=== PATIENT | female | born 1985 | race Caucasian/White ===

== ENCOUNTER 2022-12-22 15:24 | Outpatient (OUT) | payer BC, SELFPAY ==
--- NOTE | 2022-12-22 15:31 | XR_ITS ---
[address] [address] Patient Name: LUZMARIA CONTRERAS MRN: [id number] date: 1985 Sex: F Assigned Patient Location: [facility] Current Patient Location: [facility] Accession/Order Number: [id number] Exam Date: 12/22/2022 15:32 Report Date: 12/22/2022 21:44 At the request of: JOCY MICHELLE Procedure: XR knee RT 4V EXAM: Right knee. HISTORY: . Pain in the right knee M25.561 . COMPARISON: None. TECHNIQUE: 3 views FINDINGS: No fracture or dislocation of the right knee is noted. Joint spaces well-maintained. Surrounding soft tissues are unremarkable. IMPRESSION: Negative right knee. Electronically authenticated by: DEMARCUS PHILLIPS Date: 12/22/2022 21:44
== END 2022-12-22 15:25 ==
PROVIDERS: PCP Internal Medicine; Visit Provider Family Medicine
DX: M25.561 Pain in right knee (principal)
CPT/HCPCS: 73564

== ENCOUNTER 2023-01-05 06:40 | Outpatient (OUT) | payer BC, SELFPAY ==
--- NOTE | 2023-01-05 06:43 | MR_ITS ---
[address] [address] Patient Name: LUZMARIA CONTRERAS MRN: [id number] date: 1985 Sex: F Assigned Patient Location: MRI Current Patient Location: MRI Accession/Order Number: [id number] Exam Date: 01/05/2023 06:50 Report Date: 01/05/2023 07:43 At the request of: VANESSA VILLAGRAN Procedure: MR knee RT wo con EXAM: MR knee RT wo con HISTORY: Internal derangement of right knee M23.91 acute right knee pain COMPARISON: Right knee x-rays 12/22/2022. TECHNIQUE: Multi planar, multisequence MR imaging of the right knee without contrast Findings: Menisci: There is increased signal within the posterior horn of the medial meniscus without definite articular extension. The lateral meniscus is intact. Cruciate ligaments: The anterior and posterior cruciate ligaments are intact. Collateral ligaments: The medial collateral ligament and lateral collateral complex are intact. Patellofemoral: The extensor mechanism is intact. Small joint effusion. Grade 2 patellofemoral compartment chondromalacia. No full-thickness cartilage defect. Other bones and cartilage: No acute fracture or malalignment. No focal bone marrow edema. Grade 2 femoral tibial compartment chondromalacia. No full-thickness cartilage defect. Miscellaneous: No Mcdonald's cyst. IMPRESSION: 1. There is increased signal within the posterior horn of the medial meniscus without definite articular extension. Findings likely relate to internal degeneration however a small horizontal tear is possible. 2. Small joint effusion. Electronically authenticated by: SAMMY LIANG Date: 01/05/2023 07:43
== END 2023-01-05 06:41 | disposition home or self-care (01) ==
LOC: MRI 06:41
PROVIDERS: PCP Internal Medicine; Visit Provider Personal Emergency Response Attendant
DX: M23.91 Unspecified internal derangement of right knee (principal)
CPT/HCPCS: 73721

== ENCOUNTER 2023-01-27 13:39 | Outpatient (OUT) | payer BC, SELFPAY ==
--- NOTE | 2023-01-27 13:44 | US_ITS ---
The [address] [address] Patient Name: LUZMARIA CONTRERAS MRN: [id number] date: 1985 Sex: F Assigned Patient Location: US Current Patient Location: US Accession/Order Number: [id number] Exam Date: 01/27/2023 13:45 Report Date: 01/27/2023 16:23 At the request of: PITA NOLASCO Procedure: US pelvis transvaginal EXAM: US pelvis transvaginal INDICATION: Hormone Imbalance E34.9, Irregular Periods N92.6 COMPARISON: No prior pelvic ultrasound available for comparison at the time of this dictation. TECHNIQUE: Transvaginal ultrasound with grayscale, color Doppler and spectral Doppler imaging. FINDINGS: Anteverted Uterus:9.5 x 5.6 x 4.3 cm. Grossly normal myometrial echotexture. Endometrium:6.0 mm Right ovary: 2.4 x 2.0 x 2.2 cm. Left ovary: 2.9 x 2.4 x 2.8cm. Normal color Doppler with arterial/venous spectral tracing to both ovaries. No free fluid in the cul-de-sac. US/US pelvis transvaginal IMPRESSION: Normal pelvic ultrasound. Electronically authenticated by: BLANCHE GUAAJRDO Date: 01/27/2023 16:23
[2023-01-27 14:28] LABS: Basophils Percent Auto 0.8 % (0.2-2.0); Eosinophils Absolute Auto 0.1 10^3/uL (0.0-0.7); Hematocrit 36.5 % (36.0-48.0); Immature Granulocytes Abs Auto 0.01 10^3/uL (0.00-0.03); Immature Granulocytes Pct Auto 0.2 % (0.0-0.5); Lymphocytes Absolute Auto 1.8 10^3/uL (1.2-3.8); Lymphocytes Percent Auto 36.1 % (20.5-60.0); Mean Corpuscular HGB Conc 32.9 g/dL (29.9-35.2); Mean Corpuscular Hemoglobin 29.1 pg (26.7-34.0); Mean Corpuscular Volume 88.6 fL (81.0-99.0); Mean Platelet Volume 9.9 fL (9.5-13.5); Monocytes Absolute Auto 0.5 10^3/uL (0.3-0.8); Monocytes Percent Auto 9.2 % (1.7-12.0); Neutrophils Absolute Auto 2.6 10^3/uL (1.4-6.5); Neutrophils Percent Auto 51.7 % (43.0-75.0); Platelet Count 214 10^3/uL (150-450); Red Blood Count 4.12 10^6/uL (4.20-5.40); Red Cell Distribution Width 12.3 % (11.0-15.0)
[2023-01-27 16:02] LABS: HCG Quantitative <1 mIU/mL; Thyroid Stimulating Hormone 1.633 uIU/mL (0.358-3.740)
[2023-01-27 16:32] LABS: Free T4 0.84 ng/dL (0.76-1.46)
[2023-01-27 16:41] LABS: Estimated Average Glucose 114 mg/dL; Glycohemoglobin A1C 5.6 % (4.5-6.2)
[2023-01-28 05:12] LABS: FSH 6.7 mIU/mL (.); Luteinizing Hormone(LH) 26.2 mIU/mL (.); Prolactin 7.1 ng/mL (4.8-23.3)
[2023-02-02 11:20] LABS: DHEA, Serum 170 ng/dL (31-701)
== END 2023-01-27 13:40 | disposition home or self-care (01) ==
LOC: US 13:39
PROVIDERS: PCP Internal Medicine; Visit Provider Obstetrics & Gynecology
DX: E34.9 Endocrine disorder, unspecified (principal); N92.6 Irregular menstruation, unspecified; E88.81 Metabolic syndrome and other insulin resistance
CPT/HCPCS: 36415; 76830; 82626; 82627; 83001; 83002; 83036; 84146; 84439; 84443; 84702; 85025

== ENCOUNTER 2023-05-26 19:00 | Outpatient (REF) | payer BC, SELFPAY ==
[2023-06-01 10:11] LABS: Age Gdln ACOG Testing Note (.); HPV Aptima Negative (Negative); IGP, Aptima HPV, rfx 16/18,45 Note (.)
== END 2023-05-26 19:01 | disposition home or self-care (01) ==
LOC: LAB 19:00
PROVIDERS: PCP Internal Medicine; Visit Provider Physician Assistant
DX: Z01.419 Encounter for gynecological examination (general) (routine) without abnormal findings (principal)
CPT/HCPCS: 87624; G0145

== ENCOUNTER 2023-06-14 07:48 | Outpatient (REF) | payer BC, SELFPAY | END 2023-06-14 07:49 | disposition home or self-care (01) | LOC: LAB 07:48 | PROVIDERS: PCP Internal Medicine; Visit Provider Obstetrics & Gynecology | DX: N92.0 Excessive and frequent menstruation with regular cycle (principal) | CPT/HCPCS: 88305 ==

== ENCOUNTER 2023-08-09 09:55 | Outpatient (OUT) | payer OTHER, SELFPAY ==
--- OUTSIDE RECORDS SUMMARY | 2023-08-09 09:58 | XMS_ITS | CCD ---
Author Name Unknown Address [address] [place] [address] Organization [facility] Care Team Providers Care Senior Sales Operations Analyst Name Role Phone GERMAN MCGRAW Unavailable Unavailable MARKER, YEMI Unavailable Unavailable MARKER, YEMI Unavailable Unavailable SEDRICK FRANCIS Unavailable Unavailable MARKER, YEMI Unavailable Unavailable NON, STAFF, Primary Care Provider UnavailJames Jordan Attending Provider German Mcgraw Unavailable NON STAFF Primary Care Provider UnavailDO Pradeep Mendoza Attending Provider [phone] Marla Lewis Unavailable Pradeep Osullivan Attending Unavailable Pradeep Osullivan Admitting Unavailable NON STAFF Primary Care Unavailable FEDERICA MAGALLON Attending Unavailable PITA NOLASCO Attending Unavailable PITA NOLASCO Attending Unavailable Unavailable Unavailable Unavailable Allergies Allergy Classification Reported Allergen(s) Allergy Type Date of Onset Reaction(s) Facility (2 sources) patient allergy list reviewed by nurse or physicia Propensity to adverse reactions Comment:Done Synapse Other Medications Current Medications Medication Drug Class(es) Dates Sig (Normalized) Sig (Original) busPIRone hydrochloride 10 mg oral tablet (8 sources) Start: 12-15-2022 take 1 tablet by mouth twice daily as needed for anxiety busPIRone HCl 10 MG 1 tablet Orally Twice a day, as needed for anxiety for 30 days Dec, Active eletriptan 40 mg oral tablet (11 sources) Serotonin-1b and Serotonin-1d Receptor Agonist Eletriptan Hydrobromide 40 MG TAKE 1 TAB NEEDED FOR HEADACHE, MAY REPEAT IN 2 HOURS IF NEEDED, MAXIMUM 2 TABLETS IN 24 HOURS Active metFORMIN hydrochloride 500 mg oral tablet (1 source) Biguanide take 1 tablet by mouth every twenty-four hours metFORMIN HCl 500 MG 1 tablet with a meal Orally Once a day Active predniSONE 20 mg oral tablet (1 source) Start: 04-02-2023 predniSONE 20 MG 1 tablet Orally tid w/ food x 3 days then bid w/ food x 3 days then qd w/ food x 3 days for 9 days Mar, Active valACYclovir 1000 mg oral tablet (9 sources) Herpesvirus Nucleoside Analog DNA Polymerase Inhibitor, Herpes Simplex Virus Nucleoside Analog DNA Polymerase Inhibitor, Herpes Zoster Virus Nucleoside Analog DNA Polymerase Inhibitor Start: 11-17-2022 take 2 tablets by mouth twice daily valACYclovir HCl 1 GM 2 tablets Orally Twice daily for 1 days November, Active 24 hr venlafaxine 37.5 mg extended release oral capsule (10 sources) Serotonin and Norepinephrine Reuptake Inhibitor Start: 12-15-2022 Venlafaxine HCl ER 37.5 MG 2 capsules daily x 7 days then 1 capsule daily x 7 days then stop Orally Once a day for 14 days Dec, Active take 1 capsule by mouth once ly ly Venlafaxine HCl ER 150 MG TAKE 1 CAPSULE BY MOUTH EVERY DAY for 90 Active Completed/Discontinued Medications Medication Drug Class(es) Dates Sig (Normalized) Sig (Original) azithromycin 250 mg oral tablet (15 sources) Macrolide Antimicrobial Start: 07-17-2022 Azithromycin 250 MG as directed Orally daily for 5 days Jan, Not-Taking TB Test (11 sources) Start: 03-27-2015 TB Test Mar, 0.1 mL Problems Active Problems Problem Classification Problem Date Documented Date Episodic/Chronic Acute bronchitis (3 sources) Acute bronchitis due to other specified organisms; Translations: [Acute bronchitis] Episodic Allergic reactions (3 sources) Idiopathic urticaria; Translations: [Idiopathic urticaria] Episodic Anxiety disorders (15 sources) Generalized anxiety disorder; Translations: [Generalized anxiety disorder] Chronic Headache; including migraine (15 sources) Migraine with aura; Translations: [Migraine with aura, not intractable, without status migrainosus] Chronic Malaise and fatigue (2 sources) Fatigue; Translations: [Other fatigue] Episodic Neoplasms of unspecified nature or uncertain behavior (2 sources) Neoplasm of uncertain behavior of skin; Translations: [Neoplasm of uncertain behavior of skin] Episodic Other connective tissue disease (2 sources) Disorder of synovium; Translations: [Unspecified disorder of synovium and tendon, unspecified site] Episodic Other female genital disorders (4 sources) Abnormal uterine and vaginal bleeding, unspecified; Translations: [ABNORMAL UTERINE VAGINAL BLEED UNS] Onset: 12-17-2017 Chronic Other non-traumatic joint disorders (1 source) Pain in right knee Episodic Other upper respiratory disease (2 sources) Allergic rhinitis due to pollen; Translations: [Allergic rhinitis due to pollen] Chronic Other upper respiratory infections (1 source) Acute maxillary sinusitis, unspecified Episodic Residual codes; unclassified (2 sources) Family history of malignant neoplasm of gastrointestinal tract; Translations: [Family history of malignant neoplasm of digestive organs] Episodic Unclassified (1 source) Other specified postprocedural states; Translations: [OTH SPECIFIED POSTPROCEDURAL STATES] Onset: 12-20-2017 Viral infection (3 sources) Herpesviral vesicular dermatitis; 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] Episodic Past or Other Problems Problem Classification Problem Date Documented Da te Episodic/Chronic Menstrual disorders (2 sources) Amenorrhea; Translations: [Absence of menstruation] Onset: 04-04-2015 Resolved: 02-09-2020 Chronic Other connective tissue disease (2 sources) Pain in limb; Translations: [Pain in unspecified limb] Onset: 10-18-2014 Resolved: 02-09-2020 Episodic Other lower respiratory disease (2 sources) Cough; Translations: [Cough, unspecified] Onset: 06-28-2013 Resolved: 02-09-2020 Episodic Other upper respiratory disease (2 sources) Allergic rhinitis; Translations: [Allergic rhinitis, unspecified] Onset: 11-08-2014 Resolved: 02-09-2020 Chronic Results Test Name Value Interpretation Reference Range Facility Alanine aminotransferase [En zymatic activity/volume] in Serum or PlasmaOrdered By: Pradeep Osullivan on 10-14-2022 ALT [Catalytic activity/Vol] 8 U/L 7-52 [facility] Albumin [Mass/volume] in Ser um or Plasma by Bromocresol green (BCG) dye binding methoOrdered By: Pradeep Osullivan on 10-14-2022 Albumin BCG dye [Mass/Vol] 4.3 g/dL 3.5-5.7 [facility] Alkaline phosphatase [Enzyma tic activity/volume] in Serum or PlasmaOrdered By: Pradeep Osullivan on 10-14-2022 ALP [Catalytic activity/Vol] 62 U/L 34-104 [facility] Aspartate aminotransferase [ Enzymatic activity/volume] in Serum or PlasmaOrdered By: Pradeep Osullivan on 10-14-2022 AST [Catalytic activity/Vol] 15 U/L 13-39 [facility] Basophils Auto (Bld) [#/Vol] Ordered By: Pradeep Osullivan on 10-14-2022 Basophils (Bld) [#/Vol] 0.0 10*3/uL 0.0-0.2 [facility] Basophils/100 WBC Auto (Bld) Ordered By: Pradeep Osullivan on 10-14-2022 Basophils/100 WBC (Bld) 0.9 % . [facility] Bilirubin.total [Mass/volume ] in Serum or PlasmaOrdered By: Pradeep Osullivan on 10-14-2022 Bilirubin [Mass/Vol] 0.5 mg/dL 0.3-1.0 [facility] Calcium [Mass/volume] in Ser um or PlasmaOrdered By: Pradeep Osullivan on 10-14-2022 Calcium [Mass/Vol] 9.3 mg/dL 8.6-10.3 [facility] Carbon dioxide, total [Moles /volume] in Serum or PlasmaOrdered By: Pradeep Osullivan on 10-14-2022 CO2 [Moles/Vol] 28.0 mmol/L 21.0-31.0 [facility] Chloride [Moles/volume] in S sheila or PlasmaOrdered By: Pradeep Osullivan on 10-14-2022 Chloride [Moles/Vol] 106 mmol/L 98-107 [facility] Cholesterol [Mass/volume] in Serum or PlasmaOrdered By: Pradeep Osullivan on 10-14-2022 Cholesterol [Mass/Vol] 132 mg/dL 140-200 [facility] Comment on above: Chol less than 200 m g/dl low riskChol 201-239 mg/dl borderline riskChol 240 mg/dl and greater high risk Cholesterol in LDL Calc [Mas s/Vol]Ordered By: Pradeep Osullivan on 10-14-2022 Cholesterol in LDL [Mass/Vol] 68 mg/dL 0-100 [facility] Comment on above: LDL ATP III CLASSIFI CATIONLDL less than 100 mg/dL OptimalLDL 100-129 mg/dL Near or above optimalLDL 130-159 mg/dL Borderline highLDL 160-189 mg/dL HighLDL greater than 189 mg/dL Very high Cholesterol in VLDL Calc [Ma ss/Vol]Ordered By: Pradeep Osullivan on 10-14-2022 Cholesterol in VLDL [Mass/Vol] 10 mg/dL [facility] Creatinine [Mass/volume] in Serum or PlasmaOrdered By: Pradeep Osullivan on 10-14-2022 Creatinine [Mass/Vol] 0.83 mg/dL 0.60-1.20 [facility] Employee Comp Metabolic Pane jessika 10-14-2022 Albumin [Mass/Vol] 4.3 g/dL Normal 3.5-5.7 [facility] Comment on above: Performed By: #### P ILLAR TSH, PILLAR LIPID, PILLAR CMP, PILLAR CBC #### [place] [address] [place] #### NICOTINE QUAL #### [facility] , Albumin/Globulin [Mass ratio] 1.7 {ratio} Normal [facility] Comment on above: Performed By: #### P ILLAR TSH, PILLAR LIPID, PILLAR CMP, PILLAR CBC #### [facility] [address] [place] [address] [place] #### NICOTINE QUAL #### [facility] , ALP [Catalytic activity/Vol] 62 U/L Normal 34-104 [facility] Comment on above: Performed By: #### P ILLAR TSH, PILLAR LIPID, PILLAR CMP, PILLAR CBC #### [facility] [address] [place] [address] [place] #### NICOTINE QUAL #### [facility] , ALT [Catalytic activity/Vol] 8 U/L Normal 7-52 [facility] Comment on above: Performed By: #### P ILLAR TSH, PILLAR LIPID, PILLAR CMP, PILLAR CBC #### [facility] [address] [place] [address] [place] #### NICOTINE QUAL #### [facility] , Anion gap [Moles/Vol] 9.4 mmol/L Normal 6.0-15.0 [facility] Comment on above: Performed By: #### P ILLAR TSH, PILLAR LIPID, PILLAR CMP, PILLAR CBC #### [facility] [address] [place] [address] [place] #### NICOTINE QUAL #### [facility] , AST [Catalytic activity/Vol] 15 U/L Normal 13-39 [facility] Comment on above: Performed By: #### P ILLAR TSH, PILLAR LIPID, PILLAR CMP, PILLAR CBC #### [facility] [address] [place] [address] #### NICOTINE QUAL #### [facility] , Bilirubin [Mass/Vol] 0.5 mg/dL Normal 0.3-1.0 [facility] Comment on above: Performed By: #### P ILLAR TSH, PILLAR LIPID, PILLAR CMP, PILLAR CBC #### [facility] [address] [place] [address] [place] #### NICOTINE QUAL #### [facility] , Calcium [Mass/Vol] 9.3 mg/dL Normal 8.6-10.3 [facility] Comment on above: Performed By: #### P ILLAR TSH, PILLAR LIPID, PILLAR CMP, PILLAR CBC #### [facility] [address] [place] [address] #### NICOTINE QUAL #### [facility] , Chloride [Moles/Vol] 106 mmol/L Normal 98-107 [facility] Comment on above: Performed By: #### P ILLAR TSH, PILLAR LIPID, PILLAR CMP, PILLAR CBC #### [facility] [address] [place] [address] [place] #### NICOTINE QUAL #### [facility] , CO2 [Moles/Vol] 28.0 mmol/L Normal 21.0-31.0 [facility] Comment on above: Performed By: #### P ILLAR TSH, PILLAR LIPID, PILLAR CMP, PILLAR CBC #### [facility] [address] [place] [address] [place] #### NICOTINE QUAL #### [facility] , Creatinine [Mass/Vol] 0.83 mg/dL Normal 0.60-1.20 [facility] Comment on above: Performed By: #### P ILLAR TSH, PILLAR LIPID, PILLAR CMP, PILLAR CBC #### [facility] [address] [place] [address] [place] #### NICOTINE QUAL #### [facility] , GFR/1.73 sq M.predicted MDRD (S/P/Bld) [Vol rate/Area] mL/min/{1.73_m2} Normal [facility] Comment on above: Performed By: #### P ILLAR TSH, PILLAR LIPID, PILLAR CMP, PILLAR CBC #### [facility] [address] [place] [address] [place] #### NICOTINE QUAL #### [facility] , Globulin (S) [Mass/Vol] 2.5 g/dL Normal [facility] Comment on above: Performed By: #### P ILLAR TSH, PILLAR LIPID, PILLAR CMP, PILLAR CBC #### [facility] [address] [place] [address] [place] #### NICOTINE QUAL #### [facility] , Glucose [Mass/Vol] 88 mg/dL Normal 70-100 [facility] Comment on above: Performed By: #### P ILLAR TSH, PILLAR LIPID, PILLAR CMP, PILLAR CBC #### [facility] [address] [place] [address] [place] #### NICOTINE QUAL #### [facility] , Potassium [Moles/Vol] 4.4 mmol/L Normal 3.5-5.1 [facility] Comment on above: Performed By: #### P ILLAR TSH, PILLAR LIPID, PILLAR CMP, PILLAR CBC #### [facility] [address] [place] [address] [place] #### NICOTINE QUAL #### [facility] , Protein [Mass/Vol] 6.8 g/dL Normal 6.4-8.9 [facility] Comment on above: Performed By: #### P ILLAR TSH, PILLAR LIPID, PILLAR CMP, PILLAR CBC #### [facility] [address] [place] [address] #### NICOTINE QUAL #### [facility] , Sodium [Moles/Vol] 139 mmol/L Normal 136-145 [facility] Comment on above: Performed By: #### P ILLAR TSH, PILLAR LIPID, PILLAR CMP, PILLAR CBC #### [address] #### NICOTINE QUAL #### [facility] , Urea nitrogen [Mass/Vol] 10 mg/dL Normal 7-25 [facility] Comment on above: Performed By: #### P ILLAR TSH, PILLAR LIPID, PILLAR CMP, PILLAR CBC #### [address] #### NICOTINE QUAL #### [facility] , Employee Complete Blood Coun ton 10-14-2022 Basophils (Bld) [#/Vol] 0.0 10*3/uL Normal 0.0-0.2 [facility] Comment on above: Result Comment: PERF ORMED BY: [place] [address] PATHOLOGIST SAVE ALL OPERATOR FLOYD CASTILLO M.D. Performed By: #### P ILLAR TSH, PILLAR LIPID, PILLAR CMP, PILLAR CBC #### [facility] [address] [place] [address] [place] #### NICOTINE QUAL #### [facility] , Basophils/100 WBC (Bld) 0.9 % Normal . [facility] Comment on above: Performed By: #### P ILLAR TSH, PILLAR LIPID, PILLAR CMP, PILLAR CBC #### [facility] [address] [place] [address] [place] #### NICOTINE QUAL #### [facility] , Eosinophils (Bld) [#/Vol] 0.0 10*3/uL Normal 0.0-0.45 [facility] Comment on above: Performed By: #### P ILLAR TSH, PILLAR LIPID, PILLAR CMP, PILLAR CBC #### [facility] [address] [place] [address] [place] #### NICOTINE QUAL #### [facility] , Eosinophils/100 WBC (Bld) 1.0 % Normal . [facility] Comment on above: Performed By: #### P ILLAR TSH, PILLAR LIPID, PILLAR CMP, PILLAR CBC #### [address] #### NICOTINE QUAL #### [facility] , Erythrocyte distribution width (RBC) [Ratio] 13.2 % Normal 11.9-15.3 [facility] Comment on above: Performed By: #### P ILLAR TSH, PILLAR LIPID, PILLAR CMP, PILLAR CBC #### [facility] [address] [place] [address] [place] #### NICOTINE QUAL #### [facility] , Hematocrit (Bld) [Volume fraction] 37.6 % Normal 34.0-46.4 [facility] Comment on above: Performed By: #### P ILLAR TSH, PILLAR LIPID, PILLAR CMP, PILLAR CBC #### [place] [address] [place] #### NICOTINE QUAL #### [facility] , Hemoglobin (Bld) [Mass/Vol] 12.4 g/dL Normal 11.8-15.4 [facility] Comment on above: Performed By: #### P ILLAR TSH, PILLAR LIPID, PILLAR CMP, PILLAR CBC #### [place] [address] [place] #### NICOTINE QUAL #### [facility] , Lymphocytes (Bld) [#/Vol] 1.4 10*3/uL Normal 1.00-4.8 [facility] Comment on above: Performed By: #### P ILLAR TSH, PILLAR LIPID, PILLAR CMP, PILLAR CBC #### [facility] [address] [place] [address] [place] #### NICOTINE QUAL #### [facility] , Lymphocytes/100 WBC (Bld) 32.7 % Normal . [facility] Comment on above: Performed By: #### P ILLAR TSH, PILLAR LIPID, PILLAR CMP, PILLAR CBC #### [facility] [address] [place] [address] [place] #### NICOTINE QUAL #### [facility] , MCH (RBC) [Entitic mass] 28.4 pg Normal 24.7-34.3 [facility] Comment on above: Performed By: #### P ILLAR TSH, PILLAR LIPID, PILLAR CMP, PILLAR CBC #### [facility] [address] [place] [address] #### NICOTINE QUAL #### [facility] , MCV (RBC) [Entitic vol] 86.3 fL Normal 80-100 [facility] Comment on above: Performed By: #### P ILLAR TSH, PILLAR LIPID, PILLAR CMP, PILLAR CBC #### [facility] [address] [place] [address] [place] #### NICOTINE QUAL #### [facility] , Mean Corpuscular HGB Conc 32.9 g/dL Normal 32.0-35.0 [facility] Comment on above: Performed By: #### P ILLAR TSH, PILLAR LIPID, PILLAR CMP, PILLAR CBC #### [facility] [address] [place] [address] [place] #### NICOTINE QUAL #### [facility] , Monocytes (Bld) [#/Vol] 0.3 10*3/uL Normal 0.0-0.8 [facility] Comment on above: Performed By: #### P ILLAR TSH, PILLAR LIPID, PILLAR CMP, PILLAR CBC #### [facility] [address] [place] [address] [place] #### NICOTINE QUAL #### [facility] , Monocytes/100 WBC (Bld) 7.8 % Normal . [facility] Comment on above: Performed By: #### P ILLAR TSH, PILLAR LIPID, PILLAR CMP, PILLAR CBC #### [facility] [address] [place] [address] [place] #### NICOTINE QUAL #### [facility] , Neutrophils (Bld) [#/Vol] 2.4 10*3/uL Normal 1.8-7.7 [facility] Comment on above: Performed By: #### P ILLAR TSH, PILLAR LIPID, PILLAR CMP, PILLAR CBC #### [facility] [address] [place] [address] [place] #### NICOTINE QUAL #### [facility] , Neutrophils/100 WBC (Bld) 57.6 % Normal . [facility] Comment on above: Performed By: #### P ILLAR TSH, PILLAR LIPID, PILLAR CMP, PILLAR CBC #### [facility] [address] [place] [address] [place] #### NICOTINE QUAL #### [facility] , NRBC% 0.1 /100{WBC} Normal 0-0.5 [facility] Comment on above: Performed By: #### P ILLAR TSH, PILLAR LIPID, PILLAR CMP, PILLAR CBC #### [facility] [address] [place] [address] [place] #### NICOTINE QUAL #### [facility] , Platelet mean volume (Bld) [Entitic vol] 8.8 fL Normal 6.3-10.7 [facility] Comment on above: Performed By: #### P ILLAR TSH, PILLAR LIPID, PILLAR CMP, PILLAR CBC #### [facility] [address] [place] [address] #### NICOTINE QUAL #### [facility] , Platelets (Bld) [#/Vol] 197 10*3/uL Normal 150-450 [facility] Comment on above: Performed By: #### P ILLAR TSH, PILLAR LIPID, PILLAR CMP, PILLAR CBC #### [facility] [address] [place] [address] [place] #### NICOTINE QUAL #### [facility] , RBC (Bld) [#/Vol] 4.36 10*6/uL Normal 3.60-5.00 [facility] Comment on above: Performed By: #### P ILLAR TSH, PILLAR LIPID, PILLAR CMP, PILLAR CBC #### [address] #### NICOTINE QUAL #### [facility] , WBC (Bld) [#/Vol] 4.2 10*3/uL Normal 3.8-11.6 [facility] Comment on above: Performed By: #### P ILLAR TSH, PILLAR LIPID, PILLAR CMP, PILLAR CBC #### [facility] [address] [place] [address] #### NICOTINE QUAL #### [facility] , Employee Lipid Profileon Cholesterol [Mass/Vol] 132 mg/dL Low 140-200 [facility] Comment on above: Result Comment: Chol less than 200 mg/dl low risk Chol 201-239 mg/dl borderline risk Chol 240 mg/dl and greater high risk Performed By: #### P ILLAR TSH, PILLAR LIPID, PILLAR CMP, PILLAR CBC #### [facility] [address] [place] [address] [place] #### NICOTINE QUAL #### [facility] , Cholesterol in HDL [Mass/Vol] 54 mg/dL Normal 35-85 [facility] Comment on above: Result Comment: HDL CHOL ATP-III CLASSIFICATION Cardiovascular Risk HDL > or equal to 60 mg/dL LOW HDL < 40 mg/dL HIGH Performed By: #### P ILLAR TSH, PILLAR LIPID, PILLAR CMP, PILLAR CBC #### [facility] [address] [place] [address] [place] #### NICOTINE QUAL #### [facility] , Cholesterol.total/Carey sterol in HDL [Mass ratio] 2.4 {ratio} Normal <5.0 [facility] Comment on above: Performed By: #### P ILLAR TSH, PILLAR LIPID, PILLAR CMP, PILLAR CBC #### [place] [address] [place] #### NICOTINE QUAL #### [facility] , LDL Cholesterol,Calculated 68 mg/dL Normal 0-100 [facility] Comment on above: Result Comment: LDL ATP III CLASSIFICATION LDL less than 100 mg/dL Optimal LDL 100-129 mg/dL Near or above optimal LDL 130-159 mg/dL Borderline high LDL 160-189 mg/dL High LDL greater than 189 mg/dL Very high Performed By: #### P ILLAR TSH, PILLAR LIPID, PILLAR CMP, PILLAR CBC #### [place] [address] [place] #### NICOTINE QUAL #### [facility] , Triglyceride w/Reflex 52 mg/dL Normal 0-149 [facility] Comment on above: Result Comment: TRIG ATP III CLASSIFICATION TRIG less than 150 mg/dL Normal TRIG 150-199 mg/dL Borderline high TRIG 200-500 mg/dL High TRIG greater than 500 mg/dL Very high Standard traceable to the Center for Disease Conrtrol and Prevention (CDC) test method. Performed By: #### P ILLAR TSH, PILLAR LIPID, PILLAR CMP, PILLAR CBC #### [place] [address] [place] #### NICOTINE QUAL #### [facility] , VLDL CHOLESTEROL 10 mg/dL Normal [facility] Comment on above: Performed By: #### P ILLAR TSH, PILLAR LIPID, PILLAR CMP, PILLAR CBC #### [address] [place] [address] [place] #### NICOTINE QUAL #### [facility] , Employee Thyroid Stim Hormon deborah 10-14-2022 Employee Thyroid Stim Hormone 1.78 u[iU]/mL Normal 0.45-5.33 [facility] Comment on above: Result Comment: PERF ORMED BY: [address] [place] [address] PATHOLOGIST SAVE ALL OPERATOR FLOYD CASTILLO M.D. Performed By: #### P ILLAR TSH, PILLAR LIPID, PILLAR CMP, PILLAR CBC #### [facility] [address] [place] [address] #### NICOTINE QUAL #### [facility] , Eosinophils Auto (Bld) [#/Vo l]Ordered By: Pradeep Osullivan on 10-14-2022 Eosinophils (Bld) [#/Vol] 0.0 10*3/uL 0.0-0.45 [facility] Eosinophils/100 WBC Auto (Bl d)Ordered By: Pradeep Osullivan on 10-14-2022 Eosinophils/100 WBC (Bld) 1.0 % . [facility] Erythrocyte distribution wid th Auto (RBC) [Ratio]Ordered By: Pradeep Osullivan on 10-14-2022 Erythrocyte distribution width (RBC) [Ratio] 13.2 % 11.9-15.3 [facility] Globulin Calc (S) [Mass/Vol] Ordered By: Pradeep Osullivan on 10-14-2022 Globulin (S) [Mass/Vol] 2.5 g/dL [facility] Glucose [Mass/volume] in Ser um or PlasmaOrdered By: Pradeep Osullivan on 10-14-2022 Glucose [Mass/Vol] 88 mg/dL 70-100 [facility] Hematocrit Auto (Bld) [Volum e fraction]Ordered By: Pradeep Osullivan on 10-14-2022 Hematocrit (Bld) [Volume fraction] 37.6 % 34.0-46.4 [facility] Hemoglobin [Mass/volume] in BloodOrdered By: Pradeep Osullivan on 10-14-2022 Hemoglobin (Bld) [Mass/Vol] 12.4 g/dL 11.8-15.4 [facility] Leukocytes [#/volume] correc coral for nucleated erythrocytes in Blood by Automated counOrdered By: Pradeep Osullivan on 10-14-2022 WBC corrected for nucl RBC Auto (Bld) [#/Vol] 4.2 10*3/uL 3.8-11.6 [facility] Lymphocytes Auto (Bld) [#/Vo l]Ordered By: Pradeep Osullivan on 10-14-2022 Lymphocytes (Bld) [#/Vol] 1.4 10*3/uL 1.00-4.8 [facility] Lymphocytes/100 WBC Auto (Bl d)Ordered By: Pradeep Osullivan on 10-14-2022 Lymphocytes/100 WBC (Bld) 32.7 % . [facility] MCH Auto (RBC) [Entitic mass ]Ordered By: Pradeep Osullivan on 10-14-2022 MCH (RBC) [Entitic mass] 28.4 pg 24.7-34.3 [facility] MCHC Auto (RBC) [Mass/Vol]Or dered By: Pradeep Osullivan on 10-14-2022 MCHC (RBC) [Mass/Vol] 32.9 g/dL 32.0-35.0 [facility] MCV Auto (RBC) [Entitic vol] Ordered By: Pradeep Osullivan on 10-14-2022 MCV (RBC) [Entitic vol] 86.3 fL 80-100 [facility] Monocytes Auto (Bld) [#/Vol] Ordered By: Pradeep Osullivan on 10-14-2022 Monocytes (Bld) [#/Vol] 0.3 10*3/uL 0.0-0.8 [facility] Monocytes/100 WBC Auto (Bld) Ordered By: Pradeep Osullivan on 10-14-2022 Monocytes/100 WBC (Bld) 7.8 % . [facility] Neutrophils Auto (Bld) [#/Vo l]Ordered By: Pradeep Osullivan on 10-14-2022 Neutrophils (Bld) [#/Vol] 2.4 10*3/uL 1.8-7.7 [facility] Neutrophils/100 WBC Auto (Bl d)Ordered By: Pradeep Osullivan on 10-14-2022 Neutrophils/100 WBC (Bld) 57.6 % . [facility] Nicotine Metabolite, Qualon 10-14-2022 Nicotine Metabolite Negative Normal Cutoff=25 [facility] Comment on above: Result Comment: Perf ormed at: BN - [facility] [address] [id number] [employer] Fabricator Welder: Sammy Carpenetr MD, Phone: [phone] PERFORMED BY: [place] [address] PATHOLOGIST SAVE ALL OPERATOR FLOYD CASTILLO M.D. Performed By: #### P ILLAR TSH, PILLAR LIPID, PILLAR CMP, PILLAR CBC #### [address] #### NICOTINE QUAL #### [facility] , No Panel InformationOrdered By: Pradeep Osullivan on 10-14-2022 Estimated GFR (CKD-EPI) > 60.0 mL/Min [facility] Creatinine Clearance (Chem N/A [facility] Nucleated erythrocytes [Pres ence] in Blood by Automated countOrdered By: Pradeep Osullivan on 10-14-2022 Nucleated RBC Auto Ql (Bld) 0.1 /100{WBC} 0-0.5 [facility] Platelet mean volume Auto (B ld) [Entitic vol]Ordered By: Pradeep Osullivan on 10-14-2022 Platelet mean volume (Bld) [Entitic vol] 8.8 fL 6.3-10.7 [facility] Platelets Auto (Bld) [#/Vol] Ordered By: Pradeep Osullivan on 10-14-2022 Platelets (Bld) [#/Vol] 197 10*3/uL 150-450 [facility] Potassium [Moles/volume] in Serum or PlasmaOrdered By: Pradeep Osullivan on 10-14-2022 Potassium [Moles/Vol] 4.4 mmol/L 3.5-5.1 [facility] Protein [Mass/volume] in Ser um or PlasmaOrdered By: Pradeep Osullivan on 10-14-2022 Protein [Mass/Vol] 6.8 g/dL 6.4-8.9 [facility] RBC Auto (Bld) [#/Vol]Ordere d By: Pradeep Osullivan on 10-14-2022 RBC (Bld) [#/Vol] 4.36 10*6/uL 3.60-5.00 [facility] Serum or plasma albumin/glob ulin mass ratioOrdered By: Pradeep Osullivan on 10-14-2022 Albumin/Globulin [Mass ratio] 1.7 {ratio} [facility] Serum or plasma anion gap de terminationOrdered By: Pradeep Osullivan on 10-14-2022 Anion gap [Moles/Vol] 9.4 mmol/L 6.0-15.0 [facility] Serum or plasma high density lipoprotein (HDL) cholesterol measurementOrdered By: Pradeep Osullivan on 10-14-2022 Cholesterol in HDL [Mass/Vol] 54 mg/dL 35-85 [facility] Comment on above: HDL CHOL ATP-III CLA SSIFICATION Cardiovascular RiskHDL > or equal to 60 mg/dL LOWHDL < 40 mg/dL HIGH Serum or plasma total choles terol/high density lipoprotein (HDL) cholesterol mass ratOrdered By: Pradeep Osullivan on 10-14-2022 Cholesterol.total/Carey sterol in HDL [Mass ratio] 2.4 {ratio} <5.0 [facility] Sodium [Moles/volume] in Ser um or PlasmaOrdered By: Pradeep Osullivan on 10-14-2022 Sodium [Moles/Vol] 139 mmol/L 136-145 [facility] Thyrotropin [Units/volume] i n Serum or PlasmaOrdered By: Pradeep Osullivan on 10-14-2022 TSH Qn 1.78 m[IU]/L 0.45-5.33 [facility] Triglyceride [Mass/volume] i n Serum or PlasmaOrdered By: Pradeep Osullivan on 10-14-2022 Triglyceride [Mass/Vol] 52 mg/dL 0-149 [facility] Comment on above: TRIG ATP III CLASSIF ICATIONTRIG less than 150 mg/dL NormalTRIG 150-199 mg/dL Borderline highTRIG 200-500 mg/dL High TRIG greater than 500 mg/dL Very highStandard traceable to the Center for Disease Conrtrol and Prevention (CDC) test method. Urea nitrogen [Mass/volume] in Serum or PlasmaOrdered By: Pradeep Osullivan on 10-14-2022 Urea nitrogen [Mass/Vol] 10 mg/dL 7- [facility] WBC Auto (Bld) [#/Vol]Ordere d By: Pradeep Osullivan on 10-14-2022 WBC (Bld) [#/Vol] 4.2 10*3/uL 3.8-11.6 [facility] PAP [id number] 02-17-2022 Cytology report Cyto stain Doc (Cvx/Vag) Note Invalid Interpretation Code [facility] Comment on above: Result Comment: TEST S RESULT FLAG UNITS REF RANGE LAB Clinician Provided Cytology Information Source.............Endocervix No. of containers..01 ThinPrep Vial DIAGNOSIS: 01 NEGATIVE FOR INTRAEPITHELIAL LESION OR MALIGNANCY. Specimen adequacy: 01 Satisfactory for evaluation. Endocervical and/or squamous metaplastic cells (endocervical component) are present. Performed by: Kvng Florian, Beef Specialist (ASCP) . 01 Note: Note 01 The Pap smear is a screening test designed to aid in the detection of premalignant and malignant conditions of the uterine cervix. It is not a diagnostic procedure and should not be used as the sole means of detecting cervical cancer. Both false-positive and false-negative reports do occur. Test Methodology: Note 01 This liquid based ThinPrep(R) pap test was screened with the use of an image guided system. FLAG LEGEND: L-Low Normal,H-High Normal,LL-Alert Low,HH-Alert High <-Panic Low,>-Panic High,A-Abnormal,AA-Critical Abnormal Performed at: [address] [id number] Yun Atwood MD, Performed By: #### 3 [id number] #### [facility] [address] [place] [address] HPV 16+18+31+33+35+39+45+51 +52+56+58+59+66+68 DNA Probe+sig amp Ql (Cvx) Negative Invalid Interpretation Code Negative [facility] Comment on above: Result Comment: This nucleic acid amplification test detects fourteen high-risk HPV types (16,18,31,33,35,39,45,51,52,56,58,59,66,68) without differentiation. Performed at: [facility] [id number] MD Angelic Malcolm Performed at: =[facility] [id number] MD Angelic Malcolm Performed By: #### 3 [id number] #### [facility] [address] [place] [address] Coding Summary.on 02-16-2022 Coding Summary. CD:[id number] G h0bWw+PGhlYWQ+JZ8KGCD kS55pwYZesY8XW0pEHF1B OQCJLPWONE4GTF6umIR0L XsbO3OlckTa GemorGTyMM18WHt6LVP3k YhoHEdufF8agQJaM5g5Vg YnGB54sG60HUmtYXJeQeM 3LjZpbjsgbWFy K4tvUwWxzZRjGzc+PHRhY mxlIHdpZHRoPScxMDAlJy CmsOlrNM5uYp6sGJKbYOE vbGxhcHNlOiBj v5jtMAFxYZtgWE0qqZakD 9OvlHX7BHBbg3a6Wz24lG I+FWNqLQQ7eUswJOpxc68 6NePss1xlJYF7 fVViQGhbMTZ9M18sk6X5R PMvHOUmGHM2zDZ8qZ3ycP tjzyjgE1FyqOFsMoQ2GAG 2bLBfrA9msDwp hfhmpD5vIsy+H32EEI6AR VYOUO1LByu2R0ScYlyeqD I+XI40ZPKuUG43ySJxyHI pk9lnoNe7IgYq JYCaCIC4qQqdXMxhv1TmD XTbN58ndCWuj9O5XBRzqG hjtZTxFeIpvHF2uN6oMWz motcle9htyyco Zqbte5yauk17bY29C48eC RsaDOJqQJZ1OUQwKSPkmL dzna3qiB7nZj8+KEtwp9n we5brpRp2EqOd JAKndxBkzEznCGM3m8HjS g46L5TgtCgyd5YsHxa6su 95tFOoy0F0wQY1OIhvBUV dpS2bMPluWtI7 WSEnXeZjfE23uHWtNXgiW j1tzUuxvNjsCS0gZTXoua qlHYNbkM8yXHKdtTZbbYl cKG3hSLGnfrjh q258QfCpFEX1CKLarQGjY 0LhqG2jSlUwXMMiWFImM8 KquEMeJNjwQ581TDflMbY 3KRZjbxEeD2Tg PAFcmBauCqC3l1P2Ky7Tk 1VwejklVKR3QSsoCXE1Dv D1PlNaWuA4L2ImKky4NZY uoEnuUX7yM8Us HQCguopgjdviyZR5KWWpP JNdzU25bUOlGEphIf2vb4 G4q940DRMbKDEygB41Ha1 udDogMTBwdCBU cI9ovwzpx5zcbsqqLhKhW QItFYc6HOz3YIJclNafSv WlNQP1VgB1ZEU6vWYecA9 wnLwaigxqiY9a Oyc+S09sfD7eLPC9JCD5q ixbBFMyckTfQX70JG73Q1 RyPjwvdGFibGU+PGRpdiB ppYpkUU6jBdVy l0rlx2KfHBtiQ1YtJMPjC CqaQtu4TCMeGOF0wDW4pT 6mVFVmSCgvu8Y1zBP3B4S ncuXzbf9xo2ga JCOiHIvuG64btEUmf8W0M EPvwVD7BDPrrAwwGjJdoU 93Oyc+YNUrbZcuv6LmIrq gj9zdp1jdrZc4 CkKfWWSpdnButNbxMFX3j 9NyCu16O36gULmqHCXkUT DlRDQsMBIvmYfjaq3ovN7 wIi8+PGNvbCB3 mJK7sZ6bCWUjUsY4WItyB 021BaFmvGCmPqfqx2ncj4 ttoTp2UlBpZTUjqkYbeYf bKTD5t2RbNw20 Y89cTYrgVFLeGMMhRSDcX UZvoPrjyq0trC9kNi7+PC 3gg5eqyd06yL30rQW+PHR oETR4lAppNOzz GFXbfG8jVVzpBbD3FCLhA cKkrP64qUJrKGzfCi0bgL tmfTgtYB0rVYJvjdczo26 4OaXfk4vbEYJr vLUqVLpwYJO8X15jf2C2A IYpDSMpWJI1eXS5mA0vjJ lnbjogbGVmdDsgdmVydGl pBVndLXsiS243 IHRvcDsnPlBhdGllbnQgT rRzLNf5S1CpEah6LDDgxM pjTV7cgHEeNFwqUu8vvFj sgLkhWA3wIZBr kbnja133KdIxe5yqZKBjj CCeJIpiRIU3A56xl8P8PD CmSRAcIBC7tWF0eS4mkIa nbjogbGVmdDsg teIpjZmcYWdsPRzxV608G HRvcDsnPkJpcnRoIERhdG W1WQ52QV34jUEsq2O3jYJ 4F4QeSWKzoalu zeoaiBB6AISsXRLdwQ75I d4weHsbHh8cVUGoXVA7NR CqiMTuP8OlnP4wHyJsOWL kWEExW0CbiLNr GCpjM290FDmuLjT7GLGiy zQxC9CqJYEtoIscJfP7i8 Y9Ie2PO3A4QG79PT52vJG he1A2zRD9J0Wa QIWwcwtvbwxnzHO4JBOeX ACcjF04Ee9lxEdhQu9iRR ZzCLQ5MVFsnKSaR5QfdS7 yOiAjMDAwMDAw R5XxpDCrPKiiU582GOfeT pY4XQHutcAfP6VqUAMkzN ydKxD6z0K6Sc3QQFj4NM5 1OT37cFAnc5N2 sGX3G2WwDHXcyktqsvvyf OP8WWLwBJRzeW01Zl2upQ nuEv2oOQCoLPK3NXGbcOH kE3ZfaO9mZsEg BNPwYPQtY3OolKVbPTaaT 165QEjxNjP1PFPhelHoG5 KsKSPtmGmjTmX6c2L9Ps9 WZTOeJJ79VAA9 xBJ6WY91GL94O2GyAuabd GFibGU+PHRhYmxlIHdpZH RoPScxMDAlJyBzdHlsZT0 iYb3jVWWgZDJh mHnbeFAkGqKsc3mzFAZyF EmfJE8ktNszE6TasAK2XN Iux6s1Ej47F53dA6WpwIZ +MQFtcNU8gJV7 rO9zCwKjAxM0LQjbV608R ePzzFArSiiuh9sld5eokG s1JmV4YCYwvyEouMiwEBK 0x0XyFq57E85d IHdpZHRoPSIxNSUiIHZhb Ufcma3jcA2fJr9+PGNvbC U1fRC9lA7mPxDdMkM8YFv nE457PtEolLKk Fagzc5vzl0fmqSi7XlJlW BIzleHqjFidJER6s7WvHx 58R9NvyOqkf5BwMxc2dp2 8tDYxe4L4gJE0 S1GuKGNlkmgynTHezAnkV A4mFEBlfwcaWWXdkU4jFK VhF7r5XvAgDrH7DBzwU8I vivW7POQimTIf NPhpFBZ7X62xj9I0SVFxP GDqRGQ7oUA7wA6hdLiqfg ogbGVmdDsgdmVydGljYWw wYPwuH552IQYi jQxeRUIeuF1rUAAxnFSll UyyOS9uCHDldgcaOskJXO uJBC7oABHOFYSTPKS1N4Z hVul1MFVivQwr DE6ruTMiCLpnUz1biMiav DffMS8oIBAatosuQKOfwF 3kAAKmkGPtyPjlKH4mIVG vfrijs916HhLf XJG6CHQoxSYmL9UbsC9xK mLuHGAiEHAqY9VceQYgWO ipB754ZFxdZdX5RAAzdiZ sT1JaEOXykYiy XpN9h1P0Xb1cEM9dAI1gU Lh0WY32WZ31nHEuu0L2sS W1C7IgAXHtmqbyneqocDO 3VARlRBFzaK50 zLDcZWyeKi7ts4G9z552R MZrPAEdoW78Er9npGxoAJ DarVPYoZ9suxvxk5pyqzo gIzAwMDAwMDt0 GJi2YFAvjBlfJwGkEZU9B vC1JHR4lKYzhU7nlHhdqg dbuV2hZyn+MzQgWWVhcnM 1O9FyAmu7LXFe jPprLR2wuCMaWJlbMq5eq TvikQkbFB3iPGLzuxniLK HfjM4nWVSjnPRezQpeQB8 gAOOoahzji364 UaIxTNC6KQJiqZAaN0Obp S6qBiTyLVFbREWxZ7BpcM XfNXjhB187HBlqBnO2YOR xkwQxM1JuWLBp hOmpFaR6r6Y7Wk3GNA3fw UV6J3IxCtu8VZZkvXkxCH 4wyDLmNLmzTf3zmDxzxCe zTU0lSNVtgpaz FAWptP0tNQAolRDodVzmU O4rSCAqfmwiw553DkHuMU A5XROjwDLeO1TnkV0vRhD cQWIgDVUhA4Nc yPDhGGwdC911CJtwKjT1J AGttbJgH9YiUPIawAizXc Q6q0Z3Qa0LOMVoQYSyrRO bElG4H5IcNucq dHI+JL91CIGwLR92wFQss DMho5znhMn4XcZhCMPpVX H4eTamCKolc0JcREPzW06 npFTpq5G3OQOv vChyrCVpWkQaeRG0jG7zQ Iogisbcv6faepdyIkctc2 keej83rK02Y66rXYsiJUQ oPSIzMCUiIHZh mHuwlg3dmC0gAy2+PGNvb VO3kML6vG9bSzTqZqH7LN qfG492NwGkmQAiCuagh7w du7oijXy5HcJq CMFxztHliHmxBSA5l4LyD o63V03gCGhhPQZaUFYtPF NqLHUzhPepmd9etC5cCf9 +WG3zj8njiw11 xI01nPE+JUKcWCH3uCxiZ SyfYIPxiU5rCVybUvU9BV AbElBiaU53gANnBZljHb7 pdSppuWchFN8x HNLguyypc894UuDwp6fsE YHsiOGbQHfzHVE3Q97ce8 W0SBZcUHHuGHA4nKM5tD4 hbGlnbjogbGVm dDsgdmVydGljYWwtYWxpZ 027LCFytHoqQeBmxBGxX0 iokaAOAJ4qTbrqfBP+PHR nPGZ0jYebSIse ENFkkC9gEEWsZ5h1LuQuQ sF1TCknK9ZlxuO7WSXfkM BmSWTmsNQKpA3ziagol4n vcjogIzAwMDAw CQl4MXg2SBUayOiiDdMeL WZ2GsS3VFP4aIPdpI8sfP qqjuhbbT0kDwb+RklOOjw vdGQ+PHRkIHN0 iFvcBGfgGPYnjS5vNHBfF 6z1IeLpIkU6JLnmD4Rjor X3DDUmaMZfASOeuMTRfV9 iyipaz9taugdv LjYuYUDmFOy2KAc2KJWth PfeFjPjMKM3LbU3ASE9tE SwoN8xqOesgmpfcN5vVsz +TVJOOjwvdGQ+ ZLKjRXU5oXldBKwfZEWyz J6hMOMyJ5l5AzUtGmQ1AF ayS3YijoK3OQGdkGBoTZR rhLGMtU2sytez a3pgnirxFiAmMZCwOTb9I Vk2DHFbbXalKiQkSXU4Qj U6IME0eXLwkE2ksDagbow dmE2nTry+UGF5 YDK8EE90VB01P3DwBptsh GFibGU+PHRhYmxlIHdpZH RoPScxMDAlJyBzdHlsZT0 iFn0hBDYyFNLe bGxh (more content not included)... Normal [facility] PAP [id number] 02-11-2022 Collection Technique BRUSH-SPATULA Normal F [facility] Comment on above: Performed By: #### 3 [id number] #### [facility] [address] [place] [address] Gynecological Body Site ENDOCERVIX Normal F [facility] Comment on above: Performed By: #### 3 [id number] #### [facility] [address] [place] [address] Previous Cytology Negative Normal [facility] Comment on above: Performed By: #### 3 [id number] #### [facility] [address] [place] [address] Previous Treatment NONE Normal [facility] Comment on above: Performed By: #### 3 [id number] #### [facility] [address] [place] [address] Physician Orderon 02-11-2022 Physician Order [id number]# 1.00CD:127 Normal [facility] CBC AUTO DIFFon 12-17-2017 Basophils Auto #/vol (Bld) 0.1 103/ul Normal 0.0-0.1 [facility] Comment on above: Performed By: #### C BC ####[facility] [address] [place] [address]Kpeewc Yuki Basophils/100 WBC Auto (Bld) 0.7 % Normal 0.2-2.0 [facility] Comment on above: Performed By: #### C BC ####[facility] [address] [place] [address]Mfgitr Yuki Eosinophils 0.2 103/ul Normal 0.0-0.[address] [facility] Comment on above: Performed By: #### C BC ####[facility] [address] [place] [address]Xpnygh Yuki Eosinophils/100 leukocytes 2.7 % Normal 0.9-7.[address] [facility] Comment on above: Performed By: #### C BC ####[facility] [address] [place] [address]Xvxued Yuki Erythrocyte distribution width Auto Ratio (RBC) 12.9 % Normal 11.0-15.0 [facility] Comment on above: Performed By: #### C BC ####[facility] R[address]x11[address] [place] [id number] Yuki Erythrocytes (RBC) 3.59 106/ul Critically low 4.20-5.40 [facility] Comment on above: Performed By: #### C BC ####[facility] Rcmgrqnyqm2501 [place] [id number] Yuki Hematocrit (HCT) 31.1 % Critically low 36.0-48.0 [facility] Comment on above: Performed By: #### C BC ####[facility] [address] [place], [place] [address]Gerken Yuki Hemoglobin mass conc (Bld) 10.5 g/dL Critically low 12.0-16.0 [facility] Comment on above: Performed By: #### C BC ####[facility] [address] [place], [place] [address]Gerken Yuki IG # 0.02 10e3/ul Normal 0.00-0.03 [facility] Comment on above: Performed By: #### C BC ####[facility] [address] [place] [address] Yuki IG % 0.3 % Normal 0.0-0.5 [facility] Comment on above: Performed By: #### C BC ####[facility] [address] [place], [place] [address]Gerken Yuki Lymphocytes 2.3 103/ul Normal 1.2-3.8 [facility] Comment on above: Performed By: #### C BC ####[facility] [address] [place], [place] [address]Gerken Yuki Lymphocytes/100 leukocytes 33.2 % Normal 20.5-60.0 [facility] Comment on above: Performed By: #### C BC ####[facility] [address] [place] [address] Yuki MANUAL DIFF REQ NO Normal [facility] Comment on above: Performed By: #### C BC ####[facility] [address] [place] [address] Yuki MCH 29.2 pg Normal 26.7-34.[address] [facility] Comment on above: Performed By: #### C BC ####[facility] On[address]27[address] [place] [id number] Mirza MCHC mass conc (RBC) 33.8 g/dL Normal 29.9-35.[address] [facility] Comment on above: Performed By: #### C BC ####[facility] [address] [place] [id number] Stewarten MCV 86.6 fL Normal 81.0-99.0 [facility] Comment on above: Performed By: #### C BC ####[facility] [address] [place], [place] [address]Gerken Yuki Monocytes 0.6 103/ul Normal 0.3-0.[address] [facility] Comment on above: Performed By: #### C BC ####[facility] [address] [place] [address] Yuki Monocytes/100 leukocytes 9.1 % Normal 1.7-12.0 [facility] Comment on above: Performed By: #### C BC ####[facility] [address] [place], [place] [address]Gerken Yuki Neutrophils 3.8 103/ul Normal 1.4-6.[address] [facility] Comment on above: Performed By: #### C BC ####[facility] [address] [place], [place] [address]Gerobey Stewarten Neutrophils/100 WBC Auto (Bld) 54.0 % Normal 43.0-75.[address] [facility] Comment on above: Performed By: #### C BC ####[facility] [address] [place], [place] [address]Gerobey Mirza Platelet mean volume (PMV) 10.1 fL Normal 9.5-13.[address] [facility] Comment on above: Performed By: #### C BC ####[facility] [address] [place], [place] [address]Gerken Yuki Platelets 207 103/ul Normal 150-[address] [facility] Comment on above: Performed By: #### C BC ####[facility] [address] [place], [place] [address]Szhhcg Yuki WBC (Leukocytes) 7.0 103/ul Normal 4.0-11.0 [facility] Comment on above: Performed By: #### C BC ####[facility] [address] [place], [place] [address]Yccvcb Yuki PREG HCG QUALon 12-17-2017 , QUAL Positive Normal NEGATIVE [facility] Comment on above: Performed By: #### P REG ####[facility] [address] [place], [place] [address]Gerken Yuki PROF CHEM 8 (BAS METB)on Anion gap 9.6 mmol/L Normal [facility] Comment on above: Performed By: #### B MP ####[facility] [address] [place], [place] [address]Gerken Yuki BUN/Creatinine Ratio 14.5 mg/mg Normal [facility] Comment on above: Performed By: #### B MP ####[facility] [address] [place], [place] [address]Gerken Yuki Calcium 10.0 mg/dL Normal 8.4-10.[address] [facility] Comment on above: Performed By: #### B MP ####[facility] [address] [place], [place] [address]Gerken Yuki Chloride 106 mmol/L Normal 98-[address] [facility] Comment on above: Performed By: #### B MP ####[facility] [address] [place], [place] [address]Gerken Yuki CO2 27.0 mmol/L Normal 22.0-30.[address] [facility] Comment on above: Performed By: #### B MP ####[facility] [address] [place], [place] [address]Gerken Yuki Creatinine 0.72 mg/dL Normal 0.52-1.[address] [facility] Comment on above: Performed By: #### B MP ####[facility] [address] [place], [place] [address]Gerken Yuki eGFR (non-black) mL/min/{1.73_m2} Normal >=60 Th [facility] Comment on above: Performed By: #### B MP ####[facility] [address] [place], [place] [address]Vvrkiq Yuki Glucose mass conc 92 mg/dL Normal 74-106 [facility] Comment on above: Performed By: #### B MP ####[facility] Sw[address]jitbl[address] [place] [id number] Yuki Potassium molar conc 3.7 mmol/L Normal 3.4-5.0 [facility] Comment on above: Performed By: #### B MP ####[facility] [address]zusucp6101 [place] [id number] Yuki Sodium 139 mmol/L Normal 137-145 [facility] Comment on above: Performed By: #### B MP ####[facility] W[address]cv[address]xqp4338 [place] [id number] Yuki Urea nitrogen 10.0 mg/dL Normal 7.0-17.0 [facility] Comment on above: Performed By: #### B MP ####[facility] [address]gedosfb4804 [place], [place] [address]Luxhel Yuki TYPE AND SCREENon 12-17-2017 TYPE AND SCREEN Negative Normal [facility] Comment on above: Performed By: #### T NS ####[facility] V[address]ire[address]mp[address]64 [place], [place] [address]Tcwmkw Yuki US PELVISon 12-17-2017 US PELVIS [address] [place] [address] Patient: LUZMARIA CONTRERAS Exam Date: 12/16/2017DOB: 1985 Gender:F : DR YEMI MCGARRY Admission #: [id number] : DR GERMAN MCGRAW Order #: [id number] HERE TO VIEW EXAM RADIOLOGY REPORT PROCEDURE: ULTRASOUND PELVIS COMPARISON: None. INDICATIONS: Vaginal bleeding since dilation and curettage 4 days ago TECHNIQUE: Transabdominal sonographic examination.FINDINGS: UTERUS: Normal size and appearance. Uterus: 9.7 x 7.0 x 5.9 cm (211 cc)ENDOMETRIUM: Complex heterogeneous material filling and distending the endometrial cavity suspected to represent a mixture of acute and chronic blood products, 7.0 x 5.1 x 3.7 cm. Endometrial thickness: 4.9 mm RIGHT OVARY: Normal size and appearance. Blood flow present within ovary on color Doppler. Right ovary: 4.2 x 2.2 x 1.9 cm (9.4 cc) LEFT OVARY: Normal size and appearance. Blood flow is present within ovary on Color Doppler. Left ovary: 3.2 x 2.3 x 1.5 cm (5.9 cc) CUL-DE-SAC: Unremarkable. No significant free fluid.OTHER: None. CONCLUSION: 1. Abnormally distended endometrial cavity filled with acute and chronic blood products versus heterogeneous mass. Clotted blood products are favored. Dictated by: Sedrick Francis M.D. on 12/16/2017 at 23:01 Approved by: Sedrick Francis M.D. on 12/16/2017 at 23:05 Normal [facility] Vital Signs Date Time Vital Sign Value Performing Clinician Facility 04-02-2023 09:45-0400 Body height 167.64 cm [facility] 04-02-2023 09:45-0400 Body mass index (BMI) [Ratio] 25.69 kg/m2 [facility] 04-02-2023 09:45-0400 Body weight 72.21 kg [facility] 04-02-2023 09:45-0400 Diastolic blood pressure 70 mm[Hg] [facility] 04-02-2023 09:45-0400 Respiratory rate 12 /min [facility] 04-02-2023 09:45-0400 Systolic blood pressure 106 mm[Hg] [facility] 12-22-2022 14:45-0400 Body height 167.64 cm Marla Lewis Other [facility] Other 12-22-2022 14:45-0400 Body mass index (BMI) [Ratio] 25.01 kg/m2 Marla Lewis Other [facility] Other 12-22-2022 14:45-0400 Body weight 70.31 kg Marla Lewis Other [facility] Other 12-22-2022 14:45-0400 Diastolic blood pressure 76 mm[Hg] Marla Lewis Other [facility] Other 12-22-2022 14:45-0400 Systolic blood pressure 104 mm[Hg] Marla Lewis Other [facility] Other Encounters Encounter Date Encounter Type Care Provider Facility Start: 07-22-2023 End: 07-22-2023 ambulatory PITA CONSTANCE Not Available Start: 06-14-2023 End: 06-14-2023 ambulatory [facility] CON[facility]ANCE Not Available Start: 05-26-2023 End: 05-26-2023 ambulatory FEDERICA MAGALLON Not Available Start: 04-02-2023 End: 04-02-2023 ambulatory German Mcgraw Other [facility] Other Start: 04-02-2023 Encounter for genera l adult medical examination without abnormal findings German Mcgraw [facility] Start: 04-02-2023 Periodic preventive med est patient 18-39 yrs German Mcgraw [facility] Start: 02-19-2023 End: 02-19-2023 ambulatory German Mcgraw Other [facility] Other Start: 02-19-2023 Telephone encounter German Mcgraw [facility] Start: 02-11-2023 End: 02-11-2023 ambulatory German Mcgraw Other [facility] Other Start: 02-11-2023 Telephone encounter German Mcgraw [facility] Start: 01-14-2023 End: 01-14-2023 ambulatory German Mcgraw Other [facility] Other Start: 01-14-2023 Office outpatient vi sit 15 minutes German Lucien [facility] Start: 12-24-2022 End: 12-24-2022 ambulatory Marla Lewis Other [facility] Other Start: 12-24-2022 Telephone encounter Marla Lewis [facility] Start: 12-23-2022 End: 12-23-2022 ambulatory Marla Lewis Other [facility] Other Start: 12-23-2022 Telephone encounter Marla Lewis [facility] Start: 12-22-2022 End: 12-22-2022 ambulatory Marla Lewis Other [facility] Other Start: 12-22-2022 Office outpatient vi sit 15 minutes Marla Debbie [facility] Start: 12-14-2022 End: 12-14-2022 ambulatory German Mcgraw Other [facility] Other Start: 12-14-2022 Telephone encounter German SIFUENTES [facility] Start: 11-17-2022 End: 11-17-2022 ambulatory German Mcgraw Other [facility] Other Start: 11-17-2022 Telephone encounter German Mcgraw [facility] Start: 10-14-2022 End: 10-14-2022 ambulatory Pradeep Osullivan Facility:[facility] Start: 10-14-2022 End: 10-14-2022 ambulatory NON STAFF [facility] Work Phone: Start: 10-14-2022 End: 10-14-2022 Departed Referred [facility]-Employee Benefit Screening Start: 07-17-2022 ([facility]) [facility] Scheduled German Mcgraw [facility] Start: 07-17-2022 End: 07-17-2022 ambulatory German Mcgraw Other [facility] Other Start: 07-15-2022 End: 07-15-2022 ambulatory German Mcgraw Other [facility] Other Start: 07-15-2022 Telephone encounter German Mcgraw No rt [facility] Start: 04-24-2022 Adult health examination German Mcgraw Other [facility] Other Start: 08-15-2020 End: 08-15-2020 Discharged Recurring STAFF, [facility] Vaccine Start: 12-17-2017 End: 12-17-2017 Ambulatory GERMAN MCGRAW Facility:H1 Procedures Date Procedure Procedure Detail Performing Clinician Depression screening Bettina Mcgraw Other Plan of Treatment Date Care Activity Detail Author Start: 10-14-2022 [facility] Immunizations Immunization Date Immunization Notes Care Provider Fa cility 07-15-2021 COVID-19 Vaccine Pfi zer - Documentation Purposes Only German Mcgraw Other [facility] Other 08-15-2020 COVID-19 mRNA-1273 (Moderna) STAFF, [facility] 07-18-2020 COVID-19 mRNA-1273 (Moderna) STAFF, [facility] Payers Date Payer Category Payer Private Health Insurance [id number] 2022 Self-pay [id number] 2022 [facility] [id number] 1987 Unknown [id number] 1987 Unknown [id number] 1987 Unknown [id number] 1959 Private Health Insurance [id number] [facility] [id number] Social History Date Type Detail Facility Tobacco smoking status NHIS Unknown if ever smoked [facility] Start: 1985 Sex Assigned At Female F [facility] Sex Assigned At Sex Assigned At Bir th [facility] Other Goals Date Patient Goal Desired Activity /State Clinical Notes 07-17-2022 to 04-02-2023 Note Date & Type Note Facility 04-02-2023 Evaluation note Encounter Date Diagnosis Assessment Notes Mar, Allergic contact dermatitis due to plants, except food (ICD-10 - L23.7) Continue w/ topical steroids and cool compresses Mar, Wellness examination (ICD-10 - Z00.00) Healthy diet and exercise. Reviewed age-appropria te preventive testing recommended. Mar, Migraine with aura and without status migrainosus, not intractable (ICD-10 - G43.109) Dietary triggers reviewed. Intermittent use of tryptan affective Mar, TIRSO (generalized anxiety disorder) (ICD-10 - F41.1) Healthy diet, exercise and keep acitive. PRN use of Buspar [facility] Other 07-06-2023 Evaluation note* Encounter Date Diagnosis Assessment Notes Treatment Notes Treatment Clinical Notes Jan, Acute non-recurrent maxillary sinusitis (ICD-10 - J01.00) Instructed to use Robitussin or Mucinex for cough, saline or Flonase NS for congestion, Tylenol for pain and fever. [facility] Other 06-13-2023 Evaluation note* Encounter Date Diagnosis Assessment Notes Treatment Notes Treatment Clinical Notes Dec, Acute pain of right knee (ICD-10 - M25.561) Pt has been taking NSAIDs. Requests referral to Dr Esposito. XR order printed. PT order printed on 12/24. [facility] Other 06-05-2023 Evaluation note* Encounter Date Diagnosis Assessment Notes Treatment Notes Treatment Clinical Notes Dec, TIRSO (generalized anxiety disorder) (ICD-10 - F41.1) [facility] Other 05-09-2023 Evaluation note* Encounter Date Diagnosis Assessment Notes Treatment Notes Treatment Clinical Notes November, Fever blister (ICD-10 - B00.1) [facility] Other 01-06-2023 Evaluation note* Encounter Date Diagnosis Assessment Notes Treatment Notes Treatment Clinical Notes Jul, Migraine with aura and without status migrainosus, not intractable (ICD-10 - G43.109) Stable w/o exacerbation w/ acute illness Jul, Acute bronchitis due to other specified organisms (ICD-10 - J20.8) Instructed to use Robitussin or Mucinex for cough, saline or Flonase NS for congestion, Tylenol for pain and fever. [facility] Other Evaluation noteNo InformationNort [employer] Other Evaluation noteNo assessment information available [facility] Work Phone: [facility] general Narrative - Reported* Type Description Date Surgical History Right knee arthroscopy 2010 [facility] Other [employer] general Narrative - Reported* Type Description Date Surgical History Right knee arthroscopy 2010 Surgical History Right knee arthroscopy 2022 [facility] Other [facility] general Narrative - Reported* Type Description Date Medical History Migraine with aura a nd without status migrainosus, not intractable Medical History TIRSO (generalized anxiety disorde r) Surgical History Right knee arthroscopy 2010 Surgical History Right knee arthroscopy 2022 Hospitalization History see surgical hx [facility] Other Summary Purpose Family History No Family History Records FoundNo Family History Records FoundNo Family History Records FoundNo Family History Records Found Advance Directives No Advanced Directives Records FoundNo Advanced Directives Records FoundNo Advanced Directives Records FoundNo Advanced Directives Records Found Chief Complaint and Reason for Visit Chief Complaint COVID vaccine Chief Complaint Employee Benefit scr eening Assessments No Assessments Information Available Reason for Referral Reason 12/31/22 former pt - previously did surgery on R knee in 2012. Diagnosis 1 Acute pain of right knee (M25.561) Referral Organization [facility] ernie Referring Provider First Name Marla Referring Provider Last Name Debbie Referring Provider Specialty Family [facility] Referred Organization [facility] Referred Provider Ferdinand Esposito Jr. Referred Address ,[place], [place],[address] Referred Provider Specialty Orthopedic S urgery Referral Priority Urgent Referral Appointment Date 2022-12-31 General Notes Carolina Carrizales 11:27:41 AM >received today, attachments made, waiting for notes to be locked to fax referral Jessica Keyes 12/23/2022 04:10:20 PM > please include xray Carolina Carrizales 12/24/2022 10:41:37 AM >will do, waiting for Dr. Lewis to lock notes Jessica Keyes 12/24/2022 02:52:01 PM > notes are locked she is already scheduled for 12/31 (according to patient) Carolina Carrizales 12/24/2022 02:56:07 PM >noted above. still faxed referral per protocol. noted appt date Additional Source Comments INFORMATION SOURCE (unrecogn ized section and content) DATE CREATED AUTHOR 12/28/2017 [facility] DATE CREATED AUTHOR AUTHOR'S ORGANIZ ATION 03/06/2022 [facility] DATE CREATED AUTHOR AUTHOR'S ORGANIZ ATION 04/15/2023 [facility] DATE CREATED AUTHOR AUTHOR'S ORGANIZ ATION 07/23/[address] [facility] EPIC REASON FOR VISIT (unrecogniz ed section and content) Clinicalsore throat, cough, chest congestion [phone] Medication ChangeXray resultsright knee [id number] sinus infectionNo InformationNo Informationpoison miki Care Teams (unrecognized sec tion and content) Team Status: Active Member Role Status Dates NON STAFF Primary Care Provider Active Team Status: Inactive Member Role Status Dates NON STAFF Primary Care Provider Active Pradeep Osullivan , [facility] Attending Provider Active Goals (unrecognized section and content) Goals may be documented in a n alternate section FOR RECORDS PERTAINING TO PATIENTS WHO ARE OR HAVE BEEN ENROLLED IN A CHEMICAL DEPENDENCY/SUBSTANCEABUSE PROGRAM, SOME INFORMATION MAY BE OMITTED. This clinical summary was aggregated from multiple sources. Caution should be exercised in using it in the provision of clinical care. This summary normalizes information from multiple sources, and as a consequence, information in this document may materially change the coding, format and clinical context of patient data. In addition, data may be omitted in some cases. CLINICAL DECISIONS SHOULD BE BASED ON THE PRIMARY CLINICAL RECORDS. [employer] [facility]. provides no warranty or guarantee of the accuracy or completeness of information in this document.
--- NOTE | 2023-08-09 10:39 | P.GSHP_ITS ---
History of Present Illness History of Present Illness Chief complaint: menorrhagia, abnormal uterine bleeding, pain Narrative: Patient presents for preadmission testing. Please see HPI from Dr. Valerio dated 07/22/2023. Review of Systems ROS Narrative REVIEW OF SYSTEMS: Negative except as stated in HPI, ten or more systems reviewed. Constitutional: No fever , chills, weakness ENT: No sore throat or epistaxis Cardiovascular: No edema, chest pain, palpitations, or activity intolerance Respiratory: No shortness of breath, cough, or wheezing Musculoskeletal: No joint pain or swelling Genitourinary: No dysuria or hematuria Neurological: No numbness, tingling, weakness, or headache Psychiatric: No mood changes PFSH PFS Medical History (Updated 08/09/23 @ 10:21 by Cheyenne Villarreal NP) Anemia ?D64.9 - Anemia, unspecified (ICD-10) Panic attacks ?F41.0 - Panic disorder [episodic paroxysmal anxiety] (ICD-10) Anxiety ?F41.9 - Anxiety disorder, unspecified (ICD-10) Asthma ?J45.909 - Unspecified asthma, uncomplicated (ICD-10) Migraine ?G43.909 - Migraine, unspecified, not intractable, without status migrainosus (ICD-10) Pelvic pain ?R10.2 - Pelvic and perineal pain (ICD-10) Abnormal uterine bleeding ?N93.9 - Abnormal uterine and vaginal bleeding, unspecified (ICD-10) Menorrhagia ?N92.0 - Excessive and frequent menstruation with regular cycle (ICD-10) Postoperative nausea and vomiting ?R11.2 - Nausea with vomiting, unspecified (ICD-10) ?Z98.890 - Other specified postprocedural states (ICD-10) Surgical History (Updated 08/09/23 @ 10:21 by Cheyenne Villarreal NP) History of dilation and curettage ?Z98.890 - Other specified postprocedural states (ICD-10) History of arthroscopy of knee ?Z98.890 - Other specified postprocedural states (ICD-10) History of arthroscopy of knee ?Z98.890 - Other specified postprocedural states (ICD-10) Family History (Updated 08/09/23 @ 10:21 by Cheyenne Villarreal NP) Other Family history of colon cancer Family history of diabetes mellitus Family history of hypertension Social History (Updated 08/09/23 @ 10:18 by Cheyenne Villarreal NP) Within the past year, how often did you have a drink containing alcohol: 2-4 times a month Smoking status: Never smoker Non-prescribed substance use: denies use Previous occupational history: Registrar Highest level of school completed/degree received: Associate degree: academic program Meds Home Medications and Allergies Home Medications Medication Instructions Recorded Confirmed Type buspirone 10 mg tablet 10 mg PO BID PRN anxiety 08/09/23 08/09/23 History eletriptan 40 mg tablet 40 mg PO Q2H PRN migraine headache 08/09/23 08/09/23 History Allergies Allergy/AdvReac Type Severity Reaction Status Date / Time No Known Drug Allergies Allergy Verified 08/09/23 10:16 Exam Narrative Exam Narrative: Constitutional: Awake, alert, comfortable, well-appearing, nontoxic, interactive , vital signs as charted Head: Normocephalic, atraumatic Neck: Supple, normal appearance, normal range of motion, no meningeal signs, no lymphadenopathy Respiratory: No respiratory distress, breath sounds clear Cardiovascular: Regular rate and rhythm, strong and regular heart tones Abdomen: Nontender, normal bowel sounds, soft, no CVA tenderness Musculoskeletal: Normal gait, no swelling or edema Skin: No rashes or induration, no lesions, only visible skin inspected Neuro: No neurological deficits, normal sensation Psychiatric: Oriented ?3, normal affect Assessment and Plan Assessment and Plan (1) Pelvic pain: (2) Abnormal uterine bleeding: (3) Menorrhagia: Plan Endometrial ablation/Nannette scheduled with Dr. Valerio 08/20/2023.
== END 2023-08-09 09:56 | disposition home or self-care (01) ==
LOC: PST 09:56
PROVIDERS: PCP Internal Medicine; Visit Provider Obstetrics & Gynecology
DX: Z01.818 Encounter for other preprocedural examination (principal); N92.0 Excessive and frequent menstruation with regular cycle; N93.9 Abnormal uterine and vaginal bleeding, unspecified; R10.2 Pelvic and perineal pain
CPT/HCPCS: G0463

== ENCOUNTER 2023-08-20 06:12 | Day surgery (SDC) | payer OTHER, SELFPAY ==
[2023-08-09 10:32] VITALS: BP 100/60; PULSE 80; RESP 14; TEMP 36.3; O2SAT 98; BMI 23.7
[2023-08-20] VITALS (10 sets, daily range): BP systolic 87–111; BP diastolic 52–68; PULSE 55–87; RESP 10–20; TEMP 36.1; O2SAT 95–100; BMI 23.3
--- OUTSIDE RECORDS SUMMARY | 2023-08-20 06:15 | XMS_ITS | CCD ---
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 Role Phone GERMAN MCGRAW Unavailable Unavailable MARKER, YEMI Unavailable Unavailable MARKER, YEMI Unavailable Unavailable SEDRICK FRANCIS Unavailable Unavailable MARKER, YEMI Unavailable Unavailable NON, STAFF, Primary Care Provider UnavailJames Jordan Attending Provider [phone] German Mcgraw Unavailable NON STAFF Primary Care Provider UnavailDO Pradeep Mendoza Attending Provider Marla Lewis Unavailable Pradeep Osullivan Attending Unavailable Pradeep Osullivan Admitting Unavailable NON STAFF Primary Care Unavailable FEDERICA MAGALLON Attending Unavailable PITA NOLASCO Attending Unavailable PITA NOLASCO Attending Unavailable Unavailable Unavailable Unavailable Allergies Allergy Classification Reported Allergen(s) Allergy Type Date of Onset Reaction(s) Facility (2 sources) patient allergy list reviewed by nurse or physicia Propensity to adverse reactions Comment:Done Same Day Serves Other Medications Current Medications Medication Drug Class(es) [...] 10-14-2022 ALT [Catalytic activity/Vol] 8 U/L 7-52 [facility] Albumin [Mass/volume] in Ser um or Plasma by Bromocresol green (BCG) dye binding methoOrdered By: Pradeep Osullivan on 10-14-2022 Albumin BCG dye [Mass/Vol] 4.3 g/dL 3.5-5.7 [facility] Alkaline phosphatase [Enzyma tic activity/volume] in Serum or PlasmaOrdered By: Pradeep Osullivan on 10-14-2022 ALP [Catalytic activity/Vol] 62 U/L 34-104 [facility] Aspartate aminotransferase [ Enzymatic activity/volume] in Serum or PlasmaOrdered By: Pradeep Osullivan on 10-14-2022 AST [Catalytic activity/Vol] 15 U/L 13-39 [facility] Basophils Auto (Bld) [#/Vol] Ordered By: Pradeep Osullivan on 10-14-2022 Basophils (Bld) [#/Vol] 0.0 10*3/uL 0.0-0.2 [facility] Basophils/100 WBC Auto (Bld) Ordered By: Pradeep Osullivan on 10-14-2022 Basophils/100 WBC (Bld) 0.9 % . [facility] Bilirubin.total [Mass/volume ] in Serum or PlasmaOrdered By: Pradeep Osullivan on 10-14-2022 Bilirubin [Mass/Vol] 0.5 mg/dL 0.3-1.0 [facility] Calcium [Mass/volume] in Ser um or PlasmaOrdered By: Pradeep Osullivan on 10-14-2022 Calcium [Mass/Vol] 9.3 mg/dL 8.6-10.3 [facility] Carbon dioxide, total [Moles /volume] in Serum or PlasmaOrdered By: Pradeep Osullivan on 10-14-2022 CO2 [Moles/Vol] 28.0 mmol/L 21.0-31.0 [facility] Chloride [Moles/volume] in S sheila or PlasmaOrdered By: Pradeep Osullivan on 10-14-2022 Chloride [Moles/Vol] 106 mmol/L 98-107 [facility] Cholesterol [Mass/volume] in Serum or PlasmaOrdered By: Pradeep Osullivan on 10-14-2022 Cholesterol [Mass/Vol] 132 mg/dL 140-200 [facility] Comment on above: Chol less than 200 m g/dl low riskChol 201-239 mg/dl borderline riskChol 240 mg/dl and greater high risk Cholesterol in LDL Calc [Mas s/Vol]Ordered By: Pradeep Osullivan on 10-14-2022 Cholesterol in LDL [Mass/Vol] 68 mg/dL 0-100 [facility] Comment on above: LDL ATP III CLASSIFI CATIONLDL less than 100 mg/dL OptimalLDL 100-129 mg/dL Near or above optimalLDL 130-159 mg/dL Borderline highLDL 160-189 mg/dL HighLDL greater than 189 mg/dL Very high Cholesterol in VLDL Calc [Ma ss/Vol]Ordered By: Pradeep Osullivan on 10-14-2022 Cholesterol in VLDL [Mass/Vol] 10 mg/dL [facility] Creatinine [Mass/volume] in Serum or PlasmaOrdered By: Pradeep Osullivan on 10-14-2022 Creatinine [Mass/Vol] 0.83 mg/dL 0.60-1.20 [facility] Employee Comp Metabolic Pane jessika 10-14-2022 Albumin [Mass/Vol] 4.3 g/dL Normal 3.5-5.7 [facility] Comment on above: Performed By: #### P ILLAR TSH, PILLAR LIPID, PILLAR CMP, PILLAR CBC #### [place] [address] [place] #### NICOTINE QUAL #### [facility] , Albumin/Globulin [Mass ratio] 1.7 {ratio} Normal [facility] Comment on above: Performed By: #### P ILLAR TSH, PILLAR LIPID, PILLAR CMP, PILLAR CBC #### [facility] [address] [place] [address] [place] #### NICOTINE QUAL #### [facility] , ALP [Catalytic activity/Vol] 62 U/L Normal 34-104 [facility] Comment on above: Performed By: #### P ILLAR TSH, PILLAR LIPID, PILLAR CMP, PILLAR CBC #### [facility] [address] [place] [address] [place] #### NICOTINE QUAL #### [facility] , ALT [Catalytic activity/Vol] 8 U/L Normal 7-52 [facility] Comment on above: Performed By: #### P ILLAR TSH, PILLAR LIPID, PILLAR CMP, PILLAR CBC #### [facility] [address] [place] [address] [place] #### NICOTINE QUAL #### [facility] , Anion gap [Moles/Vol] 9.4 mmol/L Normal 6.0-15.0 [facility] Comment on above: Performed By: #### P ILLAR TSH, PILLAR LIPID, PILLAR CMP, PILLAR CBC #### [facility] [address] [place] [address] [place] #### NICOTINE QUAL #### [facility] , AST [Catalytic activity/Vol] 15 U/L Normal 13-39 [facility] Comment on above: Performed By: #### P ILLAR TSH, PILLAR LIPID, PILLAR CMP, PILLAR CBC #### [facility] [address] [place] [address] #### NICOTINE QUAL #### [facility] , Bilirubin [Mass/Vol] 0.5 mg/dL Normal 0.3-1.0 [facility] Comment on above: Performed By: #### P ILLAR TSH, PILLAR LIPID, PILLAR CMP, PILLAR CBC #### [facility] [address] [place] [address] [place] #### NICOTINE QUAL #### [facility] , Calcium [Mass/Vol] 9.3 mg/dL Normal 8.6-10.3 [facility] Comment on above: Performed By: #### P ILLAR TSH, PILLAR LIPID, PILLAR CMP, PILLAR CBC #### [facility] [address] [place] [address] #### NICOTINE QUAL #### [facility] , Chloride [Moles/Vol] 106 mmol/L Normal 98-107 [facility] Comment on above: Performed By: #### P ILLAR TSH, PILLAR LIPID, PILLAR CMP, PILLAR CBC #### [facility] [address] [place] [address] [place] #### NICOTINE QUAL #### [facility] , CO2 [Moles/Vol] 28.0 mmol/L Normal 21.0-31.0 [facility] Comment on above: Performed By: #### P ILLAR TSH, PILLAR LIPID, PILLAR CMP, PILLAR CBC #### [facility] [address] [place] [address] [place] #### NICOTINE QUAL #### [facility] , Creatinine [Mass/Vol] 0.83 mg/dL Normal 0.60-1.20 [facility] Comment on above: Performed By: #### P ILLAR TSH, PILLAR LIPID, PILLAR CMP, PILLAR CBC #### [facility] [address] [place] [address] [place] #### NICOTINE QUAL #### [facility] , GFR/1.73 sq M.predicted MDRD (S/P/Bld) [Vol rate/Area] mL/min/{1.73_m2} Normal [facility] Comment on above: Performed By: #### P ILLAR TSH, PILLAR LIPID, PILLAR CMP, PILLAR CBC #### [facility] [address] [place] [address] [place] #### NICOTINE QUAL #### [facility] , Globulin (S) [Mass/Vol] 2.5 g/dL Normal [facility] Comment on above: Performed By: #### P ILLAR TSH, PILLAR LIPID, PILLAR CMP, PILLAR CBC #### [facility] [address] [place] [address] [place] #### NICOTINE QUAL #### [facility] , Glucose [Mass/Vol] 88 mg/dL Normal 70-100 [facility] Comment on above: Performed By: #### P ILLAR TSH, PILLAR LIPID, PILLAR CMP, PILLAR CBC #### [facility] [address] [place] [address] [place] #### NICOTINE QUAL #### [facility] , Potassium [Moles/Vol] 4.4 mmol/L Normal 3.5-5.1 [facility] Comment on above: Performed By: #### P ILLAR TSH, PILLAR LIPID, PILLAR CMP, PILLAR CBC #### [facility] [address] [place] [address] [place] #### NICOTINE QUAL #### [facility] , Protein [Mass/Vol] 6.8 g/dL Normal 6.4-8.9 [facility] Comment on above: Performed By: #### P ILLAR TSH, PILLAR LIPID, PILLAR CMP, PILLAR CBC #### [facility] [address] [place] [address] #### NICOTINE QUAL #### [facility] , Sodium [Moles/Vol] 139 mmol/L Normal 136-145 [facility] Comment on above: Performed By: #### P ILLAR TSH, PILLAR LIPID, PILLAR CMP, PILLAR CBC #### [address] #### NICOTINE QUAL #### [facility] , Urea nitrogen [Mass/Vol] 10 mg/dL Normal 7-25 [facility] Comment on above: Performed By: #### P ILLAR TSH, PILLAR LIPID, PILLAR CMP, PILLAR CBC #### [address] #### NICOTINE QUAL #### [facility] , Employee Complete Blood Coun ton 10-14-2022 Basophils (Bld) [#/Vol] 0.0 10*3/uL Normal 0.0-0.2 [facility] Comment on above: Result Comment: PERF ORMED BY: [place] [address] PATHOLOGIST OUTSIDE LABORER FLOYD CASTILLO M.D. Performed By: #### P ILLAR TSH, PILLAR LIPID, PILLAR CMP, PILLAR CBC #### [facility] [address] [place] [address] [place] #### NICOTINE QUAL #### [facility] , Basophils/100 WBC (Bld) 0.9 % Normal . [facility] Comment on above: Performed By: #### P ILLAR TSH, PILLAR LIPID, PILLAR CMP, PILLAR CBC #### [facility] [address] [place] [address] [place] #### NICOTINE QUAL #### [facility] , Eosinophils (Bld) [#/Vol] 0.0 10*3/uL Normal 0.0-0.45 [facility] Comment on above: Performed By: #### P ILLAR TSH, PILLAR LIPID, PILLAR CMP, PILLAR CBC #### [facility] [address] [place] [address] [place] #### NICOTINE QUAL #### [facility] , Eosinophils/100 WBC (Bld) 1.0 % Normal . [facility] Comment on above: Performed By: #### P ILLAR TSH, PILLAR LIPID, PILLAR CMP, PILLAR CBC #### [address] #### NICOTINE QUAL #### [facility] , Erythrocyte distribution width (RBC) [Ratio] 13.2 % Normal 11.9-15.3 [facility] Comment on above: Performed By: #### P ILLAR TSH, PILLAR LIPID, PILLAR CMP, PILLAR CBC #### [facility] [address] [place] [address] [place] #### NICOTINE QUAL #### [facility] , Hematocrit (Bld) [Volume fraction] 37.6 % Normal 34.0-46.4 [facility] Comment on above: Performed By: #### P ILLAR TSH, PILLAR LIPID, PILLAR CMP, PILLAR CBC #### [place] [address] [place] #### NICOTINE QUAL #### [facility] , Hemoglobin (Bld) [Mass/Vol] 12.4 g/dL Normal 11.8-15.4 [facility] Comment on above: Performed By: #### P ILLAR TSH, PILLAR LIPID, PILLAR CMP, PILLAR CBC #### [place] [address] [place] #### NICOTINE QUAL #### [facility] , Lymphocytes (Bld) [#/Vol] 1.4 10*3/uL Normal 1.00-4.8 [facility] Comment on above: Performed By: #### P ILLAR TSH, PILLAR LIPID, PILLAR CMP, PILLAR CBC #### [facility] [address] [place] [address] [place] #### NICOTINE QUAL #### [facility] , Lymphocytes/100 WBC (Bld) 32.7 % Normal . [facility] Comment on above: Performed By: #### P ILLAR TSH, PILLAR LIPID, PILLAR CMP, PILLAR CBC #### [facility] [address] [place] [address] [place] #### NICOTINE QUAL #### [facility] , MCH (RBC) [Entitic mass] 28.4 pg Normal 24.7-34.3 [facility] Comment on above: Performed By: #### P ILLAR TSH, PILLAR LIPID, PILLAR CMP, PILLAR CBC #### [facility] [address] [place] [address] #### NICOTINE QUAL #### [facility] , MCV (RBC) [Entitic vol] 86.3 fL Normal 80-100 [facility] Comment on above: Performed By: #### P ILLAR TSH, PILLAR LIPID, PILLAR CMP, PILLAR CBC #### [facility] [address] [place] [address] [place] #### NICOTINE QUAL #### [facility] , Mean Corpuscular HGB Conc 32.9 g/dL Normal 32.0-35.0 [facility] Comment on above: Performed By: #### P ILLAR TSH, PILLAR LIPID, PILLAR CMP, PILLAR CBC #### [facility] [address] [place] [address] [place] #### NICOTINE QUAL #### [facility] , Monocytes (Bld) [#/Vol] 0.3 10*3/uL Normal 0.0-0.8 [facility] Comment on above: Performed By: #### P ILLAR TSH, PILLAR LIPID, PILLAR CMP, PILLAR CBC #### [facility] [address] [place] [address] [place] #### NICOTINE QUAL #### [facility] , Monocytes/100 WBC (Bld) 7.8 % Normal . [facility] Comment on above: Performed By: #### P ILLAR TSH, PILLAR LIPID, PILLAR CMP, PILLAR CBC #### [facility] [address] [place] [address] [place] #### NICOTINE QUAL #### [facility] , Neutrophils (Bld) [#/Vol] 2.4 10*3/uL Normal 1.8-7.7 [facility] Comment on above: Performed By: #### P ILLAR TSH, PILLAR LIPID, PILLAR CMP, PILLAR CBC #### [facility] [address] [place] [address] [place] #### NICOTINE QUAL #### [facility] , Neutrophils/100 WBC (Bld) 57.6 % Normal . [facility] Comment on above: Performed By: #### P ILLAR TSH, PILLAR LIPID, PILLAR CMP, PILLAR CBC #### [facility] [address] [place] [address] [place] #### NICOTINE QUAL #### [facility] , NRBC% 0.1 /100{WBC} Normal 0-0.5 [facility] Comment on above: Performed By: #### P ILLAR TSH, PILLAR LIPID, PILLAR CMP, PILLAR CBC #### [facility] [address] [place] [address] [place] #### NICOTINE QUAL #### [facility] , Platelet mean volume (Bld) [Entitic vol] 8.8 fL Normal 6.3-10.7 [facility] Comment on above: Performed By: #### P ILLAR TSH, PILLAR LIPID, PILLAR CMP, PILLAR CBC #### [facility] [address] [place] [address] #### NICOTINE QUAL #### [facility] , Platelets (Bld) [#/Vol] 197 10*3/uL Normal 150-450 [facility] Comment on above: Performed By: #### P ILLAR TSH, PILLAR LIPID, PILLAR CMP, PILLAR CBC #### [facility] [address] [place] [address] [place] #### NICOTINE QUAL #### [facility] , RBC (Bld) [#/Vol] 4.36 10*6/uL Normal 3.60-5.00 [facility] Comment on above: Performed By: #### P ILLAR TSH, PILLAR LIPID, PILLAR CMP, PILLAR CBC #### [address] #### NICOTINE QUAL #### [facility] , WBC (Bld) [#/Vol] 4.2 10*3/uL Normal 3.8-11.6 [facility] Comment on above: Performed By: #### P ILLAR TSH, PILLAR LIPID, PILLAR CMP, PILLAR CBC #### [facility] [address] [place] [address] #### NICOTINE QUAL #### [facility] , Employee Lipid Profileon Cholesterol [Mass/Vol] 132 mg/dL Low 140-200 [facility] Comment on above: Result Comment: Chol less than 200 mg/dl low risk Chol 201-239 mg/dl borderline risk Chol 240 mg/dl and greater high risk Performed By: #### P ILLAR TSH, PILLAR LIPID, PILLAR CMP, PILLAR CBC #### [facility] [address] [place] [address] [place] #### NICOTINE QUAL #### [facility] , Cholesterol in HDL [Mass/Vol] 54 mg/dL Normal 35-85 [facility] Comment on above: Result Comment: HDL CHOL ATP-III CLASSIFICATION Cardiovascular Risk HDL > or equal to 60 mg/dL LOW HDL < 40 mg/dL HIGH Performed By: #### P ILLAR TSH, PILLAR LIPID, PILLAR CMP, PILLAR CBC #### [facility] [address] [place] [address] [place] #### NICOTINE QUAL #### [facility] , Cholesterol.total/Carey sterol in HDL [Mass ratio] 2.4 {ratio} Normal <5.0 [facility] Comment on above: Performed By: #### P ILLAR TSH, PILLAR LIPID, PILLAR CMP, PILLAR CBC #### [place] [address] [place] #### NICOTINE QUAL #### [facility] , LDL Cholesterol,Calculated 68 mg/dL Normal 0-100 [facility] Comment on above: Result Comment: LDL ATP III CLASSIFICATION LDL less than 100 mg/dL Optimal LDL 100-129 mg/dL Near or above optimal LDL 130-159 mg/dL Borderline high LDL 160-189 mg/dL High LDL greater than 189 mg/dL Very high Performed By: #### P ILLAR TSH, PILLAR LIPID, PILLAR CMP, PILLAR CBC #### [place] [address] [place] #### NICOTINE QUAL #### [facility] , Triglyceride w/Reflex 52 mg/dL Normal 0-149 [facility] Comment on above: Result Comment: TRIG ATP III CLASSIFICATION TRIG less than 150 mg/dL Normal TRIG 150-199 mg/dL Borderline high TRIG 200-500 mg/dL High TRIG greater than 500 mg/dL Very high Standard traceable to the Center for Disease Conrtrol and Prevention (CDC) test method. Performed By: #### P ILLAR TSH, PILLAR LIPID, PILLAR CMP, PILLAR CBC #### [place] [address] [place] #### NICOTINE QUAL #### [facility] , VLDL CHOLESTEROL 10 mg/dL Normal [facility] Comment on above: Performed By: #### P ILLAR TSH, PILLAR LIPID, PILLAR CMP, PILLAR CBC #### [address] [place] [address] [place] #### NICOTINE QUAL #### [facility] , Employee Thyroid Stim Hormon deborah 10-14-2022 Employee Thyroid Stim Hormone 1.78 u[iU]/mL Normal 0.45-5.33 [facility] Comment on above: Result Comment: PERF ORMED BY: [address] [place] [address] PATHOLOGIST OUTSIDE LABORER FLOYD CASTILLO M.D. Performed By: #### P ILLAR TSH, PILLAR LIPID, PILLAR CMP, PILLAR CBC #### [facility] [address] [place] [address] #### NICOTINE QUAL #### [facility] , Eosinophils Auto (Bld) [#/Vo l]Ordered By: Pradeep Osullivan on 10-14-2022 Eosinophils (Bld) [#/Vol] 0.0 10*3/uL 0.0-0.45 [facility] Eosinophils/100 WBC Auto (Bl d)Ordered By: Pradeep Osullivan on 10-14-2022 Eosinophils/100 WBC (Bld) 1.0 % . [facility] Erythrocyte distribution wid th Auto (RBC) [Ratio]Ordered By: Pradeep Osullivan on 10-14-2022 Erythrocyte distribution width (RBC) [Ratio] 13.2 % 11.9-15.3 [facility] Globulin Calc (S) [Mass/Vol] Ordered By: Pradeep Osullivan on 10-14-2022 Globulin (S) [Mass/Vol] 2.5 g/dL [facility] Glucose [Mass/volume] in Ser um or PlasmaOrdered By: Pradeep Osullivan on 10-14-2022 Glucose [Mass/Vol] 88 mg/dL 70-100 [facility] Hematocrit Auto (Bld) [Volum e fraction]Ordered By: Pradeep Osullivan on 10-14-2022 Hematocrit (Bld) [Volume fraction] 37.6 % 34.0-46.4 [facility] Hemoglobin [Mass/volume] in BloodOrdered By: Pradeep Osullivan on 10-14-2022 Hemoglobin (Bld) [Mass/Vol] 12.4 g/dL 11.8-15.4 [facility] Leukocytes [#/volume] correc coral for nucleated erythrocytes in Blood by Automated counOrdered By: Pradeep Osullivan on 10-14-2022 WBC corrected for nucl RBC Auto (Bld) [#/Vol] 4.2 10*3/uL 3.8-11.6 [facility] Lymphocytes Auto (Bld) [#/Vo l]Ordered By: Pradeep Osullivan on 10-14-2022 Lymphocytes (Bld) [#/Vol] 1.4 10*3/uL 1.00-4.8 [facility] Lymphocytes/100 WBC Auto (Bl d)Ordered By: Pradeep Osullivan on 10-14-2022 Lymphocytes/100 WBC (Bld) 32.7 % . [facility] MCH Auto (RBC) [Entitic mass ]Ordered By: Pradeep Osullivan on 10-14-2022 MCH (RBC) [Entitic mass] 28.4 pg 24.7-34.3 [facility] MCHC Auto (RBC) [Mass/Vol]Or dered By: Pradeep Osullivan on 10-14-2022 MCHC (RBC) [Mass/Vol] 32.9 g/dL 32.0-35.[address] [facility] MCV Auto (RBC) [Entitic vol] Ordered By: Pradeep Osullivan on 10-14-2022 MCV (RBC) [Entitic vol] 86.3 fL 80-100 [facility] Monocytes Auto (Bld) [#/Vol] Ordered By: Pradeep Osullivan on 10-14-2022 Monocytes (Bld) [#/Vol] 0.3 10*3/uL 0.0-0.8 [facility] Monocytes/100 WBC Auto (Bld) Ordered By: Pradeep Osullivan on 10-14-2022 Monocytes/100 WBC (Bld) 7.8 % . [facility] Neutrophils Auto (Bld) [#/Vo l]Ordered By: Pradeep Osullivan on 10-14-2022 Neutrophils (Bld) [#/Vol] 2.4 10*3/uL 1.8-7.7 [facility] Neutrophils/100 WBC Auto (Bl d)Ordered By: Pradeep Osullivan on 10-14-2022 Neutrophils/100 WBC (Bld) 57.6 % . [facility] Nicotine Metabolite, Qualon 10-14-2022 Nicotine Metabolite Negative Normal Cutoff=25 [facility] Comment on above: Result Comment: Perf ormed at: [facility] - [facility] [address] [id number] Web Development Manager: Sammy Carpenter MD, Phone: [phone] PERFORMED BY: [place] [address] PATHOLOGIST OUTSIDE LABORER FLOYD CASTILLO M.D. Performed By: #### P ILLAR TSH, PILLAR LIPID, PILLAR CMP, PILLAR CBC #### [address] #### NICOTINE QUAL #### [facility] , No Panel InformationOrdered By: Pradeep Osullivan on 10-14-2022 Estimated GFR (CKD-EPI) > 60.0 mL/Min [facility] Creatinine Clearance (Chem N/A [facility] Nucleated erythrocytes [Pres ence] in Blood by Automated countOrdered By: Pradeep Osullivan on 10-14-2022 Nucleated RBC Auto Ql (Bld) 0.1 /100{WBC} 0-0.5 [facility] Platelet mean volume Auto (B ld) [Entitic vol]Ordered By: Pradeep Osullivan on 10-14-2022 Platelet mean volume (Bld) [Entitic vol] 8.8 fL 6.3-10.7 [facility] Platelets Auto (Bld) [#/Vol] Ordered By: Pradeep Osullivan on 10-14-2022 Platelets (Bld) [#/Vol] 197 10*3/uL 150-450 [facility] Potassium [Moles/volume] in Serum or PlasmaOrdered By: Pradeep Osullivan on 10-14-2022 Potassium [Moles/Vol] 4.4 mmol/L 3.5-5.1 [facility] Protein [Mass/volume] in Ser um or PlasmaOrdered By: Pradeep Osullivan on 10-14-2022 Protein [Mass/Vol] 6.8 g/dL 6.4-8.9 [facility] RBC Auto (Bld) [#/Vol]Ordere d By: Pradeep Osullivan on 10-14-2022 RBC (Bld) [#/Vol] 4.36 10*6/uL 3.60-5.00 [facility] Serum or plasma albumin/glob ulin mass ratioOrdered By: Pradeep Osullivan on 10-14-2022 Albumin/Globulin [Mass ratio] 1.7 {ratio} [facility] Serum or plasma anion gap de terminationOrdered By: Pradeep Osullivan on 10-14-2022 Anion gap [Moles/Vol] 9.4 mmol/L 6.0-15.0 [facility] Serum or plasma high density lipoprotein (HDL) cholesterol measurementOrdered By: Pradeep Osullivan on 10-14-2022 Cholesterol in HDL [Mass/Vol] 54 mg/dL 35-85 [facility] Comment on above: HDL CHOL ATP-III CLA SSIFICATION Cardiovascular RiskHDL > or equal to 60 mg/dL LOWHDL < 40 mg/dL HIGH Serum or plasma total choles terol/high density lipoprotein (HDL) cholesterol mass ratOrdered By: Pradeep Osullivan on 10-14-2022 Cholesterol.total/Carey sterol in HDL [Mass ratio] 2.4 {ratio} <5.0 [facility] Sodium [Moles/volume] in Ser um or PlasmaOrdered By: Pradeep Osullivan on 10-14-2022 Sodium [Moles/Vol] 139 mmol/L 136-145 [facility] Thyrotropin [Units/volume] i n Serum or PlasmaOrdered By: Pradeep Osullivan on 10-14-2022 TSH Qn 1.78 m[IU]/L 0.45-5.33 [facility] Triglyceride [Mass/volume] i n Serum or PlasmaOrdered By: Pradeep Osullivan on 10-14-2022 Triglyceride [Mass/Vol] 52 mg/dL 0-149 [facility] Comment on above: TRIG ATP III CLASSIF ICATIONTRIG less than 150 mg/dL NormalTRIG 150-199 mg/dL Borderline highTRIG 200-500 mg/dL High TRIG greater than 500 mg/dL Very highStandard traceable to the Center for Disease Conrtrol and Prevention (CDC) test method. Urea nitrogen [Mass/volume] in Serum or PlasmaOrdered By: Pradeep Osullivan on 10-14-2022 Urea nitrogen [Mass/Vol] 10 mg/dL 7- [facility] WBC Auto (Bld) [#/Vol]Ordere d By: Pradeep Osullivan on 10-14-2022 WBC (Bld) [#/Vol] 4.2 10*3/uL 3.8-11.6 [facility] PAP [id number] 02-17-2022 Cytology report Cyto stain Doc (Cvx/Vag) Note Invalid Interpretation Code [facility] Comment on above: Result Comment: TEST S RESULT FLAG UNITS REF RANGE LAB Clinician Provided Cytology Information Source.............[employer] No. of containers..01 ThinPrep Vial DIAGNOSIS: 01 NEGATIVE FOR INTRAEPITHELIAL LESION OR MALIGNANCY. Specimen adequacy: 01 Satisfactory for evaluation. Endocervical and/or squamous metaplastic cells (endocervical component) are present. Performed by: Kvng Florian, Head Esthetician (ASCP) . 01 Note: Note 01 The [...] <-Panic Low,>-Panic High,A-Abnormal,AA-Critical Abnormal Performed at: [address] [address] Yun Atwood MD, Performed By: #### 3 [id number] #### [facility] [address] [place] [address] HPV 16+18+31+33+35+39+45+51 +52+56+58+59+66+68 DNA Probe+sig amp Ql (Cvx) Negative Invalid Interpretation Code Negative [facility] Comment on above: Result Comment: This nucleic acid amplification test detects fourteen high-risk HPV types (16,18,31,33,35,39,45,51,52,56,58,59,66,68) without differentiation. Performed at: [facility] [id number] MD Angelic Malcolm Performed at: =[address] [id number] MD Angelic Malcolm Performed By: #### 3 [id number] #### [facility] [address] [place] [address] Coding Summary.on 02-16-2022 Coding Summary. CD:[id number] G h0bWw+PGhlYWQ+KQ1JXEV sS17yfLUcuA0ZZ5xMPM3K OJHRPWTFHL9AOF6fiRA2P RegM7QuqmVv SldpxNEeVD68YOu0MOV2c RxeCYdlgA6soKMcC7z6Jo ThKA80nE71IQtnQSPbSbI 3LjZpbjsgbWFy X9pyDuOnvJNgOlm+PHRhY mxlIHdpZHRoPScxMDAlJy RftUwyIL6rMe9fOMNnDQM vbGxhcHNlOiBj c7owDXJqZZncDA0ngSnfV 6RmkLK6MYExi8v4Pp90eH I+FIRdWJD7tPwxABsps80 9PrIfy5qyWUJ6 aURsOWwgEKQ3O88bo8D1N ELcTJIaLNH7dGX0uF1edF mydceeE9TrwFZmBdY4IZI 6jXVrsG9laHyz oegyjR0lIpj+V22FOA0EY RZLTF8ABgl5J9XhNptuhS I+QO08OYGqYY13hTMtwAB nx2xhyYj3BoMf KYCrXYR6mZhiAPacl2YoA JTyJ27mlMLdf1A3LDRbjD evbZYlTyAgcGV5fS7iGTt thtdop7salbzw Cnpvh6qght55rD41S82rH CdyFFSjFNP9GAXeUEGqgW expt1avB3xXj4+ESqqz4v gg3qwrKh8IcWv VQGrrjJkjLbyXGE0e6RqV e39P5YgrViso2QsOws2rw 70jHTic7F0kCC2APayWDP cmS5rEJwqOeP3 PNMnYdCwrT44mRKjBSsxK v4djDlbtIwpVO3bYTGqtu brRVLkqG9dTJPtlLHtxFo xKY8fFEFoouzb a003AzCrTCL5QEPcgXBqS 3HjaD7cJhDzXDNnGIEbJ1 MhlDUoUQfiA474PNrfExW 5CUMgkiLjU0Li TOOqrIdgRtS2s3A5Yn3Ak 0IjjpkhXSY6PPirDXA5Vb E4WuHvUkD7M2IpMno1AOM nmMaeIN3pS9Ik IEGnatzddfzlvOE8HEJkU XEnxL30sRWyAKgvTj0pu9 W4d331GJMbOMUvmR56Hn3 udDogMTBwdCBU oC1jieqog8qxihjjTsKoO TDbDLv3XNe9RCBfeOrsWd JrXDB9MuC2QAK6zUQzgL0 gbKrdbidwrP8f Oyc+Z97imN6fLQU5VKG7b wjgVNBmhbQnNU88WN19Z2 RyPjwvdGFibGU+PGRpdiB pcNuvKC8gBoJj s0bwm6PxCYrjI4WfEGLiT GpcZoi6IAChXGG4zEY1aJ 8pKMQoXTtab8W0xSJ8N6K uspEvxo9xv3nl JLToMOxqM67tqCFgb8E9I ZTowVO4LASajGahEhFkmC 93Oyc+KMSlaTtso5UoNbk cl2zkk8flkFe7 MrPxRYMyzqFfjDhsCWZ3p 3QaLk13Y43lXNhoZVQwNO RrDJQoJPQcwSobhh6ymF2 wIi8+PGNvbCB3 kZV6sF3hBMVsSxN3NHjzU 459LgQbxLNzAyqeu2uxr9 igyQm9OmEfNDCrfnNpyKt zBGQ5o4MhCh41 A80wYOpiNOQnEYWtAHNfX KZgnDkmqe2agF6uWa8+PC 2mz8jtwl78zP60xVB+PHR oNMC2jMnyUDqv WTYuaU9kCOwvRiM0LUTuX hCsaJ04pCOtUVkeFi6mbE osgEjjEO2dSVQnapkyc99 8YeVbx5ktFNPn uKRnBEqzCWH4Z85wt3Y5O KBrZAYvMSQ5yXH6xV1dwM lnbjogbGVmdDsgdmVydGl oUGgtIXisB158 IHRvcDsnPlBhdGllbnQgT lUpBDc8T9JnVcs1AVIdrV tkKJ0xaIKqFRgeDq4orQm brIvoAS0aZVLx aaxcf510BtTlo3weZQIhz OZmNFbxJVF2D70uh8R6AJ ZcNZSiQHB0eIG3hF1upZc nbjogbGVmdDsg geVvpPemFNeeIGwdI681R HRvcDsnPkJpcnRoIERhdG O2XU89NE89iDBjf5Y6sCF 9X7UeHCIubhne hxhpmZU7EXAaWVFxpS14F u5yxQmnXq5wBRKlYGM0LV UsiNHrJ3LtzN7kNpEjQGS jDBAvC3GbvVJv DIveT999XTwkBiK9XOEga hIhI6HnZPWfqHfrVvG5q3 M9Pc6UK3J4DQ22TD28bED jg0G9tGZ1R0Hs JLCjnbeqtbwjvMH7DHMyM ASoaV29Jx0vgXbaMt6zJB AsDPB4NDShnXExH0QroU6 yOiAjMDAwMDAw B8ZsgAFcILhtH123FEggQ oI4YGUdexDcT6LoKCEprO heObJ4q9L0Eh2RXKm2BV2 5DL98qDAiu7I5 xKT5Z6TpXOOfgbjliyezv PM8YVNvBJKxyO76Mz4wqD muIe8uWXQpGAZ3IWQcjKS mC6PhhT8kScEq GLVtPGAqO3JvwZBrAUauT 215NVctInQ5MRTknmZoP0 QgFSHpfRfaTcV3g4Z3Bx5 PQGOuWT68CKV5 yEX6VR41FW47E4RgOhdbx GFibGU+PHRhYmxlIHdpZH RoPScxMDAlJyBzdHlsZT0 sNr5vNVZsVXGw nAommMWfMgMkg7moYTXgA XviES1dnRthN1JriGH8YA Mxk6r4By04M57dF0JynPE +HRImkWU0cIV3 rP7pHxHkYvV1WCxeR158E gHipSMcRezhw0nwb8ornR l9QsX2FGSjdmGbsHvkKDI 4r8AsIc20W79z IHdpZHRoPSIxNSUiIHZhb Fiweb0ubS8eJb1+PGNvbC B8iHJ5rW9yWoMbZpE2GQg aX013LzQviMOs Rdjtd6lmy0hokSm8TyCwZ TNghuPttCibPSB1r1LcKe 93A7XtuVwcf2BlBra0ed0 8zEIlw0W3zQM5 K4ZwDYJvqfzzlVCoeNbyY L0aFUBirdmiSUAbwL6jLC UcO0e5ThQaOoG2SGxnG3O knrO8SZRtjSYl VZwmXWO2G54ep3T5IRTlO EEwQIO9hLQ8sD5icEeamh ogbGVmdDsgdmVydGljYWw xHFhnG916MSXy tJghOPWhdN5zLTDdbPNdq CzgQX3uREFtytsuFlgDQE pNVP5qMOZMYOQDHKD8G3O cMvm1AAWkbQak IJ0fqPGnHWgdBa6ufTbkn HhyTL1lEFJiqzabCHHimS 7mNMCivEDuzZbgEX5oPLS gtjqtm072NnEk XED7GKQqrQFeE4QtiR5pZ xOaXWKnKXExL8GjpZRdJC wrL513SPzqQnW4BZFgflD xZ6RcOVRkkOqf JhS3t3R6Wc2fAI5cBK3xM Nd5UA15XL59jZWvg0Y3lP B1L5PcRMBzmewfxhnlnOR 2CKBuMQLfjA31 oGJzLXorTn3mx0Y8t622C YGyKYQomT31Xb9wwPgvIO MicWHLbK1rprhdi9gexmr gIzAwMDAwMDt0 ZTa6GPYjsQvsRlYzSQD2E xE2RFN6mJGxuD9piLcjlr lyeO8aJts+MzQgWWVhcnM 3D9CvZor6JDKo gJxkYH0nyDQxTEdmQt8hi MgpcDewEO5uPFKlptbqSO StaE6yARWklDRsyQzsPN0 gPSJwmwfbz288 SqGtXAT0FCOjtZEcK9Uwp G2oOjAcOFQoWQGgK4TiqM BjCNojL857YLuiNtM7GGN vjcZrX2NnXUBy lJaxUnP4j6P2Kr4BXZ4lx UQ7G5QvEfo1YKBxnDcgEZ 1vxWRdJXvfNf1vjVxtgUu fYX6hWTHydgiv OPVutU4hROMacMBpxIetZ B6iWQQnqupfi737QeCcJF U6HDLvnKPpH0WywQ3hGxB dWDLwWRPfF1Ln eONtYJhaZ998MCsqLxV0G KFmvkZfD1DqROFtlIatCx B4f3G6Wz1WFNQlHVRslYC aVzA3E8KaYcoc dHI+JW51TOIkYC90oNWzi IAmz6dlyPh2EzEfANEiBZ W2bDioXWxrq0AeYBFyL66 qtMNgr9H3WQQa dKdnkHSqSwSkvIG1xQ7vQ Bvgotdsv0nrmhnpDsvqo0 okmt11dI68O71jVObvVKY oPSIzMCUiIHZh hAdiuv7ghA0tYq0+PGNvb MD8xDE6eF3lSnLiZkM3CP xkA145TnGchNFoOqowc0r bb2bvuZt2WiFj MFMyduEfsUdcKZZ5q2BtT b14F86lWSwqLVTcAHSlSR PxQUHdsGsxel2xsR6nNl3 +YW6wr9izzh56 nE85xOV+TSRtWXB6uNgqJ AwgVTDthN7hLGeiUuS9FD UeVcWbiJ30aJZyWZkrLk6 klVzwjRhwCD0i USOrolqsh238HiYvn1hvH TDjnWLlPVepPWN5H71ez1 Q0FGSeXXVrQJM3iZE5tM5 hbGlnbjogbGVm dDsgdmVydGljYWwtYWxpZ 681TGMfaSkpAkFusHAlC2 hkzoQDAK6mFmvmqRH+PHR nEBD9kFflMSuj LAWfeD2xRLHgB5c7QlIwZ yK1BIclB9ZkltD6LHOltU CrWZWmeTZNqL3ouzdnk0d vcjogIzAwMDAw ORv6PBu7JUOtmHxxCgFzS FY9YzO2VOS2zEPwkK6ouF nnewkueN5hLgi+RklOOjw vdGQ+PHRkIHN0 nFgiYFktXENjwC4xHOIoM 7x3BsKkDsS6JSgjF6Rhnd Z4HVRenUClLLOavHYSaV1 nxcmgn7ffbqmv ExMbKZMdWXc0INf0NMYce HwbMaOnXSY3IbF7ETT0qT LexM5jeZihaigekV2rDpn +TVJOOjwvdGQ+ GPIkLWS2aNabZJspBREob Z4uLITzL1h5SgIdKyS3CW sgQ9PaayW8PEMqfDLvUJP xsRNVkR2hqdzt d9mlqkokFwDzODJjAXp8J Ut0LGMxeAqaCcVrFLY9Nr T6JWN2zWQnhV3lkGteuqw kwZ7qMyy+UGF5 LUR7RO13XK80E5QsGztjo GFibGU+PHRhYmxlIHdpZH RoPScxMDAlJyBzdHlsZT0 mIk8sCYLvCZIe bGxh (more content not included)... Normal [facility] PAP [id number] 02-11-2022 Collection Technique BRUSH-SPATULA Normal F [facility] Comment on above: Performed By: #### 3 [id number] #### [facility] [address] [place] [address] Gynecological Body Site ENDOCERVIX Normal F [facility] Comment on above: Performed By: #### 3 [id number] #### [facility] [address] [place] [address] Previous Cytology Negative Normal [facility] Comment on above: Performed By: #### 3 [id number] #### [facility] [address] [place] [address] Previous Treatment NONE Normal [facility] Comment on above: Performed By: #### 3 [id number] #### [facility] [address] [place] [address] Physician Orderon 02-11-2022 Physician Order [id number]# 1.00CD:127 Normal [facility] CBC AUTO DIFFon 12-17-2017 Basophils Auto #/vol (Bld) 0.1 103/ul Normal 0.0-0.1 [facility] Comment on above: Performed By: #### C BC ####[facility] [address] [place] [address]Mbbsnr Yuki Basophils/100 WBC Auto (Bld) 0.7 % Normal 0.2-2.0 [facility] Comment on above: Performed By: #### C BC ####[facility] [address] [place] [address]Owwdtm Yuki Eosinophils 0.2 103/ul Normal 0.0-0.7 [facility] Comment on above: Performed By: #### C BC ####[facility] [address] [place] [address]Wsgadp Yuki Eosinophils/100 leukocytes 2.7 % Normal 0.9-7.0 [facility] Comment on above: Performed By: #### C BC ####[facility] [address] [place] [address]Qjuinq Yuki Erythrocyte distribution width Auto Ratio (RBC) 12.9 % Normal 11.0-15.0 [facility] Comment on above: Performed By: #### C BC ####[facility] [address] [place] [id number] Yuki Erythrocytes (RBC) 3.59 106/ul Critically low 4.20-5.40 [facility] Comment on above: Performed By: #### C BC ####[facility] [address] [place] [id number] Yuki Hematocrit (HCT) 31.1 % Critically low 36.0-48.0 [facility] Comment on above: Performed By: #### C BC ####[facility] [address] [place], [place] [address]Gerken Yuki Hemoglobin mass conc (Bld) 10.5 g/dL Critically low 12.0-16.0 [facility] Comment on above: Performed By: #### C BC ####[facility] [address] [place], [place] [address]Gerken Yuki IG # 0.02 10e3/ul Normal 0.00-0.03 [facility] Comment on above: Performed By: #### C BC ####[facility] [address] [place] [address] Yuki IG % 0.3 % Normal 0.0-0.5 [facility] Comment on above: Performed By: #### C BC ####[facility] Z[address] [place], [place] [address]Gerken Yuki Lymphocytes 2.3 103/ul Normal 1.2-3.8 [facility] Comment on above: Performed By: #### C BC ####[facility] R[address] [place], [place] [address]Gerken Yuki Lymphocytes/100 leukocytes 33.2 % Normal 20.5-60.0 [facility] Comment on above: Performed By: #### C BC ####[facility] [address] [place] [address] Yuki MANUAL DIFF REQ NO Normal [facility] Comment on above: Performed By: #### C BC ####[facility] [address] [place] [address] Yuki MCH 29.2 pg Normal 26.7-34.0 [facility] Comment on above: Performed By: #### C BC ####[facility] [address] [place] [id number] Mirza MCHC mass conc (RBC) 33.8 g/dL Normal 29.9-35.2 [facility] Comment on above: Performed By: #### C BC ####[facility] [address] [place] [id number] Stewarten MCV 86.6 fL Normal 81.0-99.0 [facility] Comment on above: Performed By: #### C BC ####[facility] [address] [place], [place] [address]Gerken Yuki Monocytes 0.6 103/ul Normal 0.3-0.8 [facility] Comment on above: Performed By: #### C BC ####[facility] [address] [place] [address] Yuki Monocytes/100 leukocytes 9.1 % Normal 1.7-12.0 [facility] Comment on above: Performed By: #### C BC ####[facility] It[address] [place], [place] [address]Gerken Yuki Neutrophils 3.8 103/ul Normal 1.4-6.5 [facility] Comment on above: Performed By: #### C BC ####[facility] [address] [place], [place] [address]Gerobey Stewarten Neutrophils/100 WBC Auto (Bld) 54.0 % Normal 43.0-75.0 [facility] Comment on above: Performed By: #### C BC ####[facility] C[address]ct[address] [place], [place] [address]Gerobey Mirza Platelet mean volume (PMV) 10.1 fL Normal 9.5-13.5 [facility] Comment on above: Performed By: #### C BC ####[facility] [address] [place], [place] [address]Gerken Yuki Platelets 207 103/ul Normal 150-450 [facility] Comment on above: Performed By: #### C BC ####[facility] [address] [place], [place] [address]Eucykh Yuki WBC (Leukocytes) 7.0 103/ul Normal 4.0-11.0 [facility] Comment on above: Performed By: #### C BC ####[facility] [address] [place], [place] [address]Utrlmt Yuki PREG HCG QUALon 12-17-2017 , QUAL Positive Normal NEGATIVE [facility] Comment on above: Performed By: #### P REG ####[facility] [address] [place], [place] [address]Gerken Yuki PROF CHEM 8 (BAS METB)on Anion gap 9.6 mmol/L Normal [facility] Comment on above: Performed By: #### B MP ####[facility] [address] [place], [place] [address]Gerken Yuki BUN/Creatinine Ratio 14.5 mg/mg Normal [facility] Comment on above: Performed By: #### B MP ####[facility] [address] [place], [place] [address]Gerken Yuki Calcium 10.0 mg/dL Normal 8.4-10.2 [facility] Comment on above: Performed By: #### B MP ####[facility] [address] [place], [place] [address]Gerken Yuki Chloride 106 mmol/L Normal 98-107 [facility] Comment on above: Performed By: #### B MP ####[facility] [address] [place], [place] [address]Gerken Yuki CO2 27.0 mmol/L Normal 22.0-30.0 [facility] Comment on above: Performed By: #### B MP ####[facility] [address] [place], [place] [address]Gerken Yuki Creatinine 0.72 mg/dL Normal 0.52-1.04 [facility] Comment on above: Performed By: #### B MP ####[facility] [address] [place], [place] [address]Gerken Yuki eGFR (non-black) mL/min/{1.73_m2} Normal >=[address] [facility] Comment on above: Performed By: #### B MP ####[facility] [address] [place], [place] [address]Acrecu Yuki Glucose mass conc 92 mg/dL Normal 74-106 [facility] Comment on above: Performed By: #### B MP ####[facility] [address] [place] [id number] Yuki Potassium molar conc 3.7 mmol/L Normal 3.4-5.0 [facility] Comment on above: Performed By: #### B MP ####[facility] [address] [place] [id number] Yuki Sodium 139 mmol/L Normal 137-145 [facility] Comment on above: Performed By: #### B MP ####[facility] [address] [place] [id number] Yuki Urea nitrogen 10.0 mg/dL Normal 7.0-17.0 [facility] Comment on above: Performed By: #### B MP ####[facility] [address] [place], [place] [address]Imomzg Yuki TYPE AND SCREENon 12-17-2017 TYPE AND SCREEN Negative Normal [facility] Comment on above: Performed By: #### T NS ####[facility] [address] [place], [place] [address]Duuhpf Yuki US PELVISon 12-17-2017 US PELVIS [address] [place] [address] Patient: LUZMARIA CONTRERAS Exam Date: 12/16/2017DOB: 1985 Gender:F : DR YEMI MCGARRY Admission #: [id number] : DR GERMAN MCGRAW Order #: [id number] HERE TO VIEW EXAM RADIOLOGY REPORT PROCEDURE: [...] Francis M.D. on 12/16/2017 at 23:05 Normal [facility] Vital Signs Date Time Vital Sign Value Performing Clinician Facility 04-02-2023 09:45-0400 Body height 167.64 cm [facility] Other 04-02-2023 09:45-0400 Body mass index (BMI) [Ratio] 25.69 kg/m2 [facility] Other 04-02-2023 09:45-0400 Body weight 72.21 kg [facility] Other [facility] Other 04-02-2023 09:45-0400 Diastolic blood pressure 70 mm[Hg] [facility] Other [facility] Other 04-02-2023 09:45-0400 Respiratory rate 12 /min [facility] Other [facility] Other 04-02-2023 09:45-0400 Systolic blood pressure 106 mm[Hg] [facility] Other [facility] Other 12-22-2022 14:45-0400 Body height 167.64 cm Marla Lewis Other [facility] Other 12-22-2022 14:45-0400 Body mass index (BMI) [Ratio] 25.01 kg/m2 Marla Lewis Other [facility] Other 12-22-2022 14:45-0400 Body weight 70.31 kg Marla Lewis Other [facility] Other 12-22-2022 14:45-0400 Diastolic blood pressure 76 mm[Hg] Marla Lewis Other [facility] Other 12-22-2022 14:45-0400 Systolic blood pressure 104 mm[Hg] Marla [facility] Other [facility] Other Encounters Encounter Date Encounter Type Care Provider Facility Start: 07-22-2023 End: 07-22-2023 ambulatory PITA CONSTANCE Not Available Start: 06-14-2023 End: 06-14-2023 ambulatory PITA CONSTANCE Not Available Start: 05-26-2023 End: 05-26-2023 ambulatory FEDERICA MAGALLON Not Available Start: 04-02-2023 End: 04-02-2023 ambulatory German Mcgraw Other [facility] Other Start: 04-02-2023 Encounter for genera l adult medical examination without abnormal findings German Mcgraw [facility] Start: 04-02-2023 Periodic preventive med est patient 18-39 yrs German Mcgraw [facility] Start: 02-19-2023 End: 02-19-2023 ambulatory German Mcgraw [facility] Other Start: 02-19-2023 Telephone encounter German Mcgraw [facility] Start: 02-11-2023 End: 02-11-2023 ambulatory German Mcgraw Other [facility] Other Start: 02-11-2023 Telephone encounter German Mcgraw [facility] Start: 01-14-2023 End: 01-14-2023 ambulatory German Mcgraw Other [facility] Other Start: 01-14-2023 Office outpatient vi sit 15 minutes German Lucien [facility] Start: 12-24-2022 End: 12-24-2022 ambulatory Marla Lewis Other [facility] Other Start: 12-24-2022 Telephone encounter Marla Lewis [facility] Start: 12-23-2022 End: 12-23-2022 ambulatory Marla Lewis Other [facility] Other Start: 12-23-2022 Telephone encounter Marla Lewis [facility] Start: 12-22-2022 End: 12-22-2022 ambulatory Marla Lewis Other [facility] Other Start: 12-22-2022 Office outpatient vi sit 15 minutes Marla Debbie [facility] Start: 12-14-2022 End: 12-14-2022 ambulatory German Mcgraw Other [facility] Other Start: 12-14-2022 Telephone encounter German SIFUENTES [facility] Start: 11-17-2022 End: 11-17-2022 ambulatory German Mcgraw Other [facility] Other Start: 11-17-2022 Telephone encounter German Mcgraw [facility] Start: 10-14-2022 End: 10-14-2022 ambulatory Pradeep Osullivan Facility:[facility] Start: 10-14-2022 End: 10-14-2022 ambulatory NON STAFF [facility] Work Phone: Start: 10-14-2022 End: 10-14-2022 Departed Referred [facility]-Employee Benefit Screening Start: 07-17-2022 ([facility]G VCS) [facility] Sched[facility] German Mcgraw [facility] Start: 07-17-2022 End: 07-17-2022 ambulatory German Mcgraw Other [facility] Other Start: 07-15-2022 End: 07-15-2022 ambulatory German Mcgraw Other [facility] Other Start: 07-15-2022 Telephone encounter German Mcgraw No rt [facility] Start: 04-24-2022 Adult health examination German Mcgraw Other [facility] Other Start: 08-15-2020 End: 08-15-2020 Discharged Recurring STAFF, [facility]-Covid Vaccine Start: 12-17-2017 End: 12-17-2017 Ambulatory GERMAN MCGRAW Facility:[facility]1 Procedures Date Procedure Procedure Detail Performing Clinician Depression screening Bettina Mcgraw Other Plan of Treatment Date Care Activity Detail Author Start: 10-14-2022 [facility] Immunizations Immunization Date Immunization Notes Care Provider Fa cility 07-15-2021 COVID-19 Vaccine Pfi zer - Documentation Purposes Only German Mcgraw Other [facility] Other 08-15-2020 COVID-19 mRNA-1273 (Moderna) STAFF, [facility] 07-18-2020 COVID-19 mRNA-1273 (Moderna) STAFF, [facility] Payers Date Payer Category Payer Private Health Insurance [id number] 2022 Self-pay [id number] 2022 [facility] [id number] 1985 Unknown [id number] 1985 Unknown [id number] 1985 Unknown [id number] 1959 Private Health Insurance [id number] [facility] [id number] Social History Date Type Detail Facility Tobacco smoking status NHIS Unknown if ever smoked [facility] Start: 1985 Sex Assigned At Female F [facility] Sex Assigned At Sex Assigned At Bir [facility] Other Goals Date Patient Goal Desired Activity [...] and keep acitive. PRN use of Buspar [facility] Other 07-06-2023 Evaluation note* Encounter Date Diagnosis Assessment Notes Treatment Notes Treatment Clinical Notes Jan, Acute non-recurrent maxillary sinusitis (ICD-10 - J01.00) Instructed to use Robitussin or Mucinex for cough, saline or Flonase NS for congestion, Tylenol for pain and fever. [facility] Other 06-13-2023 Evaluation note* Encounter Date Diagnosis Assessment Notes Treatment Notes Treatment Clinical Notes Dec, Acute pain of right knee (ICD-10 - M25.561) Pt has been taking NSAIDs. Requests referral to Dr Esposito. XR order printed. PT order printed on 12/24. [facility] Other 06-05-2023 Evaluation note* Encounter Date Diagnosis Assessment Notes Treatment Notes Treatment Clinical Notes Dec, TIRSO (generalized anxiety disorder) (ICD-10 - F41.1) [facility] Other 05-09-2023 Evaluation note* Encounter Date Diagnosis Assessment Notes Treatment Notes Treatment Clinical Notes November, Fever blister (ICD-10 - B00.1) [facility] Other 01-06-2023 Evaluation note* Encounter Date Diagnosis Assessment Notes Treatment Notes Treatment Clinical Notes Jul, Migraine with aura and without status migrainosus, not intractable (ICD-10 - G43.109) Stable w/o exacerbation w/ acute illness Jul, Acute bronchitis due to other specified organisms (ICD-10 - J20.8) Instructed to use Robitussin or Mucinex for cough, saline or Flonase NS for congestion, Tylenol for pain and fever. [facility] Other Evaluation noteNo InformationNort [employer] Other Evaluation noteNo assessment information available [facility] Work Phone: [facility] Narrative - Reported* Type Description Date Surgical History Right knee arthroscopy 2010 [facility] Other Hiscrri general Narrative - Reported* Type Description Date Surgical History Right knee arthroscopy 2010 Surgical History Right knee arthroscopy 2022 [facility] Other [employer] general Narrative - Reported* Type Description Date Medical History Migraine with aura a nd without status migrainosus, not intractable Medical History TIRSO (generalized anxiety disorde r) Surgical History Right knee arthroscopy 2010 Surgical History Right knee arthroscopy 2022 Hospitalization History see surgical hx [facility] Other Summary Purpose Family History No Family [...] pain of right knee (M25.561) Referral Organization [facility] Referring Provider First Name Marla Referring Provider Last Name Debbie Referring Provider Specialty Family [facility] Referred Organization [facility] Referred Provider Ferdinand Esposito Jr. Referred Address ,[place], [place],[address] Referred Provider Specialty Orthopedic S urgery Referral [...] DATE CREATED AUTHOR 12/28/2017 [facility] DATE CREATED AUTHOR AUTHOR'S ORGANIZ ATION 03/06/2022 [facility] DATE CREATED AUTHOR AUTHOR'S ORGANIZ ATION 04/15/2023 [facility] DATE CREATED AUTHOR AUTHOR'S ORGANIZ ATION 07/23/2023 [facility] EPIC REASON FOR VISIT (unrecogniz ed section and content) Clinicalsore throat, cough, chest congestion [phone] Medication ChangeXray resultsright knee [phone] sinus infectionNo InformationNo Informationpoison miki Care Teams (unrecognized sec tion and content) Team Status: Active Member Role Status Dates NON STAFF Primary Care Provider Active Team Status: Inactive Member Role Status Dates NON STAFF Primary Care Provider Active Pradeep Osullivan , [facility] Attending Provider Active Goals (unrecognized section and [...] BE BASED ON THE PRIMARY CLINICAL RECORDS. [facility]. provides no warranty or guarantee of the accuracy or completeness of information in this document.
[2023-08-20 06:42] LABS: Basophils Absolute Auto 0.1 10^3/uL (0.0-0.1); Basophils Percent Auto 1.1 % (0.2-2.0); Eosinophils Absolute Auto 0.1 10^3/uL (0.0-0.7); Eosinophils Percent Auto 2.3 % (0.9-7.0); Hematocrit 38.1 % (36.0-48.0); Hemoglobin 12.4 g/dL (12.0-16.0); Lymphocytes Absolute Auto 2.3 10^3/uL (1.2-3.8); Lymphocytes Percent Auto 48.4 % (20.5-60.0); Mean Corpuscular HGB Conc 32.5 g/dL (29.9-35.2); Mean Corpuscular Hemoglobin 28.7 pg (26.7-34.0); Mean Corpuscular Volume 88.2 fL (81.0-99.0); Mean Platelet Volume 10.6 fL (9.5-13.5); Monocytes Absolute Auto 0.5 10^3/uL (0.3-0.8); Monocytes Percent Auto 10.6 % (1.7-12.0); Neutrophils Absolute Auto 1.8 10^3/uL (1.4-6.5); Neutrophils Percent Auto 37.6 % (43.0-75.0); Platelet Count 202 10^3/uL (150-450); Red Blood Count 4.32 10^6/uL (4.20-5.40); Red Cell Distribution Width 11.9 % (11.0-15.0); White Blood Count 4.7 10^3/uL (4.0-11.0)
[2023-08-20] MEDS: LACTATED RINGER'S SOLUTION 1,000 ML 50 ML IV (06:43)
[2023-08-20 07:08] LABS: HCG Quantitative <1 mIU/mL
[2023-08-20] MEDS: SCOPOLAMINE 1 MG/3 DAYS TRANSDERM PATCH 1 PATCH TD (07:38)
[2023-08-20] MEDS: LACTATED RINGER'S SOLUTION 1,000 ML 75 ML IV (08:44)
--- NOTE | 2023-08-20 08:49 | PC.NURSE ---
Peripad dry; has heating pad on
--- NOTE | 2023-08-20 08:52 | PM.ONB ---
Brief Operative Note Date of procedure: 08/20/23 Pre-op diagnosis: menorrhagia Post-op diagnosis: same as pre-op Procedure: NAME OF PROCEDURE: [ ] Nannette endometrial ablation with hysteroscopy. PROCEDURE: The patient was taken back to the OR where she was prepped and draped in the normal sterile fashion after being placed in the dorsal lithotomy position, after being placed under general anesthesia without difficulty.? A weighted speculum was placed into the vagina. The anterior lip was grasped with a single tooth tenaculum. The patient was then sounded to approximated 8cm. The patient?s cervix was gently dilated using hegardilators. The hysteroscope was passed through the cervix into the uterus where both ostia were seen. No gross evidence of polyps, fibroids or malignancy. The cervical length was noted to be 4 cm. The total cavity length is 4cm.? The Nannette ablation apparatus was set to approximately 4cm in length. This was placed through the cervix and into the uterus. After the seal was tested, at that time the total ablation of 120 seconds was performed with the Nannette withoutdifficulty. All instruments were removed from the vagina. Excellent hemostasis noted.? Sponge and lap count correct times 2.? Patient taken to recovery in stable condition. Anesthesia: MAC Surgeon: Jin Valerio [employer] Furnace Installer And Repairer: Shelly Carlin Estimated blood loss (mL): 5 Pathology: none sent Condition: stable Disposition: PACU Urinary Catheter Management Urinary Catheter Management Straight: Cath placed during this visit: no
--- NOTE | 2023-08-20 09:01 | PC.NURSE ---
Peripad dry; c/o headache; does not rate
--- NOTE | 2023-08-20 09:09 | PC.NURSE ---
No vaginal drainage noted
== END 2023-08-20 10:05 | disposition home or self-care (01) ==
PROVIDERS: PCP Internal Medicine; Visit Provider Obstetrics & Gynecology
PROC: (CPT 952; principal; 2023-08-20 07:30)
DX: N93.9 Abnormal uterine and vaginal bleeding, unspecified (principal); N92.0 Excessive and frequent menstruation with regular cycle; Z98.890 Other specified postprocedural states; Z79.899 Other long term (current) drug therapy; R10.2 Pelvic and perineal pain
CPT/HCPCS: 58563; 36415; 84702; 85025; J0131; J1100; J1885; J2405; J2704; J3010

== ENCOUNTER 2023-11-08 15:22 | Emergency (ER) | payer OTHER, SELFPAY ==
[2023-11-08 15:26] VITALS: BP 111/66; PULSE 72; TEMP 37.2; O2SAT 97; BMI 21.9
--- OUTSIDE RECORDS SUMMARY | 2023-11-08 15:31 | XMS_ITS | CCD ---
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 Role Phone GERMAN MCGRAW Unavailable Unavailable MARKER, YEMI Unavailable Unavailable MARKER, YEMI Unavailable Unavailable SEDRICK FRANCIS Unavailable Unavailable MARKER, YEMI Unavailable Unavailable NON, STAFF, Primary Care Provider UnavailJames Jordan Attending Provider German Mcgraw Unavailable NON STAFF Primary Care Provider UnavailDO Pradeep Mendoza Attending Provider [phone] Marla Lewis Unavailable Pradeep Osullivan Attending Unavailable Pradeep Osullivan Admitting Unavailable NON STAFF Primary Care Unavailable FEDERICA MAGALLON Attending Unavailable PITA VALERIO Attending Unavailable PITA VALERIO Attending Unavailable German Mcgraw MD Primary Care Provider Unavailable Unavailable Unavailable Allergies Allergy Classification Reported Allergen(s) Allergy Type Date of Onset Reaction(s) Facility (2 sources) patient allergy list reviewed by nurse or physicia Propensity to adverse reactions Comment:Done [email or web address] Other Medications Current Medications Medication Drug Class(es) Dates Sig (Normalized) Sig (Original) busPIRone hydrochloride 10 mg oral tablet (9 sources) Start: 12-15-2022 take 1 tablet by mouth twice daily as needed for anxiety busPIRone (Buspar) 10 MG tablet TAKE 1 TABLET BY MOUTH TWICE A DAY NEEDED FOR ANXIETY FOR 30 DAYS 0 12/15/2022 Active eletriptan 40 mg oral tablet (12 sources) Serotonin-1b and Serotonin-1d Receptor Agonist Start: 12-05-2022 eletriptan (Relpax) 40 MG tablet TAKE 1 TABLET NEEDED FOR HEADACHE, MAY REPEAT IN 2 HOURS IF NEEDED, MAXIMUM 2 TABLETS IN 24 HOURS 0 12/05/2022 Active 24 hr metFORMIN hydrochloride 500 mg extended release oral tablet (2 sources) Biguanide Start: 02-16-2023 End: 02-16-2024 take 1 tablet by mouth every twenty-four hours at mealtime metFORMIN XR (Glucophage-XR) 500 MG 24 hr tablet Indications: Insulin resistance TAKE 1 TABLET (500 MG) BY MOUTH IN THE EVENING. TAKE WITH MEALS. DO NOT CRUSH, CHEW, OR SPLIT. 30 tablet 11 02/16/2023 02/16/2024 Active [facility] metFORMIN HCl 500 MG [...] venlafaxine 37.5 mg extended release oral capsule (11 sources) Serotonin and Norepinephrine Reuptake Inhibitor Start: 12-15-2022 Venlafaxine HCl ER 37.5 MG 2 capsules daily x 7 days then 1 capsule daily x 7 days then stop Orally Once a day for 14 days Dec, Active Start: 11-11-2022 take 1 capsule by mo [facility] every twenty-four hours in the morning venlafaxine XR (Effexor XR) 150 MG 24 hr capsule Take 150 mg by mouth in the morning. 0 11/11/2022 Active take 1 capsule by mouth once [...] Test Name Value Interpretation Reference Range Facility ALL CBC WITH AUTO DIFFon BASOPHILS ABSOLUTE AUTO 0.1 [facility] Basophils/100 WBC (Bld) 1.1 % 0.2 - 2.0 % [facility] Eosinophils/100 WBC (Bld) 2.3 % 0.9 - 7.0 % [facility] Erythrocyte distribution width (RBC) [Ratio] 11.9 % 11.0 - 15.0 % [facility] Hematocrit (Bld) [Volume fraction] 38.1 % 36.0 - 48.0 % [facility] Hemoglobin (Bld) [Mass/Vol] 12.4 g/dL 12.0 - 16.0 g/dL [facility] IMMATURE GRANULOCYTES ABS AUTO 0.00 [facility] Immature granulocytes/100 WBC (Bld) 0.0 % 0.0 - 0.5 % [facility] Interpretation and review of laboratory results Abnormal [facility] LYMPHOCYTES ABSOLUTE AUTO 2.3 [facility] Lymphocytes/100 WBC (Bld) 48.4 % 20.5 - 60.0 % [facility] MCH (RBC) [Entitic mass] 28.7 pg 26.7 - 34.0 pg [facility] MCHC (RBC) [Mass/Vol] 32.5 g/dL 29.9 - 35.2 g/dL [facility] MCV (RBC) [Entitic vol] 88.2 fL 81.0 - 99.0 fL [facility] MONOCYTES ABSOLUTE AUTO 0.5 [facility] Monocytes/100 WBC (Bld) 10.6 % 1.7 - 12.0 % [facility] NEUTROPHILS ABSOLUTE AUTO 1.8 [facility] Neutrophils/100 WBC (Bld) 37.6 % Low 43.0 - 75.0 % [facility] Platelet mean volume (Bld) [Entitic vol] 10.6 fL 9.5 - 13.5 fL [facility] TBH EO # 0.1 [facility]H PLT 202 [facility] TB RBC 4.32 [facility] TB WBC 4.7 [facility] Alanine aminotransferase [En zymatic activity/volume] in Serum or PlasmaOrdered By: Pradeep Osullivan on 10-14-2022 ALT [Catalytic activity/Vol] 8 U/L 7-52 [facility] Albumin [Mass/volume] in Ser um or Plasma by Bromocresol green (BCG) dye binding methoOrdered By: Pradeep Osullivan on 10-14-2022 Albumin BCG dye [Mass/Vol] 4.3 g/dL 3.5-5.7 [facility] Alkaline phosphatase [Enzyma tic activity/volume] in Serum or PlasmaOrdered By: Pradeep Osullivan on 10-14-2022 ALP [Catalytic activity/Vol] 62 U/L 34-104 [facility] Aspartate aminotransferase [ Enzymatic activity/volume] in Serum or PlasmaOrdered By: Pradeep Osullivan on 10-14-2022 AST [Catalytic activity/Vol] 15 U/L 13-39 [facility] Basophils Auto (Bld) [#/Vol] Ordered By: Pradeep Osullivan on 10-14-2022 Basophils (Bld) [#/Vol] 0.0 10*3/uL 0.0-0.2 [facility] Basophils/100 WBC Auto (Bld) Ordered By: Pradeep Osullivan on 10-14-2022 Basophils/100 WBC (Bld) 0.9 % . [facility] Bilirubin.total [Mass/volume ] in Serum or PlasmaOrdered By: Pradeep Osullivan on 10-14-2022 Bilirubin [Mass/Vol] 0.5 mg/dL 0.3-1.[address] [facility] Calcium [Mass/volume] in Ser um or PlasmaOrdered By: Pradeep Osullivan on 10-14-2022 Calcium [Mass/Vol] 9.3 mg/dL 8.6-10.3 [facility] Carbon dioxide, total [Moles /volume] in Serum or PlasmaOrdered By: Pradeep Osullivan on 10-14-2022 CO2 [Moles/Vol] 28.0 mmol/L 21.0-31.0 [facility] Chloride [Moles/volume] in S sheila or PlasmaOrdered By: Pradeep Osullivan on 10-14-2022 Chloride [Moles/Vol] 106 mmol/L 98-[address] [facility] Cholesterol [Mass/volume] in Serum or PlasmaOrdered By: Pradeep Osullivan on 10-14-2022 Cholesterol [Mass/Vol] 132 mg/dL 140-200 [facility] Comment on above: Chol less than 200 m g/dl low riskChol 201-239 mg/dl borderline riskChol 240 mg/dl and greater high risk Cholesterol in LDL Calc [Mas s/Vol]Ordered By: Pradeep Osullivan on 10-14-2022 Cholesterol in LDL [Mass/Vol] 68 mg/dL 0-100 [facility] Comment on above: LDL ATP III CLASSIFI CATIONLDL less than 100 mg/dL OptimalLDL 100-129 mg/dL Near or above optimalLDL 130-159 mg/dL Borderline highLDL 160-189 mg/dL HighLDL greater than 189 mg/dL Very high Cholesterol in VLDL Calc [Ma ss/Vol]Ordered By: Pradeep Osullivan on 10-14-2022 Cholesterol in VLDL [Mass/Vol] 10 mg/dL [facility] Creatinine [Mass/volume] in Serum or PlasmaOrdered By: Pradeep Osullivan on 10-14-2022 Creatinine [Mass/Vol] 0.83 mg/dL 0.60-1.20 [facility] Employee Comp Metabolic Pane jessika 10-14-2022 Albumin [Mass/Vol] 4.3 g/dL Normal 3.5-5.7 [facility] Comment on above: Performed By: #### P ILLAR TSH, PILLAR LIPID, PILLAR CMP, PILLAR CBC #### [facility] [address] [place] [address] [place] #### NICOTINE QUAL #### [facility] , Albumin/Globulin [Mass ratio] 1.7 {ratio} Normal [facility] Comment on above: Performed By: #### P ILLAR TSH, PILLAR LIPID, PILLAR CMP, PILLAR CBC #### [facility] [address] [place] [address] [place] #### NICOTINE QUAL #### [facility] , ALP [Catalytic activity/Vol] 62 U/L Normal 34-104 [facility] Comment on above: Performed By: #### P ILLAR TSH, PILLAR LIPID, PILLAR CMP, PILLAR CBC #### [facility] [address] [place] [address] [place] #### NICOTINE QUAL #### [facility] , ALT [Catalytic activity/Vol] 8 U/L Normal 7-52 [facility] Comment on above: Performed By: #### P ILLAR TSH, PILLAR LIPID, PILLAR CMP, PILLAR CBC #### [facility] [address] [place] [address] [place] #### NICOTINE QUAL #### [facility] , Anion gap [Moles/Vol] 9.4 mmol/L Normal 6.0-15.0 [facility] Comment on above: Performed By: #### P ILLAR TSH, PILLAR LIPID, PILLAR CMP, PILLAR CBC #### [facility] [address] [place] [address] [place] #### NICOTINE QUAL #### [facility] , AST [Catalytic activity/Vol] 15 U/L Normal 13-39 [facility] Comment on above: Performed By: #### P ILLAR TSH, PILLAR LIPID, PILLAR CMP, PILLAR CBC #### [facility] [address] [place] [address] [place] #### NICOTINE QUAL #### [facility] , Bilirubin [Mass/Vol] 0.5 mg/dL Normal 0.3-1.[address] [facility] Comment on above: Performed By: #### P ILLAR TSH, PILLAR LIPID, PILLAR CMP, PILLAR CBC #### [facility] [address] [place] [address] [place] #### NICOTINE QUAL #### [facility] , Calcium [Mass/Vol] 9.3 mg/dL Normal 8.6-10.3 [facility] Comment on above: Performed By: #### P ILLAR TSH, PILLAR LIPID, PILLAR CMP, PILLAR CBC #### [facility] [address] [place] [address] [place] #### NICOTINE QUAL #### [facility] , Chloride [Moles/Vol] 106 mmol/L Normal 98-[address] [facility] Comment on above: Performed By: #### P ILLAR TSH, PILLAR LIPID, PILLAR CMP, PILLAR CBC #### [facility] [address] [place] [address] [place] #### NICOTINE QUAL #### [facility] , CO2 [Moles/Vol] 28.0 mmol/L Normal 21.0-31.0 [facility] Comment on above: Performed By: #### P ILLAR TSH, PILLAR LIPID, PILLAR CMP, PILLAR CBC #### [facility] [address] [place] [address] [place] #### NICOTINE QUAL #### [facility] , Creatinine [Mass/Vol] 0.83 mg/dL Normal 0.60-1.20 [facility] Comment on above: Performed By: #### P ILLAR TSH, PILLAR LIPID, PILLAR CMP, PILLAR CBC #### [place] [address] [place] #### NICOTINE QUAL #### [facility] , GFR/1.73 sq M.predicted MDRD (S/P/Bld) [Vol rate/Area] mL/min/{1.73_m2} [facility] Comment on above: Performed By: #### P ILLAR TSH, PILLAR LIPID, PILLAR CMP, PILLAR CBC #### [facility] [address] [place] [address] [place] #### NICOTINE QUAL #### [facility] , Globulin (S) [Mass/Vol] 2.5 g/dL Normal [facility] Comment on above: Performed By: #### P ILLAR TSH, PILLAR LIPID, PILLAR CMP, PILLAR CBC #### [facility] [address] [place] [address] [place] #### NICOTINE QUAL #### [facility] , Glucose [Mass/Vol] 88 mg/dL Normal 70-100 [facility] Comment on above: Performed By: #### P ILLAR TSH, PILLAR LIPID, PILLAR CMP, PILLAR CBC #### [facility] [address] [place] [address] [place] #### NICOTINE QUAL #### [facility] , Potassium [Moles/Vol] 4.4 mmol/L Normal 3.5-5.1 [facility] Comment on above: Performed By: #### P ILLAR TSH, PILLAR LIPID, PILLAR CMP, PILLAR CBC #### [facility] [address] [place] [address] [place] #### NICOTINE QUAL #### [facility] , Protein [Mass/Vol] 6.8 g/dL Normal 6.4-8.9 [facility] Comment on above: Performed By: #### P ILLAR TSH, PILLAR LIPID, PILLAR CMP, PILLAR CBC #### [address] #### NICOTINE QUAL #### [facility] , Sodium [Moles/Vol] 139 mmol/L Normal 136-145 [facility] Comment on above: Performed By: #### P ILLAR TSH, PILLAR LIPID, PILLAR CMP, PILLAR CBC #### [facility] [address] [place] [address] #### NICOTINE QUAL #### [facility] , Urea nitrogen [Mass/Vol] 10 mg/dL Normal 7-25 [facility] Comment on above: Performed By: #### P ILLAR TSH, PILLAR LIPID, PILLAR CMP, PILLAR CBC #### [place] [address] [place] #### NICOTINE QUAL #### [facility] , Employee Complete Blood Coun ton 10-14-2022 Basophils (Bld) [#/Vol] 0.0 10*3/uL Normal 0.0-0.2 [facility] Comment on above: Result Comment: PERF ORMED BY: [place] [address] PATHOLOGIST FREIGHT CALLER FLOYD CASTILLO M.D. Performed By: #### P ILLAR TSH, PILLAR LIPID, PILLAR CMP, PILLAR CBC #### [facility] [address] [place] [address] [place] #### NICOTINE QUAL #### [facility] , Basophils/100 WBC (Bld) 0.9 % Normal . [facility] Comment on above: Performed By: #### P ILLAR TSH, PILLAR LIPID, PILLAR CMP, PILLAR CBC #### [facility] [address] [place] [address] [place] #### NICOTINE QUAL #### [facility] , Eosinophils (Bld) [#/Vol] 0.0 10*3/uL Normal 0.0-0.45 [facility] Comment on above: Performed By: #### P ILLAR TSH, PILLAR LIPID, PILLAR CMP, PILLAR CBC #### [place] [address] [place] #### NICOTINE QUAL #### [facility] , Eosinophils/100 WBC (Bld) 1.0 % Normal . [facility] Comment on above: Performed By: #### P ILLAR TSH, PILLAR LIPID, PILLAR CMP, PILLAR CBC #### [facility] [address] [place] [address] [place] #### NICOTINE QUAL #### [facility] , Erythrocyte distribution width (RBC) [Ratio] 13.2 % Normal 11.9-15.3 [facility] Comment on above: Performed By: #### P ILLAR TSH, PILLAR LIPID, PILLAR CMP, PILLAR CBC #### [facility] [address] [place] [address] [place] #### NICOTINE QUAL #### [facility] , Hematocrit (Bld) [Volume fraction] 37.6 % Normal 34.0-46.4 [facility] Comment on above: Performed By: #### P ILLAR TSH, PILLAR LIPID, PILLAR CMP, PILLAR CBC #### [place] [address] [place] #### NICOTINE QUAL #### [facility] , Hemoglobin (Bld) [Mass/Vol] 12.4 g/dL Normal 11.8-15.4 [facility] Comment on above: Performed By: #### P ILLAR TSH, PILLAR LIPID, PILLAR CMP, PILLAR CBC #### [address] #### NICOTINE QUAL #### [facility] , Lymphocytes (Bld) [#/Vol] 1.4 10*3/uL Normal 1.00-4.8 [facility] Comment on above: Performed By: #### P ILLAR TSH, PILLAR LIPID, PILLAR CMP, PILLAR CBC #### [address] #### NICOTINE QUAL #### [facility] , Lymphocytes/100 WBC (Bld) 32.7 % Normal . [facility] Comment on above: Performed By: #### P ILLAR TSH, PILLAR LIPID, PILLAR CMP, PILLAR CBC #### [address] #### NICOTINE QUAL #### [facility] , MCH (RBC) [Entitic mass] 28.4 pg Normal 24.7-34.3 [facility] Comment on above: Performed By: #### P ILLAR TSH, PILLAR LIPID, PILLAR CMP, PILLAR CBC #### [place] [address] [place] #### NICOTINE QUAL #### [facility] , MCV (RBC) [Entitic vol] 86.3 fL Normal 80-100 [facility] Comment on above: Performed By: #### P ILLAR TSH, PILLAR LIPID, PILLAR CMP, PILLAR CBC #### [place] [address] [place] #### NICOTINE QUAL #### [facility] , Mean Corpuscular HGB Conc 32.9 g/dL Normal 32.0-35.0 [facility] Comment on above: Performed By: #### P ILLAR TSH, PILLAR LIPID, PILLAR CMP, PILLAR CBC #### [facility] [address] [place] [address] [place] #### NICOTINE QUAL #### [facility] , Monocytes (Bld) [#/Vol] 0.3 10*3/uL Normal 0.0-0.8 [facility] Comment on above: Performed By: #### P ILLAR TSH, PILLAR LIPID, PILLAR CMP, PILLAR CBC #### [facility] [address] [place] [address] [place] #### NICOTINE QUAL #### [facility] , Monocytes/100 WBC (Bld) 7.8 % Normal . [facility] Comment on above: Performed By: #### P ILLAR TSH, PILLAR LIPID, PILLAR CMP, PILLAR CBC #### [facility] [address] [place] [address] [place] #### NICOTINE QUAL #### [facility] , Neutrophils (Bld) [#/Vol] 2.4 10*3/uL Normal 1.8-7.7 [facility] Comment on above: Performed By: #### P ILLAR TSH, PILLAR LIPID, PILLAR CMP, PILLAR CBC #### [facility] [address] [place] [address] [place] #### NICOTINE QUAL #### [facility] , Neutrophils/100 WBC (Bld) 57.6 % Normal . [facility] Comment on above: Performed By: #### P ILLAR TSH, PILLAR LIPID, PILLAR CMP, PILLAR CBC #### [facility] [address] [place] [address] [place] #### NICOTINE QUAL #### [facility] , NRBC% 0.1 /100{WBC} Normal 0-0.5 [facility] Comment on above: Performed By: #### P ILLAR TSH, PILLAR LIPID, PILLAR CMP, PILLAR CBC #### [facility] [address] [place] [address] [place] #### NICOTINE QUAL #### [facility] , Platelet mean volume (Bld) [Entitic vol] 8.8 fL Normal 6.3-10.7 [facility] Comment on above: Performed By: #### P ILLAR TSH, PILLAR LIPID, PILLAR CMP, PILLAR CBC #### [facility] [address] [place] [address] [place] #### NICOTINE QUAL #### [facility] , Platelets (Bld) [#/Vol] 197 10*3/uL Normal 150-450 [facility] Comment on above: Performed By: #### P ILLAR TSH, PILLAR LIPID, PILLAR CMP, PILLAR CBC #### [facility] [address] [place] [address] #### NICOTINE QUAL #### [facility] , RBC (Bld) [#/Vol] 4.36 10*6/uL Normal 3.60-5.00 [facility] Comment on above: Performed By: #### P ILLAR TSH, PILLAR LIPID, PILLAR CMP, PILLAR CBC #### [facility] [address] [place] [address] #### NICOTINE QUAL #### [facility] , WBC (Bld) [#/Vol] 4.2 10*3/uL Normal 3.8-11.6 [facility] Comment on above: Performed By: #### P ILLAR TSH, PILLAR LIPID, PILLAR CMP, PILLAR CBC #### [facility] [address] [place] [address] [place] #### NICOTINE QUAL #### [facility] , Employee Lipid Profileon Cholesterol [Mass/Vol] 132 mg/dL Low 140-200 [facility] Comment on above: Result Comment: Chol less than 200 mg/dl low risk Chol 201-239 mg/dl borderline risk Chol 240 mg/dl and greater high risk Performed By: #### P ILLAR TSH, PILLAR LIPID, PILLAR CMP, PILLAR CBC #### [facility] [address] [place] [address] [place] #### NICOTINE QUAL #### [facility] , Cholesterol in HDL [Mass/Vol] 54 mg/dL Normal 35-85 [facility] Comment on above: Result Comment: HDL CHOL ATP-III CLASSIFICATION Cardiovascular Risk HDL > or equal to 60 mg/dL LOW HDL < 40 mg/dL HIGH Performed By: #### P ILLAR TSH, PILLAR LIPID, PILLAR CMP, PILLAR CBC #### [place] [address] [place] #### NICOTINE QUAL #### [facility] , Cholesterol.total/Carey sterol in HDL [Mass ratio] 2.4 {ratio} Normal <5.0 [facility] Comment on above: Performed By: #### P ILLAR TSH, PILLAR LIPID, PILLAR CMP, PILLAR CBC #### [facility] [address] [place] [address] [place] #### NICOTINE QUAL #### [facility] , LDL Cholesterol,Calculated 68 mg/dL Normal 0-100 [facility] Comment on above: Result Comment: LDL ATP III CLASSIFICATION LDL less than 100 mg/dL Optimal LDL 100-129 mg/dL Near or above optimal LDL 130-159 mg/dL Borderline high LDL 160-189 mg/dL High LDL greater than 189 mg/dL Very high Performed By: #### P ILLAR TSH, PILLAR LIPID, PILLAR CMP, PILLAR CBC #### [place] [address] [place] #### NICOTINE QUAL #### [facility] , Triglyceride w/Reflex 52 mg/dL Normal 0-149 [facility] Comment on above: Result Comment: TRIG ATP III CLASSIFICATION TRIG less than 150 mg/dL Normal TRIG 150-199 mg/dL Borderline high TRIG 200-500 mg/dL High TRIG greater than 500 mg/dL Very high Standard traceable to the Center for Disease Conrtrol and Prevention (CDC) test method. Performed By: #### P ILLAR TSH, PILLAR LIPID, PILLAR CMP, PILLAR CBC #### [facility] [address] [place] [address] [place] #### NICOTINE QUAL #### [facility] , VLDL CHOLESTEROL 10 mg/dL Normal [facility] Comment on above: Performed By: #### P ILLAR TSH, PILLAR LIPID, PILLAR CMP, PILLAR CBC #### [facility] [address] [place] [address] [place] #### NICOTINE QUAL #### [facility] , Employee Thyroid Stim Hormon deborah 10-14-2022 Employee Thyroid Stim Hormone 1.78 u[iU]/mL Normal 0.45-5.33 [facility] Comment on above: Result Comment: PERF ORMED BY: [place] [address] PATHOLOGIST FREIGHT CALLER FLOYD CASTILLO M.D. Performed By: #### P ILLAR TSH, PILLAR LIPID, PILLAR CMP, PILLAR CBC #### [facility] [address] [place] [address] #### NICOTINE QUAL #### [facility] , Eosinophils Auto (Bld) [#/Vo l]Ordered By: Pradeep Osullivan on 10-14-2022 Eosinophils (Bld) [#/Vol] 0.0 10*3/uL 0.0-0.45 [facility] Eosinophils/100 WBC Auto (Bl d)Ordered By: Pradeep Osullivan on 10-14-2022 Eosinophils/100 WBC (Bld) 1.0 % . [facility] Erythrocyte distribution wid th Auto (RBC) [Ratio]Ordered By: Pradeep Osullivan on 10-14-2022 Erythrocyte distribution width (RBC) [Ratio] 13.2 % 11.9-15.3 [facility] Globulin Calc (S) [Mass/Vol] Ordered By: Pradeep Osullivan on 10-14-2022 Globulin (S) [Mass/Vol] 2.5 g/dL [facility] Glucose [Mass/volume] in Ser um or PlasmaOrdered By: Pradeep Osullivan on 10-14-2022 Glucose [Mass/Vol] 88 mg/dL 70-100 [facility] Hematocrit Auto (Bld) [Volum e fraction]Ordered By: Pradeep Osullivan on 10-14-2022 Hematocrit (Bld) [Volume fraction] 37.6 % 34.0-46.4 [facility] Hemoglobin [Mass/volume] in BloodOrdered By: Pradeep Osullivan on 10-14-2022 Hemoglobin (Bld) [Mass/Vol] 12.4 g/dL 11.8-15.4 [facility] Leukocytes [#/volume] correc coral for nucleated erythrocytes in Blood by Automated counOrdered By: Pradeep Osullivan on 10-14-2022 WBC corrected for nucl RBC Auto (Bld) [#/Vol] 4.2 10*3/uL 3.8-11.6 [facility] Lymphocytes Auto (Bld) [#/Vo l]Ordered By: Pradeep Osullivan on 10-14-2022 Lymphocytes (Bld) [#/Vol] 1.4 10*3/uL 1.00-4.8 [facility] Lymphocytes/100 WBC Auto (Bl d)Ordered By: Pradeep Osullivan on 10-14-2022 Lymphocytes/100 WBC (Bld) 32.7 % . [facility] MCH Auto (RBC) [Entitic mass ]Ordered By: Pradeep Osullivan on 10-14-2022 MCH (RBC) [Entitic mass] 28.4 pg 24.7-34.3 [facility] MCHC Auto (RBC) [Mass/Vol]Or dered By: Pradeep Osullivan on 10-14-2022 MCHC (RBC) [Mass/Vol] 32.9 g/dL 32.0-35.0 [facility] MCV Auto (RBC) [Entitic vol] Ordered By: Pradeep Osullivan on 10-14-2022 MCV (RBC) [Entitic vol] 86.3 fL 80-100 [facility] Monocytes Auto (Bld) [#/Vol] Ordered By: Pradeep Osullivan on 10-14-2022 Monocytes (Bld) [#/Vol] 0.3 10*3/uL 0.0-0.8 [facility] Monocytes/100 WBC Auto (Bld) Ordered By: Pradeep Osullivan on 10-14-2022 Monocytes/100 WBC (Bld) 7.8 % . [facility] Neutrophils Auto (Bld) [#/Vo l]Ordered By: Pradeep Osullivan on 10-14-2022 Neutrophils (Bld) [#/Vol] 2.4 10*3/uL 1.8-7.7 [facility] Neutrophils/100 WBC Auto (Bl d)Ordered By: Pradeep Osullivan on 10-14-2022 Neutrophils/100 WBC (Bld) 57.6 % . [facility] Nicotine Metabolite, Qualon 10-14-2022 Nicotine Metabolite Negative Normal Cutoff=25 [facility] Comment on above: Result Comment: Perf ormed at: BN - [facility] [address] [id number] Medical Illustrator: Sammy Carpenter MD, Phone: [phone] PERFORMED BY: [place] [address] PATHOLOGIST FREIGHT CALLER FLOYD CASTILLO M.D. Performed By: #### P ILLAR TSH, PILLAR LIPID, PILLAR CMP, PILLAR CBC #### [place] [address] [place] #### NICOTINE QUAL #### [facility] , No Panel InformationOrdered By: Pradeep Osullivan on 10-14-2022 Estimated GFR (CKD-EPI) > 60.0 mL/Min [facility] Creatinine Clearance (Chem N/A [facility] Nucleated erythrocytes [Pres ence] in Blood by Automated countOrdered By: Pradeep Osullivan on 10-14-2022 Nucleated RBC Auto Ql (Bld) 0.1 /100{WBC} 0-0.5 [facility] Platelet mean volume Auto (B ld) [Entitic vol]Ordered By: Pradeep Osullivan on 10-14-2022 Platelet mean volume (Bld) [Entitic vol] 8.8 fL 6.3-10.7 [facility] Platelets Auto (Bld) [#/Vol] Ordered By: Pradeep Osullivan on 10-14-2022 Platelets (Bld) [#/Vol] 197 10*3/uL 150-450 [facility] Potassium [Moles/volume] in Serum or PlasmaOrdered By: Pradeep Osullivan on 10-14-2022 Potassium [Moles/Vol] 4.4 mmol/L 3.5-5.1 [facility] Protein [Mass/volume] in Ser um or PlasmaOrdered By: Pradeep Osullivan on 10-14-2022 Protein [Mass/Vol] 6.8 g/dL 6.4-8.9 [facility] RBC Auto (Bld) [#/Vol]Ordere d By: Pradeep Osullivan on 10-14-2022 RBC (Bld) [#/Vol] 4.36 10*6/uL 3.60-5.00 [facility] Serum or plasma albumin/glob ulin mass ratioOrdered By: Pradeep Osullivan on 10-14-2022 Albumin/Globulin [Mass ratio] 1.7 {ratio} [facility] Serum or plasma anion gap de terminationOrdered By: Pradeep Osullivan on 10-14-2022 Anion gap [Moles/Vol] 9.4 mmol/L 6.0-15.0 [facility] Serum or plasma high density lipoprotein (HDL) cholesterol measurementOrdered By: Pradeep Osullivan on 10-14-2022 Cholesterol in HDL [Mass/Vol] 54 mg/dL 35-85 [facility] Comment on above: HDL CHOL ATP-III CLA SSIFICATION Cardiovascular RiskHDL > or equal to 60 mg/dL LOWHDL < 40 mg/dL HIGH Serum or plasma total choles terol/high density lipoprotein (HDL) cholesterol mass ratOrdered By: Pradeep Osullivan on 10-14-2022 Cholesterol.total/Carey sterol in HDL [Mass ratio] 2.4 {ratio} <5.0 [facility] Sodium [Moles/volume] in Ser um or PlasmaOrdered By: Pradeep Osullivan on 10-14-2022 Sodium [Moles/Vol] 139 mmol/L 136-145 [facility] Thyrotropin [Units/volume] i n Serum or PlasmaOrdered By: Pradeep Osullivan on 10-14-2022 TSH Qn 1.78 m[IU]/L 0.45-5.33 [facility] Triglyceride [Mass/volume] i n Serum or PlasmaOrdered By: Pradeep Osullivan on 10-14-2022 Triglyceride [Mass/Vol] 52 mg/dL 0-149 F [facility] Comment on above: TRIG ATP III CLASSIF ICATIONTRIG less than 150 mg/dL NormalTRIG 150-199 mg/dL Borderline highTRIG 200-500 mg/dL High TRIG greater than 500 mg/dL Very highStandard traceable to the Center for Disease Conrtrol and Prevention (CDC) test method. Urea nitrogen [Mass/volume] in Serum or PlasmaOrdered By: Pradeep Osullivan on 10-14-2022 Urea nitrogen [Mass/Vol] 10 mg/dL 7-25 [facility] WBC Auto (Bld) [#/Vol]Ordere d By: Pradeep Osullivan on 10-14-2022 WBC (Bld) [#/Vol] 4.2 10*3/uL 3.8-11.6 [facility] PAP [id number] 02-17-2022 Cytology report Cyto stain Doc (Cvx/Vag) Note Invalid Interpretation Code [facility] Comment on above: Result Comment: TEST S RESULT FLAG UNITS REF RANGE LAB Clinician Provided Cytology Information Source.............Endocervix No. of containers..01 ThinPrep Vial DIAGNOSIS: 01 NEGATIVE FOR INTRAEPITHELIAL LESION OR MALIGNANCY. Specimen adequacy: 01 Satisfactory for evaluation. Endocervical and/or squamous metaplastic cells (endocervical component) are present. Performed by: Kvng Florian Hall Manager (ASC) . 01 Note: Note 01 The Pap [...] <-Panic Low,>-Panic High,A-Abnormal,AA-Critical Abnormal Performed at: [address] [address] Yun Atwood MD, Performed By: #### 3 [id number] #### [facility] [address] [place] [address] HPV 16+18+31+33+35+39+45+51 +52+56+58+59+66+68 DNA Probe+sig amp Ql (Cvx) Negative Invalid Interpretation Code Negative [facility] Comment on above: Result Comment: This nucleic acid amplification test detects fourteen high-risk HPV types (16,18,31,33,35,39,45,51,52,56,58,59,66,68) without differentiation. Performed at: [address] [id number] MD Angelic Malcolm Performed at: [address] [id number] MD Angelic Malcolm Performed By: #### 3 [id number] #### [facility] [address] [place] [address] Coding Summary.on 02-16-2022 Coding Summary. CD:[id number] G h0bWw+PGhlYWQ+DV7RQUS kE44saQEmtA3QG8tGAR9G DPFATYGHCA4LCB8ozDE1X MluW9LgxsFq VcwmeJMkXH54DEu0NOM2z CsiRIkwhU0haZXcU2f4Sa QtVX80mO93JScyJTLjDuG 3LjZpbjsgbWFy R8jnSoAvvAHpRao+PHRhY mxlIHdpZHRoPScxMDAlJy IalSklGX5lSg8kGZHtWIT vbGxhcHNlOiBj e4zjZNZiSKfeBH9hiPtzN 2IxjIZ9WQZyt1j8Wb59vA I+ZGGpONZ6kUvrJIvmc26 7OwSqk8hfEUW8 mGOcEBctBPA8E42cj5I0O VAlXLQeVVU0jYC6jF7ujD gjyspmS5OarHQtAyV9LVS 1fJOkaN5lsIrx usiccW8xRzh+F40IXO2SL DWSIV8TBmk7V1PdKcevmC I+QO69JOGsOW80uKMniSC ct1mfxOa8QeZd RCCuKFT2cSzkSPtsx4QnO HJjE47ybEWgn9K2LFVxxG erwEJyVvDpnGY6xP5cUSu nccsmg4piseho Ayylw4olfi58nJ75X81oU TapGSDpUOJ3JWCrMSYmwQ ptrq8qyS1eBk1+LQxhh8l wc2mpjOp3ThKj XVSravItjVqzJNP4y4FlY v55I1JocSqjl0JpZpf8wi 48vKLlw4G6cPH3VGttGBN olY1jYAviRvF5 JTPgGuVzkU05pWYiWJmjT m1alZswjGitJN1pYBVtnc uoPIGnoK9lRTZguYDypAh lWD2iQWCenewx f657WbCiKLJ5RVBwzAJvA 9GbqA5kWhVcIRKgIRDaC2 AvaVWcMSpcY226NSafPgY 6PBIbyuBzV6Iy NUHipDnzBqZ2r0W3Fm0Dk 8DalvthJBC6PYclUHC5Wz N0YuUnPqV3H6LpKvx7QXG eoIpmNK6eA7Nq GRXcfrmorpsolOL4KPBnP ZGbwT04lPMhYDtpGc8vu5 M4t916HPStQHBkpV96Py2 udDogMTBwdCBU gJ2ofnhao2pdrcheKmOxH EToUTx5WMw0EGIauRmyIv GkWQG9EpT2NUN7yTBzpZ3 yoKqemwkiwU5n Oyc+B23hdH6mCQX1ROV9d xvvCUQrarQnPH04EC08O8 RyPjwvdGFibGU+PGRpdiB xzPtgMP4uMnVh k8ifd9RgEYwoZ8FlMIXdM HbkIuq7PPGxCLK8gDQ4dL 0gLUQzYZxpx8N1hMC6E6T scoHxce8an2rn VRRrWYhlJ40nrDIii1Z7L CKglQQ3VVIttGdrCnGyyY 93Oyc+VAVftRtdc8UeLwh rg4eun7urcEr1 SuZjKXLwigNymXslLEP1b 7LgTk45H33uBYlkYSXyHZ BbLCYuPBXdsRfgrj5ucP8 wIi8+PGNvbCB3 pOR5uW5fPONxPcY5EMntK 140FwFafUIoInxed1uid5 kxjXn8FmHpGXErljThyVq fMUU8y2WpBk57 H57jVNpjSJTzXHRvWJLvP DJduFgxbv7xpG9rFp3+PC 3eq9qago99pD73wES+PHR hPCA8hSusVNdq TFEjnM4qKTquIeD6PKLbX hXlcC21aDGlIGpsBv4ffG skyZegDP0fHAFtuatjr75 4RtYet6lzBHZh kEYvMNpmRBJ8Z49nc5U2L XWuAQPyXTQ4jHR2kV8prN lnbjogbGVmdDsgdmVydGl yGPxjXLajW695 IHRvcDsnPlBhdGllbnQgT yZbRUu2N0UjCnc0KMNpgT wgXH1nuLNgUSomBp9pnMy cpWmnIW0fIFOw uyefq811AgExd8piDUVuu FRvPFpbUPF1X44rf6Q0JJ QxGDJqJJO7jQT4oJ2ftCu nbjogbGVmdDsg qoNnmKidULacLBlbU725C HRvcDsnPkJpcnRoIERhdG J9AH16AY51tADeh0U7xGT 3G6EfRWSrqhpx xjlvfES7AHVbVGKfgF06E q0rsVpmFx9sLUNnETZ6UK OwrKDbC2TymM9gThFaPDA mZLSwE2WyvCVb VIzoF766BBwhCqZ5QGGxh hGrW7EeBWDqoPyyAlJ3l6 M8Ph5ZR1V0FV67RZ67kBR ad0D5nPR8E1Vk VOHpaskuapgucEG4BGXqB WDyzB02Kb5ciGhpFq4oCJ DtMBI6HNTdzDLxP2AumH2 yOiAjMDAwMDAw A9JgwAHhOOriD799XPvtO qP5JMUxaxUsH9RkNMDajS ksNaJ2y7M5Bv5ICKz7DX6 7DS88eRWms6P6 iGX4K7UyDFJpxonjfvqzp HP0DFRmSGYwoO96Nw2xgK hrIj5uFMPtERN4WDZxwVP yI8WzzX7zWtJs ZJQcAVEcY3PntSCoGAozA 685HOkyWyU6TCPbyiJdX2 ZtFCYdhEcvAxM8s4W1Wp5 QLKDuAI67WOU0 uVI3UG11RK00S5VtVohly GFibGU+PHRhYmxlIHdpZH RoPScxMDAlJyBzdHlsZT0 kCr5oCGZlKJJl hJabuVFjXsOem0gnTUBiU YlpHY9ikLgsG8RdnLC0ID Bsk7x4Ic31S50qO9FwpIG +JNUxaED2sSN7 qC9hCjLeRcJ3KWxoT845H lDnrCJoAiqgj8wro1nurV q1PcD1UXWzjhEynYozNPO 0p0UqVl73O62n IHdpZHRoPSIxNSUiIHZhb Rlmro6jcJ7wXw3+PGNvbC C7vAP8rL3eUwKxJyL3GOb mI154SiFjpQIg Eqozj4ond1aolAm3OnUcH EEntoNlcZxhBXQ5f0SzDn 43R4OjdLmxg6XzRie9xm7 1iTMbh8M8nXS5 S9NyAUHpemvfkNDrdWjzE Z3cWNSbpmgnLEWmhI8hVY PlL2v6IdLuFrO7NAbaD6Y spiG6DCHbyJZm OQysGPY3T29fc0K5REWhH ROpUDB4uKF1hH3ldNzhss ogbGVmdDsgdmVydGljYWw kAWkgC790LJGf gVqvNMKobA3rQSUiaZGvl WdhZU0wKJJqddwcMbsIHG aHBE3kXQETADEAQCS1Z7H zHpt7LJLrmBjp GD8dhXYhCCipXz9ceUqkd YuiAT1kOZYjyrixNPQfbR 2yLVJhvQVciIkpCN3pJAB wpzgwe877ZhEr KSZ4RZRhsNEjA1RafM3pZ lMpBNXnSKJiX0HxaLDwGM isF868VCwoCrF4IVYqccX bR0QcRNDiwSwx PaI8g2D7Py8kLV2nBE9gE Os4GY81XN12iEZmn6N5aC I5L5TkXPXbkoxgqddwvMC 3ARYuPFYmsK37 bPGcKQlcSo9iu2D1m679I PEdGDZpcL38Or0wbVhgFV EusGBGpD7ycdfxi4mrqfy gIzAwMDAwMDt0 CBv2ACLhxRxjRbJhBDU5C eD8EGE5xJLopT3ndFuxls nddS3zWix+MzQgWWVhcnM 4X8EfOdw7QUTk lQgjPA3yhMSlAOqcIw3zo ZeveZqzXO0tJAPdrjdmID WelE3hTCRkfVRjgTieID1 hZSLdajgyu411 DlSfIZE6XUGtnZMjU5Ars K9bBzDiBTDiNHOeQ6MpcI EdTWicB163PEypJtY0MCP yxpZeI0JtVPBv zMkkSfK0e9E7Wb1JSO6ms QO7Q9GnMiy8FICjxKogZI 6jwKPsYDjhLa0kyBlobGp xBL0qNYHzruub PQGbqL7bNJRtuTIebBcnO N2rHSBztcdfb517YfHsYU K1SSMbjSCcT3YqzR8lIdL oGATfMCDxO1Bl cDTqKWacR801BKjaXoI2T DIechQuK6VcCJUpbUjeMx A6d4G1Qa2JTFNfJWLnpHI jUsO5R7QjXeue dHI+KT15KEBvNL79yQHmw LCna5ytpWg5YwScTPTzHZ O3bNsdLXrbf1ImJYAlG47 wwTZey2N6ENCa tOjxiHUlLgZsrPQ4bR4zR Dkynnujn5unkwofNgtfb7 ukms00wZ93X78lKGoiTWC oPSIzMCUiIHZh nGcsng0nhV8sZh1+PGNvb NT7bKU0pC6iLnVlPcS2RA biQ715IhBmbBXvIzxzi8g jy2gwhAq2GiRk HLVtreFsySdhMJA3c5EnS d81J99jDKnjRFAdZFXpGX PfJFXqrQuced0puZ8pJp3 +XT1jf4msxi16 uG15eAW+ZFTzDER8fDjbO GwlHPPllG4nIEkrDuA4AA ErAfMrkI03tGVfBKndLr7 nlYfzrBvnKW4w HSHcgpxqj260QwTmo6eeU VFrbHLkHEzeDYM1N82dy6 L9RLInQDSqDRO2vIL2zN1 hbGlnbjogbGVm dDsgdmVydGljYWwtYWxpZ 481NLShfEdnKjHzvWWgI3 bodtCSWZ0hXexkhKP+PHR pOPB2eLjzRDfk EEAdfK8gMZVgZ8v1RlTyK tP4APncJ3HxyyT3QQLstP MlTSMdpUGVcO2qqpcnx6d vcjogIzAwMDAw YKj0ODf6SPJhjVykOkTnZ GN2KwD4XQF9cGTiyO0qtA odoykkaT9iFcd+RklOOjw vdGQ+PHRkIHN0 pIrgWLxvGGJjnM4yKDUyF 7w8XbEtLgP0DZayV2Vhza V4LKFjcLGwKYOqrDUQkG4 jrhelj5jdnvsl YtZvMHMiXFl3OOy3SHRvs KyaHsLfWTT2DhB0NAM0kF MmsP8ddNancloupC7sZfi +TVJOOjwvdGQ+ DFMuQJW5bXwfZOacCOTol K7tTXHcM7z9MaOrMrT8XD ayG6FfakL4RNPdpMHmBIU taPGLeB9mfyhj g0kflbcgGoCiWFYqDAb8M Dy5YOZjrWzpOwYzBZU6Uo B1BJV1zPEamD8fiExuema meP6tKxg+UGF5 DMY7XK09AR26D5WtPksvm GFibGU+PHRhYmxlIHdpZH RoPScxMDAlJyBzdHlsZT0 mWm0gAZJuIFQw bGxh (more content not included)... Normal [facility] PAP [id number] 02-11-2022 Collection Technique BRUSH-SPATULA Normal F [facility] Comment on above: Performed By: #### 3 [id number] #### [facility] [address] [place] [address] Gynecological Body Site ENDOCERVIX Normal F [facility] Comment on above: Performed By: #### 3 [id number] #### [facility] [address] [place] [address] Previous Cytology Negative Normal [facility] Comment on above: Performed By: #### 3 [id number] #### [facility] [address] [place] [address] Previous Treatment NONE Normal [facility] Comment on above: Performed By: #### 3 [id number] #### [facility] [address] [place] [address] Physician Orderon 02-11-2022 Physician Order [id number]# [id number]:127 Normal [facility] CBC AUTO DIFFon 12-17-2017 Basophils Auto #/vol (Bld) 0.1 103/ul Normal 0.0-0.1 [facility] Comment on above: Performed By: #### C BC ####[facility] [address] [place], [place] [id number] Y[place] Basophils/100 WBC Auto (Bld) 0.7 % Normal 0.2-2.0 [facility] Comment on above: Performed By: #### C BC ####[facility] [address] [place] [id number] Eosinophils 0.2 103/ul Normal 0.0-0.7 [facility] Comment on above: Performed By: #### C BC ####[facility] B[address] [place] Eosinophils/100 leukocytes 2.7 % Normal 0.9-7.0 [facility] Comment on above: Performed By: #### C BC ####[facility] [address] [place] [address] [place] Erythrocyte distribution width Auto Ratio (RBC) 12.9 % Normal 11.0-15.0 [facility] Comment on above: Performed By: #### C BC ####[facility] [address] [place] [address] [place] Erythrocytes (RBC) 3.59 106/ul Critically low 4.20-5.40 [facility] [place] [facility] Comment on above: Performed By: #### C BC ####[facility] [address] [place] [address] [place] Hematocrit (HCT) 31.1 % Critically low 36.0-48.0 [facility] Comment on above: Performed By: #### C BC ####[facility] [address] [place] [address] [place] Hemoglobin mass conc (Bld) 10.5 g/dL Critically low 12.0-16.0 [facility] Comment on above: Performed By: #### C BC ####[facility] [address] [place] [address] [place] IG # 0.02 10e3/ul Normal 0.00-0.03 [facility] Comment on above: Performed By: #### C BC ####[facility] [address] [place] [address] [place] IG % 0.3 % Normal 0.0-0.5 [facility] Comment on above: Performed By: #### C BC ####[facility] [address] [place] [address] [place] Lymphocytes 2.3 103/ul Normal 1.2-3.8 [facility] Comment on above: Performed By: #### C BC ####[facility] [address] [place] [address] [place] Lymphocytes/100 leukocytes 33.2 % Normal 20.5-60.0 [facility] Comment on above: Performed By: #### C BC ####[facility] [address] [place] [phone] MANUAL DIFF REQ NO Normal [facility] Comment on above: Performed By: #### C BC ####[facility] [address] [place] [id number] MCH 29.2 pg Normal 26.7-34.0 [facility] Comment on above: Performed By: #### C BC ####[facility] [address] [place] [id number] MCHC mass conc (RBC) 33.8 g/dL Normal 29.9-35.2 [facility] Comment on above: Performed By: #### C BC ####[facility] [address] [place], [place] [id number] MCV 86.6 fL Normal 81.0-99.0 [facility] Comment on above: Performed By: #### C BC ####[facility] [address] [place] [phone] Monocytes 0.6 103/ul Normal 0.3-0.8 [facility] Comment on above: Performed By: #### C BC ####[facility] [address] [place] [phone] Monocytes/100 leukocytes 9.1 % Normal 1.7-12.0 [facility] Comment on above: Performed By: #### C BC ####[facility] [address] [place], [place] [address]Uqbmdo Y[place] Neutrophils 3.8 103/ul Normal 1.4-6.5 [facility] Comment on above: Performed By: #### C BC ####[facility] [address] [place] [id number] Neutrophils/100 WBC Auto (Bld) 54.0 % Normal 43.0-75.0 [facility] Comment on above: Performed By: #### C BC ####[facility] [address] [place] [phone] Platelet mean volume (PMV) 10.1 fL Normal 9.5-13.5 [facility] Comment on above: Performed By: #### C BC ####[facility] [address] [place], [place] [phone] Platelets 207 103/ul Normal 150-450 [facility] Comment on above: Performed By: #### C BC ####[facility] [address] [place] [phone] WBC (Leukocytes) 7.0 103/ul Normal 4.0-11.0 [facility] Comment on above: Performed By: #### C BC ####[facility] [address] [place], [place] [id number] PREG HCG QUALon 12-17-2017 , QUAL Positive Normal NEGATIVE [facility] Comment on above: Performed By: #### P REG ####[facility] [address] [place], [place] [id number] PROF CHEM 8 (BAS METB)on Anion gap 9.6 mmol/L Normal [facility] Comment on above: Performed By: #### B MP ####[facility] [address] [place], [place] [phone] BUN/Creatinine Ratio 14.5 mg/mg Normal [facility] Comment on above: Performed By: #### B MP ####[facility] [address] [place], [place] [id number] Calcium 10.0 mg/dL Normal 8.4-10.2 [facility] Comment on above: Performed By: #### B MP ####[facility] [address] [place], [place] [phone] Chloride 106 mmol/L Normal 98-107 [facility] Comment on above: Performed By: #### B MP ####[facility] [address] [place], [place] [phone] CO2 27.0 mmol/L Normal 22.0-30.0 [facility] Comment on above: Performed By: #### B MP ####[facility] [address] [place] [phone] Creatinine 0.72 mg/dL Normal 0.52-1.04 [facility] Comment on above: Performed By: #### B MP ####[facility] [address] [place], [place] [address]Bhnxhf [place] eGFR (non-black) mL/min/{1.73_m2} Normal >=60 Th [facility] Comment on above: Performed By: #### B MP ####[facility] [address] [place] [phone] Glucose mass conc 92 mg/dL Normal 74-106 [facility] Comment on above: Performed By: #### B MP ####[facility] Bhchapipww[address] [place] Potassium molar conc 3.7 mmol/L Normal 3.4-5.0 [facility] Comment on above: Performed By: #### B MP ####[facility] [address] [place] [phone] Sodium 139 mmol/L Normal 137-145 [facility] Comment on above: Performed By: #### B MP ####[facility] [address] [place] [phone] Urea nitrogen 10.0 mg/dL Normal 7.0-17.0 [facility] Comment on above: Performed By: #### B MP ####[facility] [address] [place], [place] [address]Vdvdvd [place] TYPE AND SCREENon 12-17-2017 TYPE AND SCREEN Negative Normal [facility] Comment on above: Performed By: #### T NS ####[facility] [address] [place], [place] [address]Mgikyq [place] US PELVISon 12-17-2017 US PELVIS [address] [facility] [place] [address] Patient: RADHA CONTRERAS. Exam Date: 12/16/2017DOB: 1985 Gender:F : DR YEMI MCGARRY Admission #: [id number] : DR GERMAN MCGRAW Order #: [id number] HERE TO VIEW EXAM RADIOLOGY REPORT PROCEDURE: [...] Francis M.D. on 12/16/2017 at 23:05 Normal [facility] Vital Signs Date Time Vital Sign Value Performing Clinician Facility 04-02-2023 09:45-0400 Body height 167.64 cm German Mcgraw Other [email or web address] Other 04-02-2023 09:45-0400 Body mass index (BMI) [Ratio] 25.69 kg/m2 German Mcgraw Other [email or web address] Other 04-02-2023 09:45-0400 Body weight 72.21 kg German Mcgraw Other [email or web address] Other 04-02-2023 09:45-0400 Diastolic blood pressure 70 mm[Hg] German Ball Other [email or web address] Other 04-02-2023 09:45-0400 Respiratory rate 12 /min German Ball Other [email or web address] Other 04-02-2023 09:45-0400 Systolic blood pressure 106 mm[Hg] German Mcgraw Other [email or web address] Other 12-22-2022 14:45-0400 Body height 167.64 cm Marla Lewis Other [email or web address] Other 12-22-2022 14:45-0400 Body mass index (BMI) [Ratio] 25.01 kg/m2 Marla Lewis Other [email or web address] Other 12-22-2022 14:45-0400 Body weight 70.31 kg Marla Lewis Other [email or web address] Other 12-22-2022 14:45-0400 Diastolic blood pressure 76 mm[Hg] Marla Lewis Other [email or web address] Other 12-22-2022 14:45-0400 Systolic blood pressure 104 mm[Hg] Marla Lewis Other [email or web address] Other Encounters Encounter Date Encounter Type Care Provider Facility Start: 08-20-2023 Clinisync Result Encounter Pita Iman DO Work Phone: [facility] External Department Unsolicited Start: 08-20-2023 Clinisync Result Encounter Pita Iman DO Work Phone: [facility] External Department Unsolicited Start: 07-22-2023 End: 07-22-2023 ambulatory PITA IMAN Not Available Start: 06-14-2023 End: 06-14-2023 ambulatory PITA IMAN Not Available Start: 05-26-2023 End: 05-26-2023 ambulatory FEDERICA MAGALLON Not Available Start: 04-02-2023 End: 04-02-2023 ambulatory German Mcgraw Other [email or web address] Other Start: 04-02-2023 Encounter for vickey l adult medical examination without abnormal findings German Mcgraw [facility] Start: 04-02-2023 Periodic preventive med est patient 18-39 yrs German Mcgraw [facility] Start: 02-19-2023 End: 02-19-2023 ambulatory German Mcgraw Other [email or web address] Other Start: 02-19-2023 Telephone encounter German SIFUENTES [facility] Start: 02-11-2023 End: 02-11-2023 ambulatory German Mcgraw Other [email or web address] Other Start: 02-11-2023 Telephone encounter German Mcgraw FP [facility] Start: 01-14-2023 End: 01-14-2023 ambulatory German Mcgraw Other [email or web address] Other Start: 01-14-2023 Office outpatient vi sit 15 minutes German Mcgraw [facility] Start: 12-24-2022 End: 12-24-2022 ambulatory Marla Lewis Other [email or web address] Other Start: 12-24-2022 Telephone encounter Marla Lewis [facility] Start: 12-23-2022 End: 12-23-2022 ambulatory Marla Lewis Other [email or web address] Other Start: 12-23-2022 Telephone encounter Marla Lewis [facility] Start: 12-22-2022 End: 12-22-2022 ambulatory Marla Lewis Other [email or web address] Other Start: 12-22-2022 Office outpatient vi sit 15 minutes Marla Lewis [facility] Start: 12-14-2022 End: 12-14-2022 ambulatory German Mcgraw Other [email or web address] Other Start: 12-14-2022 Telephone encounter German Mcgraw FP [facility] Start: 11-17-2022 End: 11-17-2022 ambulatory German Mcgraw Other [email or web address] Other Start: 11-17-2022 Telephone encounter German SIFUENTES G [facility] Start: 10-14-2022 End: 10-14-2022 ambulatory Pradeep Osullivan Facility:[facility] Start: 10-14-2022 End: 10-14-2022 ambulatory NON STAFF [facility] Work Phone: Start: 10-14-2022 End: 10-14-2022 Departed Referred [facility]-Employee Benefit Screening Start: 07-17-2022 ([facility] V[facility]) [facility] Scheduled German Mcgraw [facility] Start: 07-17-2022 End: 07-17-2022 ambulatory German Mcgraw Other [email or web address] Other Start: 07-15-2022 End: 07-15-2022 ambulatory German Mcgraw Other [email or web address] Other Start: 07-15-2022 Telephone encounter German Mcgraw No rt [employer] Start: 04-24-2022 Adult health examination German Mcgraw Other [email or web address] Other Start: 08-15-2020 End: 08-15-2020 Discharged Recurring STAFF, NON [facility]-Covid Vaccine Start: 12-17-2017 End: 12-17-2017 Ambulatory GERMAN MCGRAW Facility:[facility] Procedures Date Procedure Procedure Detail Performing Clinician Start: 08-20-2023 ALL CBC WITH AUTO DIFF Pita Valerio DO Work Phone: Start: 05-26-2023 Microscopic observat ion [Identifier] in Cervix by Cyto stain Pita Valerio DO Work Phone: Depression screening Radhaverona [facility] Other Plan of Treatment Date Care Activity Detail Author Start: 05-26-2028 Screening for malign ant neoplasm of cervix [facility] Start: 10-14-2022 [facility] Immunizations Immunization Date Immunization Notes Care Provider Rafy sigala 07-15-2021 COVID-19 Vaccine Pfi zer - Documentation Purposes Only [facility] Other [email or web address] Other 08-15-2020 COVID-19 mRNA-1273 (Moderna) STAFF, NON [facility] 07-18-2020 COVID-19 mRNA-1273 (Moderna) STAFF, NON [facility] Payers Date Payer Category Payer Managed Care HMO (unspecified) AEBEBA AEBEBA [id number] 2023-Present [address] [place] [address] HMO [id number] 2023 Private Health Insurance [id number] 2022 Self-pay [id number] 2022 [facility] [id number] 1987 Unknown [id number] 1987 Unknown [id number] 1987 Unknown [id number] 1959 Private Health Insurance [id number] [facility] [id number] Social History Date Type Detail [facility] Start: 1985 Sex Assigned At Female [facility] Start: 02-19-2023 Sex Assigned At [email or web address] Other Start: 12-31-2022 Tobacco smoking status NHIS Never smoked tobacco [facility] Start: 12-31-2022 Tobacco use and exposure Smokeless tobacco non-user [facility] Start: 07-22-2023 Alcohol intake Current drinker of alcohol (finding) [facility] Start: 02-19-2023 History of Social function [facility] Start: 12-30-2022 Gender identity Identifies as female gender (finding) [facility] Start: 12-30-2022 Sexual orientation Heterosexual (finding) [facility] Goals Date Patient Goal Desired Activity /State [...] and keep acitive. PRN use of Buspar [email or web address] Other 07-06-2023 Evaluation note* Encounter Date Diagnosis Assessment Notes Treatment Notes Treatment Clinical Notes Jan, Acute non-recurrent maxillary sinusitis (ICD-10 - J01.00) Instructed to use Robitussin or Mucinex for cough, saline or Flonase NS for congestion, Tylenol for pain and fever. [email or web address] Other 06-13-2023 Evaluation note* Encounter Date Diagnosis Assessment Notes Treatment Notes Treatment Clinical Notes Dec, Acute pain of right knee (ICD-10 - M25.561) Pt has been taking NSAIDs. Requests referral to Dr Esposito. XR order printed. PT order printed on 12/24. [email or web address] Other 06-05-2023 Evaluation note* Encounter Date Diagnosis Assessment Notes Treatment Notes Treatment Clinical Notes Dec, TIRSO (generalized anxiety disorder) (ICD-10 - F41.1) [email or web address] Other 05-09-2023 Evaluation note* Encounter Date Diagnosis Assessment Notes Treatment Notes Treatment Clinical Notes November, Fever blister (ICD-10 - B00.1) [email or web address] Other 01-06-2023 Evaluation note* Encounter Date Diagnosis Assessment Notes Treatment Notes Treatment Clinical Notes Jul, Migraine with aura and without status migrainosus, not intractable (ICD-10 - G43.109) Stable w/o exacerbation w/ acute illness Jul, Acute bronchitis due to other specified organisms (ICD-10 - J20.8) Instructed to use Robitussin or Mucinex for cough, saline or Flonase NS for congestion, Tylenol for pain and fever. [email or web address] Other Evaluation noteNo InformationNort [employer] Other Evaluation noteNo assessment information available [facility] Work Phone: Hisgvnt general Narrative - Reported* Type Description Date Surgical History Right knee arthroscopy 2010 [email or web address] Other History general Narrative - Reported* Type Description Date Surgical History Right knee arthroscopy 2010 Surgical History Right knee arthroscopy 2022 [email or web address] Other Histqqb general Narrative - Reported* Type Description Date Medical History Migraine with aura a nd without status migrainosus, not intractable Medical History TIRSO (generalized anxiety disorde r) Surgical History Right knee arthroscopy 2010 Surgical History Right knee arthroscopy 2022 Hospitalization History see surgical hx [email or web address] Other Summary Purpose Family History No Family [...] pain of right knee (M25.561) Referral Organization [facility] ernie Referring Provider First Name Marla Referring Provider Last Name Debbie Referring Provider Specialty [facility] Referred Organization [facility] Referred Provider Ferdinand Esposito Jr. Referred Address ,[place], [place],[address] Referred Provider Specialty Orthopedic S urgery Referral [...] and content) DATE CREATED AUTHOR 12/28/2017 [facility] DATE CREATED AUTHOR AUTHOR'S ORGANIZ ATION 03/06/2022 [facility] DATE CREATED AUTHOR AUTHOR'S ORGANIZ ATION 04/15/2023 [facility] DATE CREATED AUTHOR AUTHOR'S ORGANIZ ATION 07/23/2023 [facility] dical Specialists EPIC REASON FOR VISIT (unrecogniz ed section and content) Clinicalsore throat, cough, chest congestion [phone] Medication ChangeXray resultsright knee [id number] sinus infectionNo InformationNo Informationpoison miki Care Teams (unrecognized sec tion and content) Team Status: Active Member Role Status Dates NON STAFF Primary Care Provider Active Team Status: Inactive Member Role Status Dates NON STAFF Primary Care Provider Active Pradeep Osullivan DO [facility] Attending Provider 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 [facility]. provides no warranty or guarantee of the accuracy or completeness of information in this document.
--- NOTE | 2023-11-08 15:37 | CT_ITS ---
[address] [address] Patient Name: LUZMARIA CONTRERAS MRN: [id number] date: 1985 Sex: F Assigned Patient Location: ER Current Patient Location: ER Accession/Order Number: [id number] Exam Date: 11/08/2023 16:05 Report Date: 11/08/2023 16:27 At the request of: LYNNETTE WEATHERS Procedure: CT head/brain wo con EXAM: CT head/brain wo con HISTORY: headache COMPARISON: None. TECHNIQUE: Axial CT scans through the head were obtained without IV contrast administration. Dose reduction techniques were achieved by using: automated exposure control and/or adjustment of mA and /or kV according to patient size and/or use of iterative reconstruction technique. FINDINGS: There is no acute intracranial hemorrhage or abnormal extra-axial fluid collection. No mass effect or midline shift is seen. There is no evidence of large acute territorial infarction. There is no hydrocephalus. To the limit of CT, the posterior fossa appears unremarkable. The calvaria and extra cranial soft tissues are unremarkable. The visualized orbits show no abnormality. The visualized paranasal sinuses show no air-fluid level. Mastoid air cells are clear. CT/CT head/brain wo con IMPRESSION: No acute intracranial process. Electronically authenticated by: JETT FIGUEROA Date: 11/08/2023 16:27
[2023-11-08] MEDS: 0.9 % SODIUM CHLORIDE 1,000 ML 1000 ML IV (15:46)
[2023-11-08] MEDS: KETOROLAC TROMETHAMINE 30 MG/ML VIAL 15 MG IVP (15:48)
[2023-11-08] MEDS: PROCHLORPERAZINE 10 MG/2 ML VIAL 5 MG IV (15:48)
--- NOTE | 2023-11-08 15:59 | ED_ITS ---
HPI HPI - General Adult General Chief complaint: Headache Stated complaint: migraine Time Seen by Provider: 11/08/23 15:33 Source: patient Mode of arrival: walk-in Limitations: no limitations History of Present Illness HPI narrative: The patient presenting to us with a few hours history of headache associated with photosensitivity as well as 1 episode of nausea and vomiting, she mentioned that she did feel some numbness in her left hand when she was vomiting, the patient right now does not have any numbness or tingling but she does have a headache when photosensitivity, no blurry vision, no double vision The patient does not have history of migraine but she does have a history of frequent headache Related Data Home Medications ?Medication ?Instructions ?Recorded ?Confirmed buspirone 10 mg tablet 10 mg PO BID PRN anxiety 08/09/23 08/20/23 eletriptan 40 mg tablet 40 mg PO Q2H PRN migraine headache 08/09/23 11/08/23 Allergies Allergy/AdvReac Type Severity Reaction Status Date / Time No Known Drug Allergies Allergy Verified 11/08/23 15:25 Opioid HPI Opioid Management Most Recent Opioid Data: Last Pain Scale 0 08/20/23 10:18 Review of Systems ROS Status of ROS 10 or more systems reviewed and unremark able except as noted in history and below [facility] Medical History (Updated 11/08/23 @ 16:52 by Ghazala Conn MD) Anemia ?D64.9 - Anemia, unspecified (ICD-10) Panic attacks ?F41.0 - Panic disorder [episodic paroxysmal anxiety] (ICD-10) Anxiety ?F41.9 - Anxiety disorder, unspecified (ICD-10) Asthma ?J45.909 - Unspecified asthma, uncomplicated (ICD-10) Migraine ?G43.909 - Migraine, unspecified, not intractable, without status migrainosus (ICD-10) Pelvic pain ?R10.2 - Pelvic and perineal pain (ICD-10) Abnormal uterine bleeding ?N93.9 - Abnormal uterine and vaginal bleeding, unspecified (ICD-10) Menorrhagia ?N92.0 - Excessive and frequent menstruation with regular cycle (ICD-10) Postoperative nausea and vomiting ?R11.2 - Nausea with vomiting, unspecified (ICD-10) ?Z98.890 - Other specified postprocedural states (ICD-10) Surgical History (Updated 08/09/23 @ 10:21 by Cheyenne Villarreal NP) History of dilation and curettage ?Z98.890 - Other specified postprocedural states (ICD-10) History of arthroscopy of knee ?Z98.890 - Other specified postprocedural states (ICD-10) History of arthroscopy of knee ?Z98.890 - Other specified postprocedural states (ICD-10) Family History (Updated 08/09/23 @ 10:21 by Cheyenne Villarreal NP) Other Family history of colon cancer Family history of diabetes mellitus Family history of hypertension Social History (Updated 08/09/23 @ 10:18 by Cheyenne Villarreal NP) Within the past year, how often did you have a drink containing alcohol: 2-4 times a month Smoking status: Never smoker Non-prescribed substance use: denies use Previous occupational history: Registrar Highest level of school completed/degree received: Associate degree: academic program Exam Narrative Exam Narrative: Nurses notes and vital signs reviewed and patient is not hypoxic. General: Well-appearing and in no apparent distress. Skin: Warm, dry, no pallor noted. No rash. Head: Normocephalic, atraumatic. Neck: Supple, non-tender. Eye: Pupils are equal, round and EOMI. No scleral icterus. Ears, Nose, Mouth, and Throat: TM are clear, no nasal mucosal hypertrophy. Oral mucosa is moist, no posterior oropharynx erythema, uvula is mid-line Cardiovascular: Regular Rate and Rhythm without murmur, gallop or rub. Respiratory: No accessory muscle use or respiratory distress. Lungs are clear to auscultation, no wheezing, rales or rhonchi Chest Wall: no tenderness Back: No midline thoracic or lumbar vertebral tenderness. No CVA tenderness Musculoskeletal: normal ROM, no calf or popliteal tenderness, no lower extremity edema/swelling GI: Abdomen is soft, non-distended. Normal bowel sounds. No masses appreciated. No tenderness to palpation. No rebound, guarding, or rigidity noted. Neurological: A&O x4. No cranial nerve dysfunction observed. No truncal ataxia. Moves all extremities. Sensation intact. Psychiatric: Cooperative and interactive. Normal mood and affect. Constitutional Vital Signs, click to edit/add: Last Vital Signs Temp 98.9 F 11/08/23 15:26 Pulse 72 11/08/23 15:26 Resp 20 11/08/23 15:26 BP 111/66 11/08/23 15:26 Pulse Ox 97 11/08/23 15:26 O2 Del Method Room Air 11/08/23 15:26 Course Vital Signs Vital signs: Vital Signs Temperature 98.9 F 11/08/23 15:26 Pulse Rate 72 11/08/23 15:26 Respiratory Rate 20 11/08/23 15:26 Blood Pressure 111/66 11/08/23 15:26 Pulse Oximetry 97 11/08/23 15:26 Oxygen Delivery Method Room Air 11/08/23 15:26 Temperature 98.9 F 11/08/23 15:26 Pulse Rate 72 11/08/23 15:26 Respiratory Rate 20 11/08/23 15:26 Blood Pressure 111/66 11/08/23 15:26 Pulse Oximetry 97 11/08/23 15:26 Oxygen Delivery Method Room Air 11/08/23 15:26 Medical Decision Making MDM Narrative Medical decision making narrative: The patient CT head showed no acute significant pathology The patient was treated in the ER with Toradol as well as Compazine after which she was feeling much better she was discharged home to continue rest and hydration The patient is to follow up with primary care physician in next 2-3 days or to return to the emergency department should any of the signs or symptoms worsen or new symptoms develop. The patient agrees with the following Diagnosis and Treatment plan and the patient will be discharged home. Discharge Plan Discharge Stand Alone Forms: Portal Instructions Chief Complaint: Headache Clinical Impression: Migraine Qualifiers: Migraine type: unspecified Status migrainosus presence: without status migrainosus Intractability: not intractable Qualified Code(s): G43.909 - Migraine, unspecified, not intractable, without status migrainosus Patient Disposition: Home, Self-Care Time of Disposition Decision: 16:49 Condition: Good Prescriptions / Home Meds: No Action buspirone 10 mg tablet 10 mg PO BID PRN (Reason: anxiety) eletriptan 40 mg tablet 40 mg PO Q2H PRN (Reason: migraine headache) Print Language: Danish Instructions: Migraine Headache (ED) Referrals: German Mcgraw DO [Primary Care Provider] - 1 week
[2023-11-08 17:02] VITALS: BP 111/73; PULSE 90; O2SAT 100
== END 2023-11-08 17:05 | disposition home or self-care (01) ==
PROVIDERS: Emergency Provider Emergency Medicine; PCP Internal Medicine
DX: G43.909 Migraine, unspecified, not intractable, without status migrainosus (principal); Z79.899 Other long term (current) drug therapy; F41.9 Anxiety disorder, unspecified; J45.909 Unspecified asthma, uncomplicated; Z98.890 Other specified postprocedural states
CPT/HCPCS: 70450; 96361; 96374; 96375; 99285

== ENCOUNTER 2025-02-27 16:15 | Outpatient (REF) | payer OTHER, SELFPAY ==
--- OUTSIDE RECORDS SUMMARY | 2025-02-27 10:00 | XMS_ITS | Encounter Summary ---
Author Organization [facility] Address [address] [place] [address] Care Team Providers Care Radiographer Technologist Name Role Phone German Mcgraw Primary Care Provider [phone] Reason for Visit * Reason Comments Well Women Visit Pre-op Visit Encounter Details Date Type Department Care Team (Late Contact Info) Description 02/27/2025 10:00 AM EDT Office Visit [facility] [address] [place] [phone] Jin Valerio DO [address] [place], [place] [id number] Well woman exam with routine gynecological exam; Pre-operative exam; Pelvic pain; Menorrhagia with regular cycle; Dysmenorrhea; Dyspareunia in female Social History Tobacco Use Types Packs/Day Years Used Date Smoking Tobacco: Never Smokeless Tobacco: Never Alcohol Use Standard Drinks/Week Comments Yes 0 (1 standard drink = 0.6 oz pur e alcohol) Comments No Sex and Gender Information Value Date Recorded Sex Assigned at Female 12/30/2022 9:18 PM EDT Legal Sex Female 7:28 PM EDT Gender Identity Female 12/30/2022 9:18 PM EDT Sexual Orientation Straight 12/30/2022 9: 18 PM EDT documented as of this encounter Last Filed Vital Signs Vital Sign Reading Time Taken Comments Blood Pressure 110/60 02/27/2025 10:12 AM EDT Pulse - - Temperature - - Respiratory Rate - - Oxygen Saturation - - Inhaled Oxygen Concentration - - Weight 64 kg (141 lb 1.9 oz) 02/27/2025 10:12 AM EDT Height - - Body Mass Index 22.1 06/14/2023 1:45 PM EST documented in this encounter Progress Notes * Mariella Nelson - 02/27/2025 10:00 AM EDT Reason for Appointment: Patient ID: Radha Richmond is a 39 y.o. female who presents for Well Women Visit and Pre-op Visit Patient presents today for Pre Op/Annual appointment. Patient is scheduled to undergo Da Rj assisted Laparoscopic Hysterectomy, possible exploratory laparotomy, possible BSO, possible cystoscopy on 03-28-[address] Valerio at [facility]. MEDICATIONS Current Outpatient Medications Medication Instructions busPIRone (Buspar) 10 MG tablet TAKE 1 TABLET BY MOUTH TWICE A DAY NEEDED FOR ANXIETY FOR 30 DAYS eletriptan (Relpax) 40 MG tablet TAKE 1 TABLET NEEDED FOR HEADACHE, MAY REPEAT IN 2 HOURS IF NEEDED, MAXIMUM 2 TABLETS IN 24 HOURS ALLERGIES No Known Allergies PROBLEMS Active Ambulatory Problems Diagnosis Date Noted No Active Ambulatory Problems Resolved Ambulatory Problems Diagnosis Date Noted No Resolved Ambulatory Problems No Additional Past Medical History HISTORY PAST MEDICAL HISTORY SOCIAL HISTORY History reviewed. No pertinent past medical history. Social History Tobacco Use Smoking status: Never Smokeless tobacco: Never Substance Use Topics Alcohol use: Yes Drug use: Never FAMILY HISTORY No family history on file. SURGICAL HISTORY Past Surgical History: Procedure Laterality Date ENDOMETRIAL ABLATION 08/20/2023 Nannette KNEE SURGERY Right 02/05/2023 RT KNEE SCOPE-DR HICKS REVIEW OF SYSTEMS Review of Systems: Review of Systems Constitutional: Negative. HENT: Negative. Eyes: Negative. Respiratory: Negative. Cardiovascular: Negative. Gastrointestinal: Negative. Genitourinary: Positive for dyspareunia, menstrual problem and pelvic pain. Musculoskeletal: Negative. Skin: Negative. Neurological: Negative. All other systems reviewed and are negative. Hematological: Negative. Endocrine: Negative. Allergic/Immunologic: Negative. OBJECTIVE Objective: Physical Exam Constitutional: Appearance: Normal appearance. She is well-developed. Genitourinary: Vulva normal. Breasts: Breasts are soft. Right: Normal. Left: Normal. Cardiovascular: Rate and Rhythm: Normal rate and regular rhythm. Pulmonary: Effort: Pulmonary effort is normal. Breath sounds: Normal breath sounds. Abdominal: General: Bowel sounds are normal. There is no distension. Palpations: Abdomen is soft. Tenderness: There is no abdominal tenderness. There is no guarding or rebound. Musculoskeletal: General: No swelling. Normal range of motion. Right lower leg: No edema. Left lower leg: No edema. Neurological: Mental Status: She is alert and oriented to person, place, and time. Skin: General: Skin is warm and dry. Psychiatric: Mood and Affect: Mood normal. Behavior: Behavior normal. Vitals and nursing note reviewed. Exam conducted with a night manager present. Vitals: Estimated body mass index is 22.1 kg/m?? as calculated from the following: Height as of 06/14/23: 5' 7 . Weight as of this encounter: 141 lb 1.9 oz. BP: 110/60 No LMP recorded. Patient has had an ablation. ASSESSMENT & PLAN ICD-10-CM 1. Well woman exam with routine gynecological exam Z01.419 Pap Smear HPV DNA probe, amplified 2. Pre-operative exam Z01.818 3. Pelvic pain R10.2 4. Menorrhagia with regular cycle N92.0 5. Dysmenorrhea N94.6 6. Dyspareunia in female N94.10 Annual: Patient presents today for an annual exam. Patient states she is doing well. Pap was obtained without difficulty. Pre Op: Patient is doing well but has complaints of menorrhagia, dyspareunia, dysmenorrhea and pelvic pain.I have discussed conservative management vs. surgical management with the patient in detail and patient desires surgical management at this time. Patient will undergo Da Rj assisted Laparoscopic Hy sterectomy, possible exploratory laparotomy, possible BSO, possible cystoscopy on 03-28-25. Surgicalconsents were signed, mmc was reviewed, and patient is to proceed to [facility] OR. Follow Up: Patient is to follow up at 1 & 6 weeks post operative to assess proper healing and recovery from procedure. Documented by Yuki Chappell LPN on behalf of: Jin Valerio DO documented in this encounter Plan of Treatment Upcoming Encounters Date Type Department Care Team (Late st Contact Info) Description 04/04/2025 10:50 AM EDT Office Visit [facility] [address] [place] [phone] Jin Valerio DO [address] [place] [address] 05/09/2025 8:30 AM EDT Office Visit [facility] [address] [place] [address] Magalie Clarke PA [address] [place] [address] Scheduled Orders Name Type Priority Associated Diagnoses Orde r Schedule Pap Smear Pathology and Cytology Routine Well woman exam with routine gynecological exam Ordered: 02/27/2025 HPV DNA probe, amplified Microbiology Routine Well woman exam with routine gynecological exam Ordered: 02/27/2025 documented as of this encounter Visit Diagnoses Diagnosis Well woman exam with routine gynecological exam Routine gynecological examination Pre-operative exam Unspecified pre-operative examination Pelvic pain Menorrhagia with regular cycle Dysmenorrhea Dyspareunia in female documented in this encounter Care Teams Radiographer Technologist Relationship Specialty Start Date End Date German Mcgraw DO [address] [facility] [place] [address] PCP - General Internal Medicine 12/31/22 documented as of this encounter
--- OUTSIDE RECORDS SUMMARY | 2025-02-27 16:19 | XMS_ITS | Encounter Summary ---
Author Organization [facility] Address [address] [place] [address] Care Team Providers Care Manager Graphic Name Role Phone German Mcgraw DO Primary Care Provider [phone] Encounter Details Date Type Department Care Team (Late Contact Info) Description 02/19/2023 Abstract [facility] [address] [place] [phone] Denzel Rockwell, ROSALINA [address] [place] [address] Social History Tobacco Use Types Packs/Day Years Used Date Smoking Tobacco: Never Smokeless Tobacco: Never Alcohol Use Standard Drinks/Week Comments Yes 0 (1 standard drink = 0.6 oz pur e alcohol) Comments Unknown Sex and Gender Information Value Date Recorded Sex Assigned at Female 12/30/2022 9:18 PM EDT Legal Sex Female 7:28 PM EDT Gender Identity Female 12/30/2022 9:18 PM EDT Sexual Orientation Straight 12/30/2022 9: 18 PM EDT COVID-19 Exposure Response Date Recorded In the last 10 days, have yo u been in contact with someone who was confirmed or suspected to have Coronavirus/COVID-19? No / Unsure 02/12/2023 8:43 AM EDT documented as of this encounter Plan of Treatment Upcoming Encounters Date Type Department Care Team (Late Contact Info) Description 04/04/2025 10:50 AM EDT Office Visit [facility] [address] [place] [phone] Jin Valerio DO [address] [place] [address] 05/09/2025 8:30 AM EDT Office Visit [facility] [address] [place] [address] Magalie Clarke PA [address] [place] [address] documented as of this encounter Visit Diagnoses Not on filedocumented in this encounter Care Teams Manager Graphic Relationship Specialty Start Date End Date German Mcgraw DO [address] [place] [phone] PCP - General Internal Medicine 12/31/22 documented as of this encounter
--- OUTSIDE RECORDS SUMMARY | 2025-02-27 16:19 | XMS_ITS | Encounter Summary ---
Author Organization [facility] Address [address] [place] [address] Care Team Providers Care Automobile Body Repair Chief Name Role Phone German Mcgraw Primary Care Provider [phone] Encounter Details Date Type Department Care Team (Late Contact Info) Description 02/27/2025 Bamboo flowsheet [facility] [address] [place] [phone] Jin Valerio DO [address], [place] [address] Social History Tobacco Use Types Packs/Day Years [...] PM EDT documented as of this encounter Plan of Treatment Upcoming Encounters Date Type Department Care Team (Late Contact Info) Description 04/04/2025 10:50 AM EDT Office Visit [facility] [address] [place] [address] Jin Valerio DO [address] [place] [address] 05/09/2025 8:30 AM EDT Office Visit [facility] [address] [place] [phone] Magalie Clarke PA [address] [place] [address] documented as of this encounter Visit Diagnoses Not on filedocumented in this encounter Care Teams Automobile Body Repair Chief Relationship Specialty Start Date End Date German Mcgraw DO [address] [facility] [place] [address] PCP - General Internal Medicine 12/31/22 documented as of this encounter
--- OUTSIDE RECORDS SUMMARY | 2025-02-27 16:19 | XMS_ITS | Clinical Summary ---
Author Organization [facility] Address [address] [place] [address] Care Team Providers Care Torch Solderer Name Role Phone German Mcgraw Primary Care Provider [phone] Allergies No known active allergies Medications eletriptan (Relpax) 40 MG tablet TAKE 1 TABLET NEEDED FOR HEADACHE, MAY REPEAT IN 2 HOURS IF NEEDED, MAXIMUM 2 TABLETS IN 24 HOURS 12/05/2022 Active busPIRone (Buspar) 10 MG tablet TAKE 1 TABLET BY MOUTH TWICE A DAY NEEDED FOR ANXIETY FOR 30 DAYS 12/15/2022 Active Active Problems No known active problems Encounters Date Type Department Care Team Description 02/27/2025 10:00 [place] [address] Jin Valerio DO Well woman exam with routine gynecological exam; Pre-operative exam; Pelvic pain; Menorrhagia with regular cycle; Dysmenorrhea; Dyspareunia in female 02/27/2025 Bamboo flowsheet [facility] [address] [place] [address] Jin Valerio DO 02/20/2025 Travel from Last 3 Months Social History Tobacco Use Types Packs/Day Years Used Date Smoking Tobacco: Never Smokeless Tobacco: Never Tobacco Cessation:Counseling Given: Not Answered Alcohol Use Standard Drinks/Week Comments Yes 0 (1 standard drink = 0.6 oz pur e alcohol) Comments No Sex and Gender Information Value Date Recorded Sex Assigned at Female 12/30/2022 9:18 PM EDT Legal Sex Female 7:28 PM EDT Gender Identity Female 12/30/2022 9:18 PM EDT Sexual Orientation Straight 12/30/2022 9: 18 PM EDT Last Filed Vital Signs Vital Sign Reading Time Taken Comments Blood Pressure 110/60 02/27/2025 10:12 AM EDT Pulse - - Temperature - - Respiratory Rate - - Oxygen Saturation - - Inhaled Oxygen Concentration - - Weight 64 kg (141 lb 1.9 oz) 02/27/2025 10:12 AM EDT Height 170.2 cm (5' 7 ) 06/14/2023 1:45 PM EST Body Mass Index 22.1 06/14/2023 1:45 PM EST Plan of Treatment Upcoming Encounters Date Type Department Care Team (Late st Contact Info) Description 04/04/2025 10:50 AM EDT Office Visit [facility] [address] [place] [id number] Jin Valerio DO [address] [place], [place] [id number] 05/09/2025 8:30 AM EDT Office Visit [facility] [address] [place] [phone] Magalie Clarke PA [address] [place], [place] [id number] Health Maintenance Due Date Last Done Comments Influenza Vaccine (#1) 2025 05/09/2024, 2022 Cervical Cancer Screening 05/26/2028 HPV/Cotest 05/26/2028 Pap Smear 05/26/2028 05/26/2023 Procedures Procedure Name Priority Date/Time Associated Diagnosis Comments PAP SMEAR Routine 05/26/2023 12:00 AM EST from Last 3 Months or Most Recently Relevant to Health Maintenance Results * Pap Smear (05/26/2023 12:00 AM EST) Swab Cervical swab / Unknown us Jin Valerio DO LAB CYTOLOGY ORDERABLES Final Re sult EXTERNAL LAB from Last 3 Months or Most Recently Relevant to Health Maintenance Insurance [employer] Care Teams Torch Solderer Relationship Specialty Start Date End Date German Mcgraw DO [address] [place] [id number] PCP - General Internal Medicine 12/31/22
--- OUTSIDE RECORDS SUMMARY | 2025-02-27 16:19 | XMS_ITS | Encounter Summary ---
Author Organization [facility] Address [address] [place] [place] [address] Care Team Providers Care Gauge Checker Name Role Phone German Mcgraw DO Primary Care Provider [phone] Encounter Details Date Type Department Care Team (Latest Contact Info) Description 02/20/2025 Travel Social History Tobacco Use Types Packs/Day Years [...] Office Visit [facility] [address] [place] [address] Jin Valerio DO [address] [place], [place] [id number] 05/09/2025 8:30 AM EDT Office Visit [facility] [address] [place] [address] Magalie Clarke PA [address] [place] [address] [place] [id number] documented as of this encounter Visit Diagnoses Not on filedocumented in this encounter Care Teams Gauge Checker Relationship Specialty Start Date End Date German Mcgraw DO [address] [facility] [place] [id number] PCP - General Internal Medicine 12/31/22 documented as of this encounter
--- OUTSIDE RECORDS SUMMARY | 2025-02-27 16:50 | XMS_ITS | CCD ---
Author Organization [facility] Care Team Providers Care Ticket Chopper Assembler Name Role Phone GERMAN MCGRAW Unavailable Unavailable MARKER, YEMI Unavailable Unavailable MARKER, YEMI Unavailable Unavailable SEDRICK FRANCIS Unavailable Unavailable MARKER, YEMI Unavailable Unavailable NON, STAFF, Primary Care Provider UnavailJames Jordan Attending Provider German Mcgraw Unavailable NON STAFF Primary Care Provider UnavailDO Pradeep Mendoza Attending Provider Marla Lewis Unavailable German Mcgraw MD Primary Care Provider NON STAFF Primary Care Provider UnavailDO Pradeep Mattson Attending Provider Pradeep Molina Attending Unavailable Abran Pradeep PIZANO Admitting Unavailable NON STAFF Primary Care Unavailable German Mcgraw MD Primary Care Provider German Mcgraw MD Primary Care Provider PITA VALERIO Attending Unavailable German Mcgraw DO Primary Care Provider Unavailable Unavailable Unavailable Allergies Allergy Classification Reported Allergen(s) Allergy Type Date of Onset Reaction(s) Facility (2 sources) patient allergy list reviewed by nurse or physicia Propensity to adverse reactions 5 Comment:Done PeekYou Other Medications Current Medications Medication Drug Class(es) Dates Sig (Normalized) Sig (Original) busPIRone hydrochloride 10 mg oral tablet (16 sources) Start: 12-15-2022 take 1 tablet by mouth twice daily as needed for anxiety busPIRone (Buspar) 10 MG tablet TAKE 1 TABLET BY MOUTH TWICE A DAY NEEDED FOR ANXIETY FOR 30 DAYS 12/15/2022 Active eletriptan 40 mg oral tablet (20 sources) Serotonin-1b and Serotonin-1d Receptor Agonist Start: 11-18-2023 End: 11-18-2023 take 2 tablets by mouth every twenty-four hours as needed Eletriptan 40 mg tablet Active 40 MG PO Once as needed for migraine headache November 18, 2023 4:28pm May repeat in 2 hours if needed, max of 2 tablets (80mg) per 24hrs Start: 11-18-2023 End: 11-18-2023 Eletriptan 40 mg tablet Disc ontinued 0 .ROUTE .COMPLEX November 18, 2023 3:29pm November 18, 2023 4:27pm TAKE 1 TAB NEEDED FOR MIGRAINE, MAY REPEAT IN 2 HOURS IF NEEDED MAX OF PER 24 HRS Start: 12-05-2022 End: 11-18-2023 eletriptan (Relpax) 40 MG ta blet TAKE 1 TABLET NEEDED FOR HEADACHE, MAY REPEAT IN 2 HOURS IF NEEDED, MAXIMUM 2 TABLETS IN 24 HOURS 12/05/2022 Active 24 hr metFORMIN hydrochloride 500 mg extended release oral tablet (5 sources) Biguanide Start: 02-16-2023 End: 11-07-2024 take 1 tablet by mouth every twenty-four hours at mealtime metFORMIN XR (Glucophage-XR) 500 MG 24 hr tablet Indications: Insulin resistance TAKE 1 TABLET (500 MG) BY MOUTH IN THE EVENING. TAKE WITH MEALS. DO NOT CRUSH, CHEW, OR SPLIT. 30 tablet 11 02/16/2023 11/07/2024 Discontinued take 1 tablet by sebas th every twenty-four hours metFORMIN HCl 500 MG [...] venlafaxine 37.5 mg extended release oral capsule (14 sources) Serotonin and Norepinephrine Reuptake Inhibitor Start: 12-15-2022 Venlafaxine HCl ER 37.5 MG 2 capsules daily x 7 days then 1 capsule daily x 7 days then stop Orally Once a day for 14 days Dec, Active Start: 11-11-2022 End: 11-07-2024 take 1 capsule by mouth every twenty-four hours in the morning venlafaxine XR (Effexor XR) 150 MG 24 hr capsule Take 150 mg by mouth in the morning. 11/11/2022 11/07/2024 Discontinued take 1 capsule by mo [facility] once daily Venlafaxine HCl ER 150 MG TAKE 1 CAPSULE BY MOUTH EVERY DAY for 90 Active Completed/Discontinued Medications Medication Drug Class(es) Dates Sig (Normalized) Sig (Original) azithromycin 250 mg oral tablet (17 sources) Macrolide Antimicrobial Start: 03-31-2024 End: 07-25-2024 Azithromycin 250 mg tablet Discontinued 250 MG PO As Directed 6 5 March 31, 2024 12:00am July 25, 2024 3:16pm Start: 07-17-2022 Azithromycin 2 50 MG as directed Orally daily for 5 days Jan, Not-Taking TB Test (11 sources) Start: 03-27-2015 TB Test Mar 0.1 mL Problems Active Problems Problem Classification Problem Date Documented Date Episodic/Chronic Abdominal pain (2 sources) Pain in pelvis; Translations: [Pelvic and perineal pain] 02-27-2025 Episodic Acute bronchitis (3 sources) Acute bronchitis due to other specified organisms; Translations: [Acute bronchitis] Episodic Allergic reactions (3 sources) Idiopathic urticaria; Translations: [Idiopathic urticaria] Episodic Anxiety disorders (15 sources) Generalized anxiety disorder; Translations: [Generalized anxiety disorder] Chronic Headache; including migraine (15 sources) Migraine with aura; Translations: [Migraine with aura, not intractable, without status migrainosus] Chronic Immunizations and screening for infectious disease (1 source) Encounter for immunization; Translations: [Encounter for immunization] Onset: 05-09-2024 Episodic Malaise and fatigue (2 sources) Fatigue; Translations: [Other fatigue] Episodic Menstrual disorders (6 sources) Amenorrhea; Translations: [Absence of menstruation] Onset: 04-04-2015 Resolved: 02-09-2020 02-27-2025 Chronic Neoplasms of unspecified nature or uncertain behavior [...] VAGINAL BLEED UNS] Onset: 12-17-2017 Chronic Other female genital disorders (2 sources) Abnormal uterine bleeding; Translations: [Abnormal uterine and vaginal bleeding, unspecified] 11-07-2024 Chronic Other female genital disorders (2 sources) Pain in female genitalia on intercourse; Translations: [Unspecified dyspareunia] 02-27-2025 Chronic Other non-traumatic joint disorders (1 source) Pain in right knee Episodic Other upper respiratory disease (2 sources) Allergic rhinitis due to pollen; Translations: [Allergic rhinitis due to pollen] Chronic Other upper respiratory disease (2 sources) Seasonal allergic rhinitis; Translations: [Other seasonal allergic rhinitis] 03-31-2024 Chronic Other upper respiratory disease (1 source) Other seasonal allergic rhinitis; Translations: [Allergic rhinitis, cause unspecified] 03-31-2024 Chronic Other upper respiratory infections (4 sources) Acute maxillary sinusitis, unspecified; Translations: [Acute sinusitis] Episodic Residual codes; unclassified (2 sources) Family history of malignant neoplasm of gastrointestinal tract; Translations: [Family history of malignant neoplasm of digestive organs] Episodic Unclassified (1 source) Other specified postprocedural states; Translations: [OTH SPECIFIED POSTPROCEDURAL STATES] Onset: 12-20-2017 Viral infection (3 sources) Herpesviral vesicular dermatitis; 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] Episodic Past or Other Problems Problem Classification Problem Date Documented Da te Episodic/Chronic Other connective tissue disease (2 sources) Pain in limb; Translations: [Pain in unspecified limb] Onset: 10-18-2014 Resolved: 02-09-2020 Episodic Other lower respiratory disease (2 sources) Cough; Translations: [Cough, unspecified] Onset: 06-28-2013 Resolved: 02-09-2020 Episodic Other upper respiratory disease (2 sources) Allergic rhinitis; Translations: [Allergic rhinitis, unspecified] Onset: 11-08-2014 Resolved: 02-09-2020 Chronic Results Test Name Value Interpretation Reference Range Facility HCG ( test) Ql (U)o n 11-07-2024 Interpretation and review of laboratory results Normal [facility] Preg Test, Ur Negative Negative [facility] Urinalysis macro (dipstick) panel (U)on 11-07-2024 Bilirubin, UA Negative Negative - 4(70) +++ mg/dL [facility] Blood, UA Negative Negative - 50 Gerald/mcL [facility] Clarity, UA Clear [facility] Color, UA Yellow [facility] Glucose, UA Negative Negative - 1999(110) ++++ mg/dL [facility] Interpretation and review of laboratory results Abnormal [facility] Ketones, UA Negative Negative - 160(16) ++++ mg/dL [facility] Leukocytes, UA Negative Negative - 500+++ Andrew/mcL [facility] Nitrite, UA Negative Negative - Positive [facility] pH, UA 7.5 5 - 9 [facility] Protein, UA Trace Negative - 1999(20) ++++ mg/dL [facility] Spec Grav, UA 1.02 1 - 1.03 [facility] Urobilinogen, UA 0.2 0.2 - 12 mg/dL [facility] ALL CBC WITH AUTO DIFFon BASOPHILS ABSOLUTE AUTO 0.1 N [facility] Basophils/100 WBC (Bld) 1.1 % 0.2 - 2.0 % [facility] Eosinophils/100 WBC (Bld) 2.3 % 0.9 - 7.0 % [facility] Erythrocyte distribution width (RBC) [Ratio] 11.9 % 11.0 - 15.0 % [facility] Hematocrit (Bld) [Volume fraction] 38.1 % 36.0 - 48.0 % [facility] Hemoglobin (Bld) [Mass/Vol] 12.4 g/dL 12.0 - 16.0 g/dL [facility] IMMATURE GRANULOCYTES ABS AUTO 0.00 [facility] Immature granulocytes/100 WBC (Bld) 0.0 % 0.0 - 0.5 % [facility] Interpretation and review of laboratory results Abnormal [facility] LYMPHOCYTES ABSOLUTE AUTO 2.3 [facility] Lymphocytes/100 WBC (Bld) 48.4 % 20.5 - 60.0 % [facility] MCH (RBC) [Entitic mass] 28.7 pg 26.7 - 34.0 pg [facility] MCHC (RBC) [Mass/Vol] 32.5 g/dL 29.9 - 35.2 g/dL [facility] MCV (RBC) [Entitic vol] 88.2 fL 81.0 - 99.0 fL [facility] MONOCYTES ABSOLUTE AUTO 0.5 N [facility] Monocytes/100 WBC (Bld) 10.6 % 1.7 - 12.0 % [facility] NEUTROPHILS ABSOLUTE AUTO 1.8 [facility] Neutrophils/100 WBC (Bld) 37.6 % Low 43.0 - 75.0 % [facility] Platelet mean volume (Bld) [Entitic vol] 10.6 fL 9.5 - 13.5 fL [facility] TBH EO # 0.1 [facility]H PLT 202 [facility]H RBC 4.32 [facility] WBC 4.7 [facility] Alanine aminotransferase [En zymatic activity/volume] in Serum or PlasmaOrdered By: Pradeep Osullivan on 10-14-2022 ALT [Catalytic activity/Vol] 8 U/L 7-52 [facility] Albumin [Mass/volume] in Ser um or Plasma by Bromocresol green (BCG) dye binding methoOrdered By: Pradeep Osullivan on 10-14-2022 Albumin BCG dye [Mass/Vol] 4.3 g/dL 3.5-5.7 [facility] Alkaline phosphatase [Enzyma tic activity/volume] in Serum or PlasmaOrdered By: Pradeep Osullivan on 10-14-2022 ALP [Catalytic activity/Vol] 62 U/L 34-104 [facility] Aspartate aminotransferase [ Enzymatic activity/volume] in Serum or PlasmaOrdered By: Pradeep Osullivan on 10-14-2022 AST [Catalytic activity/Vol] 15 U/L 13-39 [facility] Basophils Auto (Bld) [#/Vol] Ordered By: Pradeep Osullivan on 10-14-2022 Basophils (Bld) [#/Vol] 0.0 10*3/uL 0.0-0.2 [facility] Basophils/100 WBC Auto (Bld) Ordered By: Pradeep Osullivan on 10-14-2022 Basophils/100 WBC (Bld) 0.9 % . F [facility] Bilirubin.total [Mass/volume ] in Serum or PlasmaOrdered By: Pradeep Osullivan on 10-14-2022 Bilirubin [Mass/Vol] 0.5 mg/dL 0.3-1.0 [facility] Calcium [Mass/volume] in Ser um or PlasmaOrdered By: Pradeep Osullivan on 10-14-2022 Calcium [Mass/Vol] 9.3 mg/dL 8.6-10.3 [facility] Carbon dioxide, total [Moles /volume] in Serum or PlasmaOrdered By: Pradeep Osullivan on 10-14-2022 CO2 [Moles/Vol] 28.0 mmol/L 21.0-31.0 [facility] Chloride [Moles/volume] in S sheila or PlasmaOrdered By: Pradeep Osullivan on 10-14-2022 Chloride [Moles/Vol] 106 mmol/L 98-107 [facility] Cholesterol [Mass/volume] in Serum or PlasmaOrdered By: Pradeep Osullivan on 10-14-2022 Cholesterol [Mass/Vol] 132 mg/dL 140-200 [facility] Comment on above: Chol less than 200 m g/dl low riskChol 201-239 mg/dl borderline riskChol 240 mg/dl and greater high risk Cholesterol in LDL Calc [Mas s/Vol]Ordered By: Pradeep Osullivan on 10-14-2022 Cholesterol in LDL [Mass/Vol] 68 mg/dL 0-100 [facility] Comment on above: LDL ATP III CLASSIFI CATIONLDL less than 100 mg/dL OptimalLDL 100-129 mg/dL Near or above optimalLDL 130-159 mg/dL Borderline highLDL 160-189 mg/dL HighLDL greater than 189 mg/dL Very high Cholesterol in VLDL Calc [Ma ss/Vol]Ordered By: Pradeep Osullivan on 10-14-2022 Cholesterol in VLDL [Mass/Vol] 10 mg/dL [facility] Creatinine [Mass/volume] in Serum or PlasmaOrdered By: Pradeep Osullivan on 10-14-2022 Creatinine [Mass/Vol] 0.83 mg/dL 0.60-1.20 [facility] Eosinophils Auto (Bld) [#/Vo l]Ordered By: Pradeep Osullivan on 10-14-2022 Eosinophils (Bld) [#/Vol] 0.0 10*3/uL 0.0-0.45 [facility] Eosinophils/100 WBC Auto (Bl d)Ordered By: Pradeep Osullivan on 10-14-2022 Eosinophils/100 WBC (Bld) 1.0 % . [facility] Erythrocyte distribution wid th Auto (RBC) [Ratio]Ordered By: Pradeep Osullivan on 10-14-2022 Erythrocyte distribution width (RBC) [Ratio] 13.2 % 11.9-15.3 [facility] Globulin Calc (S) [Mass/Vol] Ordered By: Pradeep Osullivan on 10-14-2022 Globulin (S) [Mass/Vol] 2.5 g/dL [facility] Glucose [Mass/volume] in Ser um or PlasmaOrdered By: Pradeep Osullivan on 10-14-2022 Glucose [Mass/Vol] 88 mg/dL 70-100 [facility] Hematocrit Auto (Bld) [Volum e fraction]Ordered By: Pradeep Osullivan on 10-14-2022 Hematocrit (Bld) [Volume fraction] 37.6 % 34.0-46.4 [facility] Hemoglobin [Mass/volume] in BloodOrdered By: Pradeep Osullivan on 10-14-2022 Hemoglobin (Bld) [Mass/Vol] 12.4 g/dL 11.8-15.4 [facility] Leukocytes [#/volume] correc coral for nucleated erythrocytes in Blood by Automated counOrdered By: Pradeep Osullivan on 10-14-2022 WBC corrected for nucl RBC Auto (Bld) [#/Vol] 4.2 10*3/uL 3.8-11.6 [facility] Lymphocytes Auto (Bld) [#/Vo l]Ordered By: Pradeep Osullivan on 10-14-2022 Lymphocytes (Bld) [#/Vol] 1.4 10*3/uL 1.00-4.8 [facility] Lymphocytes/100 WBC Auto (Bl d)Ordered By: Pradeep Osullivan on 10-14-2022 Lymphocytes/100 WBC (Bld) 32.7 % . [facility] MCH Auto (RBC) [Entitic mass ]Ordered By: Pradeep Osullivan on 10-14-2022 MCH (RBC) [Entitic mass] 28.4 pg 24.7-34.3 [facility] MCHC Auto (RBC) [Mass/Vol]Or dered By: Pradeep Osullivan on 10-14-2022 MCHC (RBC) [Mass/Vol] 32.9 g/dL 32.0-35.0 [facility] MCV Auto (RBC) [Entitic vol] Ordered By: Pradeep Osullivan on 10-14-2022 MCV (RBC) [Entitic vol] 86.3 fL 80-100 [facility] Monocytes Auto (Bld) [#/Vol] Ordered By: Pradeep Osullivan on 10-14-2022 Monocytes (Bld) [#/Vol] 0.3 10*3/uL 0.0-0.8 [facility] Monocytes/100 WBC Auto (Bld) Ordered By: Pradeep Osullivan on 10-14-2022 Monocytes/100 WBC (Bld) 7.8 % . F [facility] Neutrophils Auto (Bld) [#/Vo l]Ordered By: Pradeep Osullivan on 10-14-2022 Neutrophils (Bld) [#/Vol] 2.4 10*3/uL 1.8-7.7 [facility] Neutrophils/100 WBC Auto (Bl d)Ordered By: Pradeep Osullivan on 10-14-2022 Neutrophils/100 WBC (Bld) 57.6 % . [facility] No Panel InformationOrdered By: Pradeep Osullivan on 10-14-2022 Estimated GFR (CKD-EPI) > 60.0 mL/Min [facility] Creatinine Clearance (Chem N/A [facility] Nucleated erythrocytes [Pres ence] in Blood by Automated countOrdered By: Pradeep Osullivan on 10-14-2022 Nucleated RBC Auto Ql (Bld) 0.1 /100{WBC} 0-0.5 [facility] Platelet mean volume Auto (B ld) [Entitic vol]Ordered By: Pradeep Osullivan on 10-14-2022 Platelet mean volume (Bld) [Entitic vol] 8.8 fL 6.3-10.7 [facility] Platelets Auto (Bld) [#/Vol] Ordered By: Pradeep Osullivan on 10-14-2022 Platelets (Bld) [#/Vol] 197 10*3/uL 150-450 [facility] Potassium [Moles/volume] in Serum or PlasmaOrdered By: Pradeep Osullivan on 10-14-2022 Potassium [Moles/Vol] 4.4 mmol/L 3.5-5.1 [facility] Protein [Mass/volume] in Ser um or PlasmaOrdered By: Pradeep Osullivan on 10-14-2022 Protein [Mass/Vol] 6.8 g/dL 6.4-8.9 [facility] RBC Auto (Bld) [#/Vol]Ordere d By: Pradeep Osullivan on 10-14-2022 RBC (Bld) [#/Vol] 4.36 10*6/uL 3.60-5.00 [facility] Serum or plasma albumin/glob ulin mass ratioOrdered By: Pradeep Osullivan on 10-14-2022 Albumin/Globulin [Mass ratio] 1.7 {ratio} [facility] Serum or plasma anion gap de terminationOrdered By: Pradeep Osullivan on 10-14-2022 Anion gap [Moles/Vol] 9.4 mmol/L 6.0-15.0 [facility] Serum or plasma high density lipoprotein (HDL) cholesterol measurementOrdered By: Pradeep Osullivan on 10-14-2022 Cholesterol in HDL [Mass/Vol] 54 mg/dL 35-85 [facility] Comment on above: HDL CHOL ATP-III CLA SSIFICATION Cardiovascular RiskHDL > or equal to 60 mg/dL LOWHDL < 40 mg/dL HIGH Serum or plasma total choles terol/high density lipoprotein (HDL) cholesterol mass ratOrdered By: Pradeep Osullivan on 10-14-2022 Cholesterol.total/Carey sterol in HDL [Mass ratio] 2.4 {ratio} <5.0 [facility] Sodium [Moles/volume] in Ser um or PlasmaOrdered By: Pradeep Osullivan on 10-14-2022 Sodium [Moles/Vol] 139 mmol/L 136-145 [facility] Thyrotropin [Units/volume] i n Serum or PlasmaOrdered By: Pradeep Osullivan on 10-14-2022 TSH Qn 1.78 m[IU]/L 0.45-5.33 [facility] Triglyceride [Mass/volume] i n Serum or PlasmaOrdered By: Pradeep Osullivan on 10-14-2022 Triglyceride [Mass/Vol] 52 mg/dL 0-149 [facility] Comment on above: TRIG ATP III CLASSIF ICATIONTRIG less than 150 mg/dL NormalTRIG 150-199 mg/dL Borderline highTRIG 200-500 mg/dL High TRIG greater than 500 mg/dL Very highStandard traceable to the Center for Disease Conrtrol and Prevention (CDC) test method. Urea nitrogen [Mass/volume] in Serum or PlasmaOrdered By: Pradeep Osullivan on 10-14-2022 Urea nitrogen [Mass/Vol] 10 mg/dL 7-25 [facility] WBC Auto (Bld) [#/Vol]Ordere d By: Pradeep Osullivan on 10-14-2022 WBC (Bld) [#/Vol] 4.2 10*3/uL 3.8-11.6 [facility] PAP [id number] 02-17-2022 Cytology report Cyto stain Doc (Cvx/Vag) Note Invalid Interpretation Code [facility] Comment on above: Result Comment: TEST S RESULT FLAG UNITS REF RANGE LAB Clinician Provided Cytology Information Source.............[employer] No. of containers..01 ThinPrep Vial DIAGNOSIS: 01 NEGATIVE FOR INTRAEPITHELIAL LESION OR MALIGNANCY. Specimen adequacy: 01 Satisfactory for evaluation. Endocervical and/or squamous metaplastic cells (endocervical component) are present. Performed by: [employer]vng [employer] (ASCP) . 01 Note: Note 01 The [...] <-Panic Low,>-Panic High,A-Abnormal,AA-Critical Abnormal Performed at: [address] [id number] Yun Atwood MD, Performed By: #### 3 [id number] #### [facility] [address] [place] [address] HPV 16+18+31+33+35+39+45+51 +52+56+58+59+66+68 DNA Probe+sig amp Ql (Cvx) Negative Invalid Interpretation Code Negative [facility] Comment on above: Result Comment: This nucleic acid amplification test detects fourteen high-risk HPV types (16,18,31,33,35,39,45,51,52,56,58,59,66,68) without differentiation. Performed at: [address] [id number] MD Angelic Malcolm Performed at: =[address] [id number] MD Angelic Malcolm Performed By: #### [id number] #### [facility] [address] [place] [address] Coding Summary.on 02-16-2022 Coding Summary. [id number] G h0bWw+PGhlYWQ+KZ7IJYS iD02hnEKqqN1GB7rZRI5F NFJDKPEJQH7KVS1kpZN7D IvhL2BfwyQl JuzmuXCiFC47RTg5ZBI3b ZkuNMxzzQ6dvNKqP5z2Qh PkQM20qQ26PEwrMKFwEvN 3LjZpbjsgbWFy Q2ihWdPriENxAgz+PHRhY mxlIHdpZHRoPScxMDAlJy TimTwwRE3sJd5eWKIeIMA vbGxhcHNlOiBj z0cnCDElMTaqXA0ovGwwL 1TwtRN5QVDxo8i4Gh41hK I+XESwXFN5zPghGFgso78 2GyAzn6yaQBK3 dKJoMKtwLQC4J54qg0L1V WZkYQCvWCT2tEB1wU9erO pphcpqU3GcdIVlDzX3EUD 9zCXeoW8qwTnk btdkyK4gBmg+C32PKN2KS UOALI7YGkm2F4ErBdkusD I+DS94WNPcYE53hSMogAQ px0monJp8AnPq XOInKXF7qHaaEPoyc2IoW APdE21tfTSbo4J1OEKogN abnUEyEzRtySX8pL5qPEo xcdcwr1rjxcbl Ivspm9djhj90zK20B10kF EdjTXYtVNY6QHCmVYGvjE odov0zgG7aIa1+NGheb6h sy2ohzFe4NmRz ZVYozjNpcDhjRHV0t3QyM b54D1DeyVgqo1GzNxv8jt 86dMLvb6T5oEW6QBliKEF kqT3aYJadXhC7 CUXgVxLtiR54aVBmHRjoZ e7ivRnpcOzdGG0dWNAzso hqYBAyiO5gVZLmpOMglSr pWP8vZQEyqqqe r511JzHkNNW9YIEznJNyE 2HriU1sFtTxUMXeQZQrN9 EocMMeYDwmA836OBkzOeZ 9VWIfiiQmL5Bu DCMqwVlyWsW5w6E1Lu7Gc 8YparlpSYT5SFvdSLP3Dj P9NtGvWvV9B3LcDsy7FIJ wlLjgQV7tA6Yr IZHoesqfudgwlEW8QPVgG ODamZ50gGUgRHwyTk0ye5 X6p883POPnVXZabD91Sv5 udDogMTBwdCBU yN0zeejqm8kgwrasOtNcD JOkGEe1WBt2TRBawSqaUx OpPLC4XsM2RPZ9kZWelY4 xeVzgllivpK1p Oyc+M55daP8xETY5QUR2y bquVTRshvWkJZ96MZ74K1 RyPjwvdGFibGU+PGRpdiB wmXzpBK4hElKk v8min7BjEUxzA0JnCTBrH GqpCnk3JWKoTCH5rSV5oI 0aHPEyOForl8A1yRI9M2W cemZteu7tx6ds NSXfZSgoJ46doXMwy0U8A QMwzUQ5GPQwdFanHfLsrO 93Oyc+CHVljVetn7PzUii il4vib4dryBg0 YtNeJSAfxdEwnGjoKJE8a 5MvXu44E38tXJphLRElIC FoGWZpRMMblCsyjc2seM8 wIi8+PGNvbCB3 nVP6yC8jGUKnPbQ3KRhrH 507HiSwjRYnQvrlg8kyv5 xtpJq1WvEbTIHuazIyzAh fKBV3t1DcKa21 E31gBGmkXUImYMQrGXBfH LIdeFpnbh1ebP1cXl9+PC 7df2urgi36jA79nBA+PHR yUWA2aYhoMIoh WWWaeL8vHCtkMiU3FVEbW xSqhY74wUGrJSmkCw5itE bckFvyJY5yHVZdxqqlz88 2TvRtx4tvZKUw nBYrJAunPQI0I31az3V5F BOxESZlURH4wSS5sV6yaS lnbjogbGVmdDsgdmVydGl mAOeeUCylL137 IHRvcDsnPlBhdGllbnQgT kStVUq9W7JhFbl7VBEtiS nbBP3sjQFcWHmhNd6osHp ihOfnYO7oYOVb ecbci922PlPhe3tlPZPwa FEgHGyiVEB8X14em2C4SU LeTXJrMLY3mER8iH7ukLb nbjogbGVmdDsg hwCtdVmrPGyzLQceL270U HRvcDsnPkJpcnRoIERhdG I0GS27UI54sRRxj3V6bNZ 7W9GkYLBoctqi pwoqiZQ3DCMkFNVqhZ51O t0xtTmqFk5hNAMeQGM2PS IuiLPtD8XtcG2iFzGeHRZ rHKCvO0DkqZFs PCggO277SGofStE1QYRqp nDjD5KiFIMthOzqQiW1s8 I1Xs3SE1Y0YC20LU74wWT kj4Z6rRZ7D9Wx GRRtasxhcwizvZW9XTWvF XTpaE66Mf2zqBurTx3aIX SaASS1ILEgdDKxC7KjlR7 yOiAjMDAwMDAw C3YpxMUfGHjyS973FIxfM xD7MGCzcqVeE6FzXWXinT rnBvJ9e5N5Zh4WLQz1QM7 8KN49lGAph0W4 fCB1Y5PeVAWpzsnauuori OP4MPBaYSWepT55Ky3qhD jxFp0yNDTaNFE5DGNnqDE hM0DtuG4rCtGs WNXqSRHhM8KzwCCsFEkmG 214QZqvQkI0ILNmmfPfI5 QzGPFreOojDqW2l5B1Yn6 DAEUoCL19GUA3 bQL6SL08VP89E3HgQlnwo GFibGU+PHRhYmxlIHdpZH RoPScxMDAlJyBzdHlsZT0 nIe5iEVMoNXCn xYhelMSbHrOol7roJESnC JloGR7izIttG2ZspPZ7ZZ Hwj7f9Yb88V66oM8BsqJL +XESqrWQ2oYC8 nP3nLfWhFzS8VYgfH101Y eDqaPFpHlsjw2yfi6hpfR c9OcI4MEEjoyNktAwqKCM 0r1LvXi31X17s IHdpZHRoPSIxNSUiIHZhb Euijm2iyV7tXh1+PGNvbC Y4tAF4iI6xQuDiPcH6HRq aI666LkLjjREg Qyokb4cno5hxtOi4BhZaF RWpsvTrwWkyZYK2x2XiJk 44L2RwlTndn3MrBmh5gl1 3mRKew6M0cRS1 F1VpTJYmowjloEZnjSzyD C6nNRBrywueVIQgkR6aJB RkG3t4VdCvCeV4EIvfS7R hxvI1JJTnyZKe POquDHO7D46zy1S8QUVjW TCtFEG5gNO0lF1kgYrfxn ogbGVmdDsgdmVydGljYWw aVOmiG296XCJz zAetAMFnbE2nEXAkuTOkv QgxTM5dWCJzjlpcEukDAJ uAMC5rVJLWQNHEOCH1N3Y pDir0GGRvnKxx ZE8czAOeERodXr7teQpoo ScxMR1eFIElqbxeIZVllU 9rSYIawSUmcDcyKO6dVUI gltkqx771LwBy DLQ7CAKhvLLvN4BrrV0aG xTcCTJcGRMoW6ZpsSZnPW yuL815PBgnTjT5MZVlchM lK3QwWZZhdGkq OxK4u9Y4Sg6xSE2cBO5hH Qa8BI06WP33zLIwq0X4aH X7A5WfLOByljskouhpeXB 1OUEdVBYnwR85 sFDhTRigLy1wz2B6s506Y FOjNXCsfL46Vy8yrFrjVC TcpVNIcL7qohywi4seaha gIzAwMDAwMDt0 YEg4MRVizXdfQeQeTBW2O fG3MWW3gLXtrF9gbKgthv fxjO1wDeh+MzQgWWVhcnM 7V8TuRlk3VMDr zQggOE7xaDMeQYzaGw7pv VikpQlvHY1xQIFthscoOU EmfW9tHURkhUPxcJbfSF8 wPHHmzssgy369 CiTgKUU4WPJhoAOqQ6Rll O5uQnNwIBIfUMIdD7UeoW LpFAcaX276MWdvLqC9BXB dixJoX8TnVFCf fZcgGbS0y9Y9La8AJG2xo EL3B0FkQnr2ALOmoJvhTA 2wjBUcJBxdBi2nsKpkgRu aAA3uFDAskvbm NGRulZ2vAORwcFXvdGneH I6wNEZsybizt743ZfXvCP T3SKIfqRPbK6FuhX6iNrJ fRGBjSIJzV9Qm nYQdXUrdA338PHdnQuX0S FCzjgCoD5WyGGJrnGgsDg Q5k5M2Qs2HJMQyGRUvdMS xZtD3C0OlTxio dHI+BS93IFAiHI07pEKhn YMhu7eveAg4BnEyPYGpNG U9eTphHQqcw6HqALIjR32 wpUFhd1X6XIWr bMcnaDOvNwOqtQV9rD2nQ Neaxowgc9jpbodpTsaxg3 lsgg44uE81D40bQOguGDB oPSIzMCUiIHZh mVpcup0zvK3eNa9+PGNvb TO2bOL5tE9lUvDiPoT4WT nrL748SbMwzDAiOshhj4t xp2sznSv0CiCs RUVirdBlsSweWEO3a8DgM q41G63bBQtwGXQeIGYiLJ TuPZFyyFjeyi4fxJ6aBt9 +NO2vk7wamc09 nQ92iIF+XXZbNJM7gEhhL SezJSHszK5hKOvfNuA2GU DnWxYxwL47iTHbUYbkSy4 tuSujeZgwBB8v QPKqkgyio156ObQah2dyQ OGawYLeCRwvMNG3U59pi7 I1XTWvAZUuFFT7lZA5wA8 hbGlnbjogbGVm dDsgdmVydGljYWwtYWxpZ 619EJQqpScxUwWqoYImY9 qzrvIGST3sAueldKA+PHR zOCN2dBmeSVxa WHOtbG1mCERwG8j4EkDaE qR1GLnvH8ObnyX0FPJbdV FzFZDsjANWmU3quxrea1g vcjogIzAwMDAw PBx5XRt7NMAbtTqfFjXrI YP5IqK7TZC2mNActR6qjA xipsaryG2nPeg+RklOOjw vdGQ+PHRkIHN0 xOoaSTbbWVEogB1jZUPdF 7q7ZqDiFuZ8KLffF0Zbzp I4NTNveTKkIVMwyRYHaK1 isvzwp9hlkbme DxHpOVZbYIg1OCd7TZArb UbiVyVdCSC2WyK3DAI4lJ OspS2osBtfqvedqB0dZwt +TVJOOjwvdGQ+ VWXxRRI4dKbzEFlsQUJfa M8eWMNeS2s4FnTiFrK2TP dkY3NgiaR3PZWmaOJuOYB pwYEIbE2zbypt t7fdcwzmQjWiBYXkPMw7P Wa9GUSnvJxvQtYsOSK6Nw L5LGX5gOAqdS1uxWfsnjt siV5cZkd+UGF5 SXS6WY22BE38U7JiFdtsv GFibGU+PHRhYmxlIHdpZH RoPScxMDAlJyBzdHlsZT0 iRz1dBFWnQGCm bGxh (more content not included)... Normal [facility] PAP [id number] 02-11-2022 Collection Technique BRUSH-SPATULA Normal F [facility] Comment on above: Performed By: #### 3 [id number] #### [facility] Laboratory [address] [place] [address] Gynecological Body Site ENDOCERVIX Normal F [facility] Comment on above: Performed By: #### 3 [id number] #### [facility] Laboratory [address] [place] [address] Previous Cytology Negative Normal [facility] Comment on above: Performed By: #### 3 [id number] #### [facility] [address] [place] [address] Previous Treatment NONE Normal [facility] Comment on above: Performed By: #### 3 [id number] #### [facility] [address] [id number] Physician Orderon 02-11-2022 Physician Order [id number]# 1.00CD:127 Normal [facility] CBC AUTO DIFFon 12-17-2017 Basophils Auto #/vol (Bld) 0.1 103/ul Normal 0.0-0.1 [facility] Comment on above: Performed By: #### C BC ####[facility] [address] [place], [place] [address]Gerken Yuki Basophils/100 WBC Auto (Bld) 0.7 % Normal 0.2-2.0 [facility] Comment on above: Performed By: #### C BC ####[facility] [address] [place], [place] [address]Gerken Yuki Eosinophils 0.2 103/ul Normal 0.0-0.7 [facility] Comment on above: Performed By: #### C BC ####[facility] [address] [place], [place] [address]Gerken Yuki Eosinophils/100 leukocytes 2.7 % Normal 0.9-7.0 [facility] Comment on above: Performed By: #### C BC ####[facility] Ldoinhlgbb8550 [address] Yuki Erythrocyte distribution width Auto Ratio (RBC) 12.9 % Normal 11.0-15.0 [facility] Comment on above: Performed By: #### C BC ####[facility] Jzxfnablqk1926 [address] Yuki Erythrocytes (RBC) 3.59 106/ul Critically low 4.20-5.40 [facility] Comment on above: Performed By: #### C BC ####[facility] Rdvvqmbxqj8895 [address] Yuki Hematocrit (HCT) 31.1 % Critically low 36.0-48.0 [facility] Comment on above: Performed By: #### C BC ####[facility] [address] [place] [address] Yuki Hemoglobin mass conc (Bld) 10.5 g/dL Critically low 12.0-16.0 [facility] Comment on above: Performed By: #### C BC ####[facility] [address] [place] [address] Yuki IG # 0.02 10e3/ul Normal 0.00-0.03 [facility] Comment on above: Performed By: #### C BC ####[facility] Vnbhjrlawo9369 [address] Yuki IG % 0.3 % Normal 0.0-0.5 [facility] Comment on above: Performed By: #### C BC ####[facility] Esliyxqooo3399 [address] Yuki Lymphocytes 2.3 103/ul Normal 1.2-3.8 [facility] Comment on above: Performed By: #### C BC ####[facility] [address] [place] [address] Yuki Lymphocytes/100 leukocytes 33.2 % Normal 20.5-60.0 [facility] Comment on above: Performed By: #### C BC ####[facility] Rkzzmtbvfa9954 [address] Yuki MANUAL DIFF REQ NO Normal [facility] Comment on above: Performed By: #### C BC ####[facility] [address] [address]Gerken Yuki MCH 29.2 pg Normal 26.7-34.0 [facility] Comment on above: Performed By: #### C BC ####[facility] [address] [id number] MCHC mass conc (RBC) 33.8 g/dL Normal 29.9-35.2 [facility] Comment on above: Performed By: #### C BC ####[facility] [address] [place] [address] Yuki MCV 86.6 fL Normal 81.0-99.0 [facility] Comment on above: Performed By: #### C BC ####[facility] [address] [place] [address] Yuki Monocytes 0.6 103/ul Normal 0.3-0.8 [facility] Comment on above: Performed By: #### C BC ####[facility] [address] [place] [address] Yuki Monocytes/100 leukocytes 9.1 % Normal 1.7-12.0 [facility] Comment on above: Performed By: #### C BC ####[facility] [address] [place] [address] Yuki Neutrophils 3.8 103/ul Normal 1.4-6.5 [facility] Comment on above: Performed By: #### C BC ####[facility] [address] [place] [address] Yuki Neutrophils/100 WBC Auto (Bld) 54.0 % Normal 43.0-75.0 [facility] Comment on above: Performed By: #### C BC ####[facility] [address] [place] [address] Yuki Platelet mean volume (PMV) 10.1 fL Normal 9.5-13.5 [facility] Comment on above: Performed By: #### C BC ####[facility] [address] [place] [address] Yuki Platelets 207 103/ul Normal 150-450 [facility] Comment on above: Performed By: #### C BC ####[facility] Ju[address] [place] [address] Yuki WBC (Leukocytes) 7.0 103/ul Normal 4.0-11.[address] [facility] Comment on above: Performed By: #### C BC ####[facility] [address] [place] [address] Yuki PREG HCG QUALon 12-17-2017 , QUAL Positive Normal NEGATIVE [facility] Comment on above: Performed By: #### P REG ####[facility] [address] [place] [address] Yuki PROF CHEM 8 (BAS METB)on Anion gap 9.6 mmol/L Normal [facility] Comment on above: Performed By: #### B MP ####[facility] [address] [place] [address] Yuki BUN/Creatinine Ratio 14.5 mg/mg Normal [facility] Comment on above: Performed By: #### B MP ####[facility] [address] [place] [address] Yuki Calcium 10.0 mg/dL Normal 8.4-10.2 [facility] Comment on above: Performed By: #### B MP ####[facility] [address] [place] [address] Yuki Chloride 106 mmol/L Normal 98-107 [facility] Comment on above: Performed By: #### B MP ####[facility] [address] [place] [address] Yuki CO2 27.0 mmol/L Normal 22.0-30.0 [facility] Comment on above: Performed By: #### B MP ####[facility] [address] [place], [place] [address]Xsmfbf Yuki Creatinine 0.72 mg/dL Normal 0.52-1.04 [facility] Comment on above: Performed By: #### B MP ####[facility] [address] [place], [place] [address]Ahzgpv Yuki eGFR (non-black) mL/min/{1.73_m2} Normal >=60 [facility] Comment on above: Performed By: #### B MP ####[facility] [address] [place], [place] [address]Gajcrn Yuki Glucose mass conc 92 mg/dL Normal 74-106 [facility] Comment on above: Performed By: #### B MP ####[facility] [address] [place] [address]Gerken Yuki Potassium molar conc 3.7 mmol/L Normal 3.4-5.0 [facility] Comment on above: Performed By: #### B MP ####[facility] [address] [place], [place] [address]Einkgt Yuki Sodium 139 mmol/L Normal 137-145 [facility] Comment on above: Performed By: #### B MP ####[facility] [address] [place], [place] [address]Vnighc Yuki Urea nitrogen 10.0 mg/dL Normal 7.0-17.0 [facility] Comment on above: Performed By: #### B MP ####[facility] [address] [place], [place] [address]Vqqenw Yuki TYPE AND SCREENon 12-17-2017 TYPE AND SCREEN Negative Normal [facility] Comment on above: Performed By: #### T NS ####[facility] [address] [place], [place] [address]Nbkhgu Yuki US PELVISon 12-17-2017 US PELVIS [address] [place] [address] Patient: RADHA CONTRERASJennifer Exam Date: 12/16/2017DOB: 1985 Gender:F : DR YEMI MCGARRY Admission #: [id number] : DR GERMAN MCGRAW Order #: [id number] HERE TO VIEW EXAM RADIOLOGY REPORT PROCEDURE: [...] Francis M.D. on 12/16/2017 at 23:05 Normal [facility] Vital Signs Date Time Vital Sign Value Performing Clinician Facility 02-27-2025 10:12-0400 Body mass index (BMI) [Ratio] 22.1 kg/m2 [facility] Work Phone: [facility] 02-27-2025 10:12-0400 Body weight 64.01 kg [facility] Work Phone: [facility] 02-27-2025 10:12-0400 Diastolic blood pressure 60 mm[Hg] [facility] Work Phone: [facility] 02-27-2025 10:12-0400 Systolic blood pressure 110 mm[Hg] [facility] Work Phone: [facility] 11-07-2024 10:32-0400 Body mass index (BMI) [Ratio] 22.15 kg/m2 Pita Iman DO Work Phone: [facility] 11-07-2024 10:32-0400 Body weight 64.14 kg Pita Iman DO Work Phone: [facility] 11-07-2024 10:32-0400 Diastolic blood pressure 68 mm[Hg] Pita Iman DO Work Phone: [facility] 11-07-2024 10:32-0400 Systolic blood pressure 110 mm[Hg] Pita Iman DO Work Phone: [facility] 04-02-2023 09:45-0400 Body height 167.64 cm German Ball Other [facility] Other 04-02-2023 09:45-0400 Body mass index (BMI) [Ratio] 25.69 kg/m2 German Ball Other [facility] Other 04-02-2023 09:45-0400 Body weight 72.21 kg German Ball Other [facility] Other 04-02-2023 09:45-0400 Diastolic blood pressure 70 mm[Hg] German Ball Other [facility] Other 04-02-2023 09:45-0400 Respiratory rate 12 /min German Ball Other [facility] Other 04-02-2023 09:45-0400 Systolic blood pressure 106 mm[Hg] German Ball Other [facility] Other 12-22-2022 14:45-0400 Body height 167.64 cm Marla Lewis Other [facility] Other 12-22-2022 14:45-0400 Body mass index (BMI) [Ratio] 25.01 kg/m2 Marla Lewis Other [facility] Other 12-22-2022 14:45-0400 Body weight 70.31 kg Marla Lewis Other [facility] Other 12-22-2022 14:45-0400 Diastolic blood pressure 76 mm[Hg] Marla Lewis Other [facility] Other 12-22-2022 14:45-0400 Systolic blood pressure 104 mm[Hg] Marla Lewis Other [facility] Other Encounters Encounter Date Encounter Type Care Provider Facility Start: 02-27-2025 End: 02-27-2025 Bamboo flowsheet Pita Iman DO Work Phone: [facility] Start: 02-27-2025 End: 02-27-2025 Bamboo flowsheet Pita Iman DO Work Phone: [facility] Start: 02-27-2025 End: 02-27-2025 Patient encounter procedure Pita Iman DO Work Phone: [facility] Work Phone: Start: 02-27-2025 End: 02-27-2025 Periodic preventive med est patient 18-39 yrs Pita Iman DO Work Phone: [facility] [place] [facility] Comment on above: Well woman exam with routine gynecological exam; Pre-operative exam; Pelvic pain; Menorrhagia with regular cycle; Dysmenorrhea; Dyspareunia in female Start: 02-27-2025 End: 02-27-2025 Preprocedural examination done Pita Iman DO Work Phone: [facility] Start: 12-13-2024 End: 12-13-2024 ambulatory [facility] Work Phone: Start: 12-13-2024 End: 12-13-2024 Patient encounter procedure [facility] Work Phone: Start: 11-07-2024 End: 11-07-2024 Bamboo flowsheet Pita Iman DO Work Phone: [facility] Start: 11-07-2024 End: 11-07-2024 Bamboo flowsheet Pita Iman DO Work Phone: [facility] Start: 11-07-2024 End: 11-07-2024 Office outpatient visit 15 minutes Pita Iman DO Work Phone: [facility] Comment on above: Abnormal uterine ble eding (AUB) Start: 11-07-2024 End: 11-07-2024 ambulatory PITA IMAN Not Available Start: 05-09-2024 End: 05-09-2024 ambulatory NON STAFF [facility] Work Phone: Start: 05-09-2024 End: 05-09-2024 Patient encounter procedure [facility] [address] Work Phone: Start: 03-31-2024 End: 03-31-2024 Patient encounter procedure [facility] Work Phone: Start: 08-20-2023 Clinisync Result Encounter Pita Iman DO Work Phone: [facility] Unsolicited Start: 08-20-2023 Clinisync Result Encounter Pita Iman DO Work Phone: [facility] Unsolicited Start: 04-02-2023 End: 04-02-2023 ambulatory German Mcgraw Other [facility] Other Start: 04-02-2023 Encounter for genera l adult medical examination without abnormal findings German Mcgraw [facility] Start: 04-02-2023 Periodic preventive med est patient 18-39 yrs German Mcgraw [facility] Start: 02-19-2023 End: 02-19-2023 ambulatory German Mcgraw Other [facility] Other Start: 02-19-2023 Telephone encounter German Mcgraw [facility] Start: 02-11-2023 End: 02-11-2023 ambulatory German Mcgraw Other [facility] Other Start: 02-11-2023 Telephone encounter German Mcgraw [facility] Start: 01-14-2023 End: 01-14-2023 ambulatory German Mcgraw Other [facility] Other Start: 01-14-2023 Office outpatient vi sit 15 minutes German Ball [facility] Start: 12-24-2022 End: 12-24-2022 ambulatory Marla Debbie Other [facility] Other Start: 12-24-2022 Telephone encounter Marla Debbie [facility] Start: 12-23-2022 End: 12-23-2022 ambulatory Marla Lewis Other [facility] Other Start: 12-23-2022 Telephone encounter Marla Debbie [facility] Start: 12-22-2022 End: 12-22-2022 ambulatory Marla Lewis Other [facility] Other Start: 12-22-2022 Office outpatient vi sit 15 minutes Marla Debbie [facility] Start: 12-14-2022 End: 12-14-2022 ambulatory German Mcgraw Other [facility] Other Start: 12-14-2022 Telephone encounter German Mcgraw [facility] Start: 11-17-2022 End: 11-17-2022 ambulatory German Mcgraw Other [facility] Other Start: 11-17-2022 Telephone encounter German Mcgraw [facility] Start: 10-14-2022 End: 10-14-2022 ambulatory NON STAFF [facility] Work Phone: Start: 10-14-2022 End: 10-14-2022 Departed Referred [facility]Employee Benefit Screening Start: 07-17-2022 (FPG VCS) [facility] Start: 07-17-2022 End: 07-17-2022 ambulatory German Mcgraw Other [facility] Other Start: 07-15-2022 End: 07-15-2022 ambulatory German Mcgraw Other [facility] Other Start: 07-15-2022 Telephone encounter German Mcgraw No rt Incoming Media Start: 04-24-2022 Adult health examination Omar Mcgraw Other [facility] Other Start: 08-15-2020 End: 08-15-2020 Discharged Recurring STAFF, NON [facility]-Covid Vaccine Start: 12-17-2017 End: 12-17-2017 Ambulatory GERMAN MCGRAW Facility:H1 Procedures Date Procedure Procedure Detail Performing Clinician Start: 11-07-2024 Urnls dip stick/tabl et rgnt non-auto w/o micrscp Pita Trustev DO Work Phone: Start: 08-20-2023 ALL CBC WITH AUTO DIFF Pita Iman DO Work Phone: Start: 05-26-2023 Microscopic observat ion [Identifier] in Cervix by Cyto stain [employer] DO Work Phone: Depression screening Bettina Mcgraw Other Plan of Treatment Date Care Activity Detail Author Start: 05-26-2028 Screening for malign ant neoplasm of cervix [facility] Start: 05-09-2025 End: 05-09-2025 Patient encounter procedure 05/09/2025 8:30 AM EDT Office Visit [facility] [address] [place] [address] Magalie Clarke PA [address] [place], [place] [phone] [facility] Start: 04-04-2025 End: 04-04-2025 Patient encounter procedure 04/04/2025 10:50 AM EDT Office Visit [facility] [address] [facility] [place] [phone] Pita Valerio, DO [address] [place] [address] [facility] Start: 03-12-2025 Influenza vaccination Influenza Vacc ine (#1) [facility] Start: 03-06-2025 End: 03-06-2025 Patient encounter procedure 03/06/2025 9:20 AM EDT [facility] [address] [place] [phone] Pita Valerio, DO [address] [place] [address] [facility] Start: 02-27-2025 End: 02-27-2025 Patient encounter procedure 02/27/2025 10:00 AM EDT Office Visit [facility] [address] [facility] [facility] [place] [phone] Pita Valerio, DO [address] [place] [address] Arrived [facility] Comment on above: Arrived Start: 10-14-2022 [facility] Cytology Cervical or vaginal smear or scraping study Pap Smear Pathology and Cytology Routine Well woman exam with routine gynecological exam Ordered: 02/27/2025 [facility] Work Phone: Comment on above: Ordered: 02/27/2025 Human papilloma viru s DNA [Presence] in Unspecified specimen by Probe with amplification HPV DNA probe, amplified Microbiology Routine Well woman exam with routine gynecological exam Ordered: 02/27/2025 [facility] Comment on above: Ordered: 02/27/2025 [facility] Immunizations Immunization Date Immunization Notes Care Provider Rafy sigala 05-09-2024 influenza virus vaccine, unspecified formulation Pita Valerio DO Work Phone: [facility] 07-15-2021 COVID-19 Vaccine Pfi zer - Documentation Purposes Only German [facility] Other [facility] 08-15-2020 COVID-19 mRNA-1273 (Moderna) STAFF, [facility] 07-18-2020 COVID-19 mRNA-1273 (Moderna) STAFF, [facility] Payers Date Payer Category Payer Private Health Insurance [employer] [id number] 2024 Unknown [id number] 2024 Private Health Insurance [id number] 2024 Self-pay [id number] 2023 Managed Care HMO (unspecified) [employer] AETNA [id number] 2023-Present [address] [place] [address] HMO [id number] 1985 Unknown [id number] 1957 Private Health Insurance [id number] [facility] [id number] [facility] [id number] Unknown [place] BC/BS [id number] Unknown [id number] Social History Date Type Detail Facility [facility] Start: 1985 Sex Assigned At Female [facility] Start: 02-19-2023 End: 10-31-2024 Sex Assigned At [facility] Other Start: 12-31-2022 Tobacco smoking status NHIS Never smoked tobacco [facility] Start: 12-31-2022 Tobacco use and exposure Smokeless tobacco non-user [facility] Start: 07-22-2023 End: 02-27-2025 Alcohol intake Current drinker of alcohol (finding) [facility] Start: 02-19-2023 End: 10-31-2024 History of Social function [facility] Start: 12-30-2022 Gender identity Identifies as female gender (finding) [facility] Start: 12-30-2022 Sexual orientation Heterosexual (finding) [facility] Tobacco smoking stat [facility] Unknown if ever smoked [facility] Work Phone: Start: 12-13-2024 Sex Female (finding) [facility] Goals Date Patient Goal Desired Activity /State Clinical Notes 07-17-2022 to 02-27-2025 Mariella Nelson - 02/27/2025 10:00 AM EDTYuki Chappell LPN - 11/07/2024 10:10 AM EDT Note Date & Type Note Facility 02-27-2025 History of Presen t illness Narrative Reason for Appointment: Patient ID: Radha Contreras is a 39 y.o. female who presents for Well Women Visit and Pre-op Visit Patient presents today for Pre Op/Annual appointment. Patient is scheduled to undergo Da Rj assisted Laparoscopic Hysterectomy, possible exploratory laparotomy, possible BSO, possible cystoscopy on 03-28-[address] Valerio at [facility]. MEDICATIONS Current Outpatient Medications Medication Instructions busPIRone [...] KNEE SURGERY Right 02/05/2023 RT KNEE SCOPE-DR ESPOSITO REVIEW OF SYSTEMS Review of Systems: Review [...] nursing note reviewed. Exam conducted with a security control assessor present. Vitals: Estimated body mass index is 22.1 kg/m as calculated from the following: Height as [...] complaints of menorrhagia, dyspareunia, dysmenorrhea and pelvic pain. I have discussed conservative management vs. surgical management with the patient in detail and patient desires surgical management at this time. Patient will undergo Da Rj assisted Laparoscopic Hysterectomy, possible exploratory laparotomy, possible BSO, possible cystoscopy on 03-28-25. Surgical consents were signed, mmc was reviewed, and patient is to proceed to [facility] OR. Follow Up: Patient is to follow up at 1 & 6 weeks post operative to assess proper healing and recovery from procedure. Documented by Yuki Chappell LPN on behalf of: Pita Valerio DO documented in this encounter [facility] 11-07-2024 History of Presen t illness Narrative Reason for Appointment: Patient ID: Radha Contreras is a 39 y.o. female who presents for Discuss Hysterectomy Patient presents today for Acute Visit. and Consult appointment. MEDICATIONS Current Outpatient Medications Medication Instructions busPIRone [...] KNEE SURGERY Right 02/05/2023 RT KNEE SCOPE-DR ESPOSITO REVIEW OF SYSTEMS Review of Systems: Review of Systems Constitutional: Negative. HENT: Negative. Eyes: Negative. Respiratory: Negative. Cardiovascular: Negative. Gastrointestinal: Negative. Genitourinary: Negative. Musculoskeletal: Negative. Skin: Negative. Neurological: Negative. All other systems reviewed and are negative. Hematological: Negative. Endocrine: Negative. Allergic/Immunologic: Negative. OBJECTIVE Objective: Physical Exam Constitutional: Appearance: Normal appearance. She is well-developed. Cardiovascular: Rate and Rhythm: Normal rate and [...] nursing note reviewed. Exam conducted with a security control assessor present. Vitals: Estimated body mass index is 22.15 kg/m as calculated from the following: Height as of 06/14/23: 5' 7 . Weight as of this encounter: 141 lb 6.4 oz. BP: 110/68 Patient's last menstrual period was 10/15/2024. ASSESSMENT & PLAN ICD-10-CM 1. Abnormal uterine bleeding (AUB) N93.9 POCT , urine manually resulted POCT urinalysis dipstick manually resulted Pt presents with bleeding after endometrial ablation. Pt desires surgical management. Pt to be scheduled for robotic hysterectomy. Pt to return for preop/annual exam. Documented by Yuki Chappell LPN on behalf of: Pita Valerio DO documented in this encounter [facility] 04-02-2023 Evaluation note Encounter Date Diagnosis Assessment [...] and keep acitive. PRN use of Buspar [facility] Other 07-06-2023 Evaluation note* Encounter Date Diagnosis Assessment Notes Treatment Notes Treatment Clinical Notes Jan, Acute non-recurrent maxillary sinusitis (ICD-10 - J01.00) Instructed to use Robitussin or Mucinex for cough, saline or Flonase NS for congestion, Tylenol for pain and fever. [facility] Other 06-13-2023 Evaluation note* Encounter Date Diagnosis Assessment Notes Treatment Notes Treatment Clinical Notes Dec, Acute pain of right knee (ICD-10 - M25.561) Pt has been taking NSAIDs. Requests referral to Dr Esposito. XR order printed. PT order printed on 12/24. [facility] Other 06-05-2023 Evaluation note* Encounter Date Diagnosis Assessment Notes Treatment Notes Treatment Clinical Notes Dec, TIRSO (generalized anxiety disorder) (ICD-10 - F41.1) [facility] Other 05-09-2023 Evaluation note* Encounter Date Diagnosis Assessment Notes Treatment Notes Treatment Clinical Notes November, Fever blister (ICD-10 - B00.1) [facility] Other 01-06-2023 Evaluation note* Encounter Date Diagnosis Assessment Notes Treatment Notes Treatment Clinical Notes Jul, Migraine with aura and without status migrainosus, not intractable (ICD-10 - G43.109) Stable w/o exacerbation w/ acute illness Jul, Acute bronchitis due to other specified organisms (ICD-10 - J20.8) Instructed to use Robitussin or Mucinex for cough, saline or Flonase NS for congestion, Tylenol for pain and fever. [facility] Other Evaluation noteNo [employer]Nort [employer] Other Evaluation noteNo assessment information available [facility] Work Phone: Evaluation note* Diagnosis Onset Date Resolution Status Acute sinusitis acute Seasonal allergic rhinitis a cute [facility] Work Phone: Evaluation note* Diagnosis Abnormal uterine bleeding (AUB) documented [facility] encounter [facility] Diagnosis Well woman exam with routine gynecological exam Routine gynecological examination Pre-operative exam Unspecified pre-operative examination Pelvic pain Menorrhagia with regular cycle Dysmenorrhea Dyspareunia in female documented in this encounter [facility] general Narrative - Reported* Type Description Date Surgical History Right knee arthroscopy 2010 [facility] Other History general Narrative - Reported* Type Description Date Surgical History Right knee arthroscopy 2010 Surgical History Right knee arthroscopy 2022 [facility] Other History general Narrative - Reported* Type Description Date Medical History Migraine with aura a nd without status migrainosus, not intractable Medical History TIRSO (generalized anxiety disorde r) Surgical History Right knee arthroscopy 2010 Surgical History Right knee arthroscopy 2022 Hospitalization History see surgical hx [facility] Other Summary Purpose Family History Relationship Condition Age at Onset Recorded Date/T ever mother Hypertension Unknown Advance Directives Advance Directive Response Recorded Date/ Time Advance Directives No December 13 11:10am Advance Directive Response Recorded Date/ Time Advance Directives No December 13 11:37am Chief Complaint and Reason for Visit Chief Complaint COVID vaccine Chief Complaint Employee Benefit scr eening Chief Complaint [phone] sinus i nfection Z23 Reason for Visit Acute sinusitis Seasonal allergic rhinitis Chief Complaint Admit Date allergy shot December 13, 2024 11:38 am Assessments No Assessments Information Available Reason for Referral Reason 12/31/22 former pt - previously did surgery on R knee in 2012. Diagnosis 1 Acute pain of right knee (M25.561) Referral Organization [facility] Lucien klein Referring Provider First Name Marla Referring Provider Last Name Debbie Referring Provider Specialty Family [facility] Referred Organization [facility] Referred Provider Ferdinand Esposito Jr. Referred Address ,[place], [place],[address] Referred Provider Specialty Orthopedic S urgery Referral [...] and content) DATE CREATED AUTHOR 12/28/2017 [facility] DATE CREATED AUTHOR AUTHOR'S ORGANIZ ATION 03/06/2022 [facility] DATE CREATED AUTHOR AUTHOR'S ORGANIZ ATION 05/15/2024 [facility] DATE CREATED AUTHOR AUTHOR'S ORGANIZ ATION 11/08/2024 [facility] EPIC REASON FOR VISIT (unrecogniz ed section and content) Reason Comments Discuss Hysterectomy Reason Comments Well Women Visit Pre-op Visit Care Teams (unrecognized sec tion and content) Team Status: Active Member Role Status Dates NON STAFF Primary Care Provider Active Team Status: Inactive Member Role Status Dates NON STAFF Primary Care Provider Active Pradeep Osullivan DO [facility] Attending Provider Active Ticket Chopper Assembler Relationship Specialty Start Date End Date German Mcgraw MD [address] [facility] [place] [phone] PCP - General Internal Medicine 12/31/22 Team Status: Inactive Member Role Status Dates NON STAFF Primary Care Provider Active Start: March 31, 2024 End: March 31, 2024 German Mcgraw DO Attending Provider Active Sta rt: March 31, 2024 End: March 31, 2024 Team Status: Inactive Member Role Status Dates NON STAFF Primary Care Provider Active Start: May 09, 2024 End: May 09, 2024 Pradeep PIZANO DO [facility] Attending Provider Active Start: May 09, 2024 End: May 09, 2024 Ticket Chopper Assembler Relationship Specialty Start Date End Date German Mcgraw MD PCP - General Internal Medicine 12/31/22 Ticket Chopper Assembler Relationship Specialty Start Date End Date German Mcgraw MD [address] [place] [address] PCP - General Internal Medicine 12/31/22 Team Status: Inactive Member Role Status Dates NON STAFF Primary Care Provider Active Start: December 13, 2024 End: December 13, 2024 German Mcgraw DO Attending Provider Active Sta rt: December 13, 2024 End: December 13, 2024 Ticket Chopper Assembler Relationship Specialty Start Date End Date German Mcgraw DO [address] [place] [address] PCP - General Internal Medicine 12/31/22 Ticket Chopper Assembler Relationship Specialty Start Date End Date German Mcgraw DO [address] [place] [address] PCP - General Internal Medicine 12/31/22 Goals [...] BE BASED ON THE PRIMARY CLINICAL RECORDS. [facility]. provides no warranty or guarantee of the accuracy or completeness of information in this document.
[2025-03-02 07:09] LABS: Age Gdln ACOG Testing Note (.); IGP, Aptima HPV, rfx 16/18,45 Note (.)
== END 2025-02-27 16:16 | disposition home or self-care (01) ==
LOC: LAB 16:15
PROVIDERS: PCP Internal Medicine; Visit Provider Obstetrics & Gynecology
DX: Z01.419 Encounter for gynecological examination (general) (routine) without abnormal findings (principal)
CPT/HCPCS: 87624; 88175

== ENCOUNTER 2025-03-15 08:56 | Outpatient (OUT) | payer OTHER, SELFPAY ==
--- OUTSIDE RECORDS SUMMARY | 2025-03-15 09:00 | XMS_ITS | Clinical Summary ---
Author Organization [facility] Address [address] [place] [address] [place] [address] Care Team Providers Care Pipe Line Gauger Name Role Phone German Mcgraw Primary Care Provider [phone] Allergies No known active allergies Medications eletriptan [...] Encounters Date Type Department Care Team Description 02/28/2025 Abstract [facility] [address] [place] [phone] Jin Valerio DO 02/27/2025 10:00 AM EDT Office Visit [facility] [address] [place] [phone] Jin Valerio DO Well woman exam with routine gynecological exam; Pre-operative exam; Pelvic pain; Menorrhagia with regular cycle; Dysmenorrhea; Dyspareunia in female 02/27/2025 Clinisync Result Encounter [facility] External Department Unsolicited Jin Valerio DO 02/27/2025 Bamboo flowsheet [facility] [address] [place] [address] Jin Valerio DO 02/20/2025 Travel from Last [...] 10:50 AM EDT Office Visit [facility] [address] [place] [address] [place] [phone] Jin Valerio, [address] [place] [address] 05/09/2025 8:30 AM EDT Office Visit [facility] [address] [place] [address] [place] [phone] Magalie Clarke PA [address] [place], [place] [phone] Health Maintenance Due Date Last Done Comments Influenza Vaccine (#1) 2025 05/09/2024, 2022 Cervical Cancer Screening 05/26/2028 HPV/Cotest 05/26/2028 Pap Smear 05/26/2028 05/26/2023 Procedures Procedure Name Priority Date/Time Associated Diagnosis Comments IGP,APTIMA HPV,AGE GDLN Routine 02/27/2025 10:08 AM EDT PAP SMEAR Routine 05/26/2023 12:00 AM EST from Last 3 Months or Most Recently Relevant to Health Maintenance Results * IGP,APTIMA HPV,AGE GDLN (02/27/2025 10:08 AM EDT) AGE GDLN ACOG TESTING Note . [facility] Comment: TESTS RESULT FLAG UNITS REF RANGE LAB Clinician Provided Cytology Information Source.............Cervix;Endocervix No. of containers..01 ThinPrep Vial Age Algo ACOG Mindi... 30-65 01 FLAG LEGEND: L-Low Normal,H-High Normal,LL-Alert Low,HH-Alert High <-Panic Low,>-Panic High,A-Abnormal,AA-Critical Abnormal Performed at: 01 =G [address] [place] [address] Yun Atwood MD, IGP, APTIMA HPV, RFX 16/18,45 Note . [facility] Comment: TESTS RESULT FLAG UNITS REF RANGE LAB DIAGNOSIS: 02 NEGATIVE FOR INTRAEPITHELIAL LESION OR MALIGNANCY. THIS SPECIMEN WAS RESCREENED PART OF OUR CNC LATHE PROGRAMMER PROGRAM. Specimen adequacy: 02 Satisfactory for evaluation. Endocervical and/or squamous metaplastic cells (endocervical component) are present. Performed by: 02 Tahira Peterson, Supervisory Engagement Quality Consultant ([facility]) QC reviewed by: 02 Rell Marks, Engagement Quality Consultant ([facility]) . 02 Note: Note 02 The Pap smear is a screening test designed to aid in the detection of premalignant and malignant conditions of the uterine cervix. It is not a diagnostic procedure and should not be used as the sole means of detecting cervical cancer. Both false-positive and false-negative reports do occur. Test Methodology: Note 02 This liquid based ThinPrep(R) pap test was screened with the use of an image guided system. HPV Genotype Reflex Note 02 Criteria not met, HPV Genotype not performed. FLAG LEGEND: L-Low Normal,H-High Normal,LL-Alert Low,HH-Alert High <-Panic Low,>-Panic High,A-Abnormal,AA-Critical Abnormal Performed at: [address] [place] [address] Yun Atwood MD, HPV APTIMA Negative Negative TB Comment: This nucleic acid amplification test detects fourteen high- risk HPV types (16,18,31,33,35,39,45,51,52,56,58,59,66,68) without differentiation. Performed at: =G - [facility] [address] [id number] Him Assistant: Yun Atwood MD, Phone: [phone] Performed at: [address] [id number] Him Assistant: Yun Atwood MD, Phone: [phone] 02/27/2025 10:0 8 AM EDT 02/27/2025 4:18 PM EDT Narrative [facility] - 03/02/2025 7:09 AM EDT BRUSH-SPATULA CERVIX ENDOCERVIX us Jin Iman DO LAB BLOOD ORDERABLES Final Resul t [facility] * Pap Smear (05/26/2023 12:00 AM EST) Swab Cervical swab / Unknown us Ijn Iman DO LAB CYTOLOGY ORDERABLES Final Re sult EXTERNAL LAB from Last 3 Months or Most Recently Relevant to Health Maintenance Insurance [employer] Care Teams Pipe Line Gauger Relationship Specialty Start Date End Date German Mcgraw DO [address] [place] [address] PCP - General Internal Medicine 12/31/22
--- OUTSIDE RECORDS SUMMARY | 2025-03-15 09:00 | XMS_ITS | Encounter Summary ---
Author Organization [facility] Address [address] [place] [address] [place] [address] Care Team Providers Care Group Home Manager Name Role Phone German Mcgraw DO Primary Care Provider Encounter Details Date Type Department Care Team (Late Contact Info) Description 02/19/2023 Abstract [facility] [address] [place] [phone] Denzel Rockwell, ROSALINA [address] [facility] [place] [address] Social History Tobacco Use Types [...] [address] [place] [phone] Jin Valerio DO [address] [place] [address] 05/09/2025 8:30 AM EDT Office Visit [facility] [address] [place] [address] Magalie Clarke PA [address] [place] [address] documented as of this encounter Visit Diagnoses Not on filedocumented in this encounter Care Teams Group Home Manager Relationship Specialty Start Date End Date German Mcgraw DO [address] [facility] [place] [address] PCP - General Internal Medicine 12/31/22 documented as of this encounter
--- OUTSIDE RECORDS SUMMARY | 2025-03-15 09:00 | XMS_ITS | Encounter Summary ---
Author Organization [facility] Address [address] [place] [address] Care Team Providers Care Cosmetology Instructor Name Role Phone German Mcgraw DO Primary Care Provider [phone] Encounter Details Date Type Department Care Team (Late Contact Info) Description 02/28/2025 Abstract [facility] [address] [place] [phone] Jin Valerio DO [address] [place], [place] [address] Social History Tobacco Use Types Packs/Day Years [...] AM EDT Office Visit [facility] [address] [place] [address] Jin Valerio DO [address] [place], [place] [phone] 05/09/2025 8:30 AM EDT Office Visit [facility] [address] [place] [address] Magalie Clarke PA [address] [place] [address] documented as of this encounter Visit Diagnoses Not on filedocumented in this encounter Care Teams Cosmetology Instructor Relationship Specialty Start Date End Date German Mcgraw DO [address] [facility] [place] [address] PCP - General Internal Medicine 12/31/22 documented as of this encounter
--- OUTSIDE RECORDS SUMMARY | 2025-03-15 09:00 | XMS_ITS | Encounter Summary ---
Author Organization [facility] Address [address] [place] [address] Care Team Providers Care Broom Bundler Name Role Phone German Mcgraw DO Primary Care Provider [phone] Encounter Details Date Type Department Care Team (Late Contact Info) Description 02/27/2025 Clinisync Result Encounter [facility] External Department Unsolicited Jin Valerio DO [address] [place] [address] Social History Tobacco Use Types Packs/Day Years [...] 04/04/2025 10:50 AM EDT Office Visit [facility] [address] [place] [phone] Jin Valerio DO [address] [place] [address] 05/09/2025 8:30 AM EDT Office Visit [facility] [address] [facility] [place] [address] Magalie Clarke PA [address] [place] [address] documented as of this encounter Procedures Procedure Name Priority Date/Time Associated Diagnosis Comments IGP,APTIMA HPV,AGE GDLN Routine 02/27/2025 10:08 AM EDT documented in this encounter Results * IGP,APTIMA HPV,AGE GDLN (02/27/2025 10:08 AM EDT) AGE GDLN ACOG TESTING Note . [facility] Comment: TESTS RESULT FLAG UNITS REF RANGE LAB Clinician Provided Cytology Information Source.............Cervix;Endocervix No. of containers..01 ThinPrep Vial Age Algo ACOG Mindi... 30-65 01 FLAG LEGEND: L-Low Normal,H-High Normal,LL-Alert Low,HH-Alert High <-Panic Low,>-Panic High,A-Abnormal,AA-Critical Abnormal Performed at: 01 =G [address] [address] Yun Atwood MD, IGP, APTIMA HPV, RFX 16/18,45 Note . [facility] Comment: TESTS RESULT FLAG UNITS REF RANGE LAB DIAGNOSIS: 02 NEGATIVE FOR INTRAEPITHELIAL LESION OR MALIGNANCY. THIS SPECIMEN WAS RESCREENED PART OF OUR COMPUTER PROCESSING SCHEDULER PROGRAM. Specimen adequacy: 02 Satisfactory for evaluation. Endocervical and/or squamous metaplastic cells (endocervical component) are present. Performed by: 02 Tahira Peterson, Supervisory Junior Business Analyst ([facility]) QC reviewed by: 02 Rell Marks, Junior Business Analyst ([facility]) . 02 Note: Note 02 The Pap [...] Low,>-Panic High,A-Abnormal,AA-Critical Abnormal Performed at: 02 [facility] [address] [address] Yun Atwood MD, HPV APTIMA Negative Negative [facility] Comment: This nucleic acid amplification test detects fourteen high- risk HPV types (16,18,31,33,35,39,45,51,52,56,58,59,66,68) without differentiation. Performed at: = - [facility] [id number] Nurse Administrator: Yun Atwood MD, Phone: [phone] Performed at: - [facility] [id number] Nurse Administrator: Yun Atwood MD, Phone: [phone] 02/27/2025 10:0 8 AM EDT 02/27/2025 4:18 PM EDT Narrative [facility] - 03/02/2025 7:09 AM EDT BRUSH-SPATULA CERVIX ENDOCERVIX us Jin Iman DO LAB BLOOD ORDERABLES Final Resul t [facility] documented in this encounter Visit Diagnoses Not on filedocumented in this encounter Care Teams Broom Bundler Relationship Specialty Start Date End Date German Mcgraw DO [address] [place] [address] PCP - General Internal Medicine 12/31/22 documented as of this encounter
--- OUTSIDE RECORDS SUMMARY | 2025-03-15 09:00 | XMS_ITS | Encounter Summary ---
Author Organization [facility] Address [address] [place] [address] Care Team Providers Care Trim Die Maker Name Role Phone German Mcgraw DO Primary Care Provider [phone] Encounter Details Date Type Department Care Team (Late Contact Info) Description 01/10/2024 Abstract [facility] [address] [place] [phone] Jin Valerio DO [address] [place], [place] [address] Social History Tobacco Use Types Packs/Day Years [...] Office Visit [facility] [address] [place] [address] Jin Valerio DO [address] [place], [place] [id number] 05/09/2025 8:30 AM EDT Office Visit [facility] [address] [place] [address] Magalie Clarke PA [address] [place] [address] documented as of this encounter Visit Diagnoses Not on filedocumented in this encounter Care Teams Trim Die Maker Relationship Specialty Start Date End Date German Mcgraw DO [address] [facility] [place] [address] PCP - General Internal Medicine 12/31/22 documented as of this encounter
--- OUTSIDE RECORDS SUMMARY | 2025-03-15 09:06 | XMS_ITS | CCD ---
Author Organization [facility] Care Team Providers Care Container Repairer Name Role Phone GERMAN MCGRAW Unavailable Unavailable [...] Provider German Mcgraw MD Primary Care Provider German Mcgraw DO Primary Care Provider PITA VALERIO Attending Unavailable PITA VALERIO Attending Unavailable Unavailable Unavailable Unavailable Allergies Allergy Classification Reported Allergen(s) Allergy Type Date of Onset Reaction(s) Facility (2 sources) patient allergy list reviewed by nurse or physicia Propensity to adverse reactions 5 Comment:Done [employer] Other Medications Current Medications Medication Drug Class(es) Dates Sig (Normalized) Sig (Original) busPIRone hydrochloride 10 mg oral tablet (17 sources) Start: 12-15-2022 take 1 tablet by [...] 11/07/2024 Discontinued take 1 capsule by mo [facility] once daily Venlafaxine HCl ER 150 MG [...] Test Name Value Interpretation Reference Range Facility IGP,APTIMA HPV,AGE GDLNon AGE GDLN ACOG TESTING Note . [facility] Comment on above: TESTS RESULT FLAG UN ITS REF RANGE LAB Clinician Provided Cytology Information Source.............Cervix;Endocervix No. of containers..01 ThinPrep Vial Age Algo ACOG Mindi... FLAG LEGEND: L-Low Normal,H-High Normal,LL-Alert Low,HH-Alert High <-Panic Low,>-Panic High,A-Abnormal,AA-Critical Abnormal Performed at: 01 =G [address] [address] Yun Atwood MD, HPV APTIMA Negative Negative [facility] Comment on above: This nucleic acid am plification test detects fourteen high- risk HPV types (16,18,31,33,35,39,45,51,52,56,58,59,66,68) without differentiation. Performed at: =[address] [id number] Group Contract Analyst: Yun Atwood MD, Phone: [phone] Performed at: [address] [id number] Group Contract Analyst: Yun Atwood MD, Phone: [phone] IGP, APTIMA HPV, RFX 16/18,45 Note . [facility] Comment on above: TESTS RESULT FLAG UN ITS REF RANGE LAB DIAGNOSIS: 02 NEGATIVE FOR INTRAEPITHELIAL LESION OR MALIGNANCY. THIS SPECIMEN WAS RESCREENED PART OF OUR ASSEMBLY DEPARTMENT SUPERVISOR PROGRAM. Specimen adequacy: 02 Satisfactory for evaluation. Endocervical and/or squamous metaplastic cells (endocervical component) are present. Performed by: 02 Tahira Peterson, Supervisory Vehicle Washer ([facility]) QC reviewed by: 02 Rell aMrks, Vehicle Washer ([facility]) . 02 Note: Note 02 The Pap [...] Low,>-Panic High,A-Abnormal,AA-Critical Abnormal Performed at: [address] [address] Yun Atwood MD, BRUSH-SPATULA CERVIX ENDOCERVIX [facility] HCG ( test) Ql (U)o n 11-07-2024 Interpretation and review of laboratory results Normal [facility] Preg Test, Ur Negative Negative [facility] Urinalysis macro (dipstick) panel (U)on 11-07-2024 Bilirubin, UA Negative Negative - 4(70) +++ mg/dL [facility] Blood, UA Negative Negative - 50 Gerald/mcL [facility] Clarity, UA Clear [facility] Color, UA Yellow [facility] Glucose, UA Negative Negative - 1999(110) ++++ mg/dL [facility] Interpretation and review of laboratory results Abnormal [facility] Ketones, UA Negative Negative - 160(16) ++++ mg/dL [facility] Leukocytes, UA Negative Negative - 500+++ Andrew/mcL [facility] Nitrite, UA Negative Negative - Positive [facility] pH, UA 7.5 5 - 9 [facility] Protein, UA Trace Negative - 1999(20) ++++ mg/dL [facility] Spec Grav, UA 1.02 1 - 1.03 [facility] Urobilinogen, UA 0.2 0.2 - 12 mg/dL [facility] ALL CBC WITH AUTO DIFFon BASOPHILS ABSOLUTE AUTO 0.1 [facility] Basophils/100 WBC (Bld) 1.1 % 0.2 - 2.0 % [facility] Eosinophils/100 WBC (Bld) 2.3 % 0.9 - 7.0 % [facility] Erythrocyte distribution width (RBC) [Ratio] 11.9 % 11.0 - 15.0 % [facility] Hematocrit (Bld) [Volume fraction] 38.1 % 36.0 - 48.0 % [facility] Hemoglobin (Bld) [Mass/Vol] 12.4 g/dL 12.0 - 16.0 g/dL [facility] IMMATURE GRANULOCYTES ABS AUTO 0.00 [facility] Immature granulocytes/100 WBC (Bld) 0.0 % 0.0 - 0.5 % [facility] Interpretation and review of laboratory results Abnormal [facility] LYMPHOCYTES ABSOLUTE AUTO 2.3 [facility] Lymphocytes/100 WBC (Bld) 48.4 % 20.5 - 60.0 % [facility] MCH (RBC) [Entitic mass] 28.7 pg 26.7 - 34.0 pg [facility] MCHC (RBC) [Mass/Vol] 32.5 g/dL 29.9 - 35.2 g/dL [facility] MCV (RBC) [Entitic vol] 88.2 fL 81.0 - 99.0 fL [facility] MONOCYTES ABSOLUTE AUTO 0.5 [facility] Monocytes/100 WBC (Bld) 10.6 % 1.7 - 12.0 % [facility] NEUTROPHILS ABSOLUTE AUTO 1.8 [facility] Neutrophils/100 WBC (Bld) 37.6 % Low 43.0 - 75.0 % [facility] Platelet mean volume (Bld) [Entitic vol] 10.6 fL 9.5 - 13.5 fL [facility]H EO # 0.1 [facility] PLT 202 [facility] RBC 4.32 [facility] WBC 4.7 [facility] Alanine aminotransferase [En zymatic activity/volume] in Serum or PlasmaOrdered By: Pradeep Osullivan on 10-14-2022 ALT [Catalytic activity/Vol] 8 U/L 7-52 [facility] Albumin [Mass/volume] in Ser um or Plasma by Bromocresol green (BCG) dye binding methoOrdered By: Pradeep Osullivan on 10-14-2022 Albumin BCG dye [Mass/Vol] 4.3 g/dL 3.5-5.7 [facility] Alkaline phosphatase [Enzyma tic activity/volume] in Serum or PlasmaOrdered By: Pradeep Osullivan on 10-14-2022 ALP [Catalytic activity/Vol] 62 U/L 34-104 [facility] Aspartate aminotransferase [ Enzymatic activity/volume] in Serum or PlasmaOrdered By: Pradeep Osullivan on 10-14-2022 AST [Catalytic activity/Vol] 15 U/L 13-39 [facility] Basophils Auto (Bld) [#/Vol] Ordered By: Pradeep Osullivan on 10-14-2022 Basophils (Bld) [#/Vol] 0.0 10*3/uL 0.0-0.2 [facility] Basophils/100 WBC Auto (Bld) Ordered By: Pradeep Osullivan on 10-14-2022 Basophils/100 WBC (Bld) 0.9 % . [facility] Bilirubin.total [Mass/volume ] in Serum or PlasmaOrdered By: Pradeep Osullivan on 10-14-2022 Bilirubin [Mass/Vol] 0.5 mg/dL 0.3-1.[address] [facility] Calcium [Mass/volume] in Ser um or PlasmaOrdered By: Pradeep Osullivan on 10-14-2022 Calcium [Mass/Vol] 9.3 mg/dL 8.6-10.3 [facility] Carbon dioxide, total [Moles /volume] in Serum or PlasmaOrdered By: Pradeep Osullivan on 10-14-2022 CO2 [Moles/Vol] 28.0 mmol/L 21.0-31.0 [facility] Chloride [Moles/volume] in S sheila or PlasmaOrdered By: Pradeep Osullivan on 10-14-2022 Chloride [Moles/Vol] 106 mmol/L 98-[address] [facility] Cholesterol [Mass/volume] in Serum or PlasmaOrdered By: Pradeep Osullivan on 10-14-2022 Cholesterol [Mass/Vol] 132 mg/dL 140-200 [facility] Comment on above: Chol less than 200 m g/dl low riskChol 201-239 mg/dl borderline riskChol 240 mg/dl and greater high risk Cholesterol in LDL Calc [Mas s/Vol]Ordered By: Pradeep Osullivan on 10-14-2022 Cholesterol in LDL [Mass/Vol] 68 mg/dL 0-100 [facility] Comment on above: LDL ATP III CLASSIFI CATIONLDL less than 100 mg/dL OptimalLDL 100-129 mg/dL Near or above optimalLDL 130-159 mg/dL Borderline highLDL 160-189 mg/dL HighLDL greater than 189 mg/dL Very high Cholesterol in VLDL Calc [Ma ss/Vol]Ordered By: Pradeep Osullivan on 10-14-2022 Cholesterol in VLDL [Mass/Vol] 10 mg/dL [facility] Creatinine [Mass/volume] in Serum or PlasmaOrdered By: Pradeep Osullivan on 10-14-2022 Creatinine [Mass/Vol] 0.83 mg/dL 0.60-1.20 [facility] Eosinophils Auto (Bld) [#/Vo l]Ordered By: Pradeep Osullivan on 10-14-2022 Eosinophils (Bld) [#/Vol] 0.0 10*3/uL 0.0-0.45 [facility] Eosinophils/100 WBC Auto (Bl d)Ordered By: Pradeep Osullivan on 10-14-2022 Eosinophils/100 WBC (Bld) 1.0 % . [facility] Erythrocyte distribution wid th Auto (RBC) [Ratio]Ordered By: Pradeep Osullivan on 10-14-2022 Erythrocyte distribution width (RBC) [Ratio] 13.2 % 11.9-15.3 [facility] Globulin Calc (S) [Mass/Vol] Ordered By: Pradeep Osullivan on 10-14-2022 Globulin (S) [Mass/Vol] 2.5 g/dL [facility] Glucose [Mass/volume] in Ser um or PlasmaOrdered By: Pradeep Osullivan on 10-14-2022 Glucose [Mass/Vol] 88 mg/dL 70-100 [facility] Hematocrit Auto (Bld) [Volum e fraction]Ordered By: Pradeep Osullivan on 10-14-2022 Hematocrit (Bld) [Volume fraction] 37.6 % 34.0-46.4 [facility] Hemoglobin [Mass/volume] in BloodOrdered By: Pradeep Osullivan on 10-14-2022 Hemoglobin (Bld) [Mass/Vol] 12.4 g/dL 11.8-15.4 [facility] Leukocytes [#/volume] correc coral for nucleated erythrocytes in Blood by Automated counOrdered By: Pradeep Osullivan on 10-14-2022 WBC corrected for nucl RBC Auto (Bld) [#/Vol] 4.2 10*3/uL 3.8-11.6 [facility] Lymphocytes Auto (Bld) [#/Vo l]Ordered By: Pradeep Osullivan on 10-14-2022 Lymphocytes (Bld) [#/Vol] 1.4 10*3/uL 1.00-4.8 [facility] Lymphocytes/100 WBC Auto (Bl d)Ordered By: Pradeep Osullivan on 10-14-2022 Lymphocytes/100 WBC (Bld) 32.7 % . [facility] MCH Auto (RBC) [Entitic mass ]Ordered By: Pradeep Osullivan on 10-14-2022 MCH (RBC) [Entitic mass] 28.4 pg 24.7-34.3 [facility] MCHC Auto (RBC) [Mass/Vol]Or dered By: Pradeep Osullivan on 10-14-2022 MCHC (RBC) [Mass/Vol] 32.9 g/dL 32.0-35.0 [facility] MCV Auto (RBC) [Entitic vol] Ordered By: Pradeep Osullivan on 10-14-2022 MCV (RBC) [Entitic vol] 86.3 fL 80-100 [facility] Monocytes Auto (Bld) [#/Vol] Ordered By: Pradeep Osullivan on 10-14-2022 Monocytes (Bld) [#/Vol] 0.3 10*3/uL 0.0-0.8 [facility] Monocytes/100 WBC Auto (Bld) Ordered By: Pradeep Osullivan on 10-14-2022 Monocytes/100 WBC (Bld) 7.8 % . [facility] Neutrophils Auto (Bld) [#/Vo l]Ordered By: Pradeep Osullivan on 10-14-2022 Neutrophils (Bld) [#/Vol] 2.4 10*3/uL 1.8-7.7 [facility] Neutrophils/100 WBC Auto (Bl d)Ordered By: Pradeep Osullivan on 10-14-2022 Neutrophils/100 WBC (Bld) 57.6 % . [facility] No Panel InformationOrdered By: Pradeep Osullivan on 10-14-2022 Estimated GFR (CKD-EPI) > 60.0 mL/Min [facility] Creatinine Clearance (Chem N/A [facility] Nucleated erythrocytes [Pres ence] in Blood by Automated countOrdered By: Pradeep Osullivan on 10-14-2022 Nucleated RBC Auto Ql (Bld) 0.1 /100{WBC} 0-0.5 [facility] Platelet mean volume Auto (B ld) [Entitic vol]Ordered By: Pradeep Osullivan on 10-14-2022 Platelet mean volume (Bld) [Entitic vol] 8.8 fL 6.3-10.7 [facility] Platelets Auto (Bld) [#/Vol] Ordered By: Pradeep Osullivan on 10-14-2022 Platelets (Bld) [#/Vol] 197 10*3/uL 150-450 [facility] Potassium [Moles/volume] in Serum or PlasmaOrdered By: Pradeep Osullivan on 10-14-2022 Potassium [Moles/Vol] 4.4 mmol/L 3.5-5.1 [facility] Protein [Mass/volume] in Ser um or PlasmaOrdered By: Pradeep Osullivan on 10-14-2022 Protein [Mass/Vol] 6.8 g/dL 6.4-8.9 [facility] RBC Auto (Bld) [#/Vol]Ordere d By: Pradeep Osullivan on 10-14-2022 RBC (Bld) [#/Vol] 4.36 10*6/uL 3.60-5.00 [facility] Serum or plasma albumin/glob ulin mass ratioOrdered By: Pradeep Osullivan on 10-14-2022 Albumin/Globulin [Mass ratio] 1.7 {ratio} [facility] Serum or plasma anion gap de terminationOrdered By: Pradeep Osullivan on 10-14-2022 Anion gap [Moles/Vol] 9.4 mmol/L 6.0-15.0 [facility] Serum or plasma high density lipoprotein (HDL) cholesterol measurementOrdered By: Pradeep Osullivan on 10-14-2022 Cholesterol in HDL [Mass/Vol] 54 mg/dL 35-85 [facility] Comment on above: HDL CHOL ATP-III CLA SSIFICATION Cardiovascular RiskHDL > or equal to 60 mg/dL LOWHDL < 40 mg/dL HIGH Serum or plasma total choles terol/high density lipoprotein (HDL) cholesterol mass ratOrdered By: Pradeep Osullivan on 10-14-2022 Cholesterol.total/Carey sterol in HDL [Mass ratio] 2.4 {ratio} <5.0 [facility] Sodium [Moles/volume] in Ser um or PlasmaOrdered By: Pradeep Osullivan on 10-14-2022 Sodium [Moles/Vol] 139 mmol/L 136-145 [facility] Thyrotropin [Units/volume] i n Serum or PlasmaOrdered By: Pradeep Osullivan on 10-14-2022 TSH Qn 1.78 m[IU]/L 0.45-5.33 [facility] Triglyceride [Mass/volume] i n Serum or PlasmaOrdered By: Pradeep Osullivan on 10-14-2022 Triglyceride [Mass/Vol] 52 mg/dL 0-149 [facility] Comment on above: TRIG ATP III CLASSIF ICATIONTRIG less than 150 mg/dL NormalTRIG 150-199 mg/dL Borderline highTRIG 200-500 mg/dL High TRIG greater than 500 mg/dL Very highStandard traceable to the Center for Disease Conrtrol and Prevention (CDC) test method. Urea nitrogen [Mass/volume] in Serum or PlasmaOrdered By: Pradeep Osullivan on 10-14-2022 Urea nitrogen [Mass/Vol] 10 mg/dL 7-25 [facility] WBC Auto (Bld) [#/Vol]Ordere d By: Pradeep Osullivan on 10-14-2022 WBC (Bld) [#/Vol] 4.2 10*3/uL 3.8-11.6 [facility] PAP [id number] 02-17-2022 Cytology report Cyto stain Doc (Cvx/Vag) Note Invalid Interpretation Code [facility] Comment on above: Result Comment: TEST S RESULT FLAG UNITS REF RANGE LAB Clinician Provided Cytology Information Source.............Endocervix No. of containers..01 ThinPrep Vial DIAGNOSIS: 01 NEGATIVE FOR INTRAEPITHELIAL LESION OR MALIGNANCY. Specimen adequacy: 01 Satisfactory for evaluation. Endocervical and/or squamous metaplastic cells (endocervical component) are present. Performed by: Kvng Florian Drugless Physician (ASCP) . 01 Note: Note 01 The [...] <-Panic Low,>-Panic High,A-Abnormal,AA-Critical Abnormal Performed at: [address] [phone] Yun Atwood MD, Performed By: #### 3 [id number] #### [facility] [address] [place] [address] HPV 16+18+31+33+35+39+45+51 +52+56+58+59+66+68 DNA Probe+sig amp Ql (Cvx) Negative Invalid Interpretation Code Negative [facility] Comment on above: Result Comment: This nucleic acid amplification test detects fourteen high-risk HPV types (16,18,31,33,35,39,45,51,52,56,58,59,66,68) without differentiation. Performed at: [address] [id number] MD Angelic Malcolm Performed at: =[address] [id number] MD Angelic Malcolm Performed By: #### 3 [id number] #### [facility] [address] [place] [address] Coding Summary.on 02-16-2022 Coding Summary. [id number] G h0bWw+PGhlYWQ+YQ6SKMT gX78zuAPhzT2MZ6kXYS8M MGHZGIQDUY3ZQP0etBR7J LblN4HionCl LghtbZUqPW43HQq2PBC6b RfmUOdclO1vsPRsV1n5Jy RcNM20lY63AGqfDVYdTuL 3LjZpbjsgbWFy C8evAeNpyITcXkn+PHRhY mxlIHdpZHRoPScxMDAlJy PhjKlfCY2iDg8aKUKwXSE vbGxhcHNlOiBj w9waGDBlATirKJ7wpSmaF 3PfmVG7ERFec9t7Hd03yX I+BJPiCPV0hMopVOnwn22 0EpBov1kuUVD9 fGIdJTbhERH3A88sy9L5B AMzVPWrZTP2kMW0sJ6yuY fizpazC5QnhVGoSnB0KYU 5uQAvyZ4saDev rzhisC3iSbc+N59IZK0LH EXWFG9VWfk1I8UlNaxgyS I+DZ40XTXaQW79qWRnjKN mb0cdyKc1OwVi XUBfYOZ6aThjUHqfb0AhN TYbN75xbAOms5W7LXDecM vltAHkYlNviUM1gJ7iSIp sejbdz9wmpgcx Mhkec7eups59xX55B53yG VqgMKCuQMM0NEIoESZstG tuvb2jnV4wFe5+MSawv3y dy2ofjDc9KsMg EMXoxmMfkOvkZFR5f9YiN o95G1PaaKpsd9LzXwr2ii 06mRPsc8O2gZH7MPprXEW znE1iZUczDzB6 IRNwWfOknI92yOSzIRzrA w6xlAcwtNzzEE3sMTQmcr dxJDEeeX4gZYLirQDosKo zWE8tKNBdixpt w385FaFgMUB1LFQoaOLmW 3TbkQ6pVcWxESStSPRkT7 UiwBAlPNzgR853SJkzGvV 3ZCVpqtTwR7Qx CTUzkWvjVyH5w3R2Vp6Ow 9QuapdxWUZ8BYhlNXE7Zm Y5ZuGiRfT3S1DeOaj3LWP gpWmdIR7lM0Zr RHOujfrmntaabKB8DVIbC YIiwX61oPVdNXxaHa8ig4 P7r981SSFjYVQmiC20Iw9 udDogMTBwdCBU aB3bhcqec7hfjmdkTyYsC JUtCTw9KMe0VWFojLllVc WrKWZ3AgD6WYA2gLTayZ1 wtXigwiyirN5r Oyc+L44zlX4sLQE2IZP3u vhmMKQgnoIiJG66BO39D8 RyPjwvdGFibGU+PGRpdiB lnJpiRF0eUwTh o9daw7TbHTpiM5VyCBDfT WstUbf1DSUhQLH8cFD7gO 2kIHVhXZyzk9W7sND5T1B xfqQreo9qc5mr ZMKrCWzfH27tgVZby8X0S ABtvNN9YWVlxLqsQgCjdY 93Oyc+AIUmqOsbr2ZqLnf wc3kis9nsvRq2 QvDiELUffvQenJiyFDN6a 2EfRw53I55fIFaeHIGhYO JrVELbWGQdeLoxfs0taB9 wIi8+PGNvbCB3 zER8rR3wFTLoYjN9KIlnH 124MeBrtSXoKokir6vjy0 licJw0GvGvDUOoleKgeFl hBXV5g4AcDu49 L04rWRdqCFPaRLIeDRPsM PLzqMujwx9alA9bRf2+PC 2zm1vsij20vT89cFH+PHR iSZB9bRhtGSpk VBBluY9mNSfxCaF1PKMaC bBtdF46kDPqOEyyJc7ytT knqSegYG8qLPUjbelqi42 8YmFny7rxNQHt lNFlRKnbZKS7S58ed5H1J RQdOOEgUWI5bQC3lO6niL lnbjogbGVmdDsgdmVydGl sGVtjWCraD021 IHRvcDsnPlBhdGllbnQgT wOyUEc1K9RxOzu7XTUukK myHO4skLDhWEjcXc1nsUy mbBdhWH2bMVLz imwpe356XtExq8igJNAsa TJjSHdlWOZ1H19sc3A1QZ VdSORgPNI4gCN8kH6brUy nbjogbGVmdDsg vmUfzKfeIHuuKYueT564B HRvcDsnPkJpcnRoIERhdG H5JQ93UV44eEJmi6M0gES 2X2UaPLEqhqhm gqcngGR0FKMrEWIfjX15M s9pjVxxAb2iENXrQBG0FH DakJMvR1DniQ3lSdEeKTT rPAAqW3BjrTAp UDssY775OOkrSbW4FERct bXxF1VtRFJxlYycMsK5b2 K8Nj7OJ4V1JJ76FD63cEI wh9I1sRQ5O2Ru HXZzrggtdkgwvWZ2SIMyM OKwaA00Bw2vrOdxOw8gUD JoUSH6BBHclWWjK5ScsV4 yOiAjMDAwMDAw N4NddYDjPLkkR817XFpaJ nN6AOZijzGdH0UjWBIkaV etZaP1v2A2Dr7ILLa1NN3 7XS24jOWbt5O7 uBK6F7LfXDKlvxmugpqlg MV8VHFrYJUeqK09Zp3khS jrUn4xRDLfQOU1METzrQT eT8OofJ5uEmHm QBJaEKPpC8IlxQZsMPesF 053SXhcEsV4ZAIonqOcO3 WqZXEycOlyVbZ4n1W9Wy0 EHOWjIZ37LEY6 eMH6WD78WH19Z6UxDlywt GFibGU+PHRhYmxlIHdpZH RoPScxMDAlJyBzdHlsZT0 zFm6eKIIpKLPj aRtzaFOaGwAek6nrQVGzU YcfSI0zkAqiO2IvsUL8IK Wac2w9Iq18L41mW7TvbGR +FZQqpAH7kHE9 tO9iFvEvKmZ8JUinE583U fOesVUkUwtlz9hkk6npgU w5SjK1ACLttfSpsHzaAWT 1a5DuQp58F10l IHdpZHRoPSIxNSUiIHZhb Biary9udZ7aGu4+PGNvbC M8dLX9gT3vFwPzHqV7KYj bW289DoNleYVy Oalrn0fhu2ancFb0ZqMvB XDeyuHhjTlmPJU7w6VoBk 73Y4YznBzgr3VbHsh2ig5 5dGEcr3Y0oGI2 U1AvZMFlqewfmUVaiOquT I5iQMXbsbbyZILivS7iCS BrI2a3LoNhWhD4FDheJ9T zqyB6CXScaDJr LCikWZC9Q12mj0T3RJKxV MYpHFT4iIE9jV7ahSsdol ogbGVmdDsgdmVydGljYWw zAZhrR529GBVu mNigBCElrW8hPOKmuWLbm MriTS7qJFYmbadoLdnMPU oPEF7vEDUGVSGXCML9W0V tGyu5HZXueJok BA1qoULaINvyIn0joBcoq ValHN0ySQIqothuKCGzlX 6oFZBnyBGkvZgiMK1oVDL nkkjxt257XpPd UVO2MRIwiUBbG4KxuC1mL zZgDPCvHHBeK8SjwFNyHJ voS783LBveZzT6SUNsfmY rT9WqNSJiyZmc SrE8n6M4Qu7eEI7mIC5rD Pp2SZ72ZL26uTXzg2T0nK S0S1DkXDYrotkeoliybIQ 5FPOrTGSioZ32 lLDwIVcuBf9gc9Q3b875J QGsSXZkpK11Ow6ltYwlNO WwcEPFjT8aukvgt5hqxee gIzAwMDAwMDt0 ANl2KLSfgVlqOlTlQLO5H pC4IRB1gPPfgW2ewRdgvp hbwI9jKrb+MzQgWWVhcnM 8Y6RvRxq6WQDw mGhrLO0qdBTzTAfzCi4js WjmvWsvWC8vBQLiudelKJ LpgD6pMCMthXZsnWhdPO2 rVJQksbeyq937 QhBdLWK9OTOiuIXmL9Byi H8wZaQbEMEtHLCkG6BmmB OuXYekQ157RBpdUwX0EPE jdvGeS4ZcODPq cXaaIzR2p4W9Oz6IMZ4bb LA7A3HnNeq7UTNgeQxeLL 6cfMLdYXybXq7pzVrjmRc kKC7vBQKpibmf IIOyxT6tFXXnsXDlyEuwE U4eKCUkrtrjw633NxJaAU R0VKFnlAJoX2XmsX3vTyT xTZMuWYZqW3Jz sGDtYFmcI590RKkfMjJ9R KVbfvNdR2ZaVPDqaMqxMc P5e5S4Ja6AGEVbRAHakKP xYtF1D4DkFwbz dHI+GN79GHUsVG34lNDxh TYnl6rfmDh0YxGvSGWfOH R6iFpfZXplc4XkGIFkB27 oeDYrp1S6BUQc uMnpwUGxNgIjwIV5yK1vK Ipjekjhb3tirnfrMwxjb1 zgxd62kA19C06kVJojNYP oPSIzMCUiIHZh cAdgzy0vyP8bXg4+PGNvb LX5rGE1hD8lOdHbCnK1DU djF760UhAooGWqFnqfv1n tr5pvoPx6ToWo TXHbzhAwnVrbYKI5z0DdE f54V15xIBtjMFVdCSYeHV CrGKWuqRcgan2tqP3xMm2 +AK1de1wwzs46 cM51pVL+ANXpRAI7yIawW DylNQGehB2jFZxlXaG0CU VcPcUeeR62tOUbNWmeFm2 lnOlxzJmjNF3m JHPvshqvx787EzXao3nwU LDyuXPsQKgqRWQ3U86sc7 V0WYIiXRDdOKM0iMX9dV0 hbGlnbjogbGVm dDsgdmVydGljYWwtYWxpZ 683WSVaxVqwOvXgtSVmC4 pqhrITJN2xJyfbjYO+PHR bGLT0lGhiUTcc TBNtqG7wSLYpH6d7RgGyI hB5OSjpG2LmquK4JUYjxW LtZLVuwPKCmA2otqhrz0p vcjogIzAwMDAw GNn6WFt2FJLwdOiqCjVvP BP8VhT4LNV2jZUohR8kwP zbrnoklX1xPcd+RklOOjw vdGQ+PHRkIHN0 nGapZSsoFMCybS4gBMTvY 7o3GaCkLeT3ZTfcK7Dxxt Q8QMCtpIFhDHLnoTTZhZ8 mikepi5irycgq CbZpGGZxCSb1GJk4NNKvl RjrGaPuURR8UuJ7KHZ7gB YvyW1qzKtlxjagaI6dYgw +TVJOOjwvdGQ+ AKKyRFH4uUfiQWvrFADqg F8nOBBsN6k3WkGcTsM2LK ryP8UuuzV6FNUdpAZyPNB vqBZKsO6selff t1sfpasxRsHaPFPdVTt6K Bh4KHDczIbcLuCkUSX2Pj X3FOJ0zTDsnB4fgOulmgw meZ1kFlc+UGF5 LZE4GY42AQ46G2KvBiwje GFibGU+PHRhYmxlIHdpZH RoPScxMDAlJyBzdHlsZT0 fDk6vRVZzCIDm bGxh (more content not included)... Normal [facility] PAP [id number] 02-11-2022 Collection Technique BRUSH-SPATULA Normal F [facility] Comment on above: Performed By: #### 3 [id number] #### [facility] [address] [place] [address] Gynecological Body Site ENDOCERVIX Normal F [facility] Comment on above: Performed By: #### 3 [id number] #### [facility] [address] [place] [address] Previous Cytology Negative Normal [facility] Comment on above: Performed By: #### 3 [id number] #### [facility] [address] [place] [address] Previous Treatment NONE Normal [facility] Comment on above: Performed By: #### 3 [id number] #### [facility] [address] [place] [address] Physician Orderon 02-11-2022 Physician Order [id number]# 1.00CD:127 Normal [facility] CBC AUTO DIFFon 12-17-2017 Basophils Auto #/vol (Bld) 0.1 103/ul Normal 0.0-0.1 [facility] Comment on above: Performed By: #### C BC ####[facility] [address] [place], [place] [id number] [place] Basophils/100 WBC Auto (Bld) 0.7 % Normal 0.2-2.0 [facility] Comment on above: Performed By: #### C BC ####[facility] [address] [place] [address]Ppbbrp Yuki Eosinophils 0.2 103/ul Normal 0.0-0.7 [facility] Comment on above: Performed By: #### C BC ####[facility] [address] [place] [address]Scqzzy [place] Eosinophils/100 leukocytes 2.7 % Normal 0.9-7.0 [facility] Comment on above: Performed By: #### C BC ####[facility] X[address] [place] Erythrocyte distribution width Auto Ratio (RBC) 12.9 % Normal 11.0-15.0 [facility] Comment on above: Performed By: #### C BC ####[facility] F[address] [place] Erythrocytes (RBC) 3.59 106/ul Critically low 4.20-5.40 [facility] Comment on above: Performed By: #### C BC ####[facility] J[address]mvultie[address] [place] Hematocrit (HCT) 31.1 % Critically low 36.0-48.0 [facility] Comment on above: Performed By: #### C BC ####[facility] [address] [place] [address] [place] Hemoglobin mass conc (Bld) 10.5 g/dL Critically low 12.0-16.0 [facility] Comment on above: Performed By: #### C BC ####[facility] [address] [place] [address] Y[place] IG # 0.02 10e3/ul Normal 0.00-0.03 [facility] Comment on above: Performed By: #### C BC ####[facility] [address] [place] [address] Y[place] IG % 0.3 % Normal 0.0-0.5 [facility] Comment on above: Performed By: #### C BC ####[facility] Eycp[address] [place] Lymphocytes 2.3 103/ul Normal 1.2-3.8 [facility] Comment on above: Performed By: #### C BC ####[facility] [address] [place], [place] [address] Y[place] Lymphocytes/100 leukocytes 33.2 % Normal 20.5-60.0 [facility] Comment on above: Performed By: #### C BC ####[facility] [address] [place] [phone] MANUAL DIFF REQ NO Normal [facility] Comment on above: Performed By: #### C BC ####[facility] Jefhotrneh94[address] [place] [phone] Y[place] MCH 29.2 pg Normal 26.7-34.0 [facility] Comment on above: Performed By: #### C BC ####[facility] Rumvnlbngp0659 [place] [phone] Yuki MCHC mass conc (RBC) 33.8 g/dL Normal 29.9-35.2 [facility] Comment on above: Performed By: #### C BC ####[facility] [address] [place] [address] Yuki MCV 86.6 fL Normal 81.0-99.0 [facility] Comment on above: Performed By: #### C BC ####[facility] [address] [place] [address] Y[place] Monocytes 0.6 103/ul Normal 0.3-0.8 [facility] Comment on above: Performed By: #### C BC ####[facility] [address] [place] [address] Yuki Monocytes/100 leukocytes 9.1 % Normal 1.7-12.0 [facility] Comment on above: Performed By: #### C BC ####[facility] [address] [place] [address] Yuki Neutrophils 3.8 103/ul Normal 1.4-6.5 [facility] Comment on above: Performed By: #### C BC ####[facility] [address] [place] [address] Yuki Neutrophils/100 WBC Auto (Bld) 54.0 % Normal 43.0-75.0 [facility] Comment on above: Performed By: #### C BC ####[facility] [address] [place] [address] Y[place] Platelet mean volume (PMV) 10.1 fL Normal 9.5-13.5 [facility] Comment on above: Performed By: #### C BC ####[facility] Hepoduhdmw[address]64 [place] [phone] Yuki Platelets 207 103/ul Normal 150-450 [facility] Comment on above: Performed By: #### C BC ####[facility] Xqlrfysdpe9734 [place] [phone] Yuki WBC (Leukocytes) 7.0 103/ul Normal 4.0-11.0 [facility] Comment on above: Performed By: #### C BC ####[facility] Unncxsoddw4831 [place] [phone] Yuki PREG HCG QUALon 12-17-2017 , QUAL Positive Normal NEGATIVE [facility] Comment on above: Performed By: #### P REG ####[facility] [address] [place] [address] Y[place] PROF CHEM 8 (BAS METB)on Anion gap 9.6 mmol/L Normal [facility] Comment on above: Performed By: #### B MP ####[facility] [address] [place] [address] [place] BUN/Creatinine Ratio 14.5 mg/mg Normal [facility] Comment on above: Performed By: #### B MP ####[facility] [address] [place] [address] Y[place] Calcium 10.0 mg/dL Normal 8.4-10.2 [facility] Comment on above: Performed By: #### B MP ####[facility] S[address]uaft[address] [place] Chloride 106 mmol/L Normal 98-107 [facility] Comment on above: Performed By: #### B MP ####[facility] [address] [place] [address]Ger[place] Yuki CO2 27.0 mmol/L Normal 22.0-30.0 [facility] Comment on above: Performed By: #### B MP ####[facility] Prpvmdueld55[address] [place] [phone] Yuki Creatinine 0.72 mg/dL Normal 0.52-1.04 [facility] Comment on above: Performed By: #### B MP ####[facility] [address]ew[address]bjp5[address] [place], [place] [address]Nmohhd Yuki eGFR (non-black) mL/min/{1.73_m2} Normal >=60 [facility] Comment on above: Performed By: #### B MP ####[facility] [address]lsj[address]fsts9644 [place], [place] [address]Siysdd Yuki Glucose mass conc 92 mg/dL Normal 74-106 [facility] Comment on above: Performed By: #### B MP ####[facility] [address]br[address] [place] [phone] Yuki Potassium molar conc 3.7 mmol/L Normal 3.4-5.0 [facility] Comment on above: Performed By: #### B MP ####[facility] Qjhqejhlma3991 [place] [phone] Yuki Sodium 139 mmol/L Normal 137-145 [facility] Comment on above: Performed By: #### B MP ####[facility] Wpthmcrgcq4495 [place], [place] [address]Ylzuft Yuki Urea nitrogen 10.0 mg/dL Normal 7.0-17.0 [facility] Comment on above: Performed By: #### B MP ####[facility] [address]fubjs1719 [place], [place] [address]Erclqn Yuki TYPE AND SCREENon 12-17-2017 TYPE AND SCREEN Negative Normal [facility] Comment on above: Performed By: #### T NS ####[facility] Qktpbvemyx3994 [place], [place] [address]Jadusl Yuki US PELVISon 12-17-[address] [place] [address] Patient: RADHA CONTRERAS Exam Date: 12/16/2017DOB: 1985 Gender:F : DR YEMI MCGARRY Admission #: [id number] : DR GERMAN MCGRAW Order #: [id number] HERE TO VIEW EXAM RADIOLOGY REPORT PROCEDURE: [...] Francis M.D. on 12/16/2017 at 23:05 Normal [facility] Vital Signs Date Time Vital Sign Value Performing Clinician Facility 02-27-2025 10:120400 Body mass index (BMI) [Ratio] 22.1 kg/m2 [employer] Work Phone: [facility] 02-27-2025 10:12040 Body weight 64.01 kg [employer] Work Phone: [facility] 02-27-2025 10:12-0400 Diastolic blood pressure 60 mm[Hg] [employer] Work Phone: [facility] 02-27-2025 10:12-0400 Systolic blood pressure 110 mm[Hg] [employer] Work Phone: [facility] 11-07-2024 10:32-0400 Body mass index (BMI) [Ratio] 22.15 kg/m2 Pita Iman DO Work Phone: [facility] [employer] 11-07-2024 10:32-0400 Body weight 64.14 kg Pita Iman DO Work Phone: [facility] 11-07-2024 10:32-0400 Diastolic blood pressure 68 mm[Hg] Pita Iman DO Work Phone: [facility] 11-07-2024 10:32-0400 Systolic blood pressure 110 mm[Hg] Pita Iman DO Work Phone: [facility] [employer] 04-02-2023 09:45-0400 Body height 167.64 cm German Ball Other [facility] Other 04-02-2023 09:45-0400 Body mass index (BMI) [Ratio] 25.69 kg/m2 German Ball Other [facility] Other 04-02-2023 09:45-0400 Body weight 72.21 kg German Ball Other [facility] Other 04-02-2023 09:45-0400 Diastolic blood pressure 70 mm[Hg] German Ball Other [facility] Other 04-02-2023 09:45-0400 Respiratory rate 12 /min German Ball Other [facility] Other 04-02-2023 09:45-0400 Systolic blood pressure 106 mm[Hg] German Ball Other [facility] Other 12-22-2022 14:45-0400 Body height 167.64 cm Marla Lewis Other [facility] Other 12-22-2022 14:45-0400 Body mass index (BMI) [Ratio] 25.01 kg/m2 Marla Lewis Other [facility] Other 12-22-2022 14:45-0400 Body weight 70.31 kg Marla Lewis Other [facility] Other 12-22-2022 14:45-0400 Diastolic blood pressure 76 mm[Hg] Marla Lewis Other [facility] Other 12-22-2022 14:45-0400 Systolic blood pressure 104 mm[Hg] Marla Lewis Other [facility] Other Encounters Encounter Date Encounter Type Care Provider Facility Start: 02-27-2025 End: 02-27-2025 Bamboo flowsheet Pita Iman DO Work Phone: [facility] Start: 02-27-2025 End: 03-02-2025 Bamboo flowsheet Pita Iman DO Work Phone: [facility] Start: 02-27-2025 End: 03-02-2025 Clinisync Result Encounter Pita Iman DO Work Phone: [facility] Unsolicited Start: 02-27-2025 End: 02-27-2025 Patient encounter procedure Pita Iman DO Work Phone: [facility] Work Phone: Start: 02-27-2025 End: 02-27-2025 Periodic preventive med est patient 18-39 yrs Pita Iman DO Work Phone: [facility] Comment on above: Well woman exam with routine gynecological exam; Pre-operative exam; Pelvic pain; Menorrhagia with regular cycle; Dysmenorrhea; Dyspareunia in female Start: 02-27-2025 End: 02-27-2025 Preprocedural examination done Pita Iman DO Work Phone: [facility] Start: 02-27-2025 End: 02-27-2025 ambulatory PITA IMAN Not Available Start: 12-13-2024 End: 12-13-2024 ambulatory [facility] Work Phone: Start: 12-13-2024 End: 12-13-2024 Patient encounter procedure [facility] Work Phone: Start: 11-07-2024 End: 11-07-2024 Bamboo [...] Start: 05-09-2024 End: 05-09-2024 ambulatory NON STAFF [facility] Work Phone: Start: 05-09-2024 End: 05-09-2024 Patient encounter procedure [facility] [address] Work Phone: Start: 03-31-2024 End: 03-31-2024 Patient encounter procedure [facility] Work Phone: Start: 08-20-2023 Clinisync Result Encounter Pita Iman DO Work Phone: [facility] Unsolicited Start: 08-20-2023 Clinisync Result Encounter Pita Iman DO Work Phone: [facility] Unsolicited Start: 04-02-2023 End: 04-02-2023 ambulatory German Mcgraw Other [facility] Other Start: 04-02-2023 Encounter for genera l adult medical examination without abnormal findings German Mcgraw [facility] Start: 04-02-2023 Periodic preventive med est patient 18-39 yrs German Mcgraw [facility] Start: 02-19-2023 End: 02-19-2023 ambulatory German Mcgraw Other [facility] Other Start: 02-19-2023 Telephone encounter German Mcgraw FP [facility] Start: 02-11-2023 End: 02-11-2023 ambulatory German Mcgraw Other [facility] Other Start: 02-11-2023 Telephone encounter German Mcgraw FP [facility] Start: 01-14-2023 End: 01-14-2023 ambulatory German Mcgraw Other [facility] Other Start: 01-14-2023 Office outpatient vi sit 15 minutes German Mcgraw [facility] Start: 12-24-2022 End: 12-24-2022 ambulatory Marla Lewis Other [facility] Other Start: 12-24-2022 Telephone encounter Marla Lewis [facility] Start: 12-23-2022 End: 12-23-2022 ambulatory Marla Lewis Other [facility] Other Start: 12-23-2022 Telephone encounter Marla Lewis [facility] Start: 12-22-2022 End: 12-22-2022 ambulatory Marla Lewis Other [facility] Other Start: 12-22-2022 Office outpatient vi sit 15 minutes Marla Lewis [facility] Start: 12-14-2022 End: 12-14-2022 ambulatory German Mcgraw Other [facility] Other Start: 12-14-2022 Telephone encounter German SIFUENTES [facility] Start: 11-17-2022 End: 11-17-2022 ambulatory German Mcgraw Other [facility] Other Start: 11-17-2022 Telephone encounter German Mcgraw [facility] Start: 10-14-2022 End: 10-14-2022 ambulatory NON STAFF [facility] Work Phone: Start: 10-14-2022 End: 10-14-2022 Departed Referred [facility]Employee Benefit Screening Start: 07-17-2022 (FPG VCS) [facility] Scheduled [facility] Start: 07-17-2022 End: 07-17-2022 ambulatory German Mcgraw Other [facility] Other Start: 07-15-2022 End: 07-15-2022 ambulatory German Mcgraw Other [facility] Other Start: 07-15-2022 Telephone encounter German Mcgraw No rt [facility] Start: 04-24-2022 Adult health examination Omar Mcgraw Other [employer] Other Start: 08-15-2020 End: 08-15-2020 Discharged Recurring STAFF, NON [facility]-Covid Vaccine Start: 12-17-2017 End: 12-17-2017 Ambulatory GERMAN MCGRAW Facility:H1 Procedures Date Procedure Procedure Detail Performing Clinician Start: 02-27-2025 IGP,APTIMA HPV,AGE GDLN [employer] DO Work Phone: Start: 11-07-2024 Urnls dip stick/tabl et rgnt non-auto w/o micrscp Pita Iman DO Work Phone: Start: 08-20-2023 ALL CBC WITH AUTO DIFF Pita Iman DO Work Phone: Start: 05-26-2023 Microscopic observat ion [Identifier] in Cervix by Cyto stain [employer] DO Work Phone: Depression screening Bettina Mcgraw Other Plan of Treatment Date Care Activity Detail Author Start: 05-26-2028 Screening for malign ant neoplasm of cervix [facility] Start: 05-09-2025 End: 05-09-2025 Patient encounter procedure 05/09/2025 8:30 AM EDT Office Visit [facility] [address] [place] [phone] Magalie Clarke PA [address] [place] [address] [facility] Start: 04-04-2025 End: 04-04-2025 Patient encounter procedure 04/04/2025 10:50 AM EDT Office Visit [facility] [address] [place] [phone] Pita Valerio, DO [address] [place], [place] [id number] [facility] Start: 03-12-2025 Influenza vaccination Influenza Vacc ine (#1) [facility] Start: 03-06-2025 End: 03-06-2025 Patient encounter procedure 03/06/2025 9:20 AM EDT Office Visit [facility] [address] [place] [phone] Pita Valerio, DO [address] [place], [place] [id number] [facility] Start: 02-27-2025 End: 02-27-2025 Patient encounter procedure 02/27/2025 10:00 AM EDT Office Visit [facility] [address] [place] [address] Pita Valerio, DO [address] [place], [place] [phone] Arrived [facility] [place] [facility] Comment on above: Arrived Start: 10-14-2022 [facility] Cytology Cervical or vaginal smear or scraping study Pap Smear Pathology and Cytology Routine Well woman exam with routine gynecological exam Ordered: 02/27/2025 [facility] Work Phone: Comment on above: Ordered: 02/27/2025 Human papilloma viru s DNA [Presence] in Unspecified specimen by Probe with amplification HPV DNA probe, amplified Microbiology Routine Well woman exam with routine gynecological exam Ordered: 02/27/2025 [facility] Comment on above: Ordered: 02/27/2025 [facility] Immunizations Immunization Date Immunization Notes Care Provider Fa jovon 05-09-2024 influenza virus vaccine, unspecified formulation Pita Valerio DO Work Phone: [facility] 07-15-2021 COVID-19 Vaccine Pfi zer - Documentation Purposes Only German Mcgraw Other [facility] 08-15-2020 COVID-19 mRNA-1273 (Moderna) STAFF, [facility] 07-18-2020 COVID-19 mRNA-1273 (Moderna) STAFF, [facility] Payers Date Payer Category Payer Private Health Insurance [employer] [id number] 2024 Unknown [id number] 2024 Private Health Insurance [id number] 2024 Self-pay [id number] 2023 Managed Care HMO (unspecified) [employer] A[employer] [id number] 2023-Present [address] [place] [address] HMO [id number] 1985 Unknown [id number] 1985 Unknown [id number] 1959 Private Health Insurance [id number] [facility] [id number] [id number] [id number] Unknown [employer] BC/BS [id number] Unknown [id number] Social History Date Type Detail Facility [facility] Start: 1985 Sex Assigned At Female [facility] Start: 02-19-2023 End: 10-31-2024 Sex Assigned At [facility] Other Start: 12-31-2022 Tobacco smoking status NHIS Never smoked tobacco [facility] Start: 12-31-2022 Tobacco use and exposure Smokeless tobacco non-user [facility] Start: 07-22-2023 End: 02-27-2025 Alcohol intake Current drinker of alcohol (finding) [facility] Start: 02-19-2023 End: 10-31-2024 History of Social function [facility] Start: 12-30-2022 Gender identity Identifies as female gender (finding) [facility] Start: 12-30-2022 Sexual orientation Heterosexual (finding) [facility] Work Phone: Start: 12-13-2024 Sex Female (finding) [facility] Goals Date Patient Goal Desired Activity /State [...] on 03-28-[address] Valerio at [facility]. MEDICATIONS Current Outpatient Medications Medication Instructions [...] nursing note reviewed. Exam conducted with a corporate communications associate present. Vitals: Estimated body mass index is [...] reviewed, and patient is to proceed to [facility] OR. Follow Up: Patient is to follow up at 1 & 6 weeks post operative to assess proper healing and recovery from procedure. Documented by Yuki Chappell LPN on behalf of: Pita Valerio DO documented in this encounter [facility] 11-07-2024 History of Presen t illness Narrative [...] nursing note reviewed. Exam conducted with a corporate communications associate present. Vitals: Estimated body mass index is [...] Pita Valerio DO documented in this encounter [facility] 04-02-2023 Evaluation note Encounter Date Diagnosis Assessment [...] and keep acitive. PRN use of Buspar [employer] Other 07-06-2023 Evaluation note* Encounter Date Diagnosis Assessment Notes Treatment Notes Treatment Clinical Notes Jan, Acute non-recurrent maxillary sinusitis (ICD-10 - J01.00) Instructed to use Robitussin or Mucinex for cough, saline or Flonase NS for congestion, Tylenol for pain and fever. [facility] Other 06-13-2023 Evaluation note* Encounter Date Diagnosis Assessment Notes Treatment Notes Treatment Clinical Notes Dec, Acute pain of right knee (ICD-10 - M25.561) Pt has been taking NSAIDs. Requests referral to Dr Esposito. XR order printed. PT order printed on 12/24. [facility] Other 06-05-2023 Evaluation note* Encounter Date Diagnosis Assessment Notes Treatment Notes Treatment Clinical Notes Dec, TIRSO (generalized anxiety disorder) (ICD-10 - F41.1) [facility] Other 05-09-2023 Evaluation note* Encounter Date Diagnosis Assessment Notes Treatment Notes Treatment Clinical Notes November, Fever blister (ICD-10 - B00.1) [facility] Other 01-06-2023 Evaluation note* Encounter Date Diagnosis Assessment Notes Treatment Notes Treatment Clinical Notes Jul, Migraine with aura and without status migrainosus, not intractable (ICD-10 - G43.109) Stable w/o exacerbation w/ acute illness Jul, Acute bronchitis due to other specified organisms (ICD-10 - J20.8) Instructed to use Robitussin or Mucinex for cough, saline or Flonase NS for congestion, Tylenol for pain and fever. [employer] Other Evaluation noteNo InformationNort [employer] Other Evaluation noteNo assessment information available [facility] Work Phone: Evaluation note* Diagnosis Onset Date Resolution Status Acute sinusitis acute Seasonal allergic rhinitis a cute [facility] Work Phone: Evaluation note* Diagnosis Abnormal uterine bleeding (AUB) documented [facility] Diagnosis Well woman exam with routine gynecological exam Routine gynecological examination Pre-operative exam Unspecified pre-operative examination Pelvic pain Menorrhagia with regular cycle Dysmenorrhea Dyspareunia in female documented in this encounter [facility] N[facility]ative - Reported* Type Description Date Surgical History Right knee arthroscopy 2010 [employer] Other History general Narrative - Reported* Type Description Date Surgical History Right knee arthroscopy 2010 Surgical History Right knee arthroscopy 2022 [employer] Other History general Narrative - Reported* Type Description Date Medical History Migraine with aura a nd without status migrainosus, not intractable Medical History TIRSO (generalized anxiety disorde r) Surgical History Right knee arthroscopy 2010 Surgical History Right knee arthroscopy 2022 Hospitalization History see surgical hx [facility] Other Summary Purpose Family History Relationship Condition Age at Onset Recorded Date/T ever mother Hypertension Unknown Advance Directives Advance Directive Response Recorded Date/ Time Advance Directives No December 13 11:10am Advance Directive Response Recorded Date/ Time Advance Directives No December 13 11:37am Chief Complaint and Reason for Visit Chief Complaint COVID vaccine Chief Complaint Employee Benefit yadira knowles Chief Complaint [phone] sinus i nfection Z23 Reason for Visit Acute sinusitis Seasonal allergic rhinitis Chief Complaint Admit Date allergy shot December 13, 2024 11:38 am Assessments No Assessments Information Available Reason for Referral Reason 12/31/22 former pt - previously did surgery on R knee in 2012. Diagnosis 1 Acute pain of right knee (M25.561) Referral Organization [facility] ernie Referring Provider First Name Marla Referring Provider Last Name Debbie Referring Provider Specialty [facility] Referred Organization [facility] Referred Provider Ferdinand Esposito Jr. Referred Address ,[place], [place],[address] Referred Provider Specialty Orthopedic S urgery Referral Priority Urgent Referral Appointment Date 2022-12-31 General Notes Carolina Carrizales 11:27:41 AM >received today, attachments made, waiting for notes to be locked to fax referral Jessica Keyes 12/23/2022 04:10:20 PM > please include Carolina Cheung 12/24/2022 10:41:37 AM >will do, waiting for Dr. Lewis to lock notes Jessica Keyes 12/24/2022 02:52:01 PM > notes are locked she is already scheduled for 12/31 (according to patient) Carolina Carrizales 12/24/2022 02:56:07 PM >noted above. still faxed referral per protocol. noted appt date Additional Source Comments INFORMATION SOURCE (unrecogn ized section and content) DATE CREATED AUTHOR 12/28/2017 [facility] DATE CREATED AUTHOR AUTHOR'S ORGANIZ ATION 03/06/2022 [facility] DATE CREATED AUTHOR AUTHOR'S ORGANIZ ATION 05/15/2024 [facility] DATE CREATED AUTHOR AUTHOR'S ORGANIZ ATION 02/28/2025 [facility] EPIC REASON FOR VISIT (unrecogniz ed section and content) Reason Comments Discuss Hysterectomy Reason Comments Well Women Visit Pre-op Visit Care Teams (unrecognized sec tion and content) Team Status: Active Member Role Status Dates NON STAFF Primary Care Provider Active Team Status: Inactive Member Role Status Dates NON STAFF Primary Care Provider Active Pradeep Osullivan DO [facility] Attending Provider Active Container Repairer Relationship Specialty Start Date End Date German Mcgraw MD [address] [place] [address] PCP - General Internal Medicine 12/31/22 Team [...] 09, 2024 End: May 09, 2024 Pradeep Osullivan - PSYCHIATRIC , [facility] Attending Provider Active Start: May 09, 2024 End: May 09, 2024 Container Repairer Relationship Specialty Start Date End Date German Mcgraw MD PCP - General Internal Medicine 12/31/22 Container Repairer Relationship Specialty Start Date End Date German Mcgraw MD [address] [place] [address] PCP - General Internal Medicine 12/31/22 Team Status: Inactive Member Role Status Dates NON STAFF Primary Care Provider Active Start: December 13, 2024 End: December 13, 2024 German Mcgraw DO Attending Provider Active Sta rt: December 13, 2024 End: December 13, 2024 Container Repairer Relationship Specialty Start Date End Date German Mcgraw DO [address] [place] [address] PCP - General Internal Medicine 12/31/22 Container Repairer Relationship Specialty Start Date End Date German Mcgraw DO [address] [place] [address] PCP - General Internal Medicine 12/31/22 Container Repairer Relationship Specialty Start Date End Date LucienGermanDO [address] [place] [phone] PCP - General Internal Medicine 12/31/22 Goals [...] BE BASED ON THE PRIMARY CLINICAL RECORDS. [employer] provides no warranty or guarantee of the accuracy or completeness of information in this document.
[2025-03-15 09:49] LABS: Hematocrit 39.8 % (36.0-48.0); Hemoglobin 13.1 g/dL (12.0-16.0); Immature Granulocytes Abs Auto 0.01 10^3/uL (0.00-0.03); Immature Granulocytes Pct Auto 0.2 % (0.0-0.5); Lymphocytes Absolute Auto 1.8 10^3/uL (1.2-3.8); Mean Corpuscular HGB Conc 32.9 g/dL (29.9-35.2); Mean Corpuscular Hemoglobin 29.3 pg (26.7-34.0); Mean Corpuscular Volume 89.0 fL (81.0-99.0); Platelet Count 189 10^3/uL (150-450); Red Blood Count 4.47 10^6/uL (4.20-5.40); White Blood Count 5.2 10^3/uL (4.0-11.0)
[2025-03-15 10:06] LABS: INR 1.05; Partial Thromboplastin Time 26.9 sec (22.3-36.2); Prothrombin Time 11.1 sec (9.0-11.6)
[2025-03-15 10:11] LABS: Alanine Aminotransferase 21 U/L (14-59); Albumin Globulin Ratio 1.1; Albumin Level 4.0 g/dL (3.4-5.0); Alkaline Phosphatase 71 U/L (46-116); Anion Gap 11.9; Aspartate Amino Transferase 15 U/L (15-37); Blood Urea Nitrogen 14.0 mg/dL (7.0-18.0); Calcium 8.9 mg/dL (8.5-10.1); Carbon Dioxide 28.9 mmol/L (21.0-32.0); Chloride 107 mmol/L (98-107); Estimated GFR (African America >60 (>=60 mL/min/1.73m^2); Estimated GFR (Non-African Ame >60 (>=60 mL/min/1.73m^2); Globulin 3.5 g/dL; Glucose 88 mg/dL (74-106); Potassium 3.8 mmol/L (3.5-5.1); Sodium 144 mmol/L (136-145); Total Protein 7.5 g/dL (6.4-8.2)
== END 2025-03-15 08:57 | disposition home or self-care (01) ==
LOC: PST 08:58
PROVIDERS: PCP Internal Medicine; Visit Provider Obstetrics & Gynecology
DX: Z01.812 Encounter for preprocedural laboratory examination (principal); N92.0 Excessive and frequent menstruation with regular cycle; N94.10 Unspecified dyspareunia; N94.6 Dysmenorrhea, unspecified; R10.2 Pelvic and perineal pain
CPT/HCPCS: 80048; 80076; 85025; 85610; 85730; 86850; 86900; 86901

== ENCOUNTER 2025-03-28 06:19 | Day surgery (SDC) | payer OTHER, SELFPAY ==
[2025-03-15 09:30] VITALS: BP 114/78; PULSE 73; TEMP 36.4; O2SAT 98; BMI 22.2
[2025-03-28] VITALS (22 sets, daily range): BP systolic 85–109; BP diastolic 47–68; PULSE 56–79; TEMP 36.1–36.6; O2SAT 94–100; BMI 22.4
--- OUTSIDE RECORDS SUMMARY | 2025-03-28 06:21 | XMS_ITS | CCD ---
Author Organization [facility] Care Team Providers Care Network And Threat Support Specialist Name Role Phone GERMAN MCGRAW Unavailable Unavailable MARKER, YEMI Unavailable Unavailable MARKER, YEMI Unavailable Unavailable SEDRICK FRANCIS Unavailable Unavailable MARKER, YEMI Unavailable Unavailable NON, STAFF, Primary Care Provider UnavailJames Jordan Attending Provider [phone] German Mcgraw Unavailable NON STAFF Primary [...] physicia Propensity to adverse reactions 5 Comment:Done Briteseed Other Medications Current Medications Medication Drug Class(es) Dates Sig (Normalized) Sig (Original) busPIRone hydrochloride 10 mg oral tablet (18 sources) Start: 12-15-2022 take 1 tablet by [...] 11/07/2024 Discontinued take 1 capsule by mo [facility] once daily Venlafaxine HCl ER 150 [...] AUTO DIFFon BASOPHILS ABSOLUTE AUTO 0.1 [facility] Basophils/100 WBC (Bld) 1 % 0.2 - 2.0 % [facility] Eosinophils/100 WBC (Bld) 2.7 % 0.9 - 7.0 % [facility] Erythrocyte distribution width (RBC) [Ratio] 12.3 % 11.0 - 15.0 % [facility] Hematocrit (Bld) [Volume fraction] 39.8 % 36.0 - 48.0 % [facility] Hemoglobin (Bld) [Mass/Vol] 13.1 g/dL 12.0 - 16.0 g/dL [facility] IMMATURE GRANULOCYTES ABS AUTO 0.01 [facility] Immature granulocytes/100 WBC (Bld) 0.2 % 0.0 - 0.5 % [facility] LYMPHOCYTES ABSOLUTE AUTO 1.8 [facility] Lymphocytes/100 WBC (Bld) 35.1 % 20.5 - 60.0 % [facility] MCH (RBC) [Entitic mass] 29.3 pg 26.7 - 34.0 pg [facility] MCHC (RBC) [Mass/Vol] 32.9 g/dL 29.9 - 35.2 g/dL [facility] MCV (RBC) [Entitic vol] 89 fL 81.0 - 99.0 fL [facility] MONOCYTES ABSOLUTE AUTO 0.5 [facility] Monocytes/100 WBC (Bld) 9.7 % 1.7 - 12.0 % [facility] NEUTROPHILS ABSOLUTE AUTO 2.7 [facility] Neutrophils/100 WBC (Bld) 51.3 % 43.0 - 75.0 % [facility] Platelet mean volume (Bld) [Entitic vol] 10.5 fL 9.5 - 13.5 fL [facility] EO # 0.1 [facility] PLT 189 [facility] RBC 4.47 [facility] WBC 5.2 [facility] IGP,APTIMA HPV,AGE GDLNon AGE GDLN ACOG TESTING Note . [facility] Comment on above: TESTS RESULT FLAG U NITS REF RANGE LAB Clinician Provided Cytology Information Source.............Cervix;Endocervix No. of containers..01 ThinPrep Vial Age Robert JEFFREY Mindi... FLAG LEGEND: L-Low Normal,H-High Normal,LL-Alert Low,HH-Alert High <-Panic Low,>-Panic High,A-Abnormal,AA-Critical Abnormal Performed at: 01 =[address] [phone] Yun Atwood MD, HPV APTIMA Negative Negative [facility] Comment on above: This nucleic acid am plification test detects fourteen high- risk HPV types (16,18,31,33,35,39,45,51,52,56,58,59,66,68) without differentiation. Performed at: =[address] [id number] Plant Controller: Yun Atwood MD, Phone: [phone] Performed at: - [address] [id number] Plant Controller: Yun Atwood MD, Phone: [phone] IGP, APTIMA HPV, RFX 16/18,45 Note . [facility] Comment on above: TESTS RESULT FLAG UN ITS REF RANGE LAB DIAGNOSIS: 02 NEGATIVE FOR INTRAEPITHELIAL LESION OR MALIGNANCY. THIS SPECIMEN WAS RESCREENED PART OF OUR ICE GUARD TESTER PROGRAM. Specimen adequacy: 02 Satisfactory for evaluation. Endocervical and/or squamous metaplastic cells (endocervical component) are present. Performed by: 02 Tahira Peterson, Supervisory Cardiovascular Specialist ([facility]) QC reviewed by: 02 Rell Marks, Cardiovascular Specialist ([facility]) . 02 Note: Note 02 The Pap [...] <-Panic Low,>-Panic High,A-Abnormal,AA-Critical Abnormal Performed at: [address] [id number] Yun Atwood MD, BRUSH-SPATULA CERVIX ENDOCERVIX [facility] HCG ( test) Ql (U)o n 11-07-2024 Interpretation and review of laboratory results Normal [facility] Preg Test, Ur Negative Negative [facility] Urinalysis macro (dipstick) panel (U)on 11-07-2024 Bilirubin, UA Negative Negative - 4(70) +++ mg/dL [facility] Blood, UA Negative Negative - 50 Gerald/mcL [facility] Clarity, UA Clear [facility] Color, UA Yellow [facility] Glucose, UA Negative Negative - 1999(110) ++++ mg/dL [facility] Interpretation and review of laboratory results Abnormal [facility] Ketones, UA Negative Negative - 160(16) ++++ mg/dL [facility] Leukocytes, UA Negative Negative - 500+++ Andrew/mcL [facility] Nitrite, UA Negative Negative - Positive [facility] pH, UA 7.5 5 - 9 [facility] Protein, UA Trace Negative - 1999(20) ++++ mg/dL [facility] Spec Grav, UA 1.02 1 - 1.03 [facility] Urobilinogen, UA 0.2 0.2 - 12 mg/dL [facility] ALL CBC WITH AUTO DIFFon BASOPHILS ABSOLUTE AUTO 0.1 [facility] Basophils/100 WBC (Bld) 1.1 % 0.2 - 2.0 % [facility] Eosinophils/100 WBC (Bld) 2.3 % 0.9 - 7.0 % [facility] Erythrocyte distribution width (RBC) [Ratio] 11.9 % 11.0 - 15.0 % [facility] Hematocrit (Bld) [Volume fraction] 38.1 % 36.0 - 48.0 % [facility] Hemoglobin (Bld) [Mass/Vol] 12.4 g/dL 12.0 - 16.0 g/dL [facility] IMMATURE GRANULOCYTES ABS AUTO 0.00 [facility] Immature granulocytes/100 WBC (Bld) 0.0 % 0.0 - 0.5 % [facility] Interpretation and review of laboratory results Abnormal [facility] LYMPHOCYTES ABSOLUTE AUTO 2.3 [facility] Lymphocytes/100 WBC (Bld) 48.4 % 20.5 - 60.0 % [facility] MCH (RBC) [Entitic mass] 28.7 pg 26.7 - 34.0 pg [facility] MCHC (RBC) [Mass/Vol] 32.5 g/dL 29.9 - 35.2 g/dL [facility] MCV (RBC) [Entitic vol] 88.2 fL 81.0 - 99.0 fL [facility] MONOCYTES ABSOLUTE AUTO 0.5 [facility] Monocytes/100 WBC (Bld) 10.6 % 1.7 - 12.0 % [facility] NEUTROPHILS ABSOLUTE AUTO 1.8 [facility] Neutrophils/100 WBC (Bld) 37.6 % Low 43.0 - 75.0 % [facility] Platelet mean volume (Bld) [Entitic vol] 10.6 fL 9.5 - 13.5 fL [facility] EO # 0.1 [facility] PLT 202 [facility] RBC 4.32 [facility] WBC 4.7 [facility] Alanine aminotransferase [En zymatic activity/volume] in Serum or PlasmaOrdered By: Pradeep Osullivan on 10-14-2022 ALT [Catalytic activity/Vol] 8 U/L 7-52 [facility] Albumin [Mass/volume] in Ser um or Plasma by Bromocresol green (BCG) dye binding methoOrdered By: Pradeep Osullivan on 10-14-2022 Albumin BCG dye [Mass/Vol] 4.3 g/dL 3.5-5.7 [facility] Alkaline phosphatase [Enzyma tic activity/volume] in Serum or PlasmaOrdered By: Pradeep Osullivan on 10-14-2022 ALP [Catalytic activity/Vol] 62 U/L 34-104 [facility] Aspartate aminotransferase [ Enzymatic activity/volume] in Serum or PlasmaOrdered By: Pradeep Osullivan on 10-14-2022 AST [Catalytic activity/Vol] 15 U/L 13-39 [facility] Basophils Auto (Bld) [#/Vol] Ordered By: Pradeep Osullivan on 10-14-2022 Basophils (Bld) [#/Vol] 0.0 10*3/uL 0.0-0.2 [facility] Basophils/100 WBC Auto (Bld) Ordered By: Pradeep Osullivan on 10-14-2022 Basophils/100 WBC (Bld) 0.9 % . [facility] Bilirubin.total [Mass/volume ] in Serum or PlasmaOrdered By: Pradeep Osullivan on 10-14-2022 Bilirubin [Mass/Vol] 0.5 mg/dL 0.3-1.0 [facility] Calcium [Mass/volume] in Ser um or PlasmaOrdered By: Pradeep Osullivan on 10-14-2022 Calcium [Mass/Vol] 9.3 mg/dL 8.6-10.3 [facility] Carbon dioxide, total [Moles /volume] in Serum or PlasmaOrdered By: Pradeep Osullivan on 10-14-2022 CO2 [Moles/Vol] 28.0 mmol/L 21.0-31.0 [facility] Chloride [Moles/volume] in S sheila or PlasmaOrdered By: Pradeep Osullivan on 10-14-2022 Chloride [Moles/Vol] 106 mmol/L 98-107 [facility] Cholesterol [Mass/volume] in Serum or PlasmaOrdered By: Pradeep Osullivan on 10-14-2022 Cholesterol [Mass/Vol] 132 mg/dL 140-200 [facility] Comment on above: Chol less than 200 m g/dl low riskChol 201-239 mg/dl borderline riskChol 240 mg/dl and greater high risk Cholesterol in LDL Calc [Mas s/Vol]Ordered By: Pradeep Osullivan on 10-14-2022 Cholesterol in LDL [Mass/Vol] 68 mg/dL 0-100 [facility] Comment on above: LDL ATP III CLASSIFI CATIONLDL less than 100 mg/dL OptimalLDL 100-129 mg/dL Near or above optimalLDL 130-159 mg/dL Borderline highLDL 160-189 mg/dL HighLDL greater than 189 mg/dL Very high Cholesterol in VLDL Calc [Ma ss/Vol]Ordered By: Pradeep Osullivan on 10-14-2022 Cholesterol in VLDL [Mass/Vol] 10 mg/dL [facility] Creatinine [Mass/volume] in Serum or PlasmaOrdered By: Pradeep Osullivan on 10-14-2022 Creatinine [Mass/Vol] 0.83 mg/dL 0.60-1.20 [facility] Eosinophils Auto (Bld) [#/Vo l]Ordered By: Pradeep Osullivan on 10-14-2022 Eosinophils (Bld) [#/Vol] 0.0 10*3/uL 0.0-0.45 [facility] Eosinophils/100 WBC Auto (Bl d)Ordered By: Pradeep Osullivan on 10-14-2022 Eosinophils/100 WBC (Bld) 1.0 % . [facility] Erythrocyte distribution wid th Auto (RBC) [Ratio]Ordered By: Pradeep Osullivan on 10-14-2022 Erythrocyte distribution width (RBC) [Ratio] 13.2 % 11.9-15.3 [facility] Globulin Calc (S) [Mass/Vol] Ordered By: Pradeep Osullivan on 10-14-2022 Globulin (S) [Mass/Vol] 2.5 g/dL [facility] Glucose [Mass/volume] in Ser um or PlasmaOrdered By: Pradeep Osullivan on 10-14-2022 Glucose [Mass/Vol] 88 mg/dL 70-100 [facility] Hematocrit Auto (Bld) [Volum e fraction]Ordered By: Pradeep Osullivan on 10-14-2022 Hematocrit (Bld) [Volume fraction] 37.6 % 34.0-46.4 [facility] Hemoglobin [Mass/volume] in BloodOrdered By: Pradeep Osullivan on 10-14-2022 Hemoglobin (Bld) [Mass/Vol] 12.4 g/dL 11.8-15.4 [facility] Leukocytes [#/volume] correc coral for nucleated erythrocytes in Blood by Automated counOrdered By: Pradeep Osullivan on 10-14-2022 WBC corrected for nucl RBC Auto (Bld) [#/Vol] 4.2 10*3/uL 3.8-11.6 [facility] Lymphocytes Auto (Bld) [#/Vo l]Ordered By: Pradeep Osullivan on 10-14-2022 Lymphocytes (Bld) [#/Vol] 1.4 10*3/uL 1.00-4.8 [facility] Lymphocytes/100 WBC Auto (Bl d)Ordered By: Pradeep Osullivan on 10-14-2022 Lymphocytes/100 WBC (Bld) 32.7 % . [facility] MCH Auto (RBC) [Entitic mass ]Ordered By: Pradeep Osullivan on 10-14-2022 MCH (RBC) [Entitic mass] 28.4 pg 24.7-34.3 [facility] MCHC Auto (RBC) [Mass/Vol]Or dered By: Pradeep Osullivan on 10-14-2022 MCHC (RBC) [Mass/Vol] 32.9 g/dL 32.0-35.0 [facility] MCV Auto (RBC) [Entitic vol] Ordered By: Pradeep Osullivan on 10-14-2022 MCV (RBC) [Entitic vol] 86.3 fL 80-100 [facility] Monocytes Auto (Bld) [#/Vol] Ordered By: Pradeep Osullivan on 10-14-2022 Monocytes (Bld) [#/Vol] 0.3 10*3/uL 0.0-0.8 [facility] Monocytes/100 WBC Auto (Bld) Ordered By: Pradeep Osullivan on 10-14-2022 Monocytes/100 WBC (Bld) 7.8 % . [facility] Neutrophils Auto (Bld) [#/Vo l]Ordered By: Pradeep Osullivan on 10-14-2022 Neutrophils (Bld) [#/Vol] 2.4 10*3/uL 1.8-7.7 [facility] Neutrophils/100 WBC Auto (Bl d)Ordered By: Pradeep Osullivan on 10-14-2022 Neutrophils/100 WBC (Bld) 57.6 % . [facility] No Panel InformationOrdered By: Pradeep Osullivan on 10-14-2022 Estimated GFR (CKD-EPI) > 60.0 mL/Min [facility] Creatinine Clearance (Chem N/A [facility] Nucleated erythrocytes [Pres ence] in Blood by Automated countOrdered By: Pradeep Osullivan on 10-14-2022 Nucleated RBC Auto Ql (Bld) 0.1 /100{WBC} 0-0.5 [facility] Platelet mean volume Auto (B ld) [Entitic vol]Ordered By: Pradeep Osullivan on 10-14-2022 Platelet mean volume (Bld) [Entitic vol] 8.8 fL 6.3-10.7 [facility] Platelets Auto (Bld) [#/Vol] Ordered By: Pradeep Osullivan on 10-14-2022 Platelets (Bld) [#/Vol] 197 10*3/uL 150-450 [facility] Potassium [Moles/volume] in Serum or PlasmaOrdered By: Pradeep Osullivan on 10-14-2022 Potassium [Moles/Vol] 4.4 mmol/L 3.5-5.1 [facility] Protein [Mass/volume] in Ser um or PlasmaOrdered By: Pradeep Osullivan on 10-14-2022 Protein [Mass/Vol] 6.8 g/dL 6.4-8.9 [facility] RBC Auto (Bld) [#/Vol]Ordere d By: Pradeep Osullivan on 10-14-2022 RBC (Bld) [#/Vol] 4.36 10*6/uL 3.60-5.00 [facility] Serum or plasma albumin/glob ulin mass ratioOrdered By: Pradeep Osullivan on 10-14-2022 Albumin/Globulin [Mass ratio] 1.7 {ratio} [facility] Serum or plasma anion gap de terminationOrdered By: Pradeep Osullivan on 10-14-2022 Anion gap [Moles/Vol] 9.4 mmol/L 6.0-15.0 [facility] Serum or plasma high density lipoprotein (HDL) cholesterol measurementOrdered By: Pradeep Osullivan on 10-14-2022 Cholesterol in HDL [Mass/Vol] 54 mg/dL 35-85 [facility] Comment on above: HDL CHOL ATP-III CLA SSIFICATION Cardiovascular RiskHDL > or equal to 60 mg/dL LOWHDL < 40 mg/dL HIGH Serum or plasma total choles terol/high density lipoprotein (HDL) cholesterol mass ratOrdered By: Pradeep Osullivan on 10-14-2022 Cholesterol.total/Carey sterol in HDL [Mass ratio] 2.4 {ratio} <5.0 [facility] Sodium [Moles/volume] in Ser um or PlasmaOrdered By: Pradeep Osullivan on 10-14-2022 Sodium [Moles/Vol] 139 mmol/L 136-145 [facility] Thyrotropin [Units/volume] i n Serum or PlasmaOrdered By: Pradeep Osullivan on 10-14-2022 TSH Qn 1.78 m[IU]/L 0.45-5.33 [facility] Triglyceride [Mass/volume] i n Serum or PlasmaOrdered By: Pradeep Osullivan on 10-14-2022 Triglyceride [Mass/Vol] 52 mg/dL 0-149 [facility] Comment on above: TRIG ATP III CLASSIF ICATIONTRIG less than 150 mg/dL NormalTRIG 150-199 mg/dL Borderline highTRIG 200-500 mg/dL High TRIG greater than 500 mg/dL Very highStandard traceable to the Center for Disease Conrtrol and Prevention (CDC) test method. Urea nitrogen [Mass/volume] in Serum or PlasmaOrdered By: Pradeep Osullivan on 10-14-2022 Urea nitrogen [Mass/Vol] 10 mg/dL 7-25 [facility] WBC Auto (Bld) [#/Vol]Ordere d By: Pradeep Osullivan on 10-14-2022 WBC (Bld) [#/Vol] 4.2 10*3/uL 3.8-11.6 [facility] PAP [id number] 02-17-2022 Cytology report Cyto stain Doc (Cvx/Vag) Note Invalid Interpretation Code [facility] Comment on above: Result Comment: TEST S RESULT FLAG UNITS REF RANGE LAB Clinician Provided Cytology Information Source.............Endocervix No. of containers..01 ThinPrep Vial DIAGNOSIS: 01 NEGATIVE FOR INTRAEPITHELIAL LESION OR MALIGNANCY. Specimen adequacy: 01 Satisfactory for evaluation. Endocervical and/or squamous metaplastic cells (endocervical component) are present. Performed by: Kvng Florian, Deputy [employer] Marshal (ASCP) . 01 Note: Note 01 The [...] <-Panic Low,>-Panic High,A-Abnormal,AA-Critical Abnormal Performed at: [address] [id number] Yun Atwood MD, Performed By: #### 3 [id number] #### [facility] [address] [place] [address] HPV 16+18+31+33+35+39+45+51 +52+56+58+59+66+68 DNA Probe+sig amp Ql (Cvx) Negative Invalid Interpretation Code Negative [facility] Comment on above: Result Comment: This nucleic acid amplification test detects fourteen high-risk HPV types (16,18,31,33,35,39,45,51,52,56,58,59,66,68) without differentiation. Performed at: [facility] [id number] MD Angelic Malcolm Performed at: =[address] [id number] MD Angelic Malcolm Performed By: #### 3 [id number] #### [facility] [address] [place] [address] Coding Summary.on 02-16-2022 Coding Summary. [id number] G h0bWw+PGhlYWQ+OY3SVVI lV11spVDjzD1JW4yFYP8O AAJOPNNYGK0QLS5xqSF1R XjfF0MtdbFt TbdhmSWtEJ11YAq6DFM0f BcoWRwfxL9rgSMrK9l2Qn UaJY04cA99GPepUXHrAbP 3LjZpbjsgbWFy S2suHsKpbAAzZju+PHRhY mxlIHdpZHRoPScxMDAlJy WyjYejKY1lLg8eFEBhBID vbGxhcHNlOiBj j9vgSSKnPGacWZ7tcUgoJ 7MuuPQ5WKUfh8q6Vr34kJ I+RIAgWBR7iMphTLsrt99 2AhOrr8hkKXL9 sCJwFKdwKLW7O06zi7J2G VBkVGNgHLI0tAJ6rX4ncC zxhocjC6JcxWFyBaL8CTL 0fXDnqT0oyCml vtdnjS4uQou+U66NHW3CT NAKJO4NYwl6I6AaMhymxA I+QO06EBPhHS45rJTyeGR lq2urvMh3SmSm VHIfZNC1bWouORkgv3AuN HEcN29qrSKog5X6YFSihT oftYClGtIxaGV7pR4lHVr epjaum5lemjpl Chngg6diew84zB62V98hH EkfLDUyMYL4YRHiGQDzuQ wiau1pbS0dHg0+OUoty4n ci7ookAa4ZhRo XRCwneDkmDfhTGA1i8BwW n47R5PaaPrnr6GxHxk1gf 60hHEma9N5fHQ1MIvmKZX voN5fTAaxLnH6 LRQrGbItdK90mFDzNYlsM k9laSoeyTqoPA6yYGRofx xfSAAhwR8aYPOatWXuxBr tAJ2uPZNypcho y811GjTyRAS3ZFYhbSMoD 7HueG0nBcJvZGPrLAZoD7 PesMAoJClcA078KSweGlW 9KUNlkdJaS4Bl MPAgzPtzEsP0z9D7Qn4Vw 0FgrmecPTV5MCmxPHI8Fu N9XhKwLlB2R1WzTdl7PVU izNsbQY0kX4Gj DVXuidpakamzuOD9EGEwS ZTrfE53nYGtROueHb5zm3 N9q753GFWlBHMvbM58Lf1 udDogMTBwdCBU pO2jsutoy9taczamCnSaF FFdCEn3XVt7MNYvhFcvSm CgFDC9HnF3SFO5qGGurI0 bfWmjbwadmZ0h Oyc+Y86scL1mVAF3BGG6y gytDMSmjkMwRU97RO74Z6 RyPjwvdGFibGU+PGRpdiB swGbkNJ3iIlRd d3ksw4YuHShvM3BuMTNaL RjhCqe7XOFnJMX0oLQ5rS 8iPRLiDPrip5W9yBT6N9V vjmFhxu1ql6hv EMZvKKvsO80qiABac5H4M BZlyII7NWIuyBalSdFnbV 93Oyc+CSAprRplb0IeGhz ex8ryn1pplCc9 GsZmGROstzEdjOjpGTM3g 2FzSl77F46eMQwcJNMmTQ XwVQTmEYHgoNbpaj3asF3 wIi8+PGNvbCB3 uBN8mS4aEACxFuN8ATfxE 931NuFkrHGoGclxx1kvf3 buoDh4VpKtXOZclrMhdQs qPSR1s4VeVd36 Z62hLLoxLGWbJUFzZCQtD KYrhFqgga5hpQ1lOn9+PC 9vn1eexu28zE31pJE+PHR tFDO4rEzpDQlt XBBmmW2lNGduHzY8HPOrX sWuuY02kALyUIejBw2biH pzvEruZO5wMHCeuapmk10 8UvGdg2acHHJo aYBtHWazCLJ7V09mi3H7J RJbEPDbLMK0wGM5zB9fbQ lnbjogbGVmdDsgdmVydGl bUOawMEpeR071 IHRvcDsnPlBhdGllbnQgT sWsKHa1G4NfAji6ULJboK cmOF9tsUYbFThwMk2ruVs vgSmrME7qPWQa iudjt273ZoMwr4lnATAyp JXwIFvnUUN0R81np1P0YR NvOFWtDTA9lBT4jN5yrUe nbjogbGVmdDsg wdBggTwuEIyaJZzcB570H HRvcDsnPkJpcnRoIERhdG E1RI83TD22vDPru5J8cJV 1O1QyLWHujplz behjsLX0NCQaPCRgaP67D y1hgHooTd6kZHIiQRR9ML UcwZRbJ9ThgD3dYnNuAMU xSXOqY2SjlJEz HFzqY151WXdjQqH3KUOhk eWjE1CnMXPzrQqpHpQ4g2 X6Ds0JV6B3PD85MM90jCY xq0V6uKM4T5Cg GQNuhttgfiqjnEI6AJYkN FStuH28Kq2rcEzxBo1gUO WmMMR6PKLffTFaG3EllL3 yOiAjMDAwMDAw Q4VqtZZoGHrqE055YRilA pG2LBVlxyGgF9YrYNPdnU rpRnQ4f7P9Dm4RUWf2XF9 4YU88gQFht3Q7 zOP5X7SjJTTluolboikjt AH8ZWKoQZRpbJ19He5dtW fcNx5sUDLrOPV2HUSceAN oU0QncQ7uFrVx UXVyUUFeA0CgfXSoYRxdS 992ZFyuBhN9SOQqxhKmJ7 JqSIHxbFuyXcX7c1U3Xn2 JBZYiCB23LXS0 dED8HJ75CB54V4PkPqppj GFibGU+PHRhYmxlIHdpZH RoPScxMDAlJyBzdHlsZT0 aBy5iIBJbZEJq wTbglLUmKpZlv2sqJTTlJ FunAK1rzRkgC9MiwEA5VJ Mxb5v3Sf63J13dV6HpxHT +MIQlyCI3gNF8 rB7nJcCuTeR6TNlzB401B rYbfTOpFcpkq4cwz7xroD u6QgQ4SWWucoMjpWflXTE 7s9NbBr61X50n IHdpZHRoPSIxNSUiIHZhb Aexuf3tfP0zPf7+PGNvbC T6fKD7kP7uKwTkYjB9RPn pP591TnYenYCr Bkdgb9oac2kydMj3JgEpZ OHvbjQdlWvyJPN4n8JtYn 12R7KgdXaph5ShNhr8jt7 0lEPrj4N5wCX9 V1CvFHTwsbpyuLJcnQqqF J4hDODcpbkbTDQrkN0kFA BzR3a2XiWpBfG1XWbqW1D qzlU5XBNwgZTa EHbiDZH3T65vp9K8JTOeQ MAfKVL3cKJ7mO1ldOmjjx ogbGVmdDsgdmVydGljYWw bTXqgU676GPMj uQsqEFXdjA9cNYYmyOOlh IakUY7lMGXisckoGzjJSJ zAEG8lVRJDWNBQLUX5J2B eWhl9HGGxpJzq FC3jiPZnSTkcZd6hmFhct HdeDD4vREClonlhWLMnkH 7dLARzvJXshMhqVZ0aLBG zozldf385FiIv ABD0NLWelEUyQ2WopP0bM dUlTRFxXQAyN1NceZApLA khR463WGuuSoQ5EMOimwR zH9KwTXMimMcy GzE7e3F6Pg2kUN0yZU8uM Vn6EM63ME92lDCus4W8qF M5I4LsARVcczqjmiavgOU 6NUFrWXIjfG47 wGYvQHtmBy5iv0G2o240Z XIeRQBatN28Uc4koHfiYI HgtXQEvM4ysdbfj0qrvlq gIzAwMDAwMDt0 PIs3KTOtcNabVtQfQOI0S nD2CFM3bRMwhO7orEvyic mthH5uBid+MzQgWWVhcnM 6S3LbZsq5CZPg rWscDY7ddFViVFwlBm9ti DaewUnzRU9iQGBwvcnxJX LwnB3cMLJcrCJtkBboSW7 bNCGbhvill607 FdVzQYJ0BJSgdGKmW7Vvw C0iEfRlUPQiHNIdE1BovJ RuVQlpJ415KTufZdV9IFH epvSxV0NrHFUu wXmmMrI0s9I9Bd5LLG3gk JR1G3BsOra0VKAfsOkhAF 4avOYzMIxaWo8xoXpsqPt tFM2qMMCkokgs DNWbuN8zQSEgfKFrvLqaR Z8rMFYlrcwxk825UlLvHS X7WJJagGSgG3UooS7wTcX oAYKxYSPwD2Lq yCEpYQhtT845SOmdByH2O MTrsnTuJ9JcCWDoaIevYq B6s7E5Yn7FQNQeJRXpvFQ kJjG4U7HcTszn dHI+IQ06HVVcRY45lKJlt ISel4qfgFl5LcTzZTJyWF G1nUadNOund0AcJDNbE52 kkGSvs2E1PYDn hAgomKQlUsUttNW2pJ7xU Iqbsjzgb0xtlgoeLovhz4 jzkr63jH95G00fIKccIIK oPSIzMCUiIHZh gUuram9wtD1lOt4+PGNvb TO3jVO3rJ9cCgYaGaP0CI vaZ268JdKbqINfSyrih9t wj1gnwHr4PoZs FLFswvQsrFnqOEG6n6HcN s60N19yTYmfNLKwPWIzDO PwJNRjzHmalo7zsV5lPr6 +CH3ht9qyqb57 sB70cQO+LKJvBJE5rHcoC XzrFPDstT6gGLbsPmD9XB UpFrEvyF68pBLqLQmuWe1 pjXjkfCmgCH1z MQHwghwtv841KzJwr7lrZ DMiwHDlZBsyMJP0U13ed9 C3ECMqBAHvSXA9jYW3yF4 hbGlnbjogbGVm dDsgdmVydGljYWwtYWxpZ 710WMKrkOapXsFvdUCqR7 jjbqJHDD1tGjucoXU+PHR xBBS8wDilMRhe TEGigN7fHZDeA6p8QbFxQ eI1ZOdwQ8KudoW3EFXetM QtVKVebYXByN3uqdwke2u vcjogIzAwMDAw MYb8ONq1JDKjsAvtQiWyY DX7MxJ2DSA2qOHbkY2ojB vqfmyqsN1qRil+RklOOjw vdGQ+PHRkIHN0 uTgeBJayTLMjiA0uRFUkM 5n8YyEnWwU8GIixW7Smpb C9UNOgcLHxTAFyqZXCnP5 jkhzkl0qvebjn EpImZYVeOXk8HVd6SREjd MftQiPsSLX2BhH6HDO2gG LvwF9faEkyeskyfJ5aUlh +TVJOOjwvdGQ+ XSYpVPU7lGhkXZchNADuk P3zTUPqQ5v6NgKkSxP1TW rpT4AnjeG3BSTkiEAvLEO tvWBFcD3mmjbw s6dmwvgpVwXlPLCuJEv2V Mw7IJRcfDioTaRuXNO2Zm W4AUO0kWDynZ7epLhaaaz beS1cPas+UGF5 RZW9ZM79DS67B5GxRpppn GFibGU+PHRhYmxlIHdpZH RoPScxMDAlJyBzdHlsZT0 xNo3sNHIuZOMv bGxh (more content not included)... Normal [facility] PAP [id number] 02-11-2022 Collection Technique BRUSH-SPATULA Normal F [facility] Comment on above: Performed By: #### 3 [id number] #### [facility] [address] [place] [address] Gynecological Body Site ENDOCERVIX Normal F [facility] Comment on above: Performed By: #### 3 [id number] #### [facility] [address] [place] [address] Previous Cytology Negative Normal [facility] Comment on above: Performed By: #### 3 [id number] #### [facility] [address] [place] [address] Previous Treatment NONE Normal [facility] Comment on above: Performed By: #### 3 [id number] #### [facility] [address] [place] [address] Physician Orderon 02-11-2022 Physician Order [id number]# 1.00CD:127 Normal [facility] CBC AUTO DIFFon 12-17-2017 Basophils Auto #/vol (Bld) 0.1 103/ul Normal 0.0-0.[address] [facility] Comment on above: Performed By: #### C BC ####[facility] [address] [place] [id number] Yuki Basophils/100 WBC Auto (Bld) 0.7 % Normal 0.2-2.[address] [facility] Comment on above: Performed By: #### C BC ####[facility] [id number] [place] [id number] Yuki Eosinophils 0.2 103/ul Normal 0.0-0.7 [facility] Comment on above: Performed By: #### C BC ####[facility] [address] [place], [place] [address]Jgpxao Yuki Eosinophils/100 leukocytes 2.7 % Normal 0.9-7.0 [facility] Comment on above: Performed By: #### C BC ####[facility] [address] [place] [id number] Yuki Erythrocyte distribution width Auto Ratio (RBC) 12.9 % Normal 11.0-15.[address] [facility] Comment on above: Performed By: #### C BC ####[facility] Bbmegohcbd9696 [place] [id number] Yuki Erythrocytes (RBC) 3.59 106/ul Critically low 4.20-5.40 T [facility] Comment on above: Performed By: #### C BC ####[facility] Wnksyiutgf2530 [place] [id number] Yuki Hematocrit (HCT) 31.1 % Critically low 36.0-48.[address] [facility] Comment on above: Performed By: #### C BC ####[facility] [address] [place] [address] Yuki Hemoglobin mass conc (Bld) 10.5 g/dL Critically low 12.0-16.[address] [facility] Comment on above: Performed By: #### C BC ####[facility] [address] [place] [address] Yuki IG # 0.02 10e3/ul Normal 0.00-0.[address] [facility] Comment on above: Performed By: #### C BC ####[facility] [address] [place] [address] Yuki IG % 0.3 % Normal 0.0-0.[address] [facility] Comment on above: Performed By: #### C BC ####[facility] [address]ot[address] [place] [address] Yuki Lymphocytes 2.3 103/ul Normal 1.2-3.[address] [facility] Comment on above: Performed By: #### C BC ####[facility] [address] [place] [address] Yuki Lymphocytes/100 leukocytes 33.2 % Normal 20.5-60.[address] [facility] Comment on above: Performed By: #### C BC ####[facility] [address] [place] [address] Yuki MANUAL DIFF REQ NO Normal [facility] Comment on above: Performed By: #### C BC ####[facility] S[address] [place] [address] Yuki MCH 29.2 pg Normal 26.7-34.0 [facility] Comment on above: Performed By: #### C BC ####[facility] Nejlufiobl15[address] [place] [id number] Mirza MCHC mass conc (RBC) 33.8 g/dL Normal 29.9-35.2 [facility] Comment on above: Performed By: #### C BC ####[facility] [address] [place], [place] [id number] Mirza MCV 86.6 fL Normal 81.0-99.0 [facility] Comment on above: Performed By: #### C BC ####[facility] [address] [place], [place] [address]Gerken Yuki Monocytes 0.6 103/ul Normal 0.3-0.8 [facility] Comment on above: Performed By: #### C BC ####[facility] [address] [place] [address] Yuki Monocytes/100 leukocytes 9.1 % Normal 1.7-12.[address] [facility] Comment on above: Performed By: #### C BC ####[facility] [address]ts[address] [place] [address] Yuki Neutrophils 3.8 103/ul Normal 1.4-6.5 [facility] Comment on above: Performed By: #### C BC ####[facility] [address] [place] [address] Yuki Neutrophils/100 WBC Auto (Bld) 54.0 % Normal 43.0-75.0 [facility] Comment on above: Performed By: #### C BC ####[facility] Of[address]rrqlnes[address] [place], [place] [address]Raquel Mirza Platelet mean volume (PMV) 10.1 fL Normal 9.5-13.5 [facility] Comment on above: Performed By: #### C BC ####[facility] R[address]bi[address] [place] [address] Yuki Platelets 207 103/ul Normal 150-450 [facility] Comment on above: Performed By: #### C BC ####[facility] Oqpkkhvypl9240 [place], [place] [address]Icmkdp Yuki WBC (Leukocytes) 7.0 103/ul Normal 4.0-11.0 [facility] Comment on above: Performed By: #### C BC ####[facility] Eryrglxpcj6999 [place], [place] [address]Zalsca Yuki PREG HCG QUALon 12-17-2017 , QUAL Positive Normal NEGATIVE [facility] Comment on above: Performed By: #### P REG ####[facility] I[address]wnway[address] [place], [place] [id number] Yuki PROF CHEM 8 (BAS METB)on Anion gap 9.6 mmol/L Normal [facility] Comment on above: Performed By: #### B MP ####[facility] [address]wo[address]mbojx[address] [place], [place] [address]Gerken Yuki BUN/Creatinine Ratio 14.5 mg/mg Normal [facility] Comment on above: Performed By: #### B MP ####[facility] M[address] [place], [place] [address]Gerken Yuki Calcium 10.0 mg/dL Normal 8.4-10.2 [facility] Comment on above: Performed By: #### B MP ####[facility] G[address] [place], [place] [address]Gerken Yuki Chloride 106 mmol/L Normal 98-107 [facility] Comment on above: Performed By: #### B MP ####[facility] [address]tr[address] [place], [place] [address]Gerken Yuki CO2 27.0 mmol/L Normal 22.0-30.0 [facility] Comment on above: Performed By: #### B MP ####[facility] [address] [place], [place] [address]Gerken Yuki Creatinine 0.72 mg/dL Normal 0.52-1.04 [facility] Comment on above: Performed By: #### B MP ####[facility] [address]vsw[address] [place], [place] [address]Gerken Yuki eGFR (non-black) mL/min/{1.73_m2} Normal >=60 Th [facility] Comment on above: Performed By: #### B MP ####[facility] Xyoffmgdfy34[address] [place] [id number] Yuki Glucose mass conc 92 mg/dL Normal 74-106 [facility] Comment on above: Performed By: #### B MP ####[facility] S[address]rn[address]cew[address] Yuki Potassium molar conc 3.7 mmol/L Normal 3.4-5.[address] [facility] Comment on above: Performed By: #### B MP ####[facility] R[address]clvrj[address] [place] [id number] Yuki Sodium 139 mmol/L Normal 137-[address] [facility] Comment on above: Performed By: #### B MP ####[facility] Uqmvsnqhoc0460 [place] [id number] Yuki Urea nitrogen 10.0 mg/dL Normal 7.0-17.0 [facility] Comment on above: Performed By: #### B MP ####[facility] [address]ajfzpf[address] [place], [place] [address]Wvydvn Yuki TYPE AND SCREENon 12-17-2017 TYPE AND SCREEN Negative Normal [facility] Comment on above: Performed By: #### T NS ####[facility] Rfqvwcudkg75[address] [place] [id number] Yuki US PELVISon 12-17-2017 US PELVIS [address] [place] [address] Patient: RADHA CONTRERAS Exam Date: 12/16/2017DOB: 1985 Gender:F : DR YEMI MCGARRY Admission #: [id number] : DR GERMAN MCGRAW Order #: [id number] HERE TO VIEW EXAM RADIOLOGY REPORT PROCEDURE: [...] Francis M.D. on 12/16/2017 at 23:[address] [facility] Vital Signs Date Time Vital Sign Value Performing Clinician Facility 02-27-2025 10:12-0400 Body mass index (BMI) [Ratio] 22.1 kg/m2 etrigg Work Phone: [facility] 02-27-2025 10:120400 Body weight 64.01 kg Dry Lube DO Work Phone: [facility] 02-27-2025 10:12-0400 Diastolic blood pressure 60 mm[Hg] etrigg Work Phone: [facility] 02-27-2025 10:12-0400 Systolic blood pressure 110 mm[Hg] Dry Lube DO Work Phone: [facility] 11-07-2024 10:32-0400 Body mass index (BMI) [Ratio] 22.15 kg/m2 etrigg Work Phone: [facility] 11-07-2024 10:32-0400 Body weight 64.14 kg etrigg Work Phone: [facility] 11-07-2024 10:32-0400 Diastolic blood pressure 68 mm[Hg] Pita Iman DO Work Phone: [facility] 11-07-2024 10:32-0400 Systolic blood pressure 110 mm[Hg] Pita Iman DO Work Phone: [facility] 04-02-2023 09:45-0400 Body height 167.64 cm German Ball Other [facility] Other 04-02-2023 09:45-0400 Body mass index (BMI) [Ratio] 25.69 kg/m2 German Ball Other [facility] Other 04-02-2023 09:45-0400 Body weight 72.21 kg German Ball Other [facility] Other 04-02-2023 09:45-0400 Diastolic blood pressure 70 mm[Hg] German Ball Other [facility] Other 04-02-2023 09:45-0400 Respiratory rate 12 /min German Ball Other [facility] Other 04-02-2023 09:45-0400 Systolic blood pressure 106 mm[Hg] German Ball Other [facility] Other 12-22-2022 14:45-0400 Body height 167.64 cm Marla Lewis Other [facility] Other 12-22-2022 14:45-0400 Body mass index (BMI) [Ratio] 25.01 kg/m2 Marla Lewis Other [facility] Other 12-22-2022 14:45-0400 Body weight 70.31 kg Marla Lewis Other [facility] Other 12-22-2022 14:45-0400 Diastolic blood pressure 76 mm[Hg] Marla Debbie Other [facility] Other 12-22-2022 14:45-0400 Systolic blood pressure 104 mm[Hg] Marla Debbie Other [facility] Other Encounters Encounter Date Encounter Type Care Provider Facility Start: 03-15-2025 End: 03-15-2025 Clinisync Result Encounter Pita Iman DO Work Phone: [facility] Unsolicited Start: 03-15-2025 End: 03-15-2025 Clinisync Result Encounter Pita Iman DO Work Phone: [facility] Unsolicited Start: 02-27-2025 End: 02-27-2025 Bamboo flowsheet Pita Iman DO Work Phone: [facility] Start: 02-27-2025 End: 03-02-2025 Bamboo flowsheet Pita Iman DO Work Phone: [facility] Start: 02-27-2025 End: 03-02-2025 Clinisync Result Encounter Pita Iman DO Work Phone: [facility] Unsolicited Start: 02-27-2025 End: 02-27-2025 Patient encounter procedure Pita Iman DO Work Phone: [facility] Work Phone: Start: 02-27-2025 End: 02-27-2025 Periodic preventive med est patient 18-39 yrs Pita Iman DO Work Phone: [facility] OBOTTONIELN Comment on above: Well woman exam with routine gynecological exam; Pre-operative exam; Pelvic pain; Menorrhagia with regular cycle; Dysmenorrhea; Dyspareunia in female Start: 02-27-2025 End: 02-27-2025 Preprocedural examination done Pita Iman DO Work Phone: [facility] Start: 02-27-2025 End: 02-27-2025 ambulatory PITA IMAN Not Available Start: 12-13-2024 End: 12-13-2024 ambulatory [facility] Work Phone: Start: 12-13-2024 End: 12-13-2024 Patient encounter procedure [facility] Work Phone: Start: 11-07-2024 End: 11-07-2024 Bamboo [...] Start: 05-09-2024 End: 05-09-2024 ambulatory NON STAFF [facility] Work Phone: Start: 05-09-2024 End: 05-09-2024 Patient encounter procedure [facility] [address] Work Phone: Start: 03-31-2024 End: 03-31-2024 Patient encounter procedure [facility] Work Phone: Start: 08-20-2023 Clinisync Result Encounter Pita Iman DO Work Phone: [facility] Unsolicited Start: 08-20-2023 Clinisync Result Encounter Pita Iman DO Work Phone: [facility] Unsolicited Start: 04-02-2023 End: 04-02-2023 ambulatory German Mcgraw Other [facility] Other Start: 09-22-2023 Encounter for genera l adult medical examination without abnormal findings German Mcgraw [facility] Start: 04-02-2023 Periodic preventive med est patient 18-39 yrs German Mcgraw [facility] Start: 02-19-2023 End: 02-19-2023 ambulatory German Mcgraw Other [facility] Other Start: 02-19-2023 Telephone encounter German SIFUENTES [facility] Start: 02-11-2023 End: 02-11-2023 ambulatory German Mcgraw Other [facility] Other Start: 02-11-2023 Telephone encounter German SIFUENTES [facility] Start: 01-14-2023 End: 01-14-2023 ambulatory German Mcgraw Other [facility] Other Start: 01-14-2023 Office outpatient vi sit 15 minutes German Mcgraw [facility] Start: 12-24-2022 End: 12-24-2022 ambulatory Marla Lewis Other [facility] Other Start: 12-24-2022 Telephone encounter Marla Lewis [facility] Start: 12-23-2022 End: 12-23-2022 ambulatory Marla Lewis Other [facility] Other Start: 12-23-2022 Telephone encounter Marla Lewis [facility] Start: 12-22-2022 End: 12-22-2022 ambulatory Marla Lewis Other [facility] Other Start: 12-22-2022 Office outpatient vi sit 15 minutes Marla Lewis [facility] Start: 12-14-2022 End: 12-14-2022 ambulatory German Mcgraw Other [facility] Other Start: 12-14-2022 Telephone encounter German SIFUENTES [facility] Start: 11-17-2022 End: 11-17-2022 ambulatory German Mcgraw Other [facility] Other Start: 11-17-2022 Telephone encounter German Mcgraw [facility] Start: 10-14-2022 End: 10-14-2022 ambulatory NON STAFF [facility] Work Phone: Start: 10-14-2022 End: 10-14-2022 Departed Referred [facility]-Employee Benefit Screening Start: 07-17-2022 (FPG VCS) [facility] Scheduled German Mcgraw [facility] Start: 07-17-2022 End: 07-17-2022 ambulatory German Mcgraw Other [facility] Other Start: 07-15-2022 End: 07-15-2022 ambulatory German Mcgraw Other [facility] Other Start: 07-15-2022 Telephone encounter German Mcgraw No rt [employer] Start: 04-24-2022 Adult health examination Omar Mcgraw Other [facility] Other Start: 08-15-2020 End: 08-15-2020 Discharged Recurring STAFF, NON [facility]-Covid Vaccine Start: 12-17-2017 End: 12-17-2017 Ambulatory GERMAN MCGRAW Facility:H1 Procedures Date Procedure Procedure Detail Performing Clinician Start: 03-15-2025 ALL CBC WITH AUTO DIFF Pita Iman DO Work Phone: Start: 02-27-2025 IGP,APTIMA HPV,AGE GDLN Pita Iman DO Work Phone: Start: 11-07-2024 Urnls dip stick/tabl et rgnt non-auto w/o micrscp Pita Iman DO Work Phone: Start: 08-20-2023 ALL CBC WITH AUTO DIFF Pita Iman DO Work Phone: Start: 05-26-2023 Microscopic observat ion [Identifier] in Cervix by Cyto stain Pita Iman DO Work Phone: Depression screening Bettina Mcgraw Other Plan of Treatment Date Care Activity Detail Author Start: 05-26-2028 Screening for malign ant neoplasm of cervix [facility] Start: 05-09-2025 End: 05-09-2025 Patient encounter procedure 05/09/2025 8:30 AM EDT Office Visit [facility] OBOTTONIELN [address] [place] [phone] Magalie Clarke PA [address] [place], [place] [id number] [facility] Start: 04-04-2025 End: 04-04-2025 Patient encounter procedure 04/04/2025 10:50 AM EDT Office Visit TRAVIS JOHNSONN [address] [place] [phone] Pita Valerio, DO [address] [place], [facility] Start: 03-12-2025 Influenza vaccination Influenza Vacc ine (#1) [facility] Start: 03-06-2025 End: 03-06-2025 Patient encounter procedure 03/06/2025 9:20 AM EDT Office Visit [facility] [address] [facility] [address] [place] [phone] Pita Valerio, DO [address] [place], [place] [id number] [facility] Start: 02-27-2025 End: 02-27-2025 Patient encounter procedure 02/27/2025 10:00 AM EDT Office Visit TRAVIS Foreman OBOTTONIELN [address] [place] [address] Pita Valerio, DO [address] [place], [place] [phone] Arrived [facility] Comment on above: Arrived Start: 10-14-2022 [facility] Cytology Cervical or vaginal smear or scraping study Pap Smear Pathology and Cytology Routine Well woman exam with routine gynecological exam Ordered: 02/27/2025 [facility] Work Phone: Comment on above: Ordered: 02/27/2025 Human papilloma viru s DNA [Presence] in Unspecified specimen by Probe with amplification HPV DNA probe, amplified Microbiology Routine Well woman exam with routine gynecological exam Ordered: 02/27/2025 [facility] Comment on above: Ordered: 02/27/2025 [facility] Immunizations Immunization Date Immunization Notes Care Provider Fa jovon 05-09-2024 influenza virus vaccine, unspecified formulation Pita Valerio DO Work Phone: [facility] 07-15-2021 COVID-19 Vaccine Pfi zer - Documentation Purposes Only German Mcgraw Other [facility] 08-15-2020 COVID-19 mRNA-1273 (Moderna) STAFF, [facility] 07-18-2020 COVID-19 mRNA-1273 (Moderna) STAFF, [facility] Payers Date Payer Category Payer Private Health Insurance [employer] [id number] 2024 Unknown [id number] 2024 Private Health Insurance [id number] 2024 Self-pay [id number] 2023 Managed Care HMO (unspecified) BENJA YOUSIF [id number] 2023-Present [address] [place] [address] HMO [id number] 1985 Unknown [id number] 1985 Unknown [id number] 1959 Private Health Insurance [id number] [facility] [id number] [id number] [id number] Unknown Ben[employer] BC/BS [id number] Unknown [id number] Social History Date Type Detail [facility] Start: 1985 Sex Assigned At Female [facility] Start: 02-19-2023 End: 10-31-2024 Sex Assigned At [facility] Other Start: 12-31-2022 Tobacco smoking status NHIS [...] 12-30-2022 Sexual orientation Heterosexual (finding) [facility] Tobacco smoking stat us NHIS Unknown if ever smoked [facility] Work Phone: Start: 12-13-2024 Sex Female (finding) [facility] Goals Date Patient Goal Desired Activity /State Clinical Notes 07-17-2022 to 02-27-2025 Mariella Nelson - 02/27/2025 10:00 AM EDTYuki ESTER Chappell - 11/07/2024 10:10 AM EDT Note Date [...] on 03-28-[address] Valerio at [facility]. MEDICATIONS Current Outpatient Medications Medication Instructions [...] nursing note reviewed. Exam conducted with a machine biller present. Vitals: Estimated body mass index is [...] reviewed, and patient is to proceed to [facility] OR. Follow Up: Patient is to follow up at 1 & 6 weeks post operative to assess proper healing and recovery from procedure. Documented by Yuki Chappell LPN on behalf of: Pita Valerio DO documented in this encounter [facility] 11-07-2024 History of Presen t illness Narrative [...] nursing note reviewed. Exam conducted with a machine biller present. Vitals: Estimated body mass index is [...] Pita Valerio DO documented in this encounter [facility] 04-02-2023 Evaluation note Encounter Date Diagnosis Assessment [...] and keep acitive. PRN use of Buspar [facility] Other 07-06-2023 Evaluation note* Encounter Date Diagnosis Assessment Notes Treatment Notes Treatment Clinical Notes Jan, Acute non-recurrent maxillary sinusitis (ICD-10 - J01.00) Instructed to use Robitussin or Mucinex for cough, saline or Flonase NS for congestion, Tylenol for pain and fever. [facility] Other 06-13-2023 Evaluation note* Encounter Date Diagnosis Assessment Notes Treatment Notes Treatment Clinical Notes Dec, Acute pain of right knee (ICD-10 - M25.561) Pt has been taking NSAIDs. Requests referral to Dr Esposito. XR order printed. PT order printed on 12/24. [facility] Other 06-05-2023 Evaluation note* Encounter Date Diagnosis Assessment Notes Treatment Notes Treatment Clinical Notes Dec, TIRSO (generalized anxiety disorder) (ICD-10 - F41.1) [facility] Other 05-09-2023 Evaluation note* Encounter Date Diagnosis Assessment Notes Treatment Notes Treatment Clinical Notes November, Fever blister (ICD-10 - B00.1) [facility] Other 01-06-2023 Evaluation note* Encounter Date Diagnosis Assessment Notes Treatment Notes Treatment Clinical Notes Jul, Migraine with aura and without status migrainosus, not intractable (ICD-10 - G43.109) Stable w/o exacerbation w/ acute illness Jul, Acute bronchitis due to other specified organisms (ICD-10 - J20.8) Instructed to use Robitussin or Mucinex for cough, saline or Flonase NS for congestion, Tylenol for pain and fever. [facility] Other Evaluation noteNo InformationNort Mozy Other evaluation noteNo assessment information available [facility] Work Phone: Evaludywmg note* Diagnosis Onset Date Resolution Status Acute sinusitis acute Seasonal allergic rhinitis a cute [facility] Work Phone: Evalutdtiz note* Diagnosis Abnormal uterine bleeding (AUB) [facility] Diagnosis Well woman exam with routine gynecological exam Routine gynecological examination Pre-operative exam Unspecified pre-operative examination Pelvic pain Menorrhagia with regular cycle Dysmenorrhea Dyspareunia in female documented in this encounter [facility] Narrative - Reported* Type Description Date Surgical History Right knee arthroscopy 2010 [facility] Other Histwla general Narrative - Reported* Type Description Date Surgical History Right knee arthroscopy 2010 Surgical History Right knee arthroscopy 2022 [facility] Other Hisbrez general Narrative - Reported* Type Description Date Medical History Migraine with aura a nd without status migrainosus, not intractable Medical History TIRSO (generalized anxiety disorde r) Surgical History Right knee arthroscopy 2010 Surgical History Right knee arthroscopy 2022 Hospitalization History see surgical hx [facility] Other Summary Purpose Family History Relationship Condition Age at Onset Recorded Date/T ever mother Hypertension Unknown Advance Directives Advance Directive Response Recorded Date/ Time Advance Directives No December 13 11:10am Advance Directive Response Recorded Date/ Time Advance Directives No December 13 11:37am Chief Complaint and Reason for Visit Chief Complaint COVID vaccine Chief Complaint Employee Benefit scr eerosangela Chief Complaint [phone] sinus i nfection Z23 Reason for Visit Acute sinusitis Seasonal allergic rhinitis Chief Complaint Admit Date allergy shot December 13, 2024 11:38 am Assessments No Assessments Information Available Reason for Referral Reason 12/31/22 former pt - previously did surgery on R knee in 2012. Diagnosis 1 Acute pain of right knee (M25.561) Referral Organization [facility] ernie Referring Provider First Name Marla Referring Provider Last Name Debbie Referring Provider Specialty Family [facility] Referred Organization [facility] Referred Provider Ferdinand Esposito Jr. Referred Address ,[place], [place],[address] Referred Provider Specialty Orthopedic S urgery Referral [...] DATE CREATED AUTHOR AUTHOR'S ORGANIZ ATION 03/06/2022 [facility] DATE CREATED AUTHOR AUTHOR'S ORGANIZ ATION 05/15/2024 [facility] DATE CREATED AUTHOR AUTHOR'S ORGANIZ ATION 02/28/2025 [facility] d[facility] Specialists EPIC REASON FOR VISIT (unrecogniz ed section and content) Reason Comments Discuss Hysterectomy Reason Comments Well Women Visit Pre-op Visit Care Teams (unrecognized sec tion and content) Team Status: Active Member Role Status Dates NON STAFF Primary Care Provider Active Team Status: Inactive Member Role Status Dates NON STAFF Primary Care Provider Active Pradeep Osullivan DO [facility] Attending Provider Active [employer] And Threat Support Specialist Relationship Specialty Start Date End Date German Mcgraw MD [address] [place] [id number] PCP - General Internal Medicine 12/31/22 Team [...] End: May 09, 2024 Pradeep Osullivan - [facility] DO [facility] Attending Provider Active Start: May 09, 2024 End: May 09, 2024 [employer] Threat Support Specialist Relationship Specialty Start Date End Date German Mcgraw MD PCP - General Internal Medicine 12/31/22 [employer] Specialist Relationship Specialty Start Date End Date German Mcgraw MD [address] [place] [phone] PCP - General Internal Medicine 12/31/22 Team Status: Inactive Member Role Status Dates NON STAFF Primary Care Provider Active Start: December 13, 2024 End: December 13, 2024 German Mcgraw DO Attending Provider Active Sta rt: December 13, 2024 End: December 13, 2024 [employer] Threat Support Specialist Relationship Specialty Start Date End Date German Mcgraw DO [address] [place] [phone] PCP - General Internal Medicine 12/31/22 [employer] And Threat Support Specialist Relationship Specialty Start Date End Date German Mcgraw DO [address] [place], [place] [id number] PCP - General Internal Medicine 12/31/22 [employer] Specialist Relationship Specialty Start Date End Date Greman Mcgraw DO [address] [place] [id number] PCP - General Internal Medicine 12/31/22 Goals [...] BE BASED ON THE PRIMARY CLINICAL RECORDS. [facility]. provides no warranty or guarantee of the accuracy or completeness of information in this document.
[2025-03-28 06:29] LABS: Hematocrit 38.5 % (36.0-48.0); Hemoglobin 12.9 g/dL (12.0-16.0); Immature Granulocytes Abs Auto 0.01 10^3/uL (0.00-0.03); Immature Granulocytes Pct Auto 0.2 % (0.0-0.5); Lymphocytes Absolute Auto 2.5 10^3/uL (1.2-3.8); Mean Corpuscular HGB Conc 33.5 g/dL (29.9-35.2); Mean Corpuscular Hemoglobin 29.8 pg (26.7-34.0); Mean Corpuscular Volume 88.9 fL (81.0-99.0); Platelet Count 207 10^3/uL (150-450); Red Blood Count 4.33 10^6/uL (4.20-5.40); White Blood Count 6.3 10^3/uL (4.0-11.0)
[2025-03-28] MEDS: SCOPOLAMINE 1 MG/3 DAYS TRANSDERM PATCH 1 PATCH TD (07:22)
[2025-03-28] MEDS: FAMOTIDINE/PF 20 MG/2 ML VIAL IV (07:22)
[2025-03-28] MEDS: CEFAZOLIN SODIUM 1 GM/50 ML D5W PREMIX IV (07:29)
--- NOTE | 2025-03-28 09:23 | P.ON_ITS ---
Brief Operative Note Date of procedure: 03/28/25 Pre-op diagnosis general: failed ablation, menorrhagia, pelvic pain, dysparuen ia, dysmenorrhea Post-op diagnosis: same as pre-op Procedure: NAME OF PROCEDURE: ? Robotic assisted laparoscopic hysterectomy with cystoscopy, bilateral salpingectomy PROCEDURE:? The patient was taken back to the operating room, where she was prepped and byron ped in the normal sterile fashion after being placed in the dorsal lithotomy position.? Patient?s anesthesia was found to be adequate.? Surgical timeout was performed using two patient identifiers.? SCDs were on and in place.? Two grams of Ancef were given prior to the surgery.? Sterile Houser catheter was inserted.? Standard size VCare was secured to the uterine cervix and the surgeon changed gloves.? Attention then was turned to the patient's abdomen, where a supraumbilical incision was then made.? Two S retractors were used to identify the patient?s fascia.? The fascia was then tented up using Monalisa clamps and the patient?s fascia was incised sharply.? Patient?s abdomen was identified and entered bluntly.? The patient had the trocar placed and a pneumoperitoneum was obtained.? Approximately 4 liters of CO2 gas was used.? The camera was then placed through the trocar.? At this time, two robot trocars were placed in the patient?s left and right side, two hand widths from the midline, and this was placed under direct visualization.? The patient?s tube on the right side was tented up and the vessel sealer was then used to come across the mesosalpinx, and this was carried down to the uterine ovarian ligament.? The vessel sealer was carried down serially to the broad ligament, to the area of the bladder flap, which was then created anteriorly, and the uterine arteries were skeleto nized and sealed using the vessel sealer.? The colpotomy was made using the monopolar cautery on cut, and this was carried circumferentially, posteriorly to anteriorly, until the uterus was amputated.? The specimen was then removed intact through the vagina, without difficulty.? The vagina was then closed using two running V-Loc in a non-lock fashion.? The robot was undocked.? The abdomen was desufflated.? The skin defects were closed using 4-0 Vicryl.? Please note, the fascia was closed using 0 Vicryl.? Sponge, lap and needle counts were correct x2.? Patient was taken to recovery room in stable condition.? The patient was awakened by Anesthesia first.? Patient tolerated procedure well.??Please note left ovarian cystectomy was performed using the vessel sealer Anesthesia: ISA Surgeon: Jin Valerio Quiller Machine Fixer: Tala Cancino Estimated blood loss (mL): 50 Pathology: other (uterus, cervix and tubes) Condition: stable Disposition: PACU Urinary Catheter Management Urinary Catheter Management Urethral: Cath placed during this visit: no
[2025-03-28] MEDS: CEFAZOLIN SODIUM/DEXTROSE,ISO 2 GM/50 ML PIGGYBACK IV (13:15)
[2025-03-28] MEDS: DOCUSATE SODIUM 100 MG CAPSULE PO (13:16)
[2025-03-28] MEDS: OXYCODONE HCL/ACETAMINOPHEN 5MG/325MG 2 TAB PO (13:16)
[2025-03-28 16:00] LABS: Hematocrit 35.9 % (36.0-48.0); Hemoglobin 12.2 g/dL (12.0-16.0); Mean Corpuscular HGB Conc 34.0 g/dL (29.9-35.2); Mean Corpuscular Hemoglobin 30.1 pg (26.7-34.0); Mean Corpuscular Volume 88.6 fL (81.0-99.0); Platelet Count 186 10^3/uL (150-450); Red Blood Count 4.05 10^6/uL (4.20-5.40); White Blood Count 10.5 10^3/uL (4.0-11.0)
[2025-03-28 16:27] LABS: Lymphocytes Absolute Manual 1.47 10^3/uL (1.20-3.80); Lymphocytes Percent Manual 14.0 % (20.5-60.0); Segmented Neut Absolute Manual 9.03 10^3/uL (1.4-6.5); Segmented Neutrophils % Manual 86.0 (43.0-75.0)
[2025-03-28 16:28] LABS: Basophils Abs Manual 0.00 10^3/uL (0.00-0.10); Basophils Percent Manual 0.0 % (0.2-2.0); Eosinophils Absolute Manual 0.00 10^3/uL (0.00-0.70); Eosinophils Percent Manual 0.0 % (0.9-7.0); Monocytes Absolute Manual 0.00 10^3/uL (0.30-0.80); Monocytes Percent Manual 0.0 % (1.7-12.0)
== END 2025-03-28 16:38 | disposition home or self-care (01) ==
LOC: SURGOUT 09:33 → MS 11:07
PROVIDERS: PCP Internal Medicine; Visit Provider Obstetrics & Gynecology
PROC: (CPT 840; principal; 2025-03-28 07:30)
DX: N92.0 Excessive and frequent menstruation with regular cycle (principal); N94.10 Unspecified dyspareunia; N94.6 Dysmenorrhea, unspecified; R10.2 Pelvic and perineal pain; N88.8 Other specified noninflammatory disorders of cervix uteri; N83.8 Other noninflammatory disorders of ovary, fallopian tube and broad ligament; J45.909 Unspecified asthma, uncomplicated; F41.9 Anxiety disorder, unspecified; F41.0 Panic disorder [episodic paroxysmal anxiety]
CPT/HCPCS: 58571; 36415; 84702; 85007; 85025; 85027; 94667; J0131; J0690; J1100; J1171; J1885; J2250; J2405; J2704; J3010; J3490